=== PATIENT | female | born 1955 | race African-American/Black ===

== ENCOUNTER 2017-09-29 12:51 | Outpatient (CLI) | payer MEDICARE, OTHER ==
[~2017-09-29 12:51] MED LIST: FERUMOXYTOL (ESRD) 510 MG/NS 100 ML IV PRN
[2017-09-29 14:15] VITALS: BP 168/76
== END 2017-09-29 15:18 | disposition home or self-care (01) ==
LOC: II 12:51 → 5TH 13:02 → II 15:18
PROVIDERS: ATTEND Internal Medicine Nephrology
PROC: 3E033GC Introduction of Other Therapeutic Substance into Peripheral Vein, Percutaneous Approach (ICD-10-PCS; principal; 2017-09-29)
DX: D50.8 Other iron deficiency anemias (principal); N18.9 Chronic kidney disease, unspecified
CPT/HCPCS: 96365; Q0139

== ENCOUNTER 2017-10-09 10:31 | Emergency (ER) | payer MEDICARE, OTHER ==
--- NOTE | 2017-10-09 11:17 | ER Document Report ---
ED GI/ - General Chief Complaint: Diarrhea Stated Complaint: DIARRHEA Time Seen by Provider: 10/09/17 11:11 Mode of Arrival: Stretcher Information source: Relative, Legal Guardian Cannot obtain history due to: Other Notes: HPI-62 years old female with a history of CVA with right-sided weakness walks with a walker. Presents today with 2 day history of loose stool described as dark brown stool. Associated with abdominal cramps. No fever chills nausea vomiting or other constitutional symptoms. REVIEW OF SYSTEMS: CONSTITUTIONAL : Denies fever, chills, or sweats. Denies recent illness. EENT: Denies eye, ear, throat, or mouth pain or symptoms. Denies nasal or sinus congestion or discharge. Denies throat, tongue, or mouth swelling or difficulty swallowing. CARDIOVASCULAR: Denies chest pain. Denies palpitations or racing or irregular heart beat. Denies ankle edema. RESPIRATORY: Denies cough, cold, or chest congestion. Denies shortness of breath, difficulty breathing, or wheezing. GASTROINTESTINAL: Denies nausea, vomiting, Denies blood in vomitus, stools, or per rectum. Denies black, tarry stools. Denies constipation. GENITOURINARY: Denies difficulty urinating, painful urination, burning, frequency, blood in urine, or discharge. FEMALE GENITOURINARY: Denies vaginal bleeding, heavy or abnormal periods, irregular periods. Denies vaginal discharge or odor. MUSCULOSKELETAL: Denies back or neck pain or stiffness. Denies joint pain or swelling. SKIN: Denies rash, lesions or sores. HEMATOLOGIC : Denies easy bruising or bleeding. LYMPHATIC: Denies swollen, enlarged glands. NEUROLOGICAL: Denies confusion or altered mental status. Denies passing out or loss of consciousness. Denies dizziness or lightheadedness. Denies headache. Denies weakness or paralysis or loss of use of either side. Denies problems with gait or speech. Denies sensory loss, numbness, or tingling. Denies seizures. PSYCHIATRIC: Denies anxiety or stress. Denies depression, suicidal ideation, or homicidal ideation. ALL OTHER SYSTEMS REVIEWED AND NEGATIVE. PHYSICAL EXAMINATION: GENERAL: Well-appearing, well-nourished and in no acute distress. Not in any acute distress. HEAD: Atraumatic, normocephalic. EYES: Pupils equal round and reactive to light, extraocular movements intact, conjunctiva are normal. ENT: Nares patent, oropharynx clear without exudates. Moist mucous membranes. NECK: Normal range of motion, supple without lymphadenopathy LUNGS: Breath sounds clear to auscultation bilaterally and equal. No wheezes rales or rhonchi. HEART: Regular rate and rhythm without murmurs ABDOMEN: Soft, palpable fecal mass in the left lower quadrant. Mild tenderness. Abdomen. No guarding, no rebound. No masses appreciated. Female : deferred Musculoskeletal: Normal range of motion, no pitting or edema. No cyanosis. NEUROLOGICAL: Alert oriented 3, a phasic PSYCH: Normal mood, normal affect. SKIN: Warm, Dry, normal turgor, no rashes or lesions noted. Dictation was performed using [employer] voice recognition software TRAVEL OUTSIDE OF THE [place] IN LAST 30 DAYS: No - Related Data Allergies/Adverse Reactions: No Known Allergies Allergy (Verified 10/09/17 10:50) Past Medical History - Social History Smoking Status: Never Smoker Frequency of alcohol use: None Drug Abuse: None Family History: Reviewed & Not Pertinent Patient has suicidal ideation: No Patient has homicidal ideation: No - Past Medical History Cardiac Medical History: Reports: Hx Congestive Heart Failure, Hx Coronary Artery Disease, Hx Heart Attack - 2010, Hx Hypercholesterolemia, Hx Hypertension Denies: Hx DVT, Hx Pulmonary Embolism Pulmonary Medical History: Reports: Hx Pneumonia - Intubated last year Denies: Hx Asthma, Hx Bronchitis, Hx COPD, Hx Tuberculosis Neurological Medical History: Reports: Hx Cerebrovascular Accident - Feb 2013 left sided weakness. Denies: Hx Seizures Endocrine Medical History: Reports: Hx Diabetes Mellitus Type 1, Hx Diabetes Mellitus Type 2 - IDDM. Denies: Hx Hyperthyroidism, Hx Hypothyroidism Renal/ Medical History: Reports: Hx Renal Insufficiency. Denies: Hx Peritoneal Dialysis Malignancy Medical History: Reports: Hx Renal (Kidney) Cancer GI Medical History: Reports: Hx Gastroesophageal Reflux Disease. Denies: Hx Cirrhosis, Hx Hepatitis Musculoskeltal Medical History: Denies Hx Arthritis Skin Medical History: Denies Hx Eczema, Denies Hx Psoriasis Psychiatric Medical History: Reports: Hx Dementia - Vascular dementia, Hx Depression Infectious Medical History: Denies: Hx Hepatitis Past Surgical History: Reports: Hx Cardiac Catheterization, Hx Coronary Stent, Hx Kidney (Renal Surgery) - right nephrectomy, Hx Orthopedic Surgery - tila knee , Hx Tonsillectomy, Hx Tubal Ligation. Denies: Hx Hysterectomy, Hx Pacemaker - Immunizations Hx Diphtheria, Pertussis, Tetanus Vaccination: Yes Hx Pneumococcal Vaccination: 07/18/14 Physical Exam - Vital signs Vitals: Temp Pulse Resp BP Pulse Ox 97.6 F 67 16 141/76 H 98 10/09/17 10:37 10/09/17 10:37 10/09/17 10:37 10/09/17 10:37 10/09/17 10:37 Course - Re-evaluation Re-evalutation: 10/09/17 13:00 Stable and unremarkable - Vital Signs Vital signs: Temp Pulse Resp BP Pulse Ox 97.6 F 67 16 141/76 H 98 10/09/17 10:37 10/09/17 10:37 10/09/17 10:37 10/09/17 10:37 10/09/17 10:37 - Laboratory Result Diagrams: 10/09/17 10:55 10/09/17 10:55 Laboratory results interpreted by me: 10/09/17 10/09/17 10:55 10:55 RBC 3.49 L Hgb 9.3 L Hct 28.8 L MCH 26.7 L Monocytes % 13.3 H Chloride 115 H Carbon Dioxide 19 L BUN 65 H Creatinine 5.05 H Est GFR ( Amer) 10 L Est GFR (Non-Af Amer) 9 L Glucose 119 H Calcium 8.2 L Total Protein 5.5 L Albumin 2.6 L - Diagnostic Test Radiology reviewed: Reports reviewed Radiology results interpreted by me: 10/09/17 13:00 Showed large amount of fecal material otherwise no air-fluid levels or distention of the bowel loop noted Discharge - Discharge Clinical Impression: Constipation by delayed colonic transit, Acute worsening of stage 3 chronic kidney disease Abdominal pain Qualifiers: Abdominal location: generalized Qualified Code(s): R10.84 - Generalized abdominal pain Condition: Fair Disposition: HOME, SELF-CARE Instructions: Bulk Laxatives Prescriptions: Lactulose 20 gm PO BID #240 solution
[2017-10-09 11:25] LABS: ABSOLUTE EOSINOPHILS # (AUTO) 0.1 10^3/uL (0.0-0.6); ABSOLUTE LYMPHOCYTES (AUTO) 1.5 10^3/uL (0.5-4.7); ABSOLUTE MONOCYTES (AUTO) 0.7 10^3/uL (0.1-1.4); ABSOLUTE NEUT (AUTO) 2.6 10^3/uL (1.7-8.2); EOSINOPHILS % (AUTO) 1.7 % (0-6); HEMATOCRIT 28.8 % (36.0-47.0); HEMOGLOBIN 9.3 g/dL (12.0-15.5); LYMPHOCYTES % (AUTO) 31.2 % (13-45); MEAN CORPUSCULAR HEMOGLOBIN 26.7 pg (27.0-33.4); MEAN CORPUSCULAR HGB CONC 32.4 g/dL (32.0-36.0); MEAN CORPUSCULAR VOLUME 83 fl (80-97); MONOCYTES % (AUTO) 13.3 % (3-13); PLATELET COUNT 247 10^3/uL (150-450); RED BLOOD COUNT 3.49 10^6/uL (3.72-5.28); RED CELL DISTRIBUTION WIDTH 13.3 % (11.5-14.0); SEGMENTED NEUTROPHILS % (AUTO) 52.8 % (42-78); TOTAL CELLS COUNTED % (AUTO) 100 %; WHITE BLOOD COUNT 4.9 10^3/uL (4.0-10.5)
[2017-10-09 11:40] LABS: ALANINE AMINOTRANSFERASE 34 U/L (9-52); ALBUMIN 2.6 g/dL (3.5-5.0); ALKALINE PHOSPHATASE 63 U/L (38-126); ANION GAP 8 (5-19); ASPARTATE AMINO TRANSFERASE 27 U/L (14-36); BILIRUBIN,DIRECT 0.3 mg/dL (0.0-0.4); BILIRUBIN,TOTAL 0.3 mg/dL (0.2-1.3); BLOOD UREA NITROGEN 65 mg/dL (7-20); CALCIUM 8.2 mg/dL (8.4-10.2); CARBON DIOXIDE 19 mmol/L (22-30); CHLORIDE 115 mmol/L (98-107); GLUCOSE 119 mg/dL (75-110); LIPASE 157.7 U/L (23-300); POTASSIUM 4.4 mmol/L (3.6-5.0); SODIUM 142.1 mmol/L (137-145); TOTAL PROTEIN 5.5 g/dL (6.3-8.2)
--- NOTE | 2017-10-09 11:41 | RADIOLOGY REPORT (SQ) ---
EXAM DESCRIPTION: KUB/ABDOMEN (SINGLE VIEW) COMPLETED DATE/TIME: 10/09/2017 11:31 am REASON FOR STUDY: Abdominal pain COMPARISON: None. NUMBER OF VIEWS: One view. TECHNIQUE: Supine radiographic image of the abdomen acquired. LIMITATIONS: None. FINDINGS: BOWEL GAS PATTERN: Normal bowel gas pattern. No dilated loops. CALCIFICATIONS: No suspicious calcifications. SOFT TISSUES: No gross mass or suggestion of organomegaly. HARDWARE: Surgical clips. BONES: No acute fracture. No worrisome bone lesions. OTHER: No other significant finding. IMPRESSION: NO RADIOGRAPHIC EVIDENCE FOR ACUTE ABDOMINAL DISEASE. TECHNICAL DOCUMENTATION: JOB ID: [id number] [employer]- All Rights Reserved Reading location - IP/workstation name: [email or web address]
[2017-10-09 13:21] VITALS: BP 158/78
== END 2017-10-09 13:29 | disposition home or self-care (01) ==
LOC: ER 10:31
DX: K59.01 Slow transit constipation (principal); I12.9 Hypertensive chronic kidney disease with stage 1 through stage 4 chronic kidney disease, or unspecified chronic kidney disease; E11.22 Type 2 diabetes mellitus with diabetic chronic kidney disease; N18.3 Chronic kidney disease, stage 3 (moderate); Z90.5 Acquired absence of kidney; R10.84 Generalized abdominal pain; I25.10 Atherosclerotic heart disease of native coronary artery without angina pectoris; I25.2 Old myocardial infarction; Z95.5 Presence of coronary angioplasty implant and graft
CPT/HCPCS: 36415; 74018; 80048; 80076; 83690; 85025; 99284

== ENCOUNTER 2018-02-18 01:56 | Inpatient (IN) | payer MEDICARE, OTHER ==
[2018-02-18] MEDS ORDERED: FENTANYL CITRATE INJ/PF 100 MCG/2 ML AMPUL IV ONE (02:50)
--- NOTE | 2018-02-18 03:58 | RADIOLOGY REPORT (SQ) ---
EXAM DESCRIPTION: XR HIP 2 OR MORE VIEWS COMPLETED DATE/TME: 02/18/2018 02:49 CLINICAL HISTORY: 63 years, Female, trauma COMPARISON: None. NUMBER OF VIEWS: 2 LIMITATIONS: None. FINDINGS: Comminuted fracture of the right femoral neck with 1.7 cm lateral displacement and moderate medial angulation. Right lower abdominal surgical clips. Atherosclerosis. IMPRESSION: Fracture of the right femoral neck.
--- NOTE | 2018-02-18 04:02 | RADIOLOGY REPORT (SQ) ---
EXAM DESCRIPTION: CT HEAD WITHOUT IV CONTRAST COMPLETED DATE/TME: 02/18/2018 03:04 CLINICAL HISTORY: 63 years Female, trauma COMPARISON: None. TECHNIQUE: No contrast. Coronal and sagittal reformat. This exam was performed according to our departmental dose-optimization program, which includes automated exposure control, adjustment of the mA and/or kV according to patient size and/or use of iterative reconstruction technique. FINDINGS: No hemorrhage or infarct. No mass, mass effect, or midline shift. Atherosclerosis, moderate encephalomalacia of predominantly the left parietal, temporal, and occipital lobes with ex vacuo enlargement of the posterior left lateral ventricle, mild parenchymal volume loss, mild white matter microangiopathy, and no suspicious interval change compared with prior CT and MRI, July 03, 2016. Brain and extra-axial structures appear otherwise intact. IMPRESSION: No acute findings. Chronic left cerebral infarct.
--- NOTE | 2018-02-18 04:13 | RADIOLOGY REPORT (SQ) ---
EXAM DESCRIPTION: XR CHEST 1 VIEW COMPLETED DATE/TME: 02/18/2018 03:50 CLINICAL HISTORY: 63 years Female, preop COMPARISON: May 05, 2016. NUMBER OF VIEWS/TECHNIQUE: 1/AP FINDINGS: Low lung volume, prominent interstitium, normal cardiac silhouette, atherosclerosis, and intact bony thorax. IMPRESSION: No acute cardiopulmonary findings.
--- NOTE | 2018-02-18 04:13 | RADIOLOGY REPORT (SQ) ---
EXAM DESCRIPTION: XR KNEE 3 VIEWS COMPLETED DATE/TME: 02/18/2018 02:49 CLINICAL HISTORY: 63 years, Female, trauma COMPARISON: None. NUMBER OF VIEWS: 3 LIMITATIONS: None. FINDINGS: Moderate right patellofemoral osteoarthritis includes moderate osteophytes and small subchondral lucency due to degenerative cyst or erosion, small effusion, small anterior tibial tubercle enthesophyte. IMPRESSION: No acute findings.
--- NOTE | 2018-02-18 04:39 | ER Document Report ---
ED General - General Chief Complaint: Fall Injury Stated Complaint: RIGHT LEG PAIN Time Seen by Provider: 02/18/18 02:28 Notes: Patient is a 63-year-old female with complaint of right hip pain after fall. Patient's does have history of atrial fibrillation. She is on Eliquis because of this. She denies any chest pain or shortness of breath. She denies any headache or neck pain or back pain. She denies any pain in her upper extremities. No pain in her abdomen. The only pain she has is in her right hip and right thigh. She denies any weakness or numbness into her feet. Family is at bedside. This a patient is unsteady on her feet and supposed to use a walker but frequently at nighttime she will try to go to the bathroom as opposed to using the bedside commode. When she does that she typically will fall. Family feels that this is what happened tonight and the patient also agrees that this is why she fell. Patient has history of renal insufficiency is followed by Dr. Chaparro Bullard. TRAVEL OUTSIDE OF THE [place] IN LAST 30 DAYS: No - Related Data Allergies/Adverse Reactions: No Known Allergies Allergy (Verified 10/09/17 10:50) Past Medical History - Social History Smoking Status: Unknown if Ever Smoked Frequency of alcohol use: None Drug Abuse: None Family History: Reviewed & Not Pertinent Patient has suicidal ideation: No Patient has homicidal ideation: No - Past Medical History Cardiac Medical History: Reports: Hx Congestive Heart Failure, Hx Coronary Artery Disease, Hx Heart Attack - 2010, Hx Hypercholesterolemia, Hx Hypertension Denies: Hx DVT, Hx Pulmonary Embolism Pulmonary Medical History: Reports: Hx Pneumonia - Intubated last year Denies: Hx Asthma, Hx Bronchitis, Hx COPD, Hx Tuberculosis Neurological Medical History: Reports: Hx Cerebrovascular Accident - Feb 2013 left sided weakness. Denies: Hx Seizures Endocrine Medical History: Reports: Hx Diabetes Mellitus Type 1, Hx Diabetes Mellitus Type 2 - IDDM. Denies: Hx Hyperthyroidism, Hx Hypothyroidism Renal/ Medical History: Reports: Hx Renal Insufficiency. Denies: Hx Peritoneal Dialysis Malignancy Medical History: Reports: Hx Renal (Kidney) Cancer GI Medical History: Reports: Hx Gastroesophageal Reflux Disease. Denies: Hx Cirrhosis, Hx Hepatitis Musculoskeletal Medical History: Denies Hx Arthritis Skin Medical History: Denies Hx Eczema, Denies Hx Psoriasis Psychiatric Medical History: Reports: Hx Dementia - Vascular dementia, Hx Depression Infectious Medical History: Denies: Hx Hepatitis Past Surgical History: Reports: Hx Cardiac Catheterization, Hx Coronary Stent, Hx Kidney (Renal Surgery) - right nephrectomy, Hx Orthopedic Surgery - tila knee , Hx Tonsillectomy, Hx Tubal Ligation. Denies: Hx Hysterectomy, Hx Pacemaker - Immunizations Hx Diphtheria, Pertussis, Tetanus Vaccination: Yes Hx Pneumococcal Vaccination: 07/18/14 Review of Systems - Review of Systems Notes: My Normal Review Basic REVIEW OF SYSTEMS: CONSTITUTIONAL : Denies fever, chills, or sweats. Denies recent illness. EENT: Denies eye, ear, throat, or mouth pain or symptoms. Denies nasal or sinus congestion. CARDIOVASCULAR: Denies chest pain. RESPIRATORY: Denies cough, cold, or chest congestion. Denies shortness of breath, difficulty breathing, or wheezing. GASTROINTESTINAL: Denies abdominal pain. Denies nausea, vomiting, or diarrhea. Denies constipation. Last BM: MUSCULOSKELETAL: Right hip pain SKIN: Denies rash or skin lesions. HEMATOLOGIC : On Eliquis. NEUROLOGICAL: Denies altered mental status or loss of consciousness. Denies headache. Denies weakness or paralysis or loss of use of either side. Denies problems with gait or speech. Denies sensory or motor loss. ALL OTHER SYSTEMS REVIEWED AND NEGATIVE. Physical Exam - Notes Notes: General Appearance: Well nourished, alert, cooperative, no acute distress, mild obvious discomfort. Vitals: reviewed, See vital signs table. Head: no swelling or tenderness to the head Eyes: PERRL, EOMI, Conjuctiva clear Mouth: No decreasd moisture Throat: No tonsillar inflammation, No airway obstruction, Neck: Supple, no neck tenderness Lungs: No wheezing, No rales, No rhonci, No accessory muscle use, good air exchange bilaterally. Heart: Normal rate, Regular rythm, No murmur, no rub Abdomen: Normal BS, soft, No rigidity, No abdominal tenderness, No guarding, no rebound, no abdominal masses, no organomegaly Extremities: strength 5/5 in all extremities, good pulses in all extremities, with palpation of her right hip. Mild pain to palpation just above right knee. Remainder of right lower extremity is nontender. Other 3 extremities are nontender and have full range of motion without pain., no edema. Skin: warm, dry, appropriate color, no rash Neuro: speech clear, oriented x 3, normal affect, responds appropriately to questions. Cranial nerves II through XII are intact. Distal sensation intact. Course - Re-evaluation Re-evalutation: 02/18/18 05:54 Unfortunately patient does have a right hip fracture. CT scan of the head is negative. Laboratory evaluation shows her chronic renal sufficiency but is otherwise unremarkable. I spoke with the family informed him of the findings. They are understanding of this. I did speak with the hospitalist, Dr. Pederson, agrees to admit the patient. - Laboratory Result Diagrams: 02/18/18 04:56 02/18/18 04:56 Laboratory results interpreted by me: 02/18/18 02/18/18 02/18/18 04:56 04:56 04:56 RBC 3.52 L Hgb 8.8 L Hct 27.1 L MCV 77 L MCH 25.0 L RDW 15.9 H Seg Neutrophils % 87.5 H Lymphocytes % 7.6 L PT 16.1 H Carbon Dioxide 19 L BUN 83 H Creatinine 4.71 H Est GFR ( Amer) 11 L Est GFR (Non-Af Amer) 9 L Glucose 192 H Direct Bilirubin 0.5 H - EKG Interpretation by Me Additional EKG results interpreted by me: 02/18/18 04:37 EKG is reviewed and interpreted by me. EKG shows regular sinus rhythm with a rate of [address] segment elevation or depression. No ischemic T-wave inversions. [place] interval, QRS duration QTc intervals are within normal range. Discharge - Discharge Clinical Impression: Hip fracture Qualifiers: Encounter type: initial encounter Fracture type: closed Laterality: right Qualified Code(s): S72.001A - Fracture of unspecified part of neck of right femur, initial encounter for closed fracture Condition: Stable Disposition: ADMITTED INPATIENT Admitting Provider: Hospitalist Unit Admitted: Telemetry Referrals: RAQUEL MINOR MD [Primary Care Provider] - Follow up as needed
[2018-02-18 05:17] LABS: ABSOLUTE LYMPHOCYTES (AUTO) 0.6 10^3/uL (0.5-4.7); ABSOLUTE MONOCYTES (AUTO) 0.3 10^3/uL (0.1-1.4); ABSOLUTE NEUT (AUTO) 7.1 10^3/uL (1.7-8.2); BASOPHILS % (AUTO) 0.5 % (0-2); EOSINOPHILS % (AUTO) 0.2 % (0-6); HEMATOCRIT 27.1 % (36.0-47.0); HEMOGLOBIN 8.8 g/dL (12.0-15.5); LYMPHOCYTES % (AUTO) 7.6 % (13-45); MEAN CORPUSCULAR HGB CONC 32.5 g/dL (32.0-36.0); MEAN CORPUSCULAR VOLUME 77 fl (80-97); MONOCYTES % (AUTO) 4.2 % (3-13); PLATELET COUNT 274 10^3/uL (150-450); RED BLOOD COUNT 3.52 10^6/uL (3.72-5.28); RED CELL DISTRIBUTION WIDTH 15.9 % (11.5-14.0); SEGMENTED NEUTROPHILS % (AUTO) 87.5 % (42-78); TOTAL CELLS COUNTED % (AUTO) 100 %; WHITE BLOOD COUNT 8.1 10^3/uL (4.0-10.5)
[2018-02-18 05:23] LABS: INTERNATIONAL RATION (INR) 1.22; PROTHROMBIN TIME 16.1 SEC (11.4-15.4)
[2018-02-18 05:24] LABS: PARTIAL THROMBOPLASTIN TIME 26.5 SEC (23.5-35.8)
[2018-02-18 05:35] LABS: ALANINE AMINOTRANSFERASE 14 U/L (9-52); ALBUMIN 3.6 g/dL (3.5-5.0); ALKALINE PHOSPHATASE 60 U/L (38-126); ANION GAP 13 (5-19); ASPARTATE AMINO TRANSFERASE 26 U/L (14-36); BILIRUBIN,DIRECT 0.5 mg/dL (0.0-0.4); BILIRUBIN,TOTAL 0.5 mg/dL (0.2-1.3); BLOOD UREA NITROGEN 83 mg/dL (7-20); CALCIUM 8.7 mg/dL (8.4-10.2); CARBON DIOXIDE 19 mmol/L (22-30); CHLORIDE 107 mmol/L (98-107); GLUCOSE 192 mg/dL (75-110); POTASSIUM 4.8 mmol/L (3.6-5.0); SODIUM 138.7 mmol/L (137-145); TOTAL PROTEIN 7.7 g/dL (6.3-8.2)
[2018-02-18] MEDS ORDERED: ONDANSETRON HCL INJ/PF 4 MG/2 ML SDV IV PRN (06:50)
--- NOTE | 2018-02-18 07:03 | PDOC H&P ---
History of Present Illness Admission Date/PCP: 02/18/18 05:58 RAQUEL MINOR MD Patient complains of: Fall and right hip pain History of Present Illness: MICHAEL BONILLA is a 63 year old female with past medical history of atrial fibrillation on Eliquis, chronic kidney disease not currently on dialysis, hypertension, CHF, CAD, diabetes, CVA with residual baseline speech difficulty who is currently living with family presents to the emergency room after mechanical fall and complaining of right hip pain. Patient normally uses a walker at home; she was trying to get out of bed and she fell. She complains of right leg and hip pain. No history of head trauma or LOC. Patient denies chest pain or shortness of breath or nausea vomiting or abdominal pain or fever or chills. On arrival to emergency room patient was awake alert oriented. Her vitals were stable. Her laboratory workup shows hemoglobin of 8.8 which is around her baseline. Her creatinine was 4.7. CT head showed no acute process except left sided remote infarct. X-ray of her hip shows right femoral neck fracture. Chest x-ray was unremarkable. EKG shows sinus rhythm. Patient was referred to hospital service for admission. Past Medical History Cardiac Medical History: Reports: Congestive Heart Failure, Coronary Artery Disease, Myocardial Infarction - 2011, Hyperlipidema, Hypertension Denies: DVT, Pulmonary Embolism Pulmonary Medical History: Reports: Pneumonia - Intubated last year Denies: Asthma, Bronchitis, Chronic Obstructive Pulmonary Disease (COPD), Tuberculosis Neurological Medical History: Denies: Seizures Endocrine Medical History: Reports: Diabetes Mellitus Type 1, Diabetes Mellitus Type 2 - IDDM Denies: Hyperthyroidism, Hypothyroidism Malignancy Medical History: Reports: Renal (Kidney) Cancer GI Medical History: Reports: Gastroesophageal Reflux Disease Denies: Cirrhosis, Hepatitis Musculoskeltal Medical History: Denies: Arthritis Skin Medical History: Denies: Eczema, Psoriasis Psychiatric Medical History: Reports: Dementia - Vascular dementia, Depression Hematology: Reports: Anemia Past Surgical History Past Surgical History: Reports: Cardiac Catheterization, Coronary Stent, Orthopedic Surgery - tila knee, Tonsillectomy, Tubal Ligation Denies: Hysterectomy, Pacemaker Social History Information Source: Patient, Relative Smoking Status: Unknown if Ever Smoked Frequency of Alcohol Use: None Hx Recreational Drug Use: No Hx Prescription Drug Abuse: No Family History Family History: Reviewed & Not Pertinent Parental Family History Reviewed: No Children Family History Reviewed: No Sibling(s) Family History Reviewed.: No Medication/Allergy Home Medications: Amlodipine Besylate 10 mg PO DAILY 07/03/16 Apixaban [Eliquis] 2.5 mg PO BID 07/03/16 Atorvastatin Calcium 80 mg PO DAILY 07/03/16 Calcium Carbonate/Vitamin D3 [Calcium 500-Vit D3 400 Tablet] 1 each PO BID 07/03 Carvedilol [Coreg] 1 tab PO Q12 07/03/16 Docusate Sodium [Colace 100 mg Capsule] 100 mg PO BID 07/03/16 Duloxetine HCl 60 mg PO DAILY 07/03/16 Esomeprazole Magnesium [Nexium] 40 mg PO DAILY 07/03/16 Ferrous Sulfate [Iron] 325 mg PO DAILY 07/03/16 Furosemide [Lasix 40 mg Tablet] 40 mg PO BID 07/03/16 Hydralazine HCl 25 mg PO TID 07/03/16 Lisinopril 10 mg PO DAILY 07/03/16 Potassium Chloride [Klor-Con 10] 10 meq PO DAILY 07/03/16 Acetaminophen [Tylenol 325 mg Tablet] 650 mg PO Q4HP PRN tablet 07/04/16 Lactulose 20 gm PO BID #240 solution 10/09/17 Allergies/Adverse Reactions: No Known Allergies Allergy (Verified 10/09/17 10:50) Review of Systems All systems: reviewed and no additional remarkable complaints except as stated Physical Exam General appearance: PRESENT: no acute distress, well-developed, well-nourished Head exam: PRESENT: atraumatic, normocephalic Eye exam: PRESENT: conjunctiva pink, EOMI, PERRLA. ABSENT: scleral icterus Ear exam: PRESENT: normal external ear exam Mouth exam: PRESENT: moist, tongue midline Neck exam: ABSENT: carotid bruit, JVD, lymphadenopathy, thyromegaly Respiratory exam: PRESENT: clear to auscultation tila. ABSENT: rales, rhonchi, wheezes Cardiovascular exam: PRESENT: RRR. ABSENT: diastolic murmur, rubs, systolic murmur GI/Abdominal exam: PRESENT: normal bowel sounds, soft. ABSENT: distended, guarding, mass, organolmegaly, rebound, tenderness Rectal exam: PRESENT: deferred Gentrourinary exam: ABSENT: ecchymosis, erythema, lacerations, lesions, scrotal swelling, testicular tenderness, urethral discharge, indwelling catheter, other Extremities exam: PRESENT: full ROM - Except right hip. ABSENT: calf tenderness , clubbing, pedal edema Musculoskeletal exam: PRESENT: other - Patient with slightly decreased range of motion and tenderness on palpation Neurological exam: PRESENT: alert, awake, oriented to person, oriented to place , oriented to time, oriented to situation, CN II-XII grossly intact, aphasic. ABSENT: motor sensory deficit Psychiatric exam: PRESENT: appropriate affect, normal mood. ABSENT: homicidal ideation, suicidal ideation Skin exam: ABSENT: rash Results Laboratory Results: All labs reviewed EKG Comments: Sinus rhythm with nonspecific ST-T changes. Impressions: Hip/Pelvis X-Ray 02/18/18 02:49 IMPRESSION: Fracture of the right femoral neck. Knee X-Ray 02/18/18 02:49 IMPRESSION: No acute findings. Head CT 02/18/18 03:04 IMPRESSION: No acute findings. Chronic left cerebral infarct. Chest X-Ray 02/18/18 03:50 IMPRESSION: No acute cardiopulmonary findings. Status: Image reviewed by me Assessment & Plan - Diagnosis (1) Hip fracture Qualifiers: Encounter type: initial encounter Fracture type: closed Laterality: right Qualified Code(s): S72.001A - Fracture of unspecified part of neck of right femur, initial encounter for closed fracture Is this a current diagnosis for this admission?: Yes Plan: Patient with right-sided femoral neck fracture due to mechanical fall. Patient will be admitted to hospitalist service for inpatient. Will consult orthopedic surgery patient will need surgical intervention. Risk benefits of surgery explained to patient and family. Continue as needed narcotics for pain control. (2) Coronary artery disease Qualifiers: Coronary Disease-Associated Artery/Lesion type: [place] artery [place] vs. transplanted heart: [place] heart Associated angina: without angina Qualified Code(s): I25.10 - Atherosclerotic heart disease of [place] coronary artery without angina pectoris Is this a current diagnosis for this admission?: No Plan: No active chest pain or shortness of breath; however due to significant cardiac history and patient will need preop cardiac evaluation. (3) Anticoagulant long-term use Is this a current diagnosis for this admission?: No Plan: Patient is currently on Eliquis which will be held at least 48 hours prior to surgery. (4) Atrial fibrillation Qualifiers: Atrial fibrillation type: chronic Qualified Code(s): I48.2 - Chronic atrial fibrillation Is this a current diagnosis for this admission?: No Plan: Patient is currently in sinus rhythm. Will hold Eliquis. (5) Chronic kidney disease (CKD) Is this a current diagnosis for this admission?: No Plan: Patient has a fistula in preparation for dialysis however she is currently not on dialysis. Creatinine at baseline. - Time Time Spent: 50 to 70 Minutes - Inpatient Certification Medical Necessity: Need Close Monitoring Due to Risk of Patient Decompensation, Need for Surgery
[2018-02-18] MEDS ORDERED: MORPHINE SULFATE 10 MG/ML INJ IV ONE (07:46)
[2018-02-18] MEDS: OXYCODONE-ACETAMINOPHEN 5-325 MG TABLET PO PRN ×2 (07:59→13:43)
[2018-02-18] MEDS: IPRATROPIUM/ALBUTEROL 0.5-2.5 MG/3 ML AMPUL NEB PRN (08:00)
--- NOTE | 2018-02-18 10:16 | PDOC CONSULTATION ---
History of Present Illness Admission Date/PCP: 02/18/18 05:58 RAQUEL MINOR MD Patient complains of: Right hip pain History of Present Illness: MICHAEL BONILLA is a 63 year old female with past medical history of atrial fibrillation on Eliquis, chronic kidney disease not currently on dialysis, hypertension, CHF, CAD, diabetes, CVA with residual baseline speech difficulty who is currently living with family presents to the emergency room after mechanical fall and complaining of right hip pain. Given patient's history of a aphasia unable to obtain full HPI but according to emergency room notes patient typically uses a walker at home and fell trying to get out of bed onto her right hip. She was brought to the emergency room due to these issues. Patient currently states pain is controlled at rest. Denies any other complaints. Able to answer questions with nonverbal cues of yes and no. On arrival to emergency room patient was awake alert oriented. Her vitals were stable. Her laboratory workup shows hemoglobin of 8.8 which is around her baseline. Her creatinine was 4.7. CT head showed no acute process except left sided remote infarct. X-ray of her hip shows right femoral neck fracture. Chest x-ray was unremarkable. EKG shows sinus rhythm. Patient was referred to hospital service for admission. Past Medical History Cardiac Medical History: Reports: Congestive Heart Failure, Coronary Artery Disease, Myocardial Infarction - 2011, Hyperlipidema, Hypertension Denies: DVT, Pulmonary Embolism Pulmonary Medical History: Reports: Pneumonia - Intubated last year Denies: Asthma, Bronchitis, Chronic Obstructive Pulmonary Disease (COPD), Tuberculosis Neurological Medical History: Denies: Seizures Endocrine Medical History: Reports: Diabetes Mellitus Type 1, Diabetes Mellitus Type 2 - IDDM Denies: Hyperthyroidism, Hypothyroidism Malignancy Medical History: Reports: Renal (Kidney) Cancer GI Medical History: Reports: Gastroesophageal Reflux Disease Denies: Cirrhosis, Hepatitis Musculoskeltal Medical History: Denies: Arthritis Skin Medical History: Denies: Eczema, Psoriasis Psychiatric Medical History: Reports: Dementia - Vascular dementia, Depression Hematology: Reports: Anemia Past Surgical History Past Surgical History: Reports: Cardiac Catheterization, Coronary Stent, Orthopedic Surgery - tila knee, Tonsillectomy, Tubal Ligation Denies: Hysterectomy, Pacemaker Social History Smoking Status: Unknown if Ever Smoked Frequency of Alcohol Use: None Hx Recreational Drug Use: No Hx Prescription Drug Abuse: No Family History Family History: Reviewed & Not Pertinent Parental Family History Reviewed: No Children Family History Reviewed: No Sibling(s) Family History Reviewed.: No Medication/Allergy Home Medications: Apixaban [Eliquis] 2.5 mg PO Q12 02/18/18 Atorvastatin Calcium [Lipitor 80 mg Tablet] 80 mg PO QHS 02/18/18 Calcium Carb/Vitamin D3/Vit K1 [Calcium + D Soft Chewable Tab] 1 tab PO BID 11/02 Carvedilol [Coreg 25 mg Tablet] 25 mg PO Q12 02/18/18 Docusate Sodium [Colace 100 mg Capsule] 100 mg PO BID 02/18/18 Duloxetine HCl [Cymbalta] 60 mg PO DAILY 02/18/18 Ergocalciferol (Vitamin D2) [Drisdol 50,000 unit (1.25MG) Capsule] 50,000 unit PO MO@1000 02/18/18 Esomeprazole Magnesium [Nexium] 40 mg PO DAILY 02/18/18 Furosemide [Lasix 40 mg Tablet] 40 mg PO DAILY 02/18/18 Hydralazine HCl [Apresoline 50 mg Tablet] 50 mg PO Q8 02/18/18 Isosorbide Mononitrate [Isosorbide Mononitrate ER] 30 mg PO Q12 02/18/18 Potassium Chloride [Klor-Con M10] 10 meq PO DAILY 02/18/18 Allergies/Adverse Reactions: No Known Allergies Allergy (Verified 10/09/17 10:50) Review of Systems ROS unobtainable: Other - Limited review of systems given patient's aphasia but able to answer yes and no nonverbally Constitutional: ABSENT: chills, fever(s), headache(s), weight gain, weight loss Eyes: ABSENT: visual disturbances Ears: ABSENT: hearing changes Cardiovascular: ABSENT: chest pain, dyspnea on exertion, edema, orthropnea, palpitations Respiratory: ABSENT: cough, hemoptysis Gastrointestinal: ABSENT: abdominal pain, constipation, diarrhea, hematemesis, hematochezia, nausea, vomiting Genitourinary: ABSENT: dysuria, hematuria Integumentary: ABSENT: rash, wounds Neurological: ABSENT: abnormal gait, abnormal speech, confusion, dizziness, focal weakness, syncope Psychiatric: ABSENT: anxiety, depression, homidical ideation, suicidal ideation Endocrine: ABSENT: cold intolerance, heat intolerance, menstrual abnormalities, polydipsia, polyuria Hematologic/Lymphatic: ABSENT: easy bleeding, easy bruising, lymphadenopathy Physical Exam Vital Signs: Temp Pulse Resp BP Pulse Ox 140/70 H 93 02/18/18 08:33 02/18/18 08:33 General appearance: PRESENT: no acute distress, well-developed, well-nourished Head exam: PRESENT: atraumatic, normocephalic Eye exam: PRESENT: conjunctiva pink, EOMI, PERRLA. ABSENT: scleral icterus Ear exam: PRESENT: normal external ear exam Mouth exam: PRESENT: moist, tongue midline Neck exam: PRESENT: full ROM. ABSENT: carotid bruit, JVD, lymphadenopathy, thyromegaly Respiratory exam: PRESENT: unlabored Cardiovascular exam: ABSENT: diastolic murmur, rubs, systolic murmur Pulses: PRESENT: normal dorsalis pedis pul, +2 pedal pulses bilateral Vascular exam: PRESENT: normal capillary refill GI/Abdominal exam: PRESENT: normal bowel sounds, soft. ABSENT: distended, guarding, mass, organolmegaly, rebound, tenderness Rectal exam: PRESENT: deferred Musculoskeletal exam: PRESENT: other - Right lower extremity: Limb length inequality with short next rotated extremity. Positive logroll. Minimal swelling along the thigh. Compartments soft and compressible. Intact plantar flexion/dorsiflexion however limited secondary to pain. No sensory deficits. Neurological exam: PRESENT: alert, awake, oriented to person, oriented to place , oriented to time, oriented to situation, aphasic. ABSENT: motor sensory deficit Psychiatric exam: PRESENT: appropriate affect, normal mood. ABSENT: homicidal ideation, suicidal ideation Skin exam: PRESENT: dry, intact, warm. ABSENT: cyanosis, rash Results Impressions: Hip/Pelvis X-Ray 02/18/18 02:49 IMPRESSION: Fracture of the right femoral neck. Knee X-Ray 02/18/18 02:49 IMPRESSION: No acute findings. Head CT 02/18/18 03:04 IMPRESSION: No acute findings. Chronic left cerebral infarct. Chest X-Ray 02/18/18 03:50 IMPRESSION: No acute cardiopulmonary findings. Status: Image reviewed by me - I have reviewed patient's radiographs which demonstrate displaced right femoral neck fracture. Assessment & Plan - Diagnosis (1) Displaced fracture of right femoral neck Is this a current diagnosis for this admission?: Yes Plan: Given patient's previous ambulatory status I feel patient would benefit from operative intervention. But given her Eliquis would recommend delay of operative intervention for at least 48 hours to decrease risk of intraoperative bleeding given patient's multiple other medical comorbidities. At this point will plan on proceeding with definitive operative treatment on 02/20/2018 if medically optimized. Surgery would include right hip hemiarthroplasty.
--- NOTE | 2018-02-18 10:44 | EKG REPORT ---
SEVERITY:- ABNORMAL ECG - SINUS RHYTHM NONSPECIFIC T ABNORMALITIES, LATERAL LEADS : Confirmed by: Lalo Martines 18-Feb-2018 10:43:37
[2018-02-18] MEDS ORDERED: DEXTROSE 50%-WATER 25 GM/50 ML DISP.SYRIN IV PRN ×2 (13:22)
[2018-02-18] MEDS ORDERED: DEXTROSE 40% GEL 15 GM TUBE PO PRN ×2 (13:22)
[2018-02-18] MEDS ORDERED: GLUCAGON,HUMAN RECOMB 1 MG INJ IM PRN (13:22)
[2018-02-18] MEDS ORDERED: HEPARIN SOD (PORCINE) 1,000 UNIT/ML 10 ML VIAL IV ONE (14:00)
[2018-02-18] MEDS: HEPARIN SODIUM,PORCINE/D5W 25,000 UNIT/250 ML RTUINJ IV PRN (14:52)
[2018-02-18 15:01] LABS: ABSOLUTE BASOPHILS # (AUTO) 0.1 10^3/uL (0.0-0.2); ABSOLUTE LYMPHOCYTES (AUTO) 0.8 10^3/uL (0.5-4.7); ABSOLUTE MONOCYTES (AUTO) 0.4 10^3/uL (0.1-1.4); ABSOLUTE NEUT (AUTO) 3.4 10^3/uL (1.7-8.2); BASOPHILS % (AUTO) 1.1 % (0-2); EOSINOPHILS % (AUTO) 0.5 % (0-6); HEMATOCRIT 26.2 % (36.0-47.0); HEMOGLOBIN 8.5 g/dL (12.0-15.5); LYMPHOCYTES % (AUTO) 16.9 % (13-45); MEAN CORPUSCULAR HEMOGLOBIN 24.9 pg (27.0-33.4); MEAN CORPUSCULAR HGB CONC 32.4 g/dL (32.0-36.0); MEAN CORPUSCULAR VOLUME 77 fl (80-97); MONOCYTES % (AUTO) 8.3 % (3-13); PLATELET COUNT 212 10^3/uL (150-450); RED BLOOD COUNT 3.41 10^6/uL (3.72-5.28); RED CELL DISTRIBUTION WIDTH 16.3 % (11.5-14.0); SEGMENTED NEUTROPHILS % (AUTO) 73.2 % (42-78); TOTAL CELLS COUNTED % (AUTO) 100 %; WHITE BLOOD COUNT 4.7 10^3/uL (4.0-10.5)
[2018-02-18 15:24] LABS: INTERNATIONAL RATION (INR) 1.34; PROTHROMBIN TIME 17.2 SEC (11.4-15.4)
[2018-02-18] MEDS ORDERED: HEPARIN SOD (PORCINE) 1,000 UNIT/ML 10 ML VIAL IV PRN (16:09)
--- NOTE | 2018-02-18 16:12 | Progress Note ---
Provider Note Provider Note: Assume care. Patient was reassessed. Patient has high CHADVASC score. She will need to begin anticoagulation while awaiting for surgery. She will be started on heparin drip. Discussed with cardiology who agrees with plan. Updated Dr. Jolley who prefers to hold the heparin 10-12 hours prior to surgery. Son updated about plan on bedside.
[2018-02-18] MEDS: INSULIN REG, HUMAN 100 UNIT/ML 3 ML VIAL (PYX) SUBCUT PRN ×2 (19:03→22:48)
--- NOTE | 2018-02-18 19:41 | XCELERA REPORT ---
[address] [address] Transthoracic Echocardiogram Report Name: MICHAEL BONILLA Age: 63 yrs Gender: Female : 1955 Patient Status: Inpatient Patient Location: [address] [place] [address] Study Date: 02/18/2018 01:49 PM Height: 66 in Weight: 176 lb BSA: 1.9 m2 Procedure: A two-dimensional transthoracic echocardiogram with color flow Doppler was performed. Study Quality: Good. Reason For Study: PA FIB / MURMUR / PRE-OP History: PA FIB / MURMUR / PRE-OP. Ordering Physician: JANEY MCINTOSH Performed By: Jose De Jesus Christianson Interpretation Summary The left ventricle is normal in size. There is mild concentric left ventricular hypertrophy. LV EF is > than 60% Left ventricular systolic function is normal. Doppler measurements suggest impaired left ventricular relaxation, which is associated with grade I/IV or mild diastolic dysfunction The left ventricular wall motion is normal. There is no thrombus. There is no ventricular septal defect visualized. The right ventricle is normal in size and function. The right atrium is normal. The left atrial size is normal. There is no evidence of mitral valve prolapse. There is no vegetation seen on the mitral valve. There is no mitral valve stenosis. There is a moderate amount of mitral regurgitation There is moderate mitral annular calcification. There is no aortic valvular vegetation. There is Aortic Sclerosis without Aortic Stenosis No aortic regurgitation is present. There is no tricuspid stenosis. There is a trace amount of tricuspid regurgitation Unable to calculate RVSP due to insufficient TR jet. There is no pulmonic valvular stenosis. There is a trace amount of pulmonic regurgitation The aortic root is normal size. There is no pericardial effusion. MMode/2D Measurements & Calculations RVDd: 2.3 cm LVIDd: 4.3 cm FS: 31.3 % Ao root diam: 3.5 cm IVSd: 1.3 cm LVIDs: 2.9 cm EDV(Teich): 82.1 ml LVPWd: 1.2 cm ESV(Teich): 33.4 ml Ao root area: 9.5 cm2 EF(Teich): 59.4 % LA dimension: 3.0 cm LVOT diam: 2.1 cm LVOT area: 3.6 cm2 Doppler Measurements & Calculations MV E max dwain: MV P1/2t max dwain: Ao V2 max: LV V1 max P.2 cm/sec 66.4 cm/sec 139.8 cm/sec 2.8 mmHg MV A max dwain: MV P1/2t: 96.5 msec Ao max PG: LV V1 max: 112.5 cm/sec MVA(P1/2t): 2.3 cm2 7.8 mmHg 83.3 cm/sec MV E/A: 0.55 MV dec slope: RAFAEL(V,D): 2.1 cm2 LV dP/dt: 201.5 cm/sec2 757.0 mmHg/s MV dec time: 0.28 sec PA V2 max: PI end-d dwain: 61.7 cm/sec 143.6 cm/sec PA max P.5 mmHg Left Ventricle The left ventricle is normal in size. There is mild concentric left ventricular hypertrophy. LV EF is > than 60%. Left ventricular systolic function is normal. Doppler measurements suggest impaired left ventricular relaxation, which is associated with grade I/IV or mild diastolic dysfunction. The left ventricular wall motion is normal. There is no thrombus. There is no ventricular septal defect visualized. Right Ventricle The right ventricle is normal in size and function. Atria The right atrium is normal. The left atrial size is normal. Mitral Valve There is moderate mitral annular calcification. There is no evidence of mitral valve prolapse. There is no vegetation seen on the mitral valve. There is no mitral valve stenosis. There is a moderate amount of mitral regurgitation. Aortic Valve The aortic valve is trileaflet. The aortic valve opens well. There is no aortic valvular vegetation. There is Aortic Sclerosis without Aortic Stenosis. No aortic regurgitation is present. Tricuspid Valve There is no tricuspid stenosis. Unable to calculate RVSP due to insufficient TR jet. There is a trace amount of tricuspid regurgitation. Pulmonic Valve There is no pulmonic valvular stenosis. There is a trace amount of pulmonic regurgitation. Great Vessels The aortic root is normal size. Effusions There is no pericardial effusion. : JANEY MCINTOSH > Janey Mcintosh
[2018-02-18] MEDS: INSULIN GLARGINE,HUM.REC.ANLOG 300 UNIT/3 ML INSULN.PEN SUBCUT SCH (22:46)
[2018-02-19] MEDS: OXYCODONE-ACETAMINOPHEN 5-325 MG TABLET PO PRN ×3 (04:24→22:33)
[2018-02-19] MEDS: INSULIN REG, HUMAN 100 UNIT/ML 3 ML VIAL (PYX) SUBCUT PRN ×4 (10:12→22:31)
[2018-02-19] MEDS: ACETAMINOPHEN 325 MG TABLET PO PRN (12:01)
[2018-02-19 12:44] LABS: AMORPHOUS SEDIMENT,URINE TRACE /HPF; APPEARANCE,URINE CLEAR; BILIRUBIN,URINE NEGATIVE (NEGATIVE); COLOR,URINE YELLOW; GLUCOSE, URINE 50 mg/dL (NEGATIVE); KETONES,URINE NEGATIVE (NEGATIVE); LEUKOCYTE ESTERASE,URINE NEGATIVE (NEGATIVE); NITRITE,URINE NEGATIVE (NEGATIVE); PROTEIN,URINE >=500 mg/dL (NEGATIVE); URINE SPECIFIC GRAVITY 1.012; UROBILINOGEN,URINE NEGATIVE mg/dL (<2.0)
[2018-02-19] MEDS ORDERED: DEXTROSE 40% GEL 15 GM TUBE PO PRN ×2 (13:47)
[2018-02-19] MEDS ORDERED: DEXTROSE 50%-WATER 25 GM/50 ML DISP.SYRIN IV PRN ×2 (13:47)
[2018-02-19] MEDS ORDERED: GLUCAGON,HUMAN RECOMB 1 MG INJ SUBCUT PRN (13:47)
--- NOTE | 2018-02-19 13:47 | PDOC PROGRESS REPORT ---
Subjective Progress Note for:: 02/19/18 Subjective:: Patient lying in bed comfortably. Pain currently controlled. No issues overnight. Reason For Visit: HIP FX Physical Exam Vital Signs: Temp Pulse Resp BP Pulse Ox 101.9 F H 89 20 188/78 H 95 02/19/18 11:22 02/19/18 11:22 02/19/18 11:22 02/19/18 11:22 02/19/18 11:22 Intake & Output 02/18/18 02/19/18 02/20/18 06:59 06:59 06:59 Intake Total 719 Balance 719 Weight 85.6 kg General appearance: PRESENT: no acute distress, disheveled Musculoskeletal exam: PRESENT: other - Right hip: Short and externally rotated positive logroll. Intact plantar flexion/dorsiflexion. No calf tenderness. Results Laboratory Results: 02/18/18 14:34 02/18/18 02/18/18 02/19/18 14:34 20:35 12:22 WBC 4.7 RBC 3.41 L Hgb 8.5 L Hct 26.2 L MCV 77 L MCH 24.9 L MCHC 32.4 RDW 16.3 H Plt Count 212 Seg Neutrophils % 73.2 Lymphocytes % 16.9 Monocytes % 8.3 Eosinophils % 0.5 Basophils % 1.1 Absolute Neutrophils 3.4 Absolute Lymphocytes 0.8 Absolute Monocytes 0.4 Absolute Eosinophils 0.0 Absolute Basophils 0.1 Urine Color YELLOW Urine Appearance CLEAR Urine pH 5.0 Ur Specific [place] 1.012 Urine Protein >=500 H Urine Glucose (UA) 50 H Urine Ketones NEGATIVE Urine Blood NEGATIVE Urine Nitrite NEGATIVE Ur Leukocyte Esterase NEGATIVE Urine WBC (Auto) 1 Urine RBC (Auto) 1 Blood Type A POSITIVE Antibody Screen NEGATIVE Impressions: Hip/Pelvis X-Ray 02/18/18 02:49 IMPRESSION: Fracture of the right femoral neck. Knee X-Ray 02/18/18 02:49 IMPRESSION: No acute findings. Head CT 02/18/18 03:04 IMPRESSION: No acute findings. Chronic left cerebral infarct. Chest X-Ray 02/18/18 03:50 IMPRESSION: No acute cardiopulmonary findings. Assessment & Plan - Diagnosis (1) Displaced fracture of right femoral neck Is this a current diagnosis for this admission?: Yes Plan: Patient would benefit from operative intervention however but given her use of Eliquis would recommend delay of operative intervention for at least 48 hours to decrease risk of intraoperative bleeding given patient's multiple other medical comorbidities, patient currently on heparin drip which will discontinue approximately 12 hours before surgery or after midnight. Current plan is proceeding with definitive operative treatment on 02/20/2018 if medically optimized. Surgery would include right hip hemiarthroplasty.
[2018-02-19] MEDS: ISOSORBIDE MONONITRATE 30 MG TAB.ER.24H PO SCH (13:54)
[2018-02-19] MEDS: HYDRALAZINE HCL 50 MG TABLET PO SCH ×2 (13:54→22:31)
--- NOTE | 2018-02-19 15:20 | PDOC PROGRESS REPORT ---
Subjective Progress Note for:: 02/19/18 Subjective:: Ms. Byrd was admitted after a mechanical fall. She sustained a right hip fracture. No acute event overnight. Patient denies any complaint. Hip pain is well controlled. Denies any cough, shortness of breath, chills or urinary symptoms. However around noontime, patient developed fever of 101.3. She is tolerating diet well. Reason For Visit: HIP FX Physical Exam Vital Signs: Temp Pulse Resp BP Pulse Ox 101.9 F H 89 20 188/78 H 95 02/19/18 11:22 02/19/18 11:22 02/19/18 11:22 02/19/18 11:22 02/19/18 11:22 Intake & Output 02/18/18 02/19/18 02/20/18 06:59 06:59 06:59 Intake Total 719 Balance 719 Weight 188 lb 11.451 oz General appearance: PRESENT: no acute distress, well-developed, well-nourished Head exam: PRESENT: atraumatic, normocephalic Eye exam: PRESENT: conjunctiva pink, EOMI, PERRLA. ABSENT: scleral icterus Neck exam: ABSENT: carotid bruit, JVD, lymphadenopathy, thyromegaly Respiratory exam: PRESENT: clear to auscultation tila. ABSENT: rales, rhonchi, wheezes Cardiovascular exam: PRESENT: RRR. ABSENT: diastolic murmur, rubs, systolic murmur Pulses: PRESENT: normal dorsalis pedis pul Vascular exam: PRESENT: normal capillary refill GI/Abdominal exam: PRESENT: normal bowel sounds, soft. ABSENT: distended, guarding, mass, organolmegaly, rebound, tenderness Rectal exam: PRESENT: deferred Extremities exam: ABSENT: calf tenderness, clubbing, pedal edema Neurological exam: PRESENT: alert, oriented to person, oriented to place, oriented to time Psychiatric exam: PRESENT: appropriate affect, normal mood. ABSENT: homicidal ideation, suicidal ideation Skin exam: PRESENT: dry, intact, warm. ABSENT: cyanosis, rash Results Laboratory Results: 02/18/18 14:34 02/18/18 02/19/18 20:35 12:22 Urine Color YELLOW Urine Appearance CLEAR Urine pH 5.0 Ur Specific [place] 1.012 Urine Protein >=500 H Urine Glucose (UA) 50 H Urine Ketones NEGATIVE Urine Blood NEGATIVE Urine Nitrite NEGATIVE Ur Leukocyte Esterase NEGATIVE Urine WBC (Auto) 1 Urine RBC (Auto) 1 Blood Type A POSITIVE Antibody Screen NEGATIVE Impressions: Hip/Pelvis X-Ray 02/18/18 02:49 IMPRESSION: Fracture of the right femoral neck. Knee X-Ray 02/18/18 02:49 IMPRESSION: No acute findings. Head CT 02/18/18 03:04 IMPRESSION: No acute findings. Chronic left cerebral infarct. Chest X-Ray 02/18/18 03:50 IMPRESSION: No acute cardiopulmonary findings. Assessment & Plan - Diagnosis (1) Displaced fracture of right femoral neck Is this a current diagnosis for this admission?: Yes Plan: Patient is scheduled to undergo a right hip hemiarthroplasty on 02/20/18. She was on Eliquis for atrial fibrillation. Eliquis will be held at least 48 hours prior to contemplating surgery. Patient is currently on heparin drip. (2) Atrial fibrillation Qualifiers: Atrial fibrillation type: chronic Qualified Code(s): I48.2 - Chronic atrial fibrillation Is this a current diagnosis for this admission?: Yes Plan: Rate controlled. Patient is currently on sinus rhythm on classroom monitor. Eliquis was held before surgery. Continue heparin drip for now. Continue Coreg. (3) Hypertension Qualifiers: Hypertension type: essential hypertension Qualified Code(s): I10 - Essential (primary) hypertension Is this a current diagnosis for this admission?: Yes Plan: Resume home meds. On hydralazine. She is also on ISMN. (4) Chronic diastolic CHF (congestive heart failure) Is this a current diagnosis for this admission?: Yes Plan: Continue Lasix, Coreg, ISMN and hydralazine. Patient is not on lisinopril or JEEVAN inhibitor due to her ESRD. Recent EF is more than 60%. (5) Fever Is this a current diagnosis for this admission?: Yes Plan: Patient has new onset fever with unknown etiology at the moment. We will also check urinalysis and blood cultures. Chest x-ray yesterday was normal. - Time Time Spent with patient: 15-24 minutes
[2018-02-19] MEDS: DOCUSATE SODIUM 100 MG CAPSULE PO SCH (17:51)
[2018-02-19] MEDS: HEPARIN SODIUM,PORCINE/D5W 25,000 UNIT/250 ML RTUINJ IV PRN (20:10)
[2018-02-19] MEDS: CARVEDILOL 12.5 MG TABLET PO SCH (22:30)
[2018-02-19] MEDS: ATORVASTATIN CALCIUM 80 MG TABLET PO SCH (22:31)
[2018-02-19] MEDS: INSULIN GLARGINE,HUM.REC.ANLOG 300 UNIT/3 ML INSULN.PEN SUBCUT SCH (22:31)
[2018-02-20 05:21] LABS: MEAN CORPUSCULAR HEMOGLOBIN 25.5 pg (27.0-33.4); MEAN CORPUSCULAR HGB CONC 33.5 g/dL (32.0-36.0); MEAN CORPUSCULAR VOLUME 76 fl (80-97); PLATELET COUNT 174 10^3/uL (150-450); RED BLOOD COUNT 3.02 10^6/uL (3.72-5.28); RED CELL DISTRIBUTION WIDTH 16.3 % (11.5-14.0); WHITE BLOOD COUNT 7.6 10^3/uL (4.0-10.5)
[2018-02-20 05:29] LABS: HEMOGLOBIN 7.7 g/dL (12.0-15.5)
[2018-02-20] MEDS: OXYCODONE-ACETAMINOPHEN 5-325 MG TABLET PO PRN (05:44)
[2018-02-20] MEDS: HYDRALAZINE HCL 50 MG TABLET PO SCH ×3 (05:44→22:41)
[2018-02-20] MEDS: LANSOPRAZOLE 30 MG TAB.RAP.DR PO SCH (06:27)
[2018-02-20] MEDS ORDERED: RINGERS SOLUTION,LACTATED 1,000 ML IV PRN ×2 (07:18→16:24)
[2018-02-20] MEDS ORDERED: VANCOMYCIN HCL 1,000 MG in DEXTROSE 5%-WATER 250 ML IV PRN (07:19)
--- NOTE | 2018-02-20 09:30 | CONSULTATION REPORT E ---
Consultation Report NAME: MICHAEL BONILLA : 1955 AGE: 63Y DATE: 02/19/2018 ROOM: 409 A TO: RODNEY MCINTOSH M.D. FROM: ABDIFATAH TOUSSAINT Requesting Physician REASON FOR CONSULTATION: Preoperative cardiac assessment for patient having hip surgery with a history of coronary artery disease, chronic kidney disease stage 4, history of congestive heart failure and paroxysmal atrial fibrillation, and history of CVA. HISTORY OF PRESENT ILLNESS: The patient is a 63-year-old -Indian female with multiple medical problems, including coronary artery disease, history of IN, history of stent in unknown vessel, hypertension, history of diabetes mellitus, history of hypertension, history of paroxysmal atrial fibrillation, history of chronic kidney disease stage 4 who was able to walk with a walker after her CVA. Since the CVA the patient is dysphasic and can only say yes for everything, so history cannot be obtained from the patient. I did speak to the son yesterday and as per him the patient was walking with a walker and had an accidental fall. There was no syncope. The patient complained of right hip pain and was found to have a fracture of the right hip and is for surgical repair of the same. The surgery has been rescheduled later on since the patient is on Eliquis and Eliquis has been stopped. In view of the patient's prior CVA the patient is on a heparin bridge. As per the son there is no recent complaints of chest pain, no recent complaints of shortness of breath, no recent rapid heartbeat, no recurrence of TIA or CVA symptoms, and no leg edema. PAST MEDICAL HISTORY: Positive for history of coronary artery disease, history of IN with stent placement in unknown vessel. She also has a history of hypertension and diabetes mellitus. She has no thyroid disease. She has chronic kidney disease stage 4. She also has a history of paroxysmal atrial fibrillation and at present is in sinus rhythm and is on Eliquis. She has past history of a right nephrectomy for renal cell carcinoma with no recurrence and no metastases. She has had a history of stroke in 2012 and has mild right-sided weakness but is able to walk with a walker. She also is dysphasic. She has no history of sleep apnea. There is no history of asthma or COPD. There is no history of anxiety or depression. PAST SURGICAL HISTORY: Positive for right nephrectomy. She also had a cardiac catheterization and stent placement. She has had bilateral knee surgery. She has had total hysterectomy and tubal ligation. ALLERGIES: The patient has no known allergies. MEDICATIONS: 1. She is on heparin drip full dose as a bridge prior to her surgery. Patient is off Eliquis. 2. She is on Tylenol 650 mg p.o. every 4 hours p.r.n. 3. She is on Lipitor 80 mg p.o. at bedtime. 4. She is on Coreg 25 mg p.o. every 12 hours. 5. She is on hypoglycemic precautions with glucose 40% gel 15 grams and 30 grams p.o. respectively p.r.n. hypoglycemia. 6. She is on dextrose 50% 12.5 grams and 25 grams IV p.r.n. respectively hypoglycemia. 7. She is also on Colace 100 mg p.o. b.i.d. 8. She is on Fentanyl 30 mcg IV x1. 9. She is on Lasix 40 mg p.o. daily. 10. She is on Glucagon 1 mg IM p.r.n. 11. She is on hydralazine 50 mg p.o. every 8 hours. 12. She is on Lantus *------* units subcutaneously at bedtime. 13. She is on Accu-Cheks before meals t.i.d. and at bedtime with sliding scale regular insulin coverage. 14. She is on ipratropium and albuterol sulfate 3 mL via nebulizer treatment every 12 hours p.r.n. 15. She is on isosorbide mononitrate 15 mg p.o. daily. 16. She is on lansoprazole 30 mg p.o. every 6 a.m. 17. She is on morphine 5 mg IV push x1. 18. She is on Zofran 4 mg IV every 6 hours p.r.n. 19. She is on oxycodone/acetaminophen 1 tablet p.o. every 4 hours p.r.n. CODE STATUS: THE PATIENT IS A FULL CODE. Her son is her surrogate healthcare decision maker. REVIEW OF SYSTEMS: Limited since the patient cannot give an answer to all the questions in the review of systems, but as per the son there is no history of recent fever, chills, or rigors. There is no recent rapid heartbeat or chest pain. There is no recurrence of TIA or CVA symptoms. There are no symptoms of congestive heart failure. The son states that her blood sugar is well controlled and there is no hypoglycemic episodes. There is no seizures. There is no history of cough or sputum production or wheezing. PHYSICAL EXAMINATION: GENERAL: The patient appears to be mildly obese but appears to be chronically ill. She is well groomed at present, in no acute distress. VITAL SIGNS: She is afebrile with a temperature of 98.5 degrees Fahrenheit. Pulse is 80 beats per minute. Blood pressure is 177/77. Respirations are 20 per minute. O2 sats are 94% on room air. HEENT: Head - Atraumatic, normocephalic. Eyes - Pupils are equal, round, regular, reactive to light. Ears - Tympanic membranes are intact. External auditory canals are clear. Nose - There is no deviated nasal septum. There is no inflammation of the nasal mucous membranes. Mouth - Mucous membranes of the mouth are moist. Tongue is moist. There are no ulcers. There is no bleeding from the gums. Throat - There is no redness of the oropharynx. There are no exudates. SKIN: There are no skin rashes. There is no petechia or ecchymosis. NECK: Supple. There is no JVD. Carotids are equal. There is no bruit. There is no thyromegaly. Trachea is central. LUNGS: Clear to auscultation and percussion. There is no chest wall tenderness. There are no accessory muscles of respiration in use. On percussion there is no hyperresonance or dullness. On auscultation lungs are clear without any rhonchi, rales, or wheezing. HEART: S1, S2 is heard. There is no S3 gallop. There is no S4 gallop. S1 is normal intensity. There is a systolic murmur at the left sternal border and the apex without radiation. There is no rub. ABDOMEN: Soft, obese, nontender. There is no hepatosplenomegaly. Bowel sounds are well heard. EXTREMITIES: There is no pedal edema. Femorals are diminished. There are no femoral bruits. Leg pulses are diminished. There is no pedal edema. There is no DVT or cellulitis. There is no cyanosis or clubbing. There is no calf tenderness. CENTRAL NERVOUS SYSTEM: The patient is conscious. She is dysphasic with very minimal right-sided weakness. PSYCHIATRIC: She does not appear to be agitated. Psychiatric exam could not be conducted. DIAGNOSTICS: The patient's white count is 4700, hemoglobin is 8.5, hematocrit is 26.2, and platelet count is 412,000. The patient's PTT is 48.7 on IV heparin drip. The patient's sodium is 138.7, potassium 4.8, chloride 107, CO2 is 90. The patient's BUN is 83, creatinine is 4.71, GFR is 11, which is now stage 5. Her glucose is 192, her calcium is 8.7. Her liver function tests are normal except for a slightly elevated direct bilirubin of 0.5. Her total protein is 7.7 and albumin is 3.6. IMPRESSION: 1. Accidental fall and fracture of right hip, for surgical repair. Surgery has been postponed since the patient was on Eliquis, which has been stopped. 2. Coronary artery disease with history of IN and history of stent. No anginal symptoms. 3. History of congestive heart failure. 4. Hypertension. 5. History of chronic kidney disease stage 5, which makes this acute on chronic kidney disease. Usually the patient is chronic kidney disease stage 3 to 4. 6. Diabetes mellitus. 7. Hypertension. Blood pressure is not well controlled. We will recommend increasing the patient's blood pressure medications. 8. Hyperlipidemia. 9. Paroxysmal atrial fibrillation, at present in sinus rhythm. Continue metoprolol. 10. Preoperative cardiac risk assessment. Note, patient had an echocardiogram on the 4th which showed the left ventricle is normal in size, there is mild concentric left ventricular hypertrophy. The ejection fraction is greater than 60%. Left ventricular systolic function is normal. Left ventricular wall motion is normal. There is grade 1/4 mild diastolic dysfunction. There is no evidence of mitral valve prolapse. There is no mitral valve stenosis. There is a moderate amount of mitral regurgitation. There is moderate mitral annular calcification. There is aortic sclerosis without stenosis. There is no aortic regurgitation. There is a trace amount of tricuspid regurgitation. Unable to calculate right ventricular systolic pressure due to insufficiency of jet. There is no pericardial effusion. RECOMMENDATIONS: We will continue the patient's heparin and stop it on the night before surgery and restart the patient on anticoagulation orally as soon as possible post surgery. The patient has multiple comorbidities and with the patient's age and patient appears older than her stated age and chronically ill; hence, the patient will be moderate cardiac risk for this procedure, although acceptable cardiac risk. Postoperatively we will get serial EKGs and monitor the patient to make sure the patient does not go back into atrial fibrillation. We will get serial cardiac enzymes to make sure the patient has no perioperative IN and also watch for congestive heart failure and recurrence of atrial fibrillation or development of ventricular arrhythmias. Note, her medications have been reviewed and discussed with the hospitalist taking care of the patient and discussed with the patient's son. Medical decision making is of high complexity. The patient was seen at 8 a.m. this morning. A total of 1 hour was spent on the patient, more than 50% of the time spent on direct patient care. Her medications have been reviewed and also her old chart has been reviewed. Dr. Martines is following the patient from tomorrow. Medical decision making is of high complexity. DICTATING PHYSICIAN: RODNEY MCINTOSH M.D. [id number] PHY#: [id number] ID: [id number] JOB#: [id number] ACCT: [id number] cc:RODNEY MCINTOSH M.D. >
[2018-02-20] MEDS ORDERED: FUROSEMIDE 40 MG TABLET PO SCH (10:00)
[2018-02-20 10:30] LABS: ANION GAP 12 (5-19); BLOOD UREA NITROGEN 81 mg/dL (7-20); CALCIUM 8.3 mg/dL (8.4-10.2); CARBON DIOXIDE 19 mmol/L (22-30); CHLORIDE 104 mmol/L (98-107); GLUCOSE 98 mg/dL (75-110); SODIUM 134.5 mmol/L (137-145)
[2018-02-20 10:38] LABS: PARTIAL THROMBOPLASTIN TIME > 235.0 SEC (23.5-35.8)
[2018-02-20] MEDS: DOCUSATE SODIUM 100 MG CAPSULE PO SCH ×2 (12:19→18:50)
[2018-02-20] MEDS: CARVEDILOL 12.5 MG TABLET PO SCH ×2 (12:19→22:40)
--- NOTE | 2018-02-20 13:51 | PDOC PROGRESS REPORT ---
Subjective Progress Note for:: 02/20/18 Subjective:: Ms. Byrd was admitted after a mechanical fall. She sustained a right hip fracture. No acute event overnight. Patient denies any complaint. Hip pain is well controlled. Denies any cough, shortness of breath, chills or urinary symptoms. No recurrence of fever. She is going for surgery later this afternoon. Reason For Visit: HIP FX Physical Exam Vital Signs: Temp Pulse Resp BP Pulse Ox 99.2 F 71 18 136/61 H 97 02/20/18 11:12 02/20/18 11:12 02/20/18 11:12 02/20/18 11:12 02/20/18 11:12 Intake & Output 02/19/18 02/20/18 02/21/18 06:59 06:59 06:59 Intake Total 719 834 0 Balance 719 834 0 Weight 188 lb 11.451 oz 186 lb 11.704 oz General appearance: PRESENT: no acute distress, well-developed, well-nourished Eye exam: PRESENT: conjunctiva pink, EOMI, PERRLA. ABSENT: scleral icterus Ear exam: PRESENT: normal external ear exam Neck exam: ABSENT: carotid bruit, JVD, lymphadenopathy, thyromegaly Respiratory exam: PRESENT: clear to auscultation tila. ABSENT: rales, rhonchi, wheezes Cardiovascular exam: PRESENT: RRR. ABSENT: diastolic murmur, rubs, systolic murmur Pulses: PRESENT: normal dorsalis pedis pul GI/Abdominal exam: PRESENT: normal bowel sounds, soft. ABSENT: distended, guarding, mass, organolmegaly, rebound, tenderness Rectal exam: PRESENT: deferred Musculoskeletal exam: PRESENT: other - no tenderness Neurological exam: PRESENT: alert, oriented to person, oriented to place, oriented to time Results Laboratory Results: 02/20/18 04:19 02/20/18 06:43 02/20/18 02/20/18 04:19 06:43 WBC 7.6 RBC 3.02 L Hgb 7.7 L Hct 23.0 L MCV 76 L MCH 25.5 L MCHC 33.5 RDW 16.3 H Plt Count 174 Sodium 134.5 L Potassium 5.0 Chloride 104 Carbon Dioxide 19 L Anion Gap 12 BUN 81 H Creatinine 4.96 H Est GFR ( Amer) 11 L Est GFR (Non-Af Amer) 9 L Glucose 98 Calcium 8.3 L Impressions: Hip/Pelvis X-Ray 02/18/18 02:49 IMPRESSION: Fracture of the right femoral neck. Knee X-Ray 02/18/18 02:49 IMPRESSION: No acute findings. Head CT 02/18/18 03:04 IMPRESSION: No acute findings. Chronic left cerebral infarct. Chest X-Ray 02/18/18 03:50 IMPRESSION: No acute cardiopulmonary findings. Assessment & Plan - Diagnosis (1) Displaced fracture of right femoral neck Is this a current diagnosis for this admission?: Yes Plan: Patient is scheduled to undergo a right hip hemiarthroplasty later today. She was on Eliquis for atrial fibrillation. Eliquis has been held for at least 48 hours prior to surgery. Heparin drip held prior to surgery this afternoon. (2) Atrial fibrillation Qualifiers: Atrial fibrillation type: chronic Qualified Code(s): I48.2 - Chronic atrial fibrillation Is this a current diagnosis for this admission?: Yes Plan: Rate controlled. Patient is currently on sinus rhythm on environmental monitoring specialist. Eliquis was held for at least 48 hrs. Heparin drip just held this morning prior to surgery. Continue Coreg. (3) Hypertension Qualifiers: Hypertension type: essential hypertension Qualified Code(s): I10 - Essential (primary) hypertension Is this a current diagnosis for this admission?: Yes Plan: Resume home meds. On hydralazine. She is also on ISMN. (4) Chronic diastolic CHF (congestive heart failure) Is this a current diagnosis for this admission?: Yes Plan: Continue Lasix, Coreg, ISMN and hydralazine. Patient is not on lisinopril or JEEVAN inhibitor due to her ESRD. Recent EF is more than 60%. (5) Fever Is this a current diagnosis for this admission?: Yes Plan: No recurrence after one episode of fever. Chest x-ray was normal. UA was negative for UTI. Blood cultures pending. (6) ESRD (end stage renal disease) Is this a current diagnosis for this admission?: Yes Plan: Patient has CKD 5 but is not getting dialysis yet. She just has a fistula in lieu of anticipated renal replacement therapy. She also has prior nephrectomy for a questionable ?renal cell CA. (7) Insulin dependent diabetes mellitus Is this a current diagnosis for this admission?: Yes Plan: Continue Lantus and sliding scale. Keep Lantus at 7 u HS for now due to NPO status. - Time Time Spent with patient: 25-34 minutes
[2018-02-20] MEDS ORDERED: THROMBIN (BOVINE) TOPICAL 20000 UNIT VIAL ONE (14:46)
[2018-02-20] MEDS ORDERED: THROMBIN (BOVINE) 5000 UNIT EPITAXIS KIT ONE (14:46)
[2018-02-20] MEDS ORDERED: BUPIVACAINE INJ/PF LIPOSOME/PF 266 MG/20 ML SDV ONE (14:47)
[2018-02-20] MEDS ORDERED: LIDOCAINE 2% INJ-PF (20 MG/ML) 10 ML AMPUL ONE (15:00)
[2018-02-20] MEDS ORDERED: PROPOFOL INJ 200 MG/20 ML VIAL IV ONE (15:01)
[2018-02-20] MEDS ORDERED: HYDROMORPHONE HCL INJ/PF 2 MG/ML AMPULE ONE (15:01)
[2018-02-20] MEDS ORDERED: MIDAZOLAM 2 MG/2 ML INJ ONE (15:01)
--- NOTE | 2018-02-20 15:24 | PDOC CONSULTATION ---
Consultation Consult Date: 02/20/18 Consult reason:: CKD 5/family request History of Present Illness Admission Date/PCP: 02/18/18 05:58 RAQUEL MINOR MD History of Present Illness: MICHAEL BONILLA is a 63 year old female with past medical history of atrial fibrillation on Eliquis, chronic kidney disease not currently on dialysis, hypertension, CHF, CAD, diabetes, CVA with residual baseline speech difficulty who is currently living with family. She came to the ER complaining of right hip pain after falling at home. According to the son she did not use her walker to go to the bathroom. This has been an ongoing issue with her but she has never had a fall before. presents to the emergency room after mechanical fall and complaining of right hip pain. Patient normally uses a walker at home; she was trying to get out of bed and she fell. She did not hit her head or lose consciousness. Since being in the hospital she has had a CT of her head with no evidence of acute events, x-ray of her hip that showed right femoral neck fracture. Chest x- ray and ekg were normal. Labs showed a creatinine of 4.7, bun of 83 and a hemoglobin of 8.8. According to the son, she is not complaining of chest pain, SOB, nausea, vomiting, fevers or chills. Her appetite has also been normal. She has had no change in her mental status. Most of the history was retrieved from the sun due to her current/chronic mental state. Past Medical History Cardiac Medical History: Reports: Coronary Artery Disease, Hyperlipidemia, Myocardial Infarction - 2010 Denies: DVT, Pulmonary Embolism Pulmonary Medical History: Reports: Pneumonia - Intubated last year Denies: Asthma, Bronchitis, Chronic Obstructive Pulmonary Disease (COPD), Tuberculosis Neurological Medical History: Denies: Seizures Endocrine Medical History: Reports: Diabetes Mellitus Type 1, Diabetes Mellitus Type 2 - IDDM Denies: Hyperthyroidism, Hypothyroidism Malignancy Medical History: Reports: Renal (Kidney) Cancer GI Medical History: Reports: Gastroesophageal Reflux Disease Denies: Cirrhosis, Hepatitis Musculoskeltal Medical History: Denies: Arthritis Skin Medical History: Denies: Eczema, Psoriasis Psychiatric Medical History: Reports: Dementia - Vascular dementia, Depression Past Surgical History Past Surgical History: Reports: Cardiac Catheterization, Coronary Stent, Orthopedic Surgery - tila knee, Tonsillectomy, Tubal Ligation Denies: Hysterectomy, Pacemaker Social History Smoking Status: Former Smoker Cigarettes Packs Per Day: 0.5 Cigars Per Day: 0 Pipes Per Day: 0 Number of Years Smokin Last Time Smoked: 07/18/1997 Frequency of Alcohol Use: None Hx Recreational Drug Use: No Hx Prescription Drug Abuse: No - Advance Directive Resuscitation Status: Full Code Family History Parental Family History Reviewed: No Children Family History Reviewed: NA Sibling(s) Family History Reviewed.: NA Medication/Allergy Home Medications: Apixaban [Eliquis] 2.5 mg PO Q12 02/18/18 Atorvastatin Calcium [Lipitor 80 mg Tablet] 80 mg PO QHS 02/18/18 Calcium Carb/Vitamin D3/Vit K1 [Calcium + D Soft Chewable Tab] 1 tab PO BID 11/02 Carvedilol [Coreg 25 mg Tablet] 25 mg PO Q12 02/18/18 Docusate Sodium [Colace 100 mg Capsule] 100 mg PO BID 02/18/18 Duloxetine HCl [Cymbalta] 60 mg PO DAILY 02/18/18 Ergocalciferol (Vitamin D2) [Drisdol 50,000 unit (1.25MG) Capsule] 50,000 unit PO MO@1000 02/18/18 Esomeprazole Magnesium [Nexium] 40 mg PO DAILY 02/18/18 Furosemide [Lasix 40 mg Tablet] 40 mg PO DAILY 02/18/18 Hydralazine HCl [Apresoline 50 mg Tablet] 50 mg PO Q8 02/18/18 Isosorbide Mononitrate [Isosorbide Mononitrate ER] 15 mg PO DAILY 02/18/18 Potassium Chloride [Klor-Con M10] 10 meq PO DAILY 02/18/18 Allergies/Adverse Reactions: No Known Allergies Allergy (Verified 02/18/18 15:07) Review of Systems Constitutional: ABSENT: anorexia, chills, fever(s), weight loss Nose, Mouth, and Throat: ABSENT: headache(s) Cardiovascular: ABSENT: chest pain, dyspnea on exertion, edema, orthropnea Gastrointestinal: ABSENT: abdominal pain, constipation, diarrhea, nausea, vomiting Genitourinary: ABSENT: difficulty urinating Musculoskeletal: PRESENT: other - -pain in her right hip and leg Neurological: PRESENT: weakness. ABSENT: dizziness, numbness Physical Exam Vital Signs: Temp Pulse Resp BP Pulse Ox 99.2 F 71 18 136/61 H 97 02/20/18 11:12 02/20/18 11:12 02/20/18 11:12 02/20/18 11:12 02/20/18 11:12 Intake & Output 02/19/18 02/20/18 02/21/18 06:59 06:59 06:59 Intake Total 719 834 0 Balance 719 834 0 Weight 85.6 kg 84.7 kg General appearance: PRESENT: no acute distress, well-developed, well-nourished Neck exam: PRESENT: full ROM. ABSENT: JVD, tracheal deviation Respiratory exam: PRESENT: clear to auscultation tila. ABSENT: accessory muscle use, crackles, rales, rhonchi, wheezes Cardiovascular exam: PRESENT: RRR, +S1, +S2 Extremities exam: PRESENT: tenderness. ABSENT: pedal edema, +1 edema, +2 edema Musculoskeletal exam: PRESENT: tenderness. ABSENT: normal inspection Neurological exam: PRESENT: alert, oriented to place, oriented to time, oriented to situation, motor sensory deficit, aphasic. ABSENT: oriented to person Psychiatric exam: PRESENT: flat affect, unusual affect Skin exam: PRESENT: dry, intact, warm. ABSENT: cyanosis Results Laboratory Results: 02/20/18 04:19 02/20/18 06:43 02/20/18 02/20/18 04:19 06:43 WBC 7.6 RBC 3.02 L Hgb 7.7 L Hct 23.0 L MCV 76 L MCH 25.5 L MCHC 33.5 RDW 16.3 H Plt Count 174 Sodium 134.5 L Potassium 5.0 Chloride 104 Carbon Dioxide 19 L Anion Gap 12 BUN 81 H Creatinine 4.96 H Est GFR ( Amer) 11 L Est GFR (Non-Af Amer) 9 L Glucose 98 Calcium 8.3 L Impressions: Hip/Pelvis X-Ray 02/18/18 02:49 IMPRESSION: Fracture of the right femoral neck. Knee X-Ray 02/18/18 02:49 IMPRESSION: No acute findings. Head CT 02/18/18 03:04 IMPRESSION: No acute findings. Chronic left cerebral infarct. Chest X-Ray 02/18/18 03:50 IMPRESSION: No acute cardiopulmonary findings. Assessment & Plan - Diagnosis (1) Chronic kidney disease (CKD) Qualifiers: Chronic kidney disease stage: stage 5, not on chronic dialysis Qualified Code(s): N18.5 - Chronic kidney disease, stage 5 Is this a current diagnosis for this admission?: No Plan: Currently slightly elevated from baseline, baseline creatinine is 4.0 with a bun in the 60s. She looked to be dehydrated, which is leading to the elevated BUN and creatinine. She will be receiving some fluids during her surgery on her hip today. Will look re-evaluate tomorrow to see if her bun and creatinine are improved. Furosemide will need to be held if she still has no signs of fluid overload. 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 I discussed with the son about not missing appointments due to the severity of her kidney disease. (2) Anemia Qualifiers: Anemia type: unspecified type Qualified Code(s): D64.9 - Anemia, unspecified Plan: will look to get iron studies and restart procrit today. Has not had a procrit shot since end december due to noncompliance (3) Displaced fracture of right femoral neck Is this a current diagnosis for this admission?: Yes Plan: going to have surgery on it today (4) HTN (hypertension) Qualifiers: Hypertension type: essential hypertension Qualified Code(s): I10 - Essential (primary) hypertension Plan: better controlled now (6) Insulin dependent diabetes mellitus Is this a current diagnosis for this admission?: Yes
[2018-02-20] MEDS ORDERED: TRANEXAMIC ACID INJ/PF 1,000 MG/10 ML SDV IV ONE ×2 (15:50→18:30)
[2018-02-20] MEDS ORDERED: FENTANYL CITRATE INJ/PF 100 MCG/2 ML AMPUL IV PRN ×3 (15:53)
[2018-02-20] MEDS ORDERED: DIPHENHYDRAMINE HCL 50 MG/ML VIAL IV PRN (15:53)
[2018-02-20] MEDS ORDERED: MEPERIDINE HCL/PF INJ 25 MG/1 ML DISP.SYRIN IV PRN (15:53)
[2018-02-20] MEDS ORDERED: ONDANSETRON HCL INJ/PF 4 MG/2 ML SDV IV PRN (15:53)
[2018-02-20] MEDS ORDERED: PROMETHAZINE HCL INJ 25 MG/1 ML VIAL IV PRN (15:53)
--- NOTE | 2018-02-20 17:46 | RADIOLOGY REPORT (SQ) ---
EXAM DESCRIPTION: PELVIS AP COMPLETED DATE/TIME: 02/20/2018 5:29 pm REASON FOR STUDY: rt. hip hemiarthroplasty COMPARISON: None. NUMBER OF VIEWS: One view TECHNIQUE: AP Pelvis LIMITATIONS: None. FINDINGS: MINERALIZATION: Normal. HIPS: Status post right hip hemiarthroplasty. PELVIS AND SACRUM: No acute fracture or dislocation. No worrisome bone lesions. PUBIS AND ISCHIUM: No acute fracture. LOWER LUMBAR SPINE: No significant findings as visualized. SOFT TISSUES: No findings. OTHER: No other significant finding. IMPRESSION: Right hip hemiarthroplasty in good position. TECHNICAL DOCUMENTATION: JOB ID: [id number] [employer] [facility] [employer]- All Rights Reserved Reading location - IP/workstation name: [email or web address]
[2018-02-20] MEDS: ISOSORBIDE MONONITRATE 30 MG TAB.ER.24H PO SCH (18:50)
[2018-02-20] MEDS ORDERED: SUCCINYLCHOLINE CHLORIDE INJ 200 MG/10 ML VIAL ONE (20:07)
[2018-02-20] MEDS ORDERED: METOCLOPRAMIDE HCL INJ/PF 10 MG/2 ML SDV ONE (20:07)
[2018-02-20] MEDS ORDERED: DEXAMETHASONE SOD PHOSPHATE INJ 4 MG/1 ML VIAL ONE (20:07)
[2018-02-20] MEDS ORDERED: ONDANSETRON HCL INJ/PF 4 MG/2 ML SDV ONE (20:07)
[2018-02-20] MEDS: ATORVASTATIN CALCIUM 80 MG TABLET PO SCH (22:41)
[2018-02-20] MEDS: INSULIN GLARGINE,HUM.REC.ANLOG 300 UNIT/3 ML INSULN.PEN SUBCUT SCH (22:41)
[2018-02-20] MEDS: APIXABAN 2.5 MG TABLET PO SCH (22:41)
[2018-02-21] MEDS ORDERED: VANCOMYCIN HCL 1,000 MG in DEXTROSE 5%-WATER 250 ML IV ONE (04:00)
[2018-02-21] MEDS ORDERED: MORPHINE SULFATE 10 MG/ML INJ IV PRN (04:22)
--- NOTE | 2018-02-21 05:16 | Operative Report ---
Operative Report DATE OF SURGERY: 02/20/18 PREOPERATIVE DIAGNOSIS: Right femoral neck fracture OPERATION: Right proximal femoral hemiarthroplasty SURGEON: ALEKSANDAR PATTERSON ANESTHESIA: Spinal TISSUE REMOVED OR ALTERED: Femoral head to pathology ESTIMATED BLOOD LOSS: 100 PROCEDURE: With the patient in the left lateral decubitus position on the operative table the right lower extremity hindquarter prepped and draped in sterile fashion. A curved incision made over the greater trochanter posterior approach the hip was taken. The femoral femur was retracted anteriorly underlying femoral head removed with a corkscrew. Femoral head measured 47 mm. Subsequently [place] again femoral canal using a box osteotome through the piriformis fossa. The femur is then prepared using a series of broaches until a #4 Accolade 2 [place] broach is seated. A trial reduction performed with standard neck and a 47 mm unipolar head. This re-creates preoperative leg length and provides excellent anterior posterior stability. The hip is dislocated. The trial removed. The final Nick Accolade stem is impacted into the femoral canal. The 47 mm unipolar head is impacted onto the trunnion. The hip is reduced. His gail care with pulse lavage. It subsequently was in layers interrupted Vicryl followed by kenan. Sterile compressive dressings applied and patient's return to PACU in satisfactory condition.
[2018-02-21] MEDS: OXYCODONE-ACETAMINOPHEN 5-325 MG TABLET PO PRN (06:10)
[2018-02-21] MEDS: HYDRALAZINE HCL 50 MG TABLET PO SCH (06:11)
[2018-02-21] MEDS: LANSOPRAZOLE 30 MG TAB.RAP.DR PO SCH (06:11)
[2018-02-21 06:42] LABS: ANION GAP 12 (5-19); BLOOD UREA NITROGEN 84 mg/dL (7-20); CARBON DIOXIDE 18 mmol/L (22-30); CHLORIDE 104 mmol/L (98-107); GLUCOSE 219 mg/dL (75-110); POTASSIUM 5.5 mmol/L (3.6-5.0); SODIUM 133.5 mmol/L (137-145)
[2018-02-21 06:59] LABS: HEMATOCRIT 18.9 % (36.0-47.0); MEAN CORPUSCULAR HGB CONC 32.8 g/dL (32.0-36.0); MEAN CORPUSCULAR VOLUME 76 fl (80-97); PLATELET COUNT 169 10^3/uL (150-450); RED BLOOD COUNT 2.47 10^6/uL (3.72-5.28); RED CELL DISTRIBUTION WIDTH 15.9 % (11.5-14.0); WHITE BLOOD COUNT 8.8 10^3/uL (4.0-10.5)
[2018-02-21 07:01] LABS: HEMOGLOBIN 6.2 g/dL (12.0-15.5)
[2018-02-21 07:05] LABS: ABSOLUTE LYMPHOCYTES# (MANUAL) 0.7 10^3/uL (0.5-4.7); ABSOLUTE NEUTROPHILS# (MANUAL) 8.1 10^3/uL (1.7-8.2); ANISOCYTOSIS 1+; BASOPHILS % (MANUAL) 0 % (0-2); BURR CELLS 1+; EOSINOPHILS % (MANUAL) 0 % (0-6); LYMPHOCYTES % (MANUAL) 8 % (13-45); MONOCYTES % (MANUAL) 0 % (3-13); OVALOCYTES 1+; POIKILOCYTOSIS 2+; POLYCHROMASIA 1+; SEGMENTED NEUTROPHILS % (MAN) 92 % (42-78); TOTAL CELLS COUNTED 100; TOXIC GRANULATION 1+
[2018-02-21 07:06] LABS: PLATELET COMMENT ADEQUATE
[2018-02-21] MEDS: DOCUSATE SODIUM 100 MG CAPSULE PO SCH ×2 (10:44→19:52)
[2018-02-21] MEDS: ISOSORBIDE MONONITRATE 30 MG TAB.ER.24H PO SCH (10:45)
[2018-02-21] MEDS: INSULIN REG, HUMAN 100 UNIT/ML 3 ML VIAL (PYX) SUBCUT PRN ×3 (10:48→23:28)
[2018-02-21 11:21] LABS: ALANINE AMINOTRANSFERASE 17 U/L (9-52); ALBUMIN 2.7 g/dL (3.5-5.0); ALKALINE PHOSPHATASE 40 U/L (38-126); ASPARTATE AMINO TRANSFERASE 22 U/L (14-36); BILIRUBIN,DIRECT 0.3 mg/dL (0.0-0.4); BILIRUBIN,TOTAL 0.3 mg/dL (0.2-1.3); TOTAL PROTEIN 6.1 g/dL (6.3-8.2)
[2018-02-21 11:24] LABS: PHOSPHORUS 7.7 mg/dL (2.5-4.5)
--- NOTE | 2018-02-21 13:39 | EKG REPORT ---
SEVERITY:- OTHERWISE NORMAL ECG - SINUS RHYTHM BORDERLINE RIGHT AXIS DEVIATION : Confirmed by: Janey Saxena MD 21-Feb-2018 13:38:42
[2018-02-21] MEDS ORDERED: HYDRALAZINE HCL 50 MG TABLET PO SCH (14:00)
[2018-02-21] MEDS ORDERED: SODIUM POLYSTYRENE SULFONATE 15 GM/60 ML PO ONE (14:30)
[2018-02-21] MEDS: CARVEDILOL 12.5 MG TABLET PO SCH (15:28)
[2018-02-21] MEDS: APIXABAN 2.5 MG TABLET PO SCH (15:28)
[2018-02-21] MEDS: EPOETIN ALFA INJ 20000 UNIT/1 ML VIAL (RENAL) SUBCUT SCH (15:30)
[2018-02-21] MEDS ORDERED: NORMAL SALINE 1000 ML 1,000 ML IV PRN (15:36)
[2018-02-21 16:04] LABS: HEMATOCRIT 20.5 % (36.0-47.0); MEAN CORPUSCULAR HEMOGLOBIN 25.9 pg (27.0-33.4); MEAN CORPUSCULAR HGB CONC 33.4 g/dL (32.0-36.0); MEAN CORPUSCULAR VOLUME 78 fl (80-97); PLATELET COUNT 176 10^3/uL (150-450); RED BLOOD COUNT 2.64 10^6/uL (3.72-5.28); RED CELL DISTRIBUTION WIDTH 15.7 % (11.5-14.0); WHITE BLOOD COUNT 9.5 10^3/uL (4.0-10.5)
--- NOTE | 2018-02-21 16:07 | PDOC PROGRESS REPORT ---
Subjective Progress Note for:: 02/21/18 Reason For Visit: Patient was seen today. She underwent a right ORIF yesterday which was uneventful. She has had a drop in hemoglobin and is being transfused currently. Patient was seen at the bedside and her son was with her. He is concerned that his mother is not responding to oral commands as well as she was at home. He also notes that his mother is been not moving or lifting the right upper arm. She keeps it contracted.She obviously had a unwitnessed fall and he was not sure that she has traumatized right upper body as well besides her right hip. No apparent history of any seizures. Patient has been having poor intake since admission. Presently patient is poorly responsive to oral commands but she is pleasant and at times is able to respond to questions by yes or no. Labs and medications were reviewed with the patient's son. Physical Exam Vital Signs: Temp Pulse Resp BP Pulse Ox 98.4 F 72 16 126/65 H 100 02/21/18 13:53 02/21/18 13:53 02/21/18 13:53 02/21/18 13:53 02/21/18 13:53 Intake & Output 02/20/18 02/21/18 02/22/18 06:59 06:59 06:59 Intake Total 834 4677 300 Output Total 1150 Balance 834 3527 300 Weight 84.7 kg 86.5 kg General appearance: PRESENT: no acute distress Mouth exam: PRESENT: neck supple. ABSENT: moist Neck exam: ABSENT: lymphadenopathy, meningismus, tenderness, thyromegaly, tracheal deviation Respiratory exam: PRESENT: clear to auscultation tila, crackles - Few scattered. , symmetrical. ABSENT: rhonchi Cardiovascular exam: PRESENT: RRR, +S1, +S2 GI/Abdominal exam: PRESENT: normal bowel sounds, soft. ABSENT: organomegaly, tenderness Extremities exam: ABSENT: pedal edema Neurological exam: PRESENT: altered Skin exam: PRESENT: dry. ABSENT: cyanosis, mottled, rash Results Laboratory Results: 02/21/18 06:15 02/21/18 06:15 02/18/18 02/21/18 02/21/18 20:35 06:15 06:15 WBC 8.8 RBC 2.47 L Hgb 6.2 L Hct 18.9 L MCV 76 L MCH 25.0 L MCHC 32.8 RDW 15.9 H Plt Count 169 Seg Neutrophils % Not Reportable Lymphocytes % Not Reportable Monocytes % Not Reportable Eosinophils % Not Reportable Basophils % Not Reportable Absolute Neutrophils Not Reportable Absolute Lymphocytes Not Reportable Absolute Monocytes Not Reportable Absolute Eosinophils Not Reportable Absolute Basophils Not Reportable Sodium 133.5 L Potassium 5.5 H Chloride 104 Carbon Dioxide 18 L Anion Gap 12 BUN 84 H Creatinine 5.17 H Est GFR ( Amer) 10 L Est GFR (Non-Af Amer) 8 L Glucose 219 H Calcium 8.0 L Phosphorus Magnesium Total Bilirubin AST ALT Alkaline Phosphatase Total Protein Albumin Blood Type A POSITIVE Antibody Screen NEGATIVE 02/21/18 02/21/18 06:15 06:15 WBC RBC Hgb Hct MCV MCH MCHC RDW Plt Count Seg Neutrophils % Lymphocytes % Monocytes % Eosinophils % Basophils % Absolute Neutrophils Absolute Lymphocytes Absolute Monocytes Absolute Eosinophils Absolute Basophils Sodium Cancelled Potassium Cancelled Chloride Cancelled Carbon Dioxide Cancelled Anion Gap Cancelled BUN Cancelled Creatinine Cancelled Est GFR ( Amer) Cancelled Est GFR (Non-Af Amer) Cancelled Glucose Cancelled Calcium Cancelled Phosphorus 7.7 H Magnesium 2.2 Total Bilirubin Cancelled 0.3 AST Cancelled 22 ALT Cancelled 17 Alkaline Phosphatase Cancelled 40 Total Protein Cancelled 6.1 L Albumin Cancelled 2.7 L Blood Type Antibody Screen 02/21/18 06:15 Creatine Kinase 338 H Impressions: Hip/Pelvis X-Ray 02/18/18 02:49 IMPRESSION: Fracture of the right femoral neck. Knee X-Ray 02/18/18 02:49 IMPRESSION: No acute findings. Head CT 02/18/18 03:04 IMPRESSION: No acute findings. Chronic left cerebral infarct. Chest X-Ray 02/18/18 03:50 IMPRESSION: No acute cardiopulmonary findings. Pelvis X-Ray 02/20/18 00:00 IMPRESSION: Right hip hemiarthroplasty in good position. Assessment & Plan - Diagnosis (1) Displaced fracture of right femoral neck Is this a current diagnosis for this admission?: Yes Plan: Underwent an uneventful right hemiarthroplasty yesterday. Being managed by orthopedics. (2) LOGAN (acute kidney injury) Plan: Patient has got underlying CKD stage V with a base creatinine of around 4.She has had a recent left upper arm AV fistula placed in anticipation of initiation of hemodialysis in the near future and it is obviously immature to be used. She is currently got LOGAN in the setting of right hip fracture. Multifactorial causes including dehydration and rhabdomyolysis and possible perioperative hemodynamic insults. Currently her potassium is high and needs to change IV fluids to normal saline for obvious reasons. Currently I do not see any acute indication for initiation of hemodialysis. Her altered mental status is probably from other reasons other than uremia. We will continue to monitor and watch her closely. Discussed at length with the son was at the bedside. (3) CKD (chronic kidney disease), stage V Plan: Patient is got underlying CKD stage V from her diabetic and hypertensive nephropathy. Base creatinine is 4. AV fistula was placed recently in anticipation of initiation of hemodialysis in the near future. (4) Altered mental status Qualifiers: Altered mental status type: unspecified Qualified Code(s): R41.82 - Altered mental status, unspecified Plan: Multifactorial including drugs especially narcotics, new environment, pain, Hypoxia. Very unlikely contribution from worsening CKD stage V. Other remote possibilities includes possible TIA/CVA. Especially given her inability to lift her right upper arm one needs to exclude a vascular insult given the fact she is a vasculopath.Recommend very judicious usage of narcotics in the present extremis of CKD stage V. (5) Insulin dependent diabetes mellitus Is this a current diagnosis for this admission?: Yes (6) Anemia Qualifiers: Anemia type: unspecified type Qualified Code(s): D64.9 - Anemia, unspecified Plan: Currently she is being transfused. She has been begun on erythropoietin by my colleague yesterday. We will get iron studies and see if she needs IV iron infusions in the meanwhile. (7) Coronary artery disease Qualifiers: Coronary Disease-Associated Artery/Lesion type: [place] artery [place] vs. transplanted heart: [place] heart Associated angina: without angina Qualified Code(s): I25.10 - Atherosclerotic heart disease of [place] coronary artery without angina pectoris Is this a current diagnosis for this admission?: No Plan: Presently stable. (8) HTN (hypertension) Qualifiers: Hypertension type: essential hypertension Qualified Code(s): I10 - Essential (primary) hypertension Is this a current diagnosis for this admission?: Yes Plan: Controlled. Monitor. (9) History of CVA in adulthood Plan: Might need to reevaluate her for any more acute insult. Obviously TIA/lacunar infarcts and recent strokes might not be picked up on the initial CT scan especially if noncontrasted. (10) Solitary kidney, acquired Plan: Status quo (11) Hyperkalemia Plan: Change fluids and monitor her labs in the morning. Advised low potassium diet. But patient not eating much so that might not be of concern. Please be aware of nutritional supplements that are high in potassium especially diabetic supplements like Glucerna.
[2018-02-21 16:42] LABS: ABSOLUTE MONOCYTES # (MANUAL) 1.4 10^3/uL (0.1-1.4); ABSOLUTE NEUTROPHILS# (MANUAL) 7.1 10^3/uL (1.7-8.2); BASOPHILS % (MANUAL) 0 % (0-2); EOSINOPHILS % (MANUAL) 0 % (0-6); LYMPHOCYTES % (MANUAL) 10 % (13-45); MONOCYTES % (MANUAL) 15 % (3-13); SEGMENTED NEUTROPHILS % (MAN) 75 % (42-78); TOTAL CELLS COUNTED 100
[2018-02-21 16:43] LABS: ANISOCYTOSIS SLIGHT; HYPOCHROMASIA SLIGHT; PLATELET COMMENT ADEQUATE; SCHISTOCYTES SLIGHT; TOXIC GRANULATION SLIGHT
[2018-02-21 16:49] LABS: HEMOGLOBIN 6.9 g/dL (12.0-15.5)
--- NOTE | 2018-02-21 17:49 | RADIOLOGY REPORT (SQ) ---
EXAM DESCRIPTION: CT HEAD WITHOUT COMPLETED DATE/TIME: 02/21/2018 5:35 pm REASON FOR STUDY: ams h/o stroke COMPARISON: 02/18/2018 TECHNIQUE: Axial images acquired through the brain without intravenous contrast. Images reviewed wi th bone, brain and subdural windows. Additional sagittal and coronal reconstructions were generated. Images stored on PACS. All CT scanners at this facility use dose modulation, iterative reconstruction, and/or weight based d osing when appropriate to reduce radiation dose to as low as reasonably achievable (ALARA). [facility]: Dose Right [facility]: CareDose [facility]: Dose Right [facility]: Teradose 4D [facility]: [employer] RADIATION DOSE: CT Rad equipment meets quality standard of care and radiation dose reduction techniq ues were employed. CTDIvol: 55.2 mGy. DLP: 1112 mGy-cm. mGy. LIMITATIONS: None. FINDINGS: VENTRICLES: Prominent. CEREBRUM: There is an old left posterior parietal/ occipital infarct. At this time, however, there i s loss of abdi white differentiation in the left occipital cortex inferiorly that was previously unin volved. There is no midline shift or mass effect. There is no hemorrhage. Areas of low density in t he white matter most likely chronic small vessel ischemic changes. CEREBELLUM: No masses. No hemorrhage. No alteration of density. No evidence for acute infarction. EXTRAAXIAL SPACES: No fluid collections. No masses. ORBITS AND GLOBE: No intra- or extraconal masses. Normal contour of globe without masses. CALVARIUM: No fracture. PARANASAL SINUSES: No fluid or mucosal thickening. SOFT TISSUES: No mass or hematoma. OTHER: No other significant finding. IMPRESSION: Old left-sided infarction with new involvement of the inferior in medial left occipital lobe. EVIDENCE OF ACUTE STROKE: NO. COMMENT: Unsuccessfully attempted to communicate the above information by telephone to the ordering physician. Quality ID # [id number]: Final reports with documentation of one or more dose reduction techniques (e.g., Au tomated exposure control, adjustment of the mA and/or kV according to patient size, use of iterative reconstruction technique) TECHNICAL DOCUMENTATION: JOB ID: [id number] [employer]- All Rights Reserved Reading location - IP/workstation name: [email or web address]
--- NOTE | 2018-02-21 18:49 | PDOC PROGRESS REPORT ---
Subjective Progress Note for:: 02/21/18 Reason For Visit: HIP FX Physical Exam Vital Signs: Temp Pulse Resp BP Pulse Ox 97.9 F 74 15 125/63 100 02/21/18 15:27 02/21/18 15:27 02/21/18 15:27 02/21/18 15:27 02/21/18 15:27 Intake & Output 02/20/18 02/21/18 02/22/18 06:59 06:59 06:59 Intake Total 834 5115 300 Output Total 1150 Balance 834 3965 300 Weight 186 lb 11.704 oz 190 lb 11.198 oz General appearance: PRESENT: cooperative Eye exam: PRESENT: EOMI Ear exam: PRESENT: normal external ear exam Respiratory exam: PRESENT: clear to auscultation tila. ABSENT: accessory muscle use, chest wall tenderness Cardiovascular exam: PRESENT: RRR. ABSENT: bradycardia Pulses: PRESENT: normal radial pulses GI/Abdominal exam: ABSENT: distended, tenderness Neurological exam: PRESENT: alert, awake, CN II-XII grossly intact Results Laboratory Results: 02/21/18 15:22 02/21/18 06:15 02/18/18 02/21/18 02/21/18 20:35 06:15 06:15 WBC 8.8 RBC 2.47 L Hgb 6.2 L Hct 18.9 L MCV 76 L MCH 25.0 L MCHC 32.8 RDW 15.9 H Plt Count 169 Seg Neutrophils % Not Reportable Lymphocytes % Not Reportable Monocytes % Not Reportable Eosinophils % Not Reportable Basophils % Not Reportable Absolute Neutrophils Not Reportable Absolute Lymphocytes Not Reportable Absolute Monocytes Not Reportable Absolute Eosinophils Not Reportable Absolute Basophils Not Reportable Sodium 133.5 L Potassium 5.5 H Chloride 104 Carbon Dioxide 18 L Anion Gap 12 BUN 84 H Creatinine 5.17 H Est GFR ( Amer) 10 L Est GFR (Non-Af Amer) 8 L Glucose 219 H Calcium 8.0 L Phosphorus Magnesium Total Bilirubin AST ALT Alkaline Phosphatase Total Protein Albumin Blood Type A POSITIVE Antibody Screen NEGATIVE 02/21/18 02/21/18 02/21/18 06:15 06:15 15:22 WBC 9.5 RBC 2.64 L Hgb 6.9 L Hct 20.5 L MCV 78 L MCH 25.9 L MCHC 33.4 RDW 15.7 H Plt Count 176 Seg Neutrophils % Not Reportable Lymphocytes % Not Reportable Monocytes % Not Reportable Eosinophils % Not Reportable Basophils % Not Reportable Absolute Neutrophils Not Reportable Absolute Lymphocytes Not Reportable Absolute Monocytes Not Reportable Absolute Eosinophils Not Reportable Absolute Basophils Not Reportable Sodium Cancelled Potassium Cancelled Chloride Cancelled Carbon Dioxide Cancelled Anion Gap Cancelled BUN Cancelled Creatinine Cancelled Est GFR ( Amer) Cancelled Est GFR (Non-Af Amer) Cancelled Glucose Cancelled Calcium Cancelled Phosphorus 7.7 H Magnesium 2.2 Total Bilirubin Cancelled 0.3 AST Cancelled 22 ALT Cancelled 17 Alkaline Phosphatase Cancelled 40 Total Protein Cancelled 6.1 L Albumin Cancelled 2.7 L Blood Type Antibody Screen 02/21/18 06:15 Creatine Kinase 338 H Impressions: Hip/Pelvis X-Ray 02/18/18 02:49 IMPRESSION: Fracture of the right femoral neck. Knee X-Ray 02/18/18 02:49 IMPRESSION: No acute findings. Chest X-Ray 02/18/18 03:50 IMPRESSION: No acute cardiopulmonary findings. Pelvis X-Ray 02/20/18 00:00 IMPRESSION: Right hip hemiarthroplasty in good position. Head CT 02/21/18 00:00 IMPRESSION: Old left-sided infarction with new involvement of the inferior in medial left occipital lobe. EVIDENCE OF ACUTE STROKE: NO. Assessment & Plan - Diagnosis (1) Altered mental status Qualifiers: Altered mental status type: unspecified Qualified Code(s): R41.82 - Altered mental status, unspecified Is this a current diagnosis for this admission?: No Plan: according to daughter today pt is better than yesterday. d/w her that this is the first time i am seeing her mom and to identify if this is a change or worsening from baseline. daughter states that mom answers question and talks and was ambulatory with rollator , although she has weakness after her stroke and was off balance and thinks this is what led to her fall. states that brother is power of deputy county attorney. Informed her about her blood count being low AND transfusion of 2 UNITS OF PRBC TODAY. iron studies pending. nephrology following pt for esrd. pt is sitting upright in bed and is feeding herself with her left hand. (2) Chronic diastolic CHF (congestive heart failure) Is this a current diagnosis for this admission?: No Plan: meds held due to low blood pressure. will resume as appropriate and necessary. (3) Displaced fracture of right femoral neck Is this a current diagnosis for this admission?: Yes Plan: pt is s/p hemiarthroplasty. (4) ESRD (end stage renal disease) Is this a current diagnosis for this admission?: Yes Plan: per nephrology (5) Insulin dependent diabetes mellitus Is this a current diagnosis for this admission?: Yes Plan: we will hold long acting meds and only provide sliding scale coverage as needed. (6) Atrial fibrillation Qualifiers: Atrial fibrillation type: chronic Qualified Code(s): I48.2 - Chronic atrial fibrillation Is this a current diagnosis for this admission?: Yes Plan: pt in sinus rhythm on exam. pt has been anemic with negative guaiac. pt has been resumed on eliquis. pradaxa is contraindicated as cl is less than 10. conversion to warfarin is also risky as it may precipitate thrombosis , and bridge therapy with lovenox. (7) HTN (hypertension) Qualifiers: Hypertension type: essential hypertension Qualified Code(s): I10 - Essential (primary) hypertension Is this a current diagnosis for this admission?: Yes
--- NOTE | 2018-02-21 22:58 | PDOC PROGRESS REPORT ---
Subjective Progress Note for:: 02/21/18 Subjective:: Patient seen on a.m. rounds. This was around 9 AM. Post op day 1 She had no specific complaints. Awaiting surgery. 2D echo results reviewed. Shows normal LVEF. Patient without any chest pain or any significant shortness of breath. Laying comfortably in bed. Postop twelve-lead EKG shows no significant ST-T changes. Labs showed some drop in hemoglobin. Reason For Visit: HIP FX Physical Exam Vital Signs: Temp Pulse Resp BP Pulse Ox 98.3 F 77 16 126/59 H 100 02/21/18 21:49 02/21/18 21:49 02/21/18 21:49 02/21/18 21:49 02/21/18 21:49 Intake & Output 02/20/18 02/21/18 02/22/18 06:59 06:59 06:59 Intake Total 834 5115 873 Output Total 1150 Balance 834 3965 873 Weight 84.7 kg 86.5 kg Exam: GENERAL: well-nourished and in no acute distress. However she is noted to be somewhat lethargic, could be related to pain medications. HEAD: Atraumatic, normocephalic. EYES: Pupils equal round and reactive to light, extraocular movements intact, sclera anicteric, conjunctiva are normal. ENT: TMs normal, nares patent, oropharynx clear without exudates. Moist mucous membranes. No oral ulcerations or bleeding gums noted NECK: supple without lymphadenopathy. Trachea is central. No cervical or axillary lymphadenopathy noted. Carotids are 2+, JVD WNL LUNGS: Respiration seems nonlabored, no significant accessory muscle action noted. Breath sounds clear to auscultation bilaterally and equal noted. No wheezes rales or rhonchi noted. No significant dullness noted on percussion. CHEST: Palpation of the chest wall shows no significant chest wall tenderness. HEART: [place] [employer] COLD ROLLING, No PSH, 1/6 CASIM[place]O aortic area, 1/6 morfin systolic murmur mitral area, no rubs, no gallops. ABDOMEN: Soft, no significant tenderness appreciated, normoactive bowel sounds. No guarding, no rebound. No rigidity noted . No masses appreciated. EXTREMITIES: Pedal pulses are 1-2+, no calf tenderness noted. No clubbing or cyanosis. negative pedal edema noted NEUROLOGICAL: Patient could not participate in it. PSYCH: This exam was not performed. SKIN: skin is noted to be warm. MUSCULOSKELETAL EXAM: No significant acute joint swelling noted. Status post right hip surgery noted. Results Laboratory Results: 02/21/18 15:22 02/21/18 06:15 02/18/18 02/21/18 02/21/18 20:35 06:15 06:15 WBC 8.8 RBC 2.47 L Hgb 6.2 L Hct 18.9 L MCV 76 L MCH 25.0 L MCHC 32.8 RDW 15.9 H Plt Count 169 Seg Neutrophils % Not Reportable Lymphocytes % Not Reportable Monocytes % Not Reportable Eosinophils % Not Reportable Basophils % Not Reportable Absolute Neutrophils Not Reportable Absolute Lymphocytes Not Reportable Absolute Monocytes Not Reportable Absolute Eosinophils Not Reportable Absolute Basophils Not Reportable Sodium 133.5 L Potassium 5.5 H Chloride 104 Carbon Dioxide 18 L Anion Gap 12 BUN 84 H Creatinine 5.17 H Est GFR ( Amer) 10 L Est GFR (Non-Af Amer) 8 L Glucose 219 H Calcium 8.0 L Phosphorus Magnesium Total Bilirubin AST ALT Alkaline Phosphatase Total Protein Albumin Blood Type A POSITIVE Antibody Screen NEGATIVE 02/21/18 02/21/18 02/21/18 06:15 06:15 15:22 WBC 9.5 RBC 2.64 L Hgb 6.9 L Hct 20.5 L MCV 78 L MCH 25.9 L MCHC 33.4 RDW 15.7 H Plt Count 176 Seg Neutrophils % Not Reportable Lymphocytes % Not Reportable Monocytes % Not Reportable Eosinophils % Not Reportable Basophils % Not Reportable Absolute Neutrophils Not Reportable Absolute Lymphocytes Not Reportable Absolute Monocytes Not Reportable Absolute Eosinophils Not Reportable Absolute Basophils Not Reportable Sodium Cancelled Potassium Cancelled Chloride Cancelled Carbon Dioxide Cancelled Anion Gap Cancelled BUN Cancelled Creatinine Cancelled Est GFR ( Amer) Cancelled Est GFR (Non-Af Amer) Cancelled Glucose Cancelled Calcium Cancelled Phosphorus 7.7 H Magnesium 2.2 Total Bilirubin Cancelled 0.3 AST Cancelled 22 ALT Cancelled 17 Alkaline Phosphatase Cancelled 40 Total Protein Cancelled 6.1 L Albumin Cancelled 2.7 L Blood Type Antibody Screen 02/21/18 20:11 WBC RBC Hgb Hct MCV MCH MCHC RDW Plt Count Seg Neutrophils % Lymphocytes % Monocytes % Eosinophils % Basophils % Absolute Neutrophils Absolute Lymphocytes Absolute Monocytes Absolute Eosinophils Absolute Basophils Sodium Potassium Chloride Carbon Dioxide Anion Gap BUN Creatinine Est GFR ( Amer) Est GFR (Non-Af Amer) Glucose Calcium Phosphorus Magnesium Total Bilirubin AST ALT Alkaline Phosphatase Total Protein Albumin Blood Type A POSITIVE Antibody Screen NEGATIVE 02/21/18 06:15 Creatine Kinase 338 H EKG Comments: Postop EKG shows sinus rhythm no acute ST-T wave changes Impressions: Hip/Pelvis X-Ray 02/18/18 02:49 IMPRESSION: Fracture of the right femoral neck. Knee X-Ray 02/18/18 02:49 IMPRESSION: No acute findings. Chest X-Ray 02/18/18 03:50 IMPRESSION: No acute cardiopulmonary findings. Pelvis X-Ray 02/20/18 00:00 IMPRESSION: Right hip hemiarthroplasty in good position. Head CT 02/21/18 00:00 IMPRESSION: Old left-sided infarction with new involvement of the inferior in medial left occipital lobe. EVIDENCE OF ACUTE STROKE: NO. Assessment & Plan - Diagnosis (1) Chronic kidney disease (CKD) Qualifiers: Chronic kidney disease stage: stage 5, not on chronic dialysis Qualified Code(s): N18.5 - Chronic kidney disease, stage 5 Is this a current diagnosis for this admission?: No (2) Hip fracture Qualifiers: Encounter type: initial encounter Fracture type: closed Laterality: right Qualified Code(s): S72.001A - Fracture of unspecified part of neck of right femur, initial encounter for closed fracture Is this a current diagnosis for this admission?: Yes (3) HTN (hypertension) Qualifiers: Hypertension type: essential hypertension Qualified Code(s): I10 - Essential (primary) hypertension Is this a current diagnosis for this admission?: Yes - Notes Notes: Post op day 1. CVS kiser stable. Agree with blood transfusion. CKD: Stable. Hypertension: Blood pressure has been noted to be stable. Coronary artery disease: Clinically stable. No angina noted no angina equivalent symptoms noted. However patient is lethargic. EKG nonacute. Paroxysmal atrial fibrillation: Patient is maintaining sinus rhythm. Anticoagulation on hold. Hyperlipidemia: Continue hypotensive statin therapy. - Time Time with patient: 15-25 minutes Medications reviewed and adjusted accordingly: Yes
[2018-02-22] MEDS: CARVEDILOL 12.5 MG TABLET PO SCH ×2 (05:16→13:24)
[2018-02-22] MEDS: APIXABAN 2.5 MG TABLET PO SCH ×2 (05:17→13:24)
[2018-02-22 05:46] LABS: ABSOLUTE RETICS # 0.041 10^6/uL (0.028-0.122); HEMATOCRIT 22.9 % (36.0-47.0); MEAN CORPUSCULAR HEMOGLOBIN 25.8 pg (27.0-33.4); MEAN CORPUSCULAR HGB CONC 33.7 g/dL (32.0-36.0); MEAN CORPUSCULAR VOLUME 77 fl (80-97); PLATELET COUNT 187 10^3/uL (150-450); RED BLOOD COUNT 2.99 10^6/uL (3.72-5.28); RED CELL DISTRIBUTION WIDTH 15.3 % (11.5-14.0); RETICULOCYTE COUNT (AUTO) 1.38 % (0.66-2.85); WHITE BLOOD COUNT 8.8 10^3/uL (4.0-10.5)
[2018-02-22 05:49] LABS: HEMOGLOBIN 7.7 g/dL (12.0-15.5)
[2018-02-22 06:02] LABS: ALANINE AMINOTRANSFERASE 23 U/L (9-52); ALBUMIN 2.5 g/dL (3.5-5.0); ALKALINE PHOSPHATASE 42 U/L (38-126); ANION GAP 12 (5-19); ASPARTATE AMINO TRANSFERASE 22 U/L (14-36); BILIRUBIN,DIRECT 0.5 mg/dL (0.0-0.4); BILIRUBIN,TOTAL 1.2 mg/dL (0.2-1.3); BLOOD UREA NITROGEN 95 mg/dL (7-20); CALCIUM 7.9 mg/dL (8.4-10.2); CARBON DIOXIDE 17 mmol/L (22-30); CHLORIDE 104 mmol/L (98-107); GLUCOSE 162 mg/dL (75-110); IRON(TIBC) 192.2 ug/dL (37-170); SODIUM 133.1 mmol/L (137-145); TOTAL PROTEIN 5.6 g/dL (6.3-8.2)
[2018-02-22 07:08] LABS: FOLATE 7.65 ng/mL (>2.76)
[2018-02-22] MEDS: ATORVASTATIN CALCIUM 80 MG TABLET PO SCH (08:27)
[2018-02-22] MEDS: MORPHINE SULFATE 10 MG/ML INJ IV PRN ×6 (09:28→23:31)
[2018-02-22] MEDS ORDERED: METOPROLOL TARTRATE PF/INJ 5 MG/5 ML SDV IV SCH (10:00)
[2018-02-22] MEDS ORDERED: SODIUM BICARBONATE 650 MG TABLET PO SCH (12:00)
[2018-02-22] MEDS: ISOSORBIDE MONONITRATE 30 MG TAB.ER.24H PO SCH (13:24)
[2018-02-22] MEDS: PANTOPRAZOLE SODIUM 40 MG VIAL IV SCH (13:27)
[2018-02-22] MEDS: DOCUSATE SODIUM 100 MG CAPSULE PO SCH ×2 (13:30→18:06)
--- NOTE | 2018-02-22 14:37 | RADIOLOGY REPORT (SQ) ---
EXAM DESCRIPTION: CHEST SINGLE VIEW COMPLETED DATE/TIME: 02/22/2018 2:18 pm REASON FOR STUDY: crackles in the bases of lungs COMPARISON: 02/18/2018. EXAM PARAMETERS: NUMBER OF VIEWS: One view. TECHNIQUE: Single frontal radiographic view of the chest acquired. RADIATION DOSE: NA LIMITATIONS: None. FINDINGS: LUNGS AND PLEURA: Linear densities in the left lung base. Right lung clear. No large ple ural effusion. No pneumothorax. MEDIASTINUM AND HILAR STRUCTURES: No masses. Contour normal. HEART AND VASCULAR STRUCTURES: Heart upper limits of normal in size. Normal vasculature. BONES: No acute findings. HARDWARE: None in the chest. OTHER: No other significant finding. IMPRESSION: BORDERLINE CARDIOMEGALY. LINEAR DENSITIES IN THE LEFT LUNG BASE, ATELECTASIS VERSUS EAR LY INFILTRATE. TECHNICAL DOCUMENTATION: JOB ID: [id number] [employer]- All Rights Reserved Reading location - IP/workstation name: [email or web address]
--- NOTE | 2018-02-22 14:57 | PDOC PROGRESS REPORT ---
Subjective Progress Note for:: 02/22/18 Reason For Visit: She was seen today.She is some more awake and still poorly responsive to oral commands.She still is unable to recall recognize her own daughter. She has been n.p.o. early on because of a drop in hemoglobin. Apparently Hemoccult was negative.She does not look to be in any distress. She does not seem to be having severe headaches. No apparent obvious GI bleeds. Her Eliquis is on hold. Labs and medications were reviewed.Hemoglobin dropped to 6+ and had to be transfused.She is urinary incontinent.I did have a discussion with the hospitalist Dr. Catherine. Following that we had a long family care conference with her son and daughter.We discussed recent developments including the fact that she has had a new posterior cerebral infarct. We also did discuss the risk of anticoagulation given a fresh stroke as well as drop in hemoglobin. An MRI scan without has been ordered. Physical Exam Vital Signs: Temp Pulse Resp BP Pulse Ox 98.5 F 75 12 158/64 H 100 02/22/18 11:58 02/22/18 11:58 02/22/18 11:58 02/22/18 11:58 02/22/18 11:58 Intake & Output 02/21/18 02/22/18 02/23/18 06:59 06:59 06:59 Intake Total 5115 1173 Output Total 1150 Balance 3965 1173 Weight 86.5 kg 81.3 kg General appearance: PRESENT: no acute distress Respiratory exam: PRESENT: clear to auscultation tila. ABSENT: crackles, rhonchi Cardiovascular exam: PRESENT: RRR, +S1, +S2 GI/Abdominal exam: PRESENT: normal bowel sounds, soft. ABSENT: organomegaly, tenderness Extremities exam: ABSENT: pedal edema Neurological exam: PRESENT: altered Skin exam: ABSENT: cyanosis, erythema, mottled, rash Results Laboratory Results: 02/22/18 05:09 02/22/18 05:09 02/21/18 02/21/18 02/22/18 15:22 20:11 05:09 WBC 9.5 8.8 RBC 2.64 L 2.99 L Hgb 6.9 L 7.7 L Hct 20.5 L 22.9 L MCV 78 L 77 L MCH 25.9 L 25.8 L MCHC 33.4 33.7 RDW 15.7 H 15.3 H Plt Count 176 187 Seg Neutrophils % Not Reportable Lymphocytes % Not Reportable Monocytes % Not Reportable Eosinophils % Not Reportable Basophils % Not Reportable Absolute Neutrophils Not Reportable Absolute Lymphocytes Not Reportable Absolute Monocytes Not Reportable Absolute Eosinophils Not Reportable Absolute Basophils Not Reportable Retic Count (auto) 1.38 Absolute Retic 0.041 Sodium Potassium Chloride Carbon Dioxide Anion Gap BUN Creatinine Est GFR ( Amer) Est GFR (Non-Af Amer) Glucose Calcium Iron TIBC % Saturation Ferritin Total Bilirubin AST ALT Alkaline Phosphatase Total Protein Albumin Vitamin B12 Folate PTH Intact Blood Type A POSITIVE Antibody Screen NEGATIVE 02/22/18 02/22/18 05:09 05:09 WBC RBC Hgb Hct MCV MCH MCHC RDW Plt Count Seg Neutrophils % Lymphocytes % Monocytes % Eosinophils % Basophils % Absolute Neutrophils Absolute Lymphocytes Absolute Monocytes Absolute Eosinophils Absolute Basophils Retic Count (auto) Absolute Retic Sodium 133.1 L Potassium 5.0 Chloride 104 Carbon Dioxide 17 L Anion Gap 12 BUN 95 H Creatinine 5.54 H Est GFR ( Amer) 9 L Est GFR (Non-Af Amer) 8 L Glucose 162 H Calcium 7.9 L Iron 192.2 H TIBC 240 L % Saturation 80 Ferritin 68.40 Total Bilirubin 1.2 AST 22 ALT 23 Alkaline Phosphatase 42 Total Protein 5.6 L Albumin 2.5 L Vitamin B12 352.0 Folate 7.65 PTH Intact 242.9 H Blood Type Antibody Screen 02/21/18 06:15 Creatine Kinase 338 H Impressions: Hip/Pelvis X-Ray 02/18/18 02:49 IMPRESSION: Fracture of the right femoral neck. Knee X-Ray 02/18/18 02:49 IMPRESSION: No acute findings. Pelvis X-Ray 02/20/18 00:00 IMPRESSION: Right hip hemiarthroplasty in good position. Head CT 02/21/18 00:00 IMPRESSION: Old left-sided infarction with new involvement of the inferior in medial left occipital lobe. EVIDENCE OF ACUTE STROKE: NO. Chest X-Ray 02/22/18 12:52 IMPRESSION: BORDERLINE CARDIOMEGALY. LINEAR DENSITIES IN THE LEFT LUNG BASE, ATELECTASIS VERSUS EARLY INFILTRATE. Assessment & Plan - Diagnosis (1) Displaced fracture of right femoral neck Is this a current diagnosis for this admission?: Yes Plan: Underwent an uneventful right hemiarthroplasty. Being managed by orthopedics. (2) LOGAN (acute kidney injury) Plan: Still unstable. Currently nonoliguric. Unable to quantify urine because of her incontinence. Will get a García catheter in.Suggest continuing gentle hydration. We will continue to monitor and watch her closely. No acute indication currently for initiation of hemodialysis which would be a problem in the long run given recent developments including new strokes.Discussed at length with the son and daughter in a family care conference. (3) CKD (chronic kidney disease), stage V Plan: Patient is got underlying CKD stage V from her diabetic and hypertensive nephropathy. Base creatinine is 4. AV fistula was placed recently in anticipation of initiation of hemodialysis in the near future. AV fistula was placed when her physical and cognitive functions were much better. (4) Altered mental status Qualifiers: Altered mental status type: unspecified Qualified Code(s): R41.82 - Altered mental status, unspecified Is this a current diagnosis for this admission?: No Plan: This could be explained in light of the new stroke on recent CT scan. Await MRI scans. Other factors also contributing. She looks like she might be improving slowly but surely.. (5) Insulin dependent diabetes mellitus Is this a current diagnosis for this admission?: Yes Plan: Discuss with family about tight control. (6) Anemia Qualifiers: Anemia type: unspecified type Qualified Code(s): D64.9 - Anemia, unspecified Plan: Acute. No obvious evidences of any acute GI bleed. Currently she has been transfused. She has been begun on erythropoietin . On produce left my notes from the office unfortunately the patient's family has not been bringing her for regular Procrit shots which also led to her anemia of chronic kidney disease. Iron infusions were given earlier and shows that is adequate. Will have to discuss compliance with erythropoietin with the family on a regular basis. (7) Coronary artery disease Qualifiers: Coronary Disease-Associated Artery/Lesion type: [place] artery [place] vs. transplanted heart: [place] heart Associated angina: without angina Qualified Code(s): I25.10 - Atherosclerotic heart disease of [place] coronary artery without angina pectoris Is this a current diagnosis for this admission?: No Plan: Presently stable. (8) HTN (hypertension) Qualifiers: Hypertension type: essential hypertension Qualified Code(s): I10 - Essential (primary) hypertension Is this a current diagnosis for this admission?: Yes Plan: Controlled. Monitor. (9) History of CVA in adulthood Plan: Might need to reevaluate her for any more acute insult. Obviously TIA/lacunar infarcts and recent strokes might not be picked up on the initial CT scan especially if noncontrasted.MRI scan has been ordered today. (11) Hyperkalemia Plan: Stable currently.
--- NOTE | 2018-02-22 16:05 | RADIOLOGY REPORT (SQ) ---
EXAM DESCRIPTION: MRI HEAD WITHOUT COMPLETED DATE/TIME: 02/22/2018 3:27 pm REASON FOR STUDY: acute stroke COMPARISON: CT brain 02/21/2018 MRI brain 07/03/2016, 08/17/2010 TECHNIQUE: Axial diffusion, T1, and T2 weighted images were obtained. Protocol was shortened, luiza clay has had a recent hip replacement LIMITATIONS: None. FINDINGS: Diffusion-weighted images are positive for a large infarct in the left posterior cerebral artery distribution. This involves the inferior left temporal lobe, posterior left temporal lobe, oc cipital lobe, and posterior left thalamus. This report was called to Dr. Lillian Voss, 1530 hours 2017. Remainder of the study demonstrates an old left posterior cerebral artery distribution cortical and s ubcortical white matter infarct, stable compared to 07/03/2016. There is moderate pontine white maryam er small vessel ischemic change, and moderate bifrontal and biparietal hemispheric small vessel ische negin change, stable. No midline shift. No significant mass effect. No acute intracranial hemorrhage. Post cataract surgery. Paranasal sinuses mastoid air cells clear. IMPRESSION: Acute nonhemorrhagic left posterior cerebral artery distribution infarct Stable chronic small vessel ischemic change in the martín and cerebral hemispheres EVIDENCE OF ACUTE STROKE: YES. COMMENT: Pertinent findings on the imaging study reported as a CRITICAL RESULT to LILLIAN VOSS MD at1 5:30 on 02/22/2018. Category of Critical Result: Acute nonhemorrhagic infarct left posterior cerebral artery distribution TECHNICAL DOCUMENTATION: JOB ID: [id number] [employer]- All Rights Reserved Reading location - IP/workstation name: [email or web address]
[2018-02-22] MEDS: NORMAL SALINE 1000 ML 1,000 ML IV PRN (16:40)
--- NOTE | 2018-02-22 17:24 | PDOC PROGRESS REPORT ---
Subjective Progress Note for:: 02/22/18 Subjective:: Patient seen for follow-up today for her multiple medical conditions. Patient is a 63-year-old -[place] female brought to the hospital after a fall she sustained. Patient was ambulating prior to this using a Rollator walker. Patient was verbal and semi-mobile daughter did report a little balance issue however was mostly able to do all her ADLs and communicate. Patient was found to have anemia after her right hip hemiarthroplasty. Anemia initially was before on postoperative etiology and blood loss. Patient was immediately transfused 2 units PRBC. Patient was evaluated yesterday as concerned for baseline mental status was there. CT of the brain done yesterday was positive for an infarct in the medial occipitoparietal area. MRI was done today which showed a 7 cm infarct in the same area. We had a discussion with the family members about her hospital stay in her current condition and her decline. And her guarded prognosis. Dr. Bullard the protective signal installer helper and myself were in the conscious emergency room with the Daughter and the brother and were joined by the nurse Ms. Dowling. Patient's frail status was discussed with family members CODE STATUS was discussed with family members. Informed patients family about the risk of anticoagulation and hemorrhagic conversion in a stroke but at the same time the limitations of That if we do not use that medication then having another stroke. Anticoagulation also put the patient does risk for additional bleeding possibly as patient is currently anemic and have we have no etiology or the source of the bleed. His Eliquis was discontinued. We will continue patient on aspirin 81 , with Statin therapy. Initial guaiac was negative, will repeat a stool guaiac and proceed with antiplatelet therapy with full dose aspirin. Reason For Visit: HIP FX Physical Exam Vital Signs: Temp Pulse Resp BP Pulse Ox 98.3 F 78 16 151/69 H 100 02/22/18 16:20 02/22/18 16:20 02/22/18 16:20 02/22/18 16:20 02/22/18 16:20 Intake & Output 02/21/18 02/22/18 02/23/18 06:59 06:59 06:59 Intake Total 5115 1173 Output Total 1150 Balance 3965 1173 Weight 190 lb 11.198 oz 179 lb 3.773 oz General appearance: PRESENT: no acute distress, cooperative, hard of hearing Eye exam: PRESENT: conjunctiva pale Ear exam: PRESENT: normal external ear exam, TM's normal bilaterally Mouth exam: PRESENT: dry mucosa, laceration Throat exam: PRESENT: post pharyngeal erythema Results Laboratory Results: 02/22/18 05:09 02/22/18 05:09 02/21/18 02/22/18 02/22/18 20:11 05:09 05:09 WBC 8.8 RBC 2.99 L Hgb 7.7 L Hct 22.9 L MCV 77 L MCH 25.8 L MCHC 33.7 RDW 15.3 H Plt Count 187 Retic Count (auto) 1.38 Absolute Retic 0.041 Sodium 133.1 L Potassium 5.0 Chloride 104 Carbon Dioxide 17 L Anion Gap 12 BUN 95 H Creatinine 5.54 H Est GFR ( Amer) 9 L Est GFR (Non-Af Amer) 8 L Glucose 162 H Calcium 7.9 L Iron 192.2 H TIBC 240 L % Saturation 80 Ferritin 68.40 Total Bilirubin 1.2 AST 22 ALT 23 Alkaline Phosphatase 42 Total Protein 5.6 L Albumin 2.5 L Vitamin B12 352.0 Folate 7.65 PTH Intact Blood Type A POSITIVE Antibody Screen NEGATIVE 02/22/18 05:09 WBC RBC Hgb Hct MCV MCH MCHC RDW Plt Count Retic Count (auto) Absolute Retic Sodium Potassium Chloride Carbon Dioxide Anion Gap BUN Creatinine Est GFR ( Amer) Est GFR (Non-Af Amer) Glucose Calcium Iron TIBC % Saturation Ferritin Total Bilirubin AST ALT Alkaline Phosphatase Total Protein Albumin Vitamin B12 Folate PTH Intact 242.9 H Blood Type Antibody Screen 02/21/18 06:15 Creatine Kinase 338 H Impressions: Hip/Pelvis X-Ray 02/18/18 02:49 IMPRESSION: Fracture of the right femoral neck. Knee X-Ray 02/18/18 02:49 IMPRESSION: No acute findings. Pelvis X-Ray 02/20/18 00:00 IMPRESSION: Right hip hemiarthroplasty in good position. Head CT 02/21/18 00:00 IMPRESSION: Old left-sided infarction with new involvement of the inferior in medial left occipital lobe. EVIDENCE OF ACUTE STROKE: NO. Head MRI 02/22/18 00:00 IMPRESSION: Acute nonhemorrhagic left posterior cerebral artery distribution infarct Stable chronic small vessel ischemic change in the martín and cerebral hemispheres EVIDENCE OF ACUTE STROKE: YES. Chest X-Ray 02/22/18 12:52 IMPRESSION: BORDERLINE CARDIOMEGALY. LINEAR DENSITIES IN THE LEFT LUNG BASE, ATELECTASIS VERSUS EARLY INFILTRATE. Assessment & Plan - Diagnosis (1) Altered mental status Qualifiers: Altered mental status type: unspecified Qualified Code(s): R41.82 - Altered mental status, unspecified Is this a current diagnosis for this admission?: No Plan: AMS is improved. Attributed to acute stroke. (2) Chronic diastolic CHF (congestive heart failure) Is this a current diagnosis for this admission?: No Plan: Stable. (3) Displaced fracture of right femoral neck Is this a current diagnosis for this admission?: Yes Plan: Status post right butch-arthroplasty. Pain medicine changed to IV patient is n.p.o. (4) ESRD (end stage renal disease) Is this a current diagnosis for this admission?: Yes Plan: By nephrology of Dr. Bullard. Patient started on p.o. bicarb for her acidosis. (5) Insulin dependent diabetes mellitus Is this a current diagnosis for this admission?: Yes Plan: Sliding scale coverage as needed. (6) Atrial fibrillation Qualifiers: Atrial fibrillation type: chronic Qualified Code(s): I48.2 - Chronic atrial fibrillation Is this a current diagnosis for this admission?: No Plan: Currently patient is in sinus rhythm. (7) HTN (hypertension) Qualifiers: Hypertension type: essential hypertension Qualified Code(s): I10 - Essential (primary) hypertension Is this a current diagnosis for this admission?: Yes Plan: Goal blood pressure for this patient systolics of 150s. All antihypertensive medications to be held if systolic is 140 or below or if patient heart rate is 80 or below. - Time Time Spent with patient: 35 or more minutes Medications reviewed and adjusted accordingly: Yes Anticipated discharge: Acute Rehab - Inpatient Certification Based on my medical assessment, after consideration of the patient's comorbidities, presenting symptoms, or acuity I expect that the services needed warrant INPATIENT care.: Yes I certify that my determination is in accordance with my understanding of Medicare's requirements for reasonable and necessary INPATIENT services [42 CFR 412.3e].: Yes Medical Necessity: Significant Comorbidiites Make Outpatient Treatment Too Risky , Need Close Monitoring Due to Risk of Patient Decompensation, Need for Neurological Checks, Need for Pain Control
[2018-02-22] MEDS: INSULIN REG, HUMAN 100 UNIT/ML 3 ML VIAL (PYX) SUBCUT PRN (23:01)
[2018-02-23] MEDS: CARVEDILOL 12.5 MG TABLET PO SCH ×4 (00:35→22:41)
[2018-02-23] MEDS: ATORVASTATIN CALCIUM 80 MG TABLET PO SCH ×2 (00:35→22:42)
[2018-02-23] MEDS: MORPHINE SULFATE 10 MG/ML INJ IV PRN (05:37)
[2018-02-23] MEDS: NORMAL SALINE 1000 ML 1,000 ML IV PRN (05:59)
--- NOTE | 2018-02-23 06:20 | PDOC PROGRESS REPORT ---
Subjective Progress Note for:: 02/23/18 Reason For Visit: HIP FX 63-year-old black female postop day 2 from right proximal femoral hemiarthroplasty Physical Exam Vital Signs: Temp Pulse Resp BP Pulse Ox 37.3 C 86 19 135/70 H 100 02/23/18 03:19 02/23/18 03:19 02/23/18 00:00 02/23/18 03:19 02/23/18 03:19 Intake & Output 02/21/18 02/22/18 02/23/18 06:59 06:59 06:59 Intake Total 5115 1173 1132 Output Total 1150 400 Balance 3965 1173 732 Weight 86.5 kg 81.3 kg 83.8 kg General appearance: PRESENT: no acute distress Respiratory exam: PRESENT: unlabored Cardiovascular exam: PRESENT: RRR Vascular exam: PRESENT: normal capillary refill Extremities exam: PRESENT: other - Right hip dressing changed. Wound is well approximated kenan. No evident drainage. Leg lengths are equal. There is brisk capillary refill. Skin exam: PRESENT: dry, intact, warm. ABSENT: cyanosis, rash Results Laboratory Results: 02/22/18 05:09 02/22/18 05:09 02/22/18 02/22/18 02/22/18 05:09 05:09 16:40 Sodium 133.1 L Potassium 5.0 Chloride 104 Carbon Dioxide 17 L Anion Gap 12 BUN 95 H Creatinine 5.54 H Est GFR ( Amer) 9 L Est GFR (Non-Af Amer) 8 L Glucose 162 H Calcium 7.9 L Iron 192.2 H TIBC 240 L % Saturation 80 Ferritin 68.40 Total Bilirubin 1.2 AST 22 ALT 23 Alkaline Phosphatase 42 Total Protein 5.6 L Albumin 2.5 L Vitamin B12 352.0 Folate 7.65 PTH Intact 242.9 H Stool Occult Blood NEGATIVE 02/21/18 06:15 Creatine Kinase 338 H Impressions: Hip/Pelvis X-Ray 02/18/18 02:49 IMPRESSION: Fracture of the right femoral neck. Knee X-Ray 02/18/18 02:49 IMPRESSION: No acute findings. Pelvis X-Ray 02/20/18 00:00 IMPRESSION: Right hip hemiarthroplasty in good position. Head CT 02/21/18 00:00 IMPRESSION: Old left-sided infarction with new involvement of the inferior in medial left occipital lobe. EVIDENCE OF ACUTE STROKE: NO. Head MRI 02/22/18 00:00 IMPRESSION: Acute nonhemorrhagic left posterior cerebral artery distribution infarct Stable chronic small vessel ischemic change in the martín and cerebral hemispheres EVIDENCE OF ACUTE STROKE: YES. Chest X-Ray 02/22/18 12:52 IMPRESSION: BORDERLINE CARDIOMEGALY. LINEAR DENSITIES IN THE LEFT LUNG BASE, ATELECTASIS VERSUS EARLY INFILTRATE. Status: Imported from PACS Assessment & Plan - Diagnosis (1) Femoral neck fracture Qualifiers: Encounter type: subsequent encounter Fracture type: closed Laterality: right Fracture healing: with routine healing Qualified Code(s): S72.001D - Fracture of unspecified part of neck of right femur, subsequent encounter for closed fracture with routine healing Is this a current diagnosis for this admission?: Yes Plan: Patient with limited progress with physical therapy. Plan for long term facility placement. - Time Time Spent with patient: 15-24 minutes Anticipated discharge: SNF Within: when bed available
[2018-02-23] MEDS: PANTOPRAZOLE SODIUM 40 MG VIAL IV SCH (09:55)
[2018-02-23] MEDS: DOCUSATE SODIUM 100 MG CAPSULE PO SCH ×3 (09:55→17:29)
[2018-02-23] MEDS: ISOSORBIDE MONONITRATE 30 MG TAB.ER.24H PO SCH ×2 (09:55→12:06)
[2018-02-23] MEDS ORDERED: NALOXONE HCL INJ/PF 0.4 MG/1 ML SDV ONE (10:25)
[2018-02-23 11:33] LABS: ALANINE AMINOTRANSFERASE 24 U/L (9-52); ALBUMIN 2.2 g/dL (3.5-5.0); ALKALINE PHOSPHATASE 32 U/L (38-126); ANION GAP 10 (5-19); ASPARTATE AMINO TRANSFERASE 20 U/L (14-36); BILIRUBIN,DIRECT 0.5 mg/dL (0.0-0.4); BILIRUBIN,TOTAL 0.6 mg/dL (0.2-1.3); BLOOD UREA NITROGEN 98 mg/dL (7-20); CALCIUM 7.4 mg/dL (8.4-10.2); CARBON DIOXIDE 17 mmol/L (22-30); CHLORIDE 108 mmol/L (98-107); GLUCOSE 102 mg/dL (75-110); PHOSPHORUS 6.2 mg/dL (2.5-4.5); POTASSIUM 5.1 mmol/L (3.6-5.0); SODIUM 135.4 mmol/L (137-145); TOTAL PROTEIN 5.1 g/dL (6.3-8.2)
[2018-02-23] MEDS ORDERED: NORMAL SALINE 250 ML IV PRN (11:51)
[2018-02-23 12:34] LABS: HEMATOCRIT 16.9 % (36.0-47.0); HEMOGLOBIN 5.7 g/dL (12.0-15.5); MEAN CORPUSCULAR HEMOGLOBIN 26.3 pg (27.0-33.4); MEAN CORPUSCULAR HGB CONC 33.9 g/dL (32.0-36.0); MEAN CORPUSCULAR VOLUME 78 fl (80-97); PLATELET COUNT 171 10^3/uL (150-450); RED BLOOD COUNT 2.18 10^6/uL (3.72-5.28); RED CELL DISTRIBUTION WIDTH 15.2 % (11.5-14.0); WHITE BLOOD COUNT 9.5 10^3/uL (4.0-10.5)
[2018-02-23 13:00] LABS: ABSOLUTE LYMPHOCYTES# (MANUAL) 1.9 10^3/uL (0.5-4.7); ABSOLUTE MONOCYTES # (MANUAL) 1.1 10^3/uL (0.1-1.4); ABSOLUTE NEUTROPHILS# (MANUAL) 6.2 10^3/uL (1.7-8.2); BASOPHILS % (MANUAL) 2 % (0-2); EOSINOPHILS % (MANUAL) 1 % (0-6); LYMPHOCYTES % (MANUAL) 20 % (13-45); MONOCYTES % (MANUAL) 12 % (3-13); SEGMENTED NEUTROPHILS % (MAN) 65 % (42-78); TOTAL CELLS COUNTED 100
[2018-02-23 13:01] LABS: ANISOCYTOSIS SLIGHT; HYPOCHROMASIA SLIGHT; OVALOCYTES 1+; PLATELET COMMENT ADEQUATE; POIKILOCYTOSIS 1+; ROULEAUX 1+
--- NOTE | 2018-02-23 13:45 | RADIOLOGY REPORT (SQ) ---
EXAM DESCRIPTION: CT HEAD WITHOUT COMPLETED DATE/TIME: 02/23/2018 1:28 pm REASON FOR STUDY: ? hemorrhagic conversion COMPARISON: MRI brain 02/22/2018 CT brain 02/21/2018 TECHNIQUE: Axial images acquired through the brain without intravenous contrast. Images reviewed wi th bone, brain and subdural windows. Additional sagittal and coronal reconstructions were generated. Images stored on PACS. All CT scanners at this facility use dose modulation, iterative reconstruction, and/or weight based d osing when appropriate to reduce radiation dose to as low as reasonably achievable (ALARA). [facility]: Dose Right [facility]: CareDose [facility]: Dose Right [facility]: Teradose 4D [facility]: Jigsaw RADIATION DOSE: CT Rad equipment meets quality standard of care and radiation dose reduction techniq ues were employed. CTDIvol: 53.2 mGy. DLP: 1124 mGy-cm. mGy. LIMITATIONS: None. FINDINGS: VENTRICLES: Normal size and contour. CEREBRUM: No acute intracranial hemorrhage, no midline shift. A large left DATA TECHNICAL LEAD distribution early subacute infarct is present with sulcal effacement over the left posterior temporal and occipital regions. Small lacunar infarcts in the left posterior thalamus. Th massimo are stable compared to CT brain 02/21/2018 and MRI brain 02/22/2018 CEREBELLUM: No masses. No hemorrhage. No alteration of density. No evidence for acute infarction. EXTRAAXIAL SPACES: No fluid collections. No masses. ORBITS AND GLOBE: No intra- or extraconal masses. Normal contour of globe without masses. CALVARIUM: No fracture. PARANASAL SINUSES: No fluid or mucosal thickening. SOFT TISSUES: No mass or hematoma. OTHER: No other significant finding. IMPRESSION: Left posterior cerebral artery distribution infarct. No hemorrhagic conversion. EVIDENCE OF ACUTE STROKE: Stable appearance of left early subacute DATA TECHNICAL LEAD distribution infarct compared to previous studies. COMMENT: Quality ID # [id number]: Final reports with documentation of one or more dose reduction techniques (e.g., Automated exposure control, adjustment of the mA and/or kV according to patient size, use of iterative reconstruction technique) TECHNICAL DOCUMENTATION: JOB ID: [id number] [employer]- All Rights Reserved Reading location - IP/workstation name: [facility]
--- NOTE | 2018-02-23 13:55 | RADIOLOGY REPORT (SQ) ---
EXAM DESCRIPTION: U/S EXTREMITY NONVASCULAR LTD COMPLETED DATE/TIME: 02/23/2018 1:44 pm REASON FOR STUDY: US right hip "possible bleed" COMPARISON: None. TECHNIQUE: Static and real time abdi scale ultrasound Doppler spectral analysis, and color Doppler a cquired along the right buttock and hip soft tissues LIMITATIONS: Right side postoperative surgical bandages were not removed. FINDINGS: Recent right subcapital hip fracture with non cemented hip replacement. Along the right l ateral hip and gluteal soft tissues, a 14 x 7 x 7 cm hypoechoic complex fluid collection is present d eep to the subcutaneous fat, likely a hematoma. IMPRESSION: 14 x 7 x 7 cm hypoechoic complex fluid collection deep to the surgical bandage over the right hip replacement. This likely represents a hematoma. TECHNICAL DOCUMENTATION: JOB ID: [id number] [employer]- All Rights Reserved Reading location - IP/workstation name: [email or web address]
--- NOTE | 2018-02-23 14:53 | PDOC PROGRESS REPORT ---
Subjective Progress Note for:: 02/23/18 Subjective:: Patient was seen this morning laying in her bed. She was hard to wake and she was not answering any questions. According to Aurora, the nurse in charge of her care, she gave her narcan and she became more responsive. Labs came back showing a hemoglobin that dropped from 7.7 to 5.7 in a 24 hour period. Reason For Visit: HIP FX Physical Exam Vital Signs: Temp Pulse Resp BP Pulse Ox 98.4 F 80 13 143/57 H 100 02/23/18 11:12 02/23/18 12:00 02/23/18 12:00 02/23/18 12:00 02/23/18 12:00 Intake & Output 02/22/18 02/23/18 02/24/18 06:59 06:59 06:59 Intake Total 1173 1132 0 Output Total 400 50 Balance 1173 732 -50 Weight 81.3 kg 83.8 kg General appearance: PRESENT: no acute distress, well-developed, well-nourished. ABSENT: cooperative Eye exam: PRESENT: PERRLA Neck exam: ABSENT: JVD Respiratory exam: PRESENT: clear to auscultation tila. ABSENT: accessory muscle use, crackles, rales, rhonchi, wheezes Cardiovascular exam: PRESENT: RRR, +S1, +S2 GI/Abdominal exam: PRESENT: normal bowel sounds, soft. ABSENT: organomegaly, tenderness Extremities exam: ABSENT: pedal edema, tenderness, +1 edema, +2 edema Musculoskeletal exam: PRESENT: normal inspection. ABSENT: tenderness Neurological exam: PRESENT: altered, motor sensory deficit, aphasic. ABSENT: alert, awake, oriented to person, oriented to place, oriented to time, oriented to situation, normal gait Psychiatric exam: PRESENT: appropriate affect, normal mood Skin exam: PRESENT: dry, intact, warm Results Laboratory Results: 02/23/18 12:10 02/23/18 10:40 02/21/18 02/22/18 02/23/18 20:11 16:40 10:40 WBC Cancelled RBC Cancelled Hgb Cancelled Hct Cancelled MCV Cancelled MCH Cancelled MCHC Cancelled RDW Cancelled Plt Count Cancelled Seg Neutrophils % Lymphocytes % Monocytes % Eosinophils % Basophils % Absolute Neutrophils Absolute Lymphocytes Absolute Monocytes Absolute Eosinophils Absolute Basophils Sodium Potassium Chloride Carbon Dioxide Anion Gap BUN Creatinine Est GFR ( Amer) Est GFR (Non-Af Amer) Glucose Calcium Phosphorus Magnesium Total Bilirubin AST ALT Alkaline Phosphatase Total Protein Albumin Stool Occult Blood NEGATIVE Blood Type A POSITIVE Antibody Screen NEGATIVE 02/23/18 02/23/18 02/23/18 10:40 10:40 10:40 WBC Cancelled RBC Cancelled Hgb Cancelled Hct Cancelled MCV Cancelled MCH Cancelled MCHC Cancelled RDW Cancelled Plt Count Cancelled Seg Neutrophils % Cancelled Lymphocytes % Cancelled Monocytes % Cancelled Eosinophils % Cancelled Basophils % Cancelled Absolute Neutrophils Cancelled Absolute Lymphocytes Cancelled Absolute Monocytes Cancelled Absolute Eosinophils Cancelled Absolute Basophils Cancelled Sodium Cancelled 135.4 L Potassium Cancelled 5.1 H Chloride Cancelled 108 H Carbon Dioxide Cancelled 17 L Anion Gap Cancelled 10 BUN Cancelled 98 H Creatinine Cancelled 5.25 H Est GFR ( Amer) Cancelled 10 L Est GFR (Non-Af Amer) Cancelled 8 L Glucose Cancelled 102 Calcium Cancelled 7.4 L Phosphorus 6.2 H Magnesium 2.2 Total Bilirubin 0.6 AST 20 ALT 24 Alkaline Phosphatase 32 L Total Protein 5.1 L Albumin 2.2 L Stool Occult Blood Blood Type Antibody Screen 02/23/18 12:10 WBC 9.5 RBC 2.18 L Hgb 5.7 L Hct 16.9 L MCV 78 L MCH 26.3 L MCHC 33.9 RDW 15.2 H Plt Count 171 Seg Neutrophils % Not Reportable Lymphocytes % Not Reportable Monocytes % Not Reportable Eosinophils % Not Reportable Basophils % Not Reportable Absolute Neutrophils Not Reportable Absolute Lymphocytes Not Reportable Absolute Monocytes Not Reportable Absolute Eosinophils Not Reportable Absolute Basophils Not Reportable Sodium Potassium Chloride Carbon Dioxide Anion Gap BUN Creatinine Est GFR ( Amer) Est GFR (Non-Af Amer) Glucose Calcium Phosphorus Magnesium Total Bilirubin AST ALT Alkaline Phosphatase Total Protein Albumin Stool Occult Blood Blood Type Antibody Screen 02/21/18 06:15 Creatine Kinase 338 H Impressions: Hip/Pelvis X-Ray 02/18/18 02:49 IMPRESSION: Fracture of the right femoral neck. Knee X-Ray 02/18/18 02:49 IMPRESSION: No acute findings. Pelvis X-Ray 02/20/18 00:00 IMPRESSION: Right hip hemiarthroplasty in good position. Head MRI 02/22/18 00:00 IMPRESSION: Acute nonhemorrhagic left posterior cerebral artery distribution infarct Stable chronic small vessel ischemic change in the martín and cerebral hemispheres EVIDENCE OF ACUTE STROKE: YES. Chest X-Ray 02/22/18 12:52 IMPRESSION: BORDERLINE CARDIOMEGALY. LINEAR DENSITIES IN THE LEFT LUNG BASE, ATELECTASIS VERSUS EARLY INFILTRATE. Extremity Ultrasound 02/23/18 00:00 IMPRESSION: 14 x 7 x 7 cm hypoechoic complex fluid collection deep to the surgical bandage over the right hip replacement. This likely represents a hematoma. Head CT 02/23/18 00:00 IMPRESSION: Left posterior cerebral artery distribution infarct. No hemorrhagic conversion. EVIDENCE OF ACUTE STROKE: Stable appearance of left early subacute PRODUCT OWNER distribution infarct compared to previous studies. Assessment & Plan - Diagnosis (1) LOGAN (acute kidney injury) Plan: needs to have fluids continued. Consideration for dialysis [facility] (2) Chronic kidney disease (CKD) Qualifiers: Chronic kidney disease stage: stage 5, not on chronic dialysis Qualified Code(s): N18.5 - Chronic kidney disease, stage 5 Is this a current diagnosis for this admission?: No Plan: creatinine is stable, at this point and time she transferring to [facility]. Fluids are needed to be continued due to dehydration. According to the son, they still do want her to do dialysis if it comes down to it. (3) Anemia Qualifiers: Anemia type: unspecified type Qualified Code(s): D64.9 - Anemia, unspecified Plan: on procrit, looks to have an internal bleed. She scheduled to have two units of blood transfused and then transferred to [facility] for further evaluation. (4) Altered mental status Qualifiers: Altered mental status type: unspecified Qualified Code(s): R41.82 - Altered mental status, unspecified Is this a current diagnosis for this admission?: No Plan: improved with being given narcan (5) Displaced fracture of right femoral neck Is this a current diagnosis for this admission?: Yes Plan: recent surgery on it. (6) HTN (hypertension) Qualifiers: Hypertension type: essential hypertension Qualified Code(s): I10 - Essential (primary) hypertension Is this a current diagnosis for this admission?: Yes Plan: varying (8) Insulin dependent diabetes mellitus Is this a current diagnosis for this admission?: Yes
[2018-02-23 17:24] LABS: INTERNATIONAL RATION (INR) 1.13; PROTHROMBIN TIME 15.1 SEC (11.4-15.4)
[2018-02-23 17:25] LABS: PARTIAL THROMBOPLASTIN TIME 39.1 SEC (23.5-35.8)
--- NOTE | 2018-02-23 19:32 | PDOC CONSULTATION ---
Consultation Consult Date: 02/23/18 Attending physician:: LILLIAN VOSS Consult reason:: Asked by Dr. Voss to see patient with bleeding post surgery and hematoma, anemia, concern of coagulopathy History of Present Illness Admission Date/PCP: 02/18/18 05:58 RAQUEL MINOR MD Patient complains of: bleeding, coagulopathy History of Present Illness: MICHAEL BONILLA is a 63 year old female with multiple medical problems, here with hip fracture status post hip replacement, recently has had an acute drop in hemoglobin. Initially felt to be secondary to bleeding secondary to surgery, but ultrasound was done which indicated postoperative hematoma. Hemoglobin had fallen to the 5 range was given 2 units of packed red blood cells, with only improvement to the 6-7 range and given 2 more units of packed red blood cells. Of note, PTT was elevated over the last few days, but when the hemoglobin dropped yesterday the Eliquis was stopped. PTT repeated is down to 38 today. Unfortunately, yesterday she was also noted to have an acute stroke. She also has known chronic kidney disease. She has known chronic anemia with hemoglobin usually in the 9-10 range. Past Medical History Cardiac Medical History: Reports: Congestive Heart Failure, Coronary Artery Disease, Myocardial Infarction - 2011, Hyperlipidema, Hypertension Denies: DVT, Pulmonary Embolism Pulmonary Medical History: Reports: Pneumonia - Intubated last year Denies: Asthma, Bronchitis, Chronic Obstructive Pulmonary Disease (COPD), Tuberculosis Neurological Medical History: Denies: Seizures Endocrine Medical History: Reports: Diabetes Mellitus Type 1, Diabetes Mellitus Type 2 - IDDM Denies: Hyperthyroidism, Hypothyroidism Malignancy Medical History: Reports: Renal (Kidney) Cancer GI Medical History: Reports: Gastroesophageal Reflux Disease Denies: Cirrhosis, Hepatitis Musculoskeltal Medical History: Denies: Arthritis Skin Medical History: Denies: Eczema, Psoriasis Psychiatric Medical History: Reports: Dementia - Vascular dementia, Depression Hematology: Reports: Anemia Past Surgical History Past Surgical History: Reports: Cardiac Catheterization, Coronary Stent, Orthopedic Surgery - tila knee, Tonsillectomy, Tubal Ligation Denies: Hysterectomy, Pacemaker Social History Information Source: Relative, [facility] Records Smoking Status: Former Smoker Cigarettes Packs Per Day: 0.5 Cigars Per Day: 0 Pipes Per Day: 0 Number of Years Smokin Last Time Smoked: 07/18/1997 Frequency of Alcohol Use: None Hx Recreational Drug Use: No Hx Prescription Drug Abuse: No - Advance Directive Resuscitation Status: Full Code Family History Family History: Reviewed & Not Pertinent Parental Family History Reviewed: Yes Children Family History Reviewed: Yes Sibling(s) Family History Reviewed.: Yes Medication/Allergy Home Medications: Apixaban [Eliquis] 2.5 mg PO Q12 02/18/18 Atorvastatin Calcium [Lipitor 80 mg Tablet] 80 mg PO QHS 02/18/18 Calcium Carb/Vitamin D3/Vit K1 [Calcium + D Soft Chewable Tab] 1 tab PO BID 11/02 Carvedilol [Coreg 25 mg Tablet] 25 mg PO Q12 02/18/18 Docusate Sodium [Colace 100 mg Capsule] 100 mg PO BID 02/18/18 Duloxetine HCl [Cymbalta] 60 mg PO DAILY 02/18/18 Ergocalciferol (Vitamin D2) [Drisdol 50,000 unit (1.25MG) Capsule] 50,000 unit PO MO@1000 02/18/18 Esomeprazole Magnesium [Nexium] 40 mg PO DAILY 02/18/18 Furosemide [Lasix 40 mg Tablet] 40 mg PO DAILY 02/18/18 Hydralazine HCl [Apresoline 50 mg Tablet] 50 mg PO Q8 02/18/18 Isosorbide Mononitrate [Isosorbide Mononitrate ER] 15 mg PO DAILY 02/18/18 Potassium Chloride [Klor-Con M10] 10 meq PO DAILY 02/18/18 Allergies/Adverse Reactions: No Known Allergies Allergy (Verified 02/18/18 15:07) Review of Systems ROS unobtainable: Due to mental status Physical Exam Vital Signs: Temp Pulse Resp BP Pulse Ox 98.1 F 70 14 138/57 H 100 02/23/18 18:54 02/23/18 18:54 02/23/18 18:54 02/23/18 18:54 02/23/18 18:54 Intake & Output 02/22/18 02/23/18 02/24/18 06:59 06:59 06:59 Intake Total 1173 1132 350 Output Total 400 500 Balance 1173 732 -150 Weight 81.3 kg 83.8 kg General appearance: PRESENT: no acute distress, well-developed, well-nourished Head exam: PRESENT: atraumatic, normocephalic Eye exam: PRESENT: conjunctiva pink, EOMI, PERRLA. ABSENT: scleral icterus Ear exam: PRESENT: normal external ear exam Mouth exam: PRESENT: moist, tongue midline Neck exam: ABSENT: carotid bruit, JVD, lymphadenopathy, thyromegaly Respiratory exam: PRESENT: clear to auscultation tila. ABSENT: rales, rhonchi, wheezes Cardiovascular exam: PRESENT: RRR. ABSENT: diastolic murmur, rubs, systolic murmur Pulses: PRESENT: normal dorsalis pedis pul Vascular exam: PRESENT: normal capillary refill GI/Abdominal exam: PRESENT: normal bowel sounds, soft. ABSENT: distended, guarding, mass, organolmegaly, rebound, tenderness Rectal exam: PRESENT: deferred Extremities exam: PRESENT: full ROM. ABSENT: calf tenderness, clubbing, pedal edema Neurological exam: PRESENT: alert, awake, oriented to person, oriented to place , oriented to time, oriented to situation, CN II-XII grossly intact. ABSENT: motor sensory deficit Psychiatric exam: PRESENT: appropriate affect, normal mood. ABSENT: homicidal ideation, suicidal ideation Skin exam: PRESENT: dry, intact, warm. ABSENT: cyanosis, rash Results Laboratory Results: 02/23/18 12:10 02/23/18 10:40 02/21/18 02/23/18 02/23/18 20:11 10:40 10:40 WBC Cancelled RBC Cancelled Hgb Cancelled Hct Cancelled MCV Cancelled MCH Cancelled MCHC Cancelled RDW Cancelled Plt Count Cancelled Seg Neutrophils % Lymphocytes % Monocytes % Eosinophils % Basophils % Absolute Neutrophils Absolute Lymphocytes Absolute Monocytes Absolute Eosinophils Absolute Basophils Sodium Cancelled Potassium Cancelled Chloride Cancelled Carbon Dioxide Cancelled Anion Gap Cancelled BUN Cancelled Creatinine Cancelled Est GFR ( Amer) Cancelled Est GFR (Non-Af Amer) Cancelled Glucose Cancelled Calcium Cancelled Phosphorus Magnesium Total Bilirubin AST ALT Alkaline Phosphatase Total Protein Albumin Blood Type A POSITIVE Antibody Screen NEGATIVE 02/23/18 02/23/18 02/23/18 10:40 10:40 12:10 WBC Cancelled 9.5 RBC Cancelled 2.18 L Hgb Cancelled 5.7 L Hct Cancelled 16.9 L MCV Cancelled 78 L MCH Cancelled 26.3 L MCHC Cancelled 33.9 RDW Cancelled 15.2 H Plt Count Cancelled 171 Seg Neutrophils % Cancelled Not Reportable Lymphocytes % Cancelled Not Reportable Monocytes % Cancelled Not Reportable Eosinophils % Cancelled Not Reportable Basophils % Cancelled Not Reportable Absolute Neutrophils Cancelled Not Reportable Absolute Lymphocytes Cancelled Not Reportable Absolute Monocytes Cancelled Not Reportable Absolute Eosinophils Cancelled Not Reportable Absolute Basophils Cancelled Not Reportable Sodium 135.4 L Potassium 5.1 H Chloride 108 H Carbon Dioxide 17 L Anion Gap 10 BUN 98 H Creatinine 5.25 H Est GFR ( Amer) 10 L Est GFR (Non-Af Amer) 8 L Glucose 102 Calcium 7.4 L Phosphorus 6.2 H Magnesium 2.2 Total Bilirubin 0.6 AST 20 ALT 24 Alkaline Phosphatase 32 L Total Protein 5.1 L Albumin 2.2 L Blood Type Antibody Screen 02/21/18 06:15 Creatine Kinase 338 H Impressions: Hip/Pelvis X-Ray 02/18/18 02:49 IMPRESSION: Fracture of the right femoral neck. Knee X-Ray 02/18/18 02:49 IMPRESSION: No acute findings. Pelvis X-Ray 02/20/18 00:00 IMPRESSION: Right hip hemiarthroplasty in good position. Head MRI 02/22/18 00:00 IMPRESSION: Acute nonhemorrhagic left posterior cerebral artery distribution infarct Stable chronic small vessel ischemic change in the martín and cerebral hemispheres EVIDENCE OF ACUTE STROKE: YES. Chest X-Ray 02/22/18 12:52 IMPRESSION: BORDERLINE CARDIOMEGALY. LINEAR DENSITIES IN THE LEFT LUNG BASE, ATELECTASIS VERSUS EARLY INFILTRATE. Extremity Ultrasound 02/23/18 00:00 IMPRESSION: 14 x 7 x 7 cm hypoechoic complex fluid collection deep to the surgical bandage over the right hip replacement. This likely represents a hematoma. Head CT 02/23/18 00:00 IMPRESSION: Left posterior cerebral artery distribution infarct. No hemorrhagic conversion. EVIDENCE OF ACUTE STROKE: Stable appearance of left early subacute CARDIOLOGY SPECIALIST distribution infarct compared to previous studies. Assessment & Plan - Diagnosis (1) Anemia Qualifiers: Anemia type: iron deficiency Iron deficiency anemia type: chronic blood loss Qualified Code(s): D50.0 - Iron deficiency anemia secondary to blood loss (chronic) Is this a current diagnosis for this admission?: Yes Plan: Anemia secondary to blood loss, as well as secondary to chronic kidney disease, she had a low ferritin upon admission. Agree with transfusion, one consideration also could be IV iron. (2) Coagulation defect, unspecified Is this a current diagnosis for this admission?: Yes Plan: Her PTT elevation is probably secondary to multitude of issues, partly secondary to Eliquis, partly secondary to low albumin, Eliquis generally has a half-life of 5-9 hours so within about 48 hours we should have all the drug out of the system. At that point we should not see further changes and coagulation studies and we should have stabilization of them. I believe bleeding will be improved and we should have stabilization of hemoglobin by then. - Time Time Spent: Greater than 70 Minutes - Inpatient Certification Based on my medical assessment, after consideration of the patient's comorbidities, presenting symptoms, or acuity I expect that the services needed warrant INPATIENT care.: Yes I certify that my determination is in accordance with my understanding of Medicare's requirements for reasonable and necessary INPATIENT services [42 CFR 412.3e].: Yes Medical Necessity: Risk of Complication if Not Cared For in Hospital
--- NOTE | 2018-02-23 22:20 | PDOC PROGRESS REPORT ---
Subjective Progress Note for:: 02/23/18 Subjective:: Patient seen for follow-up today for her multiple medical conditions. Patient is a 63-year-old -[place] female brought to the hospital after a fall she sustained. Patient was ambulating prior to this using a Rollator walker. Patient was verbal and semi-mobile daughter did report a little balance issue however was mostly able to do all her ADLs and communicate. Patient was found to have anemia after her right hip hemiarthroplasty. Anemia initially was before on postoperative etiology and blood loss. Patient was immediately transfused 2 units PRBC. Patient was evaluated yesterday as concerned for baseline mental status was there. CT of the brain done yesterday was positive for an infarct in the medial occipitoparietal area. MRI was done today which showed a 7 cm infarct in the same area. We had a discussion with the family members about her hospital stay in her current condition and her decline. And her guarded prognosis. Dr. Bullard the equipment records supervisor and myself were in the conscious emergency room with the Daughter and the brother and were joined by the nurse Ms. Dowling. Patient's frail status was discussed with family members CODE STATUS was discussed with family members. Informed patients family about the risk of anticoagulation and hemorrhagic conversion in a stroke but at the same time the limitations of That if we do not use that medication then having another stroke. Anticoagulation also put the patient does risk for additional bleeding possibly as patient is currently anemic and have we have no etiology or the source of the bleed. His Eliquis was discontinued. We will continue patient on aspirin 81 , with Statin therapy. Initial guaiac was negative, will repeat a stool guaiac and proceed with antiplatelet therapy with full dose aspirin. 02/23/18 pt seen today for f/u of her large ischemia posterior circulation stroke/ anemia / a.fib . received report from nurse that pt has been more difficult to arouse than before. Per pharmacy patient had received morphine 1 mg about 6 times throughout the night By night nurse as patient had complained of pain in her right hip. This morning patient is somnolent arousable minimally open her eyes but does not follow commands. Stat CT of the head was obtained to reassess any hemorrhagic conversion of her acute ischemic CVA on 02/21/2018, and also an ultrasound of the right hip to document any hematoma. CT report was negative for any hemorrhagic conversion or changes, ultrasound positive for hematoma. The report from nurse that repeat CBC had showed hemoglobin level that was critical of 5.7. Reached out to son Mr. Camacho via telephone to discuss declining clinical status and possible need for transfer if felt necessary for specialty services, son informed about mental status change, and also about the drop in the hemoglobin and the need for transfusion. Per son who is decision-maker in the family patient is full code and to do what is necessary and needed In the circumstance and otherwise. If we need to transfer his mom he has agreed to transfer. Reached out to orthopedics Dr. Gauthier about positive ultrasound for hematoma and right hip, per orthopedics Elevated PTT is the reason the patient has a hematoma and that once corrected the hematoma will resorb. Hematology station [facility] contacted for consult for plan of elevated PTT repeat pending and per Dr. Velásquez we will reassess once repeat studies are resulted. We will consider FFP if PTT is still elevated. Dr. Velásquez has agreed to consult on the patient. Reason For Visit: HIP FX Physical Exam Vital Signs: Temp Pulse Resp BP Pulse Ox 99.6 F 81 12 139/61 H 100 02/23/18 07:23 02/23/18 08:00 02/23/18 08:00 02/23/18 08:00 02/23/18 08:00 Intake & Output 02/22/18 02/23/18 02/24/18 06:59 06:59 06:59 Intake Total 1173 1132 Output Total 400 Balance 1173 732 Weight 179 lb 3.773 oz 184 lb 11.958 oz General appearance: PRESENT: no acute distress, other Exam: pt is somnolent. minimally arousable to sternal rub. opens eye when touched. Head exam: PRESENT: atraumatic, normocephalic Eye exam: PRESENT: conjunctiva pink, EOMI, PERRLA Ear exam: PRESENT: normal external ear exam Respiratory exam: PRESENT: clear to auscultation tila Cardiovascular exam: PRESENT: RRR Pulses: PRESENT: +1 pedal pulses bilateral GI/Abdominal exam: PRESENT: normal bowel sounds, soft. ABSENT: distended, guarding, tenderness Rectal exam: ABSENT: heme (-) stool Extremities exam: PRESENT: other - Mild swelling noted on right hip suspect dependent edema however will proceed with ultrasound Neurological exam: PRESENT: altered, CN II-XII grossly intact. ABSENT: alert, awake, reflexes normal, normal gait, aphasic Psychiatric exam: PRESENT: flat affect Additional comments: neurologically pt has mild rt sided droop and is difficult to do complete neuro as pt is somnolent. reflex 3+ ue and hyporeflexia in both lower limb. same as yesterday. Results Laboratory Results: 02/22/18 05:09 02/22/18 05:09 02/22/18 16:40 Stool Occult Blood NEGATIVE 02/21/18 06:15 Creatine Kinase 338 H Impressions: Hip/Pelvis X-Ray 02/18/18 02:49 IMPRESSION: Fracture of the right femoral neck. Knee X-Ray 02/18/18 02:49 IMPRESSION: No acute findings. Pelvis X-Ray 02/20/18 00:00 IMPRESSION: Right hip hemiarthroplasty in good position. Head CT 02/21/18 00:00 IMPRESSION: Old left-sided infarction with new involvement of the inferior in medial left occipital lobe. EVIDENCE OF ACUTE STROKE: NO. Head MRI 02/22/18 00:00 IMPRESSION: Acute nonhemorrhagic left posterior cerebral artery distribution infarct Stable chronic small vessel ischemic change in the martín and cerebral hemispheres EVIDENCE OF ACUTE STROKE: YES. Chest X-Ray 02/22/18 12:52 IMPRESSION: BORDERLINE CARDIOMEGALY. LINEAR DENSITIES IN THE LEFT LUNG BASE, ATELECTASIS VERSUS EARLY INFILTRATE. Assessment & Plan - Diagnosis (1) Altered mental status Qualifiers: Altered mental status type: unspecified Qualified Code(s): R41.82 - Altered mental status, unspecified Is this a current diagnosis for this admission?: Yes Plan: Attribute to morphine given to the patient overnight. Patient was given Narcan 0.4 mg subcu which did result in transient improvement with the patient opening her eyes. Repeat stat CT was negative for any changes. We will monitor patient and evaluate in the next 24 hours. (2) Displaced fracture of right femoral neck Is this a current diagnosis for this admission?: Yes Plan: Status post right butch-arthroplasty. Pain medicine changed to IV patient is n.p.o. (3) ESRD (end stage renal disease) Is this a current diagnosis for this admission?: Yes Plan: By nephrology of Dr. Bullard. Patient started on p.o. bicarb for her acidosis. (4) Insulin dependent diabetes mellitus Is this a current diagnosis for this admission?: Yes Plan: Sliding scale coverage as needed. (5) Atrial fibrillation Qualifiers: Atrial fibrillation type: chronic Qualified Code(s): I48.2 - Chronic atrial fibrillation Is this a current diagnosis for this admission?: Yes Plan: Currently patient is in sinus rhythm. (6) HTN (hypertension) Qualifiers: Hypertension type: essential hypertension Qualified Code(s): I10 - Essential (primary) hypertension Is this a current diagnosis for this admission?: Yes Plan: Goal blood pressure for this patient systolics of 150s. All antihypertensive medications to be held if systolic is 140 or below or if patient heart rate is 80 or below. (7) Chronic diastolic CHF (congestive heart failure) Is this a current diagnosis for this admission?: Yes Plan: Stable.
--- NOTE | 2018-02-23 22:51 | PDOC PROGRESS REPORT ---
Subjective Progress Note for:: 02/22/18 Subjective:: Patient seen on a.m. rounds. Patient noted to be more lethargic. There is some concern about acute stroke overnight or late in the afternoon. Patient been evaluated by nephrology, hospitalist. Cardiac kiser, do not see any acute decompensation. Patient remains still anemic Reason For Visit: HIP FX Physical Exam Vital Signs: Temp Pulse Resp BP Pulse Ox 98.3 F 79 16 149/58 H 100 02/22/18 19:25 02/22/18 19:25 02/22/18 19:25 02/22/18 19:25 02/22/18 19:25 Intake & Output 02/21/18 02/22/18 02/23/18 06:59 06:59 06:59 Intake Total 5115 1173 200 Output Total 1150 200 Balance 3965 1173 0 Weight 86.5 kg 81.3 kg Exam: GENERAL: Patient noted to be very lethargic, intermittently it has been difficult to arouse her. Patient's son at bedside. HEAD: Atraumatic, normocephalic. EYES: Pupils equal round and reactive to light, extraocular movements intact, sclera anicteric, conjunctiva are normal. ENT: TMs normal, nares patent, oropharynx clear without exudates. Moist mucous membranes. No oral ulcerations or bleeding gums noted NECK: supple without lymphadenopathy. Trachea is central. No cervical or axillary lymphadenopathy noted. Carotids are 2+, JVD WNL LUNGS: Respiration seems nonlabored, no significant accessory muscle action noted. Few bibasilar crackles are noted. No wheezes rales or rhonchi noted. No significant dullness noted on percussion. CHEST: Palpation of the chest wall shows no significant chest wall tenderness. HEART: [place] [employer], No PSH, 1/6 CASIMIRO aortic area, 1/6 morfin systolic murmur mitral area, no rubs, no gallops. ABDOMEN: Soft, no significant tenderness appreciated, normoactive bowel sounds. No guarding, no rebound. No rigidity noted . No masses appreciated. EXTREMITIES: Pedal pulses are 1-2+, no calf tenderness noted. No clubbing or cyanosis. negative pedal edema noted NEUROLOGICAL: Patient could not participate in it. PSYCH: This exam was not performed. SKIN: skin is noted to be warm. MUSCULOSKELETAL EXAM: No significant acute joint swelling noted. Status post right hip surgery noted. Results Laboratory Results: 02/22/18 05:09 02/22/18 05:09 02/21/18 02/22/18 02/22/18 20:11 05:09 05:09 WBC 8.8 RBC 2.99 L Hgb 7.7 L Hct 22.9 L MCV 77 L MCH 25.8 L MCHC 33.7 RDW 15.3 H Plt Count 187 Retic Count (auto) 1.38 Absolute Retic 0.041 Sodium 133.1 L Potassium 5.0 Chloride 104 Carbon Dioxide 17 L Anion Gap 12 BUN 95 H Creatinine 5.54 H Est GFR ( Amer) 9 L Est GFR (Non-Af Amer) 8 L Glucose 162 H Calcium 7.9 L Iron 192.2 H TIBC 240 L % Saturation 80 Ferritin 68.40 Total Bilirubin 1.2 AST 22 ALT 23 Alkaline Phosphatase 42 Total Protein 5.6 L Albumin 2.5 L Vitamin B12 352.0 Folate 7.65 PTH Intact Stool Occult Blood Blood Type A POSITIVE Antibody Screen NEGATIVE 02/22/18 02/22/18 05:09 16:40 WBC RBC Hgb Hct MCV MCH MCHC RDW Plt Count Retic Count (auto) Absolute Retic Sodium Potassium Chloride Carbon Dioxide Anion Gap BUN Creatinine Est GFR ( Amer) Est GFR (Non-Af Amer) Glucose Calcium Iron TIBC % Saturation Ferritin Total Bilirubin AST ALT Alkaline Phosphatase Total Protein Albumin Vitamin B12 Folate PTH Intact 242.9 H Stool Occult Blood NEGATIVE Blood Type Antibody Screen 02/21/18 06:15 Creatine Kinase 338 H EKG Comments: Telemetry showing sinus rhythm. Impressions: Hip/Pelvis X-Ray 02/18/18 02:49 IMPRESSION: Fracture of the right femoral neck. Knee X-Ray 02/18/18 02:49 IMPRESSION: No acute findings. Pelvis X-Ray 02/20/18 00:00 IMPRESSION: Right hip hemiarthroplasty in good position. Head CT 02/21/18 00:00 IMPRESSION: Old left-sided infarction with new involvement of the inferior in medial left occipital lobe. EVIDENCE OF ACUTE STROKE: NO. Head MRI 02/22/18 00:00 IMPRESSION: Acute nonhemorrhagic left posterior cerebral artery distribution infarct Stable chronic small vessel ischemic change in the martín and cerebral hemispheres EVIDENCE OF ACUTE STROKE: YES. Chest X-Ray 08/08/18 12:52 IMPRESSION: BORDERLINE CARDIOMEGALY. LINEAR DENSITIES IN THE LEFT LUNG BASE, ATELECTASIS VERSUS EARLY INFILTRATE. Assessment & Plan - Diagnosis (1) Chronic kidney disease (CKD) Qualifiers: Chronic kidney disease stage: stage 5, not on chronic dialysis Qualified Code(s): N18.5 - Chronic kidney disease, stage 5 Is this a current diagnosis for this admission?: No (2) Hip fracture Qualifiers: Encounter type: initial encounter Fracture type: closed Laterality: right Qualified Code(s): S72.001A - Fracture of unspecified part of neck of right femur, initial encounter for closed fracture Is this a current diagnosis for this admission?: Yes (3) HTN (hypertension) Qualifiers: Hypertension type: essential hypertension Qualified Code(s): I10 - Essential (primary) hypertension Is this a current diagnosis for this admission?: Yes (4) Cerebrovascular accident Qualifiers: CVA mechanism: unspecified Qualified Code(s): I63.9 - Cerebral infarction, unspecified Is this a current diagnosis for this admission?: Yes (5) Altered mental status Qualifiers: Altered mental status type: somnolence Qualified Code(s): R40.0 - Somnolence Is this a current diagnosis for this admission?: Yes (6) Coronary artery disease Qualifiers: Coronary Disease-Associated Artery/Lesion type: [place] artery [place] vs. transplanted heart: [place] heart Associated angina: without angina Qualified Code(s): I25.10 - Atherosclerotic heart disease of [place] coronary artery without angina pectoris Is this a current diagnosis for this admission?: No - Notes Notes: Stable from cardiac standpoint. Patient remains anemic and has some kind of coagulopathy possibly postsurgical blood loss. In addition patient has sustained a stroke. Patient has been seen by multiple specialists. Cardiac kiser, patient rhythm been stable, no clinical CHF noted. Patient condition has worsened overall but seems to be stabilizing today. Shared decision about chronic anticoagulation is being made in conjunction with family members and other attendings. - Time Time with patient: 15-25 minutes Medications reviewed and adjusted accordingly: Yes
[2018-02-24 00:50] LABS: ABSOLUTE BASOPHILS # (AUTO) 0.1 10^3/uL (0.0-0.2); ABSOLUTE EOSINOPHILS # (AUTO) 0.1 10^3/uL (0.0-0.6); ABSOLUTE LYMPHOCYTES (AUTO) 1.8 10^3/uL (0.5-4.7); ABSOLUTE MONOCYTES (AUTO) 1.9 10^3/uL (0.1-1.4); ABSOLUTE NEUT (AUTO) 5.9 10^3/uL (1.7-8.2); BASOPHILS % (AUTO) 0.5 % (0-2); HEMATOCRIT 22.8 % (36.0-47.0); LYMPHOCYTES % (AUTO) 18.6 % (13-45); MEAN CORPUSCULAR HEMOGLOBIN 27.9 pg (27.0-33.4); MEAN CORPUSCULAR HGB CONC 34.5 g/dL (32.0-36.0); MEAN CORPUSCULAR VOLUME 81 fl (80-97); MONOCYTES % (AUTO) 19.6 % (3-13); PLATELET COUNT 163 10^3/uL (150-450); RED BLOOD COUNT 2.82 10^6/uL (3.72-5.28); RED CELL DISTRIBUTION WIDTH 15.8 % (11.5-14.0); SEGMENTED NEUTROPHILS % (AUTO) 60.3 % (42-78); TOTAL CELLS COUNTED % (AUTO) 100 %; WHITE BLOOD COUNT 9.7 10^3/uL (4.0-10.5)
[2018-02-24 01:01] LABS: HEMOGLOBIN 7.9 g/dL (12.0-15.5)
[2018-02-24 01:06] LABS: ANION GAP 11 (5-19); BLOOD UREA NITROGEN 97 mg/dL (7-20); CALCIUM 7.5 mg/dL (8.4-10.2); CARBON DIOXIDE 17 mmol/L (22-30); CHLORIDE 110 mmol/L (98-107); GLUCOSE 110 mg/dL (75-110); POTASSIUM 4.9 mmol/L (3.6-5.0); SODIUM 137.9 mmol/L (137-145)
[2018-02-24 06:12] LABS: MEAN CORPUSCULAR HEMOGLOBIN 28.2 pg (27.0-33.4); MEAN CORPUSCULAR HGB CONC 34.7 g/dL (32.0-36.0); MEAN CORPUSCULAR VOLUME 81 fl (80-97); PLATELET COUNT 160 10^3/uL (150-450); RED BLOOD COUNT 2.58 10^6/uL (3.72-5.28); RED CELL DISTRIBUTION WIDTH 15.9 % (11.5-14.0); WHITE BLOOD COUNT 8.9 10^3/uL (4.0-10.5)
[2018-02-24 06:15] LABS: HEMOGLOBIN 7.3 g/dL (12.0-15.5)
--- NOTE | 2018-02-24 06:30 | PDOC PROGRESS REPORT ---
Subjective Progress Note for:: 02/24/18 Reason For Visit: HIP FX 63-year-old white female postop day 3 from a left hip conversion arthroplasty. Patient much more alert, interactive, and appropriate this morning. She states she is in much less pain. She continues to be confused. Physical Exam Vital Signs: Temp Pulse Resp BP Pulse Ox 37.1 C 75 16 121/81 100 02/24/18 04:05 02/24/18 04:05 02/24/18 04:05 02/24/18 04:05 02/24/18 04:05 Intake & Output 02/22/18 02/23/18 02/24/18 06:59 06:59 06:59 Intake Total 1173 1132 700 Output Total 400 1200 Balance 1173 732 -500 Weight 81.3 kg 83.8 kg 83.7 kg General appearance: PRESENT: no acute distress Head exam: PRESENT: normocephalic Respiratory exam: PRESENT: unlabored Cardiovascular exam: PRESENT: RRR Pulses: PRESENT: +1 pedal pulses bilateral Vascular exam: PRESENT: normal capillary refill GI/Abdominal exam: PRESENT: soft Rectal exam: PRESENT: deferred Extremities exam: PRESENT: other - Left lower extremity with a small amount of serous drainage. The dressing is changed. The wound is well approximated with kenan. There is no erythema. There is mild induration. No ecchymosis. Leg lengths are equal. Distal neurovascular examination is intact. Neurological exam: PRESENT: alert, awake, oriented to person, oriented to place , oriented to time, oriented to situation. ABSENT: motor sensory deficit Psychiatric exam: PRESENT: appropriate affect, normal mood. ABSENT: homicidal ideation, suicidal ideation Skin exam: PRESENT: dry, intact, warm. ABSENT: cyanosis, rash Results Laboratory Results: 02/24/18 05:34 02/21/18 02/23/18 02/23/18 20:11 10:40 10:40 WBC Cancelled RBC Cancelled Hgb Cancelled Hct Cancelled MCV Cancelled MCH Cancelled MCHC Cancelled RDW Cancelled Plt Count Cancelled Seg Neutrophils % Lymphocytes % Monocytes % Eosinophils % Basophils % Absolute Neutrophils Absolute Lymphocytes Absolute Monocytes Absolute Eosinophils Absolute Basophils Sodium Cancelled Potassium Cancelled Chloride Cancelled Carbon Dioxide Cancelled Anion Gap Cancelled BUN Cancelled Creatinine Cancelled Est GFR ( Amer) Cancelled Est GFR (Non-Af Amer) Cancelled Glucose Cancelled Calcium Cancelled Phosphorus Magnesium Total Bilirubin AST ALT Alkaline Phosphatase Total Protein Albumin Blood Type A POSITIVE Antibody Screen NEGATIVE 02/23/18 02/23/18 02/23/18 10:40 10:40 12:10 WBC Cancelled 9.5 RBC Cancelled 2.18 L Hgb Cancelled 5.7 L Hct Cancelled 16.9 L MCV Cancelled 78 L MCH Cancelled 26.3 L MCHC Cancelled 33.9 RDW Cancelled 15.2 H Plt Count Cancelled 171 Seg Neutrophils % Cancelled Not Reportable Lymphocytes % Cancelled Not Reportable Monocytes % Cancelled Not Reportable Eosinophils % Cancelled Not Reportable Basophils % Cancelled Not Reportable Absolute Neutrophils Cancelled Not Reportable Absolute Lymphocytes Cancelled Not Reportable Absolute Monocytes Cancelled Not Reportable Absolute Eosinophils Cancelled Not Reportable Absolute Basophils Cancelled Not Reportable Sodium 135.4 L Potassium 5.1 H Chloride 108 H Carbon Dioxide 17 L Anion Gap 10 BUN 98 H Creatinine 5.25 H Est GFR ( Amer) 10 L Est GFR (Non-Af Amer) 8 L Glucose 102 Calcium 7.4 L Phosphorus 6.2 H Magnesium 2.2 Total Bilirubin 0.6 AST 20 ALT 24 Alkaline Phosphatase 32 L Total Protein 5.1 L Albumin 2.2 L Blood Type Antibody Screen 02/24/18 02/24/18 02/24/18 00:35 00:35 05:34 WBC 9.7 8.9 RBC 2.82 L 2.58 L Hgb 7.9 L D 7.3 L Hct 22.8 L 21.0 L MCV 81 81 MCH 27.9 28.2 MCHC 34.5 34.7 RDW 15.8 H 15.9 H Plt Count 163 160 Seg Neutrophils % 60.3 Lymphocytes % 18.6 Monocytes % 19.6 H Eosinophils % 1.0 Basophils % 0.5 Absolute Neutrophils 5.9 Absolute Lymphocytes 1.8 Absolute Monocytes 1.9 H Absolute Eosinophils 0.1 Absolute Basophils 0.1 Sodium 137.9 Potassium 4.9 Chloride 110 H Carbon Dioxide 17 L Anion Gap 11 BUN 97 H Creatinine 4.87 H Est GFR ( Amer) 11 L Est GFR (Non-Af Amer) 9 L Glucose 110 Calcium 7.5 L Phosphorus Magnesium Total Bilirubin AST ALT Alkaline Phosphatase Total Protein Albumin Blood Type Antibody Screen 02/21/18 06:15 Creatine Kinase 338 H Impressions: Hip/Pelvis X-Ray 02/18/18 02:49 IMPRESSION: Fracture of the right femoral neck. Knee X-Ray 02/18/18 02:49 IMPRESSION: No acute findings. Pelvis X-Ray 02/20/18 00:00 IMPRESSION: Right hip hemiarthroplasty in good position. Head MRI 02/22/18 00:00 IMPRESSION: Acute nonhemorrhagic left posterior cerebral artery distribution infarct Stable chronic small vessel ischemic change in the martín and cerebral hemispheres EVIDENCE OF ACUTE STROKE: YES. Chest X-Ray 02/22/18 12:52 IMPRESSION: BORDERLINE CARDIOMEGALY. LINEAR DENSITIES IN THE LEFT LUNG BASE, ATELECTASIS VERSUS EARLY INFILTRATE. Extremity Ultrasound 02/23/18 00:00 IMPRESSION: 14 x 7 x 7 cm hypoechoic complex fluid collection deep to the surgical bandage over the right hip replacement. This likely represents a hematoma. Head CT 02/23/18 00:00 IMPRESSION: Left posterior cerebral artery distribution infarct. No hemorrhagic conversion. EVIDENCE OF ACUTE STROKE: Stable appearance of left early subacute LIMOUSINE AND HEARSE UPHOLSTERER distribution infarct compared to previous studies. Status: Imported from PACS Assessment & Plan - Diagnosis (1) Femoral neck fracture Qualifiers: Encounter type: subsequent encounter Fracture type: closed Laterality: right Fracture healing: with routine healing Qualified Code(s): S72.001D - Fracture of unspecified part of neck of right femur, subsequent encounter for closed fracture with routine healing Is this a current diagnosis for this admission?: Yes Plan: 63-year-old white female status post conversion arthroplasty with an uneventful postoperative course. She will continue on with physical therapy on a weightbearing as tolerated ambulatory program. Dressing changes as needed. The real issue with this patient is discharge planning. The family is interested in trying to avoid senior care facility placement but yet her functional status is going to make discharge home with home health services difficult. Potential with small amount of ongoing hospitalization dysfunctional this status can be improved in a home health discharge could be reasonably accomplished. - Time Time Spent with patient: 15-24 minutes Anticipated discharge: Other Within: Other
--- NOTE | 2018-02-24 06:37 | PDOC PROGRESS REPORT ---
Subjective Progress Note for:: 02/24/18 Reason For Visit: HIP FX 63-year-old black female postop day 3 from a right proximal femoral hemiarthroplasty for femoral neck fracture. Postoperative course has been notable for acute onset anemia, and new cerebrovascular event, and elevated coagulation parameters. Physical Exam Vital Signs: Temp Pulse Resp BP Pulse Ox 37.1 C 75 16 121/81 100 02/24/18 04:05 02/24/18 04:05 02/24/18 04:05 02/24/18 04:05 02/24/18 04:05 Intake & Output 02/22/18 02/23/18 02/24/18 06:59 06:59 06:59 Intake Total 1173 1132 700 Output Total 400 1200 Balance 1173 732 -500 Weight 81.3 kg 83.8 kg 83.7 kg General appearance: PRESENT: no acute distress Head exam: PRESENT: normocephalic Respiratory exam: PRESENT: unlabored Cardiovascular exam: PRESENT: RRR Pulses: PRESENT: +1 pedal pulses bilateral Vascular exam: PRESENT: normal capillary refill GI/Abdominal exam: PRESENT: soft Rectal exam: PRESENT: deferred Extremities exam: PRESENT: other - The right hip dressing has some serosanguineous drainage. This is changed. Wound is well approximated with kenan. There is no erythema. There is no clear active drainage now. Leg lengths are equal. Results Laboratory Results: 02/24/18 05:34 02/21/18 02/23/18 02/23/18 20:11 10:40 10:40 WBC Cancelled RBC Cancelled Hgb Cancelled Hct Cancelled MCV Cancelled MCH Cancelled MCHC Cancelled RDW Cancelled Plt Count Cancelled Seg Neutrophils % Lymphocytes % Monocytes % Eosinophils % Basophils % Absolute Neutrophils Absolute Lymphocytes Absolute Monocytes Absolute Eosinophils Absolute Basophils Sodium Cancelled Potassium Cancelled Chloride Cancelled Carbon Dioxide Cancelled Anion Gap Cancelled BUN Cancelled Creatinine Cancelled Est GFR ( Amer) Cancelled Est GFR (Non-Af Amer) Cancelled Glucose Cancelled Calcium Cancelled Phosphorus Magnesium Total Bilirubin AST ALT Alkaline Phosphatase Total Protein Albumin Blood Type A POSITIVE Antibody Screen NEGATIVE 02/23/18 02/23/18 02/23/18 10:40 10:40 12:10 WBC Cancelled 9.5 RBC Cancelled 2.18 L Hgb Cancelled 5.7 L Hct Cancelled 16.9 L MCV Cancelled 78 L MCH Cancelled 26.3 L MCHC Cancelled 33.9 RDW Cancelled 15.2 H Plt Count Cancelled 171 Seg Neutrophils % Cancelled Not Reportable Lymphocytes % Cancelled Not Reportable Monocytes % Cancelled Not Reportable Eosinophils % Cancelled Not Reportable Basophils % Cancelled Not Reportable Absolute Neutrophils Cancelled Not Reportable Absolute Lymphocytes Cancelled Not Reportable Absolute Monocytes Cancelled Not Reportable Absolute Eosinophils Cancelled Not Reportable Absolute Basophils Cancelled Not Reportable Sodium 135.4 L Potassium 5.1 H Chloride 108 H Carbon Dioxide 17 L Anion Gap 10 BUN 98 H Creatinine 5.25 H Est GFR ( Amer) 10 L Est GFR (Non-Af Amer) 8 L Glucose 102 Calcium 7.4 L Phosphorus 6.2 H Magnesium 2.2 Total Bilirubin 0.6 AST 20 ALT 24 Alkaline Phosphatase 32 L Total Protein 5.1 L Albumin 2.2 L Blood Type Antibody Screen 02/24/18 02/24/18 02/24/18 00:35 00:35 05:34 WBC 9.7 8.9 RBC 2.82 L 2.58 L Hgb 7.9 L D 7.3 L Hct 22.8 L 21.0 L MCV 81 81 MCH 27.9 28.2 MCHC 34.5 34.7 RDW 15.8 H 15.9 H Plt Count 163 160 Seg Neutrophils % 60.3 Lymphocytes % 18.6 Monocytes % 19.6 H Eosinophils % 1.0 Basophils % 0.5 Absolute Neutrophils 5.9 Absolute Lymphocytes 1.8 Absolute Monocytes 1.9 H Absolute Eosinophils 0.1 Absolute Basophils 0.1 Sodium 137.9 Potassium 4.9 Chloride 110 H Carbon Dioxide 17 L Anion Gap 11 BUN 97 H Creatinine 4.87 H Est GFR ( Amer) 11 L Est GFR (Non-Af Amer) 9 L Glucose 110 Calcium 7.5 L Phosphorus Magnesium Total Bilirubin AST ALT Alkaline Phosphatase Total Protein Albumin Blood Type Antibody Screen 02/21/18 06:15 Creatine Kinase 338 H Impressions: Hip/Pelvis X-Ray 02/18/18 02:49 IMPRESSION: Fracture of the right femoral neck. Knee X-Ray 02/18/18 02:49 IMPRESSION: No acute findings. Pelvis X-Ray 02/20/18 00:00 IMPRESSION: Right hip hemiarthroplasty in good position. Head MRI 02/22/18 00:00 IMPRESSION: Acute nonhemorrhagic left posterior cerebral artery distribution infarct Stable chronic small vessel ischemic change in the martín and cerebral hemispheres EVIDENCE OF ACUTE STROKE: YES. Chest X-Ray 02/22/18 12:52 IMPRESSION: BORDERLINE CARDIOMEGALY. LINEAR DENSITIES IN THE LEFT LUNG BASE, ATELECTASIS VERSUS EARLY INFILTRATE. Extremity Ultrasound 02/23/18 00:00 IMPRESSION: 14 x 7 x 7 cm hypoechoic complex fluid collection deep to the surgical bandage over the right hip replacement. This likely represents a hematoma. Head CT 02/23/18 00:00 IMPRESSION: Left posterior cerebral artery distribution infarct. No hemorrhagic conversion. EVIDENCE OF ACUTE STROKE: Stable appearance of left early subacute CHEF & OWNER distribution infarct compared to previous studies. Status: Imported from PACS Assessment & Plan - Diagnosis (1) Femoral neck fracture Qualifiers: Encounter type: subsequent encounter Fracture type: closed Laterality: right Fracture healing: with routine healing Qualified Code(s): S72.001D - Fracture of unspecified part of neck of right femur, subsequent encounter for closed fracture with routine healing Is this a current diagnosis for this admission?: Yes Plan: 63-year-old black female with multiple ongoing medical issues including a new cerebrovascular event. The patient has developed postoperative anemia from bleeding into the wound bed at least in part related to anticoagulation and elevated PTT. I think we can just change the dressing on a as needed basis. It is likely this hematoma will liquefy and resolve spontaneously. I think if it is important for the patient to be on anticoagulation for her cerebrovascular status that is probably more important than worrying about the hip wound at this point. It seems that the ongoing blood loss is probably abated and the hematocrit remains stable. - Time Time Spent with patient: 15-24 minutes Anticipated discharge: Other Within: Other
[2018-02-24 06:41] LABS: ANION GAP 10 (5-19); BLOOD UREA NITROGEN 92 mg/dL (7-20); CALCIUM 7.3 mg/dL (8.4-10.2); CARBON DIOXIDE 17 mmol/L (22-30); CHLORIDE 111 mmol/L (98-107); GLUCOSE 95 mg/dL (75-110); POTASSIUM 4.6 mmol/L (3.6-5.0); SODIUM 137.8 mmol/L (137-145)
--- NOTE | 2018-02-24 08:34 | PDOC PROGRESS REPORT ---
Subjective Progress Note for:: 02/24/18 Subjective:: No acute events overnight Reason For Visit: HIP FX Physical Exam Vital Signs: Temp Pulse Resp BP Pulse Ox 98.8 F 75 16 121/81 100 02/24/18 04:05 02/24/18 04:05 02/24/18 04:05 02/24/18 04:05 02/24/18 04:05 Intake & Output 02/23/18 02/24/18 02/25/18 06:59 06:59 06:59 Intake Total 1132 700 Output Total 400 1200 Balance 732 -500 Weight 83.8 kg 83.7 kg General appearance: PRESENT: no acute distress, well-developed, well-nourished Head exam: PRESENT: atraumatic, normocephalic Eye exam: PRESENT: conjunctiva pink, EOMI, PERRLA. ABSENT: scleral icterus Ear exam: PRESENT: normal external ear exam Mouth exam: PRESENT: moist, tongue midline Neck exam: ABSENT: carotid bruit, JVD, lymphadenopathy, thyromegaly Respiratory exam: PRESENT: clear to auscultation tila. ABSENT: rales, rhonchi, wheezes Cardiovascular exam: PRESENT: RRR. ABSENT: diastolic murmur, rubs, systolic murmur Pulses: PRESENT: normal dorsalis pedis pul Vascular exam: PRESENT: normal capillary refill GI/Abdominal exam: PRESENT: normal bowel sounds, soft. ABSENT: distended, guarding, mass, organolmegaly, rebound, tenderness Rectal exam: PRESENT: deferred Extremities exam: PRESENT: full ROM. ABSENT: calf tenderness, clubbing, pedal edema Neurological exam: PRESENT: alert, awake, oriented to person, oriented to place , oriented to time, oriented to situation, CN II-XII grossly intact. ABSENT: motor sensory deficit Psychiatric exam: PRESENT: appropriate affect, normal mood. ABSENT: homicidal ideation, suicidal ideation Skin exam: PRESENT: dry, intact, warm. ABSENT: cyanosis, rash Results Laboratory Results: 02/24/18 05:34 02/24/18 05:34 02/21/18 02/23/18 02/23/18 20:11 10:40 10:40 WBC Cancelled RBC Cancelled Hgb Cancelled Hct Cancelled MCV Cancelled MCH Cancelled MCHC Cancelled RDW Cancelled Plt Count Cancelled Seg Neutrophils % Lymphocytes % Monocytes % Eosinophils % Basophils % Absolute Neutrophils Absolute Lymphocytes Absolute Monocytes Absolute Eosinophils Absolute Basophils Sodium Cancelled Potassium Cancelled Chloride Cancelled Carbon Dioxide Cancelled Anion Gap Cancelled BUN Cancelled Creatinine Cancelled Est GFR ( Amer) Cancelled Est GFR (Non-Af Amer) Cancelled Glucose Cancelled Calcium Cancelled Phosphorus Magnesium Total Bilirubin AST ALT Alkaline Phosphatase Total Protein Albumin Blood Type A POSITIVE Antibody Screen NEGATIVE 02/23/18 02/23/18 02/23/18 10:40 10:40 12:10 WBC Cancelled 9.5 RBC Cancelled 2.18 L Hgb Cancelled 5.7 L Hct Cancelled 16.9 L MCV Cancelled 78 L MCH Cancelled 26.3 L MCHC Cancelled 33.9 RDW Cancelled 15.2 H Plt Count Cancelled 171 Seg Neutrophils % Cancelled Not Reportable Lymphocytes % Cancelled Not Reportable Monocytes % Cancelled Not Reportable Eosinophils % Cancelled Not Reportable Basophils % Cancelled Not Reportable Absolute Neutrophils Cancelled Not Reportable Absolute Lymphocytes Cancelled Not Reportable Absolute Monocytes Cancelled Not Reportable Absolute Eosinophils Cancelled Not Reportable Absolute Basophils Cancelled Not Reportable Sodium 135.4 L Potassium 5.1 H Chloride 108 H Carbon Dioxide 17 L Anion Gap 10 BUN 98 H Creatinine 5.25 H Est GFR ( Amer) 10 L Est GFR (Non-Af Amer) 8 L Glucose 102 Calcium 7.4 L Phosphorus 6.2 H Magnesium 2.2 Total Bilirubin 0.6 AST 20 ALT 24 Alkaline Phosphatase 32 L Total Protein 5.1 L Albumin 2.2 L Blood Type Antibody Screen 02/24/18 02/24/18 02/24/18 00:35 00:35 05:34 WBC 9.7 8.9 RBC 2.82 L 2.58 L Hgb 7.9 L D 7.3 L Hct 22.8 L 21.0 L MCV 81 81 MCH 27.9 28.2 MCHC 34.5 34.7 RDW 15.8 H 15.9 H Plt Count 163 160 Seg Neutrophils % 60.3 Lymphocytes % 18.6 Monocytes % 19.6 H Eosinophils % 1.0 Basophils % 0.5 Absolute Neutrophils 5.9 Absolute Lymphocytes 1.8 Absolute Monocytes 1.9 H Absolute Eosinophils 0.1 Absolute Basophils 0.1 Sodium 137.9 Potassium 4.9 Chloride 110 H Carbon Dioxide 17 L Anion Gap 11 BUN 97 H Creatinine 4.87 H Est GFR ( Amer) 11 L Est GFR (Non-Af Amer) 9 L Glucose 110 Calcium 7.5 L Phosphorus Magnesium Total Bilirubin AST ALT Alkaline Phosphatase Total Protein Albumin Blood Type Antibody Screen 02/24/18 05:34 WBC RBC Hgb Hct MCV MCH MCHC RDW Plt Count Seg Neutrophils % Lymphocytes % Monocytes % Eosinophils % Basophils % Absolute Neutrophils Absolute Lymphocytes Absolute Monocytes Absolute Eosinophils Absolute Basophils Sodium 137.8 Potassium 4.6 Chloride 111 H Carbon Dioxide 17 L Anion Gap 10 BUN 92 H Creatinine 4.85 H Est GFR ( Amer) 11 L Est GFR (Non-Af Amer) 9 L Glucose 95 Calcium 7.3 L Phosphorus Magnesium Total Bilirubin AST ALT Alkaline Phosphatase Total Protein Albumin Blood Type Antibody Screen 02/21/18 06:15 Creatine Kinase 338 H Impressions: Hip/Pelvis X-Ray 02/18/18 02:49 IMPRESSION: Fracture of the right femoral neck. Knee X-Ray 02/18/18 02:49 IMPRESSION: No acute findings. Pelvis X-Ray 02/20/18 00:00 IMPRESSION: Right hip hemiarthroplasty in good position. Head MRI 02/22/18 00:00 IMPRESSION: Acute nonhemorrhagic left posterior cerebral artery distribution infarct Stable chronic small vessel ischemic change in the martín and cerebral hemispheres EVIDENCE OF ACUTE STROKE: YES. Chest X-Ray 02/22/18 12:52 IMPRESSION: BORDERLINE CARDIOMEGALY. LINEAR DENSITIES IN THE LEFT LUNG BASE, ATELECTASIS VERSUS EARLY INFILTRATE. Extremity Ultrasound 02/23/18 00:00 IMPRESSION: 14 x 7 x 7 cm hypoechoic complex fluid collection deep to the surgical bandage over the right hip replacement. This likely represents a hematoma. Head CT 02/23/18 00:00 IMPRESSION: Left posterior cerebral artery distribution infarct. No hemorrhagic conversion. EVIDENCE OF ACUTE STROKE: Stable appearance of left early subacute AMMONIUM NITRATE CRYSTALLIZER distribution infarct compared to previous studies. Assessment & Plan - Diagnosis (1) Anemia Qualifiers: Anemia type: iron deficiency Iron deficiency anemia type: chronic blood loss Qualified Code(s): D50.0 - Iron deficiency anemia secondary to blood loss (chronic) Is this a current diagnosis for this admission?: Yes Plan: Hb slight drop, will need to continue to monitor (2) Coagulation defect, unspecified Is this a current diagnosis for this admission?: Yes Plan: Improved - Time Time Spent with patient: 15-24 minutes - Inpatient Certification Based on my medical assessment, after consideration of the patient's comorbidities, presenting symptoms, or acuity I expect that the services needed warrant INPATIENT care.: Yes I certify that my determination is in accordance with my understanding of Medicare's requirements for reasonable and necessary INPATIENT services [42 CFR 412.3e].: Yes Medical Necessity: Need for Neurological Checks, Risk of Complication if Not Cared For in Hospital
[2018-02-24] MEDS: PANTOPRAZOLE SODIUM 40 MG VIAL IV SCH (11:00)
--- NOTE | 2018-02-24 13:44 | RADIOLOGY REPORT (SQ) ---
EXAM DESCRIPTION: CAROTID DOPPLER COMPLETED DATE/TIME: 02/24/2018 1:26 pm REASON FOR STUDY: STROKE/ AFIB COMPARISON: 05/06/2016. TECHNIQUE: Grayscale ultrasound, Doppler velocity and spectra, and color Doppler images acquired of the extra-cranial carotid and vertebral arteries. Images stored on PACS. LIMITATIONS: None. FINDINGS: RIGHT CAROTID CCA Velocities: Within normal limits. ICA Velocities The internal carotid artery is not visualized. Flow is present in the external carotid artery. LEFT CAROTID CCA Velocities: Within normal limits. ICA Velocities Peak systolic 0.64 m/s. End diastolic 0.29 m/s. Proximal ICA/CCA peak systolic ratio 0.89. Plaque in the carotid bulb. VERTEBRAL ARTERIES: Antegrade flow. Normal waveforms. SUBCLAVIAN ARTERIES: No finding. OTHER: No other significant finding. IMPRESSION: CHRONIC OCCLUSION OF THE RIGHT INTERNAL CAROTID ARTERY. NO HEMODYNAMICALLY SIGNIFICANT STENOSIS OF THE LEFT INTERNAL CAROTID ARTERY. COMMENT: Quality ID #[id number]: Velocity criteria are extrapolated from the diameter data as defined by t he Society of Radiologists in Ultrasound Consensus Conference. Radiology 2003: 229; 340-346. TECHNICAL DOCUMENTATION: JOB ID: [id number] [employer]- All Rights Reserved Reading location - IP/workstation name: [email or web address]
[2018-02-24] MEDS: CARVEDILOL 12.5 MG TABLET PO SCH (14:09)
--- NOTE | 2018-02-24 16:39 | PDOC PROGRESS REPORT ---
Subjective Progress Note for:: 02/24/18 Reason For Visit: Patient seen today. She seems more awake but was not responding to my oral commands. However on discussions with the nurse Josey she is being more responsive to her family. No apparent history of any shortness of breath. Labs and medications were reviewed. She still continuing to drop some of her hemoglobin. Hemodynamically stable at the present. Reviewed extremity ultrasound from yesterday which shows a 147 cm hematoma in the operative area.Renal numbers are stable. Physical Exam Vital Signs: Temp Pulse Resp BP Pulse Ox 98.2 F 68 14 148/58 H 100 02/24/18 11:12 02/24/18 12:00 02/24/18 12:00 02/24/18 12:00 02/24/18 12:00 Intake & Output 02/23/18 02/24/18 02/25/18 06:59 06:59 06:59 Intake Total 1132 700 0 Output Total 400 1200 550 Balance 732 -500 -550 Weight 83.8 kg 83.7 kg General appearance: PRESENT: no acute distress Respiratory exam: PRESENT: clear to auscultation tila. ABSENT: crackles, rhonchi Cardiovascular exam: PRESENT: RRR, +S1, +S2 GI/Abdominal exam: PRESENT: normal bowel sounds, soft. ABSENT: organomegaly, tenderness Extremities exam: PRESENT: pedal edema - Trace plus Neurological exam: PRESENT: altered, awake Skin exam: ABSENT: erythema, rash Results Laboratory Results: 02/24/18 05:34 02/24/18 05:34 02/21/18 02/24/18 02/24/18 20:11 00:35 00:35 WBC 9.7 RBC 2.82 L Hgb 7.9 L D Hct 22.8 L MCV 81 MCH 27.9 MCHC 34.5 RDW 15.8 H Plt Count 163 Seg Neutrophils % 60.3 Lymphocytes % 18.6 Monocytes % 19.6 H Eosinophils % 1.0 Basophils % 0.5 Absolute Neutrophils 5.9 Absolute Lymphocytes 1.8 Absolute Monocytes 1.9 H Absolute Eosinophils 0.1 Absolute Basophils 0.1 Sodium 137.9 Potassium 4.9 Chloride 110 H Carbon Dioxide 17 L Anion Gap 11 BUN 97 H Creatinine 4.87 H Est GFR ( Amer) 11 L Est GFR (Non-Af Amer) 9 L Glucose 110 Calcium 7.5 L Blood Type A POSITIVE Antibody Screen NEGATIVE 02/24/18 02/24/18 05:34 05:34 WBC 8.9 RBC 2.58 L Hgb 7.3 L Hct 21.0 L MCV 81 MCH 28.2 MCHC 34.7 RDW 15.9 H Plt Count 160 Seg Neutrophils % Lymphocytes % Monocytes % Eosinophils % Basophils % Absolute Neutrophils Absolute Lymphocytes Absolute Monocytes Absolute Eosinophils Absolute Basophils Sodium 137.8 Potassium 4.6 Chloride 111 H Carbon Dioxide 17 L Anion Gap 10 BUN 92 H Creatinine 4.85 H Est GFR ( Amer) 11 L Est GFR (Non-Af Amer) 9 L Glucose 95 Calcium 7.3 L Blood Type Antibody Screen 02/19/18 13:12 Blood Blood Culture - Final NO GROWTH IN 5 DAYS 02/19/18 12:23 Blood Blood Culture - Final NO GROWTH IN 5 DAYS 02/21/18 06:15 Creatine Kinase 338 H Impressions: Hip/Pelvis X-Ray 02/18/18 02:49 IMPRESSION: Fracture of the right femoral neck. Knee X-Ray 02/18/18 02:49 IMPRESSION: No acute findings. Pelvis X-Ray 02/20/18 00:00 IMPRESSION: Right hip hemiarthroplasty in good position. Head MRI 02/22/18 00:00 IMPRESSION: Acute nonhemorrhagic left posterior cerebral artery distribution infarct Stable chronic small vessel ischemic change in the martín and cerebral hemispheres EVIDENCE OF ACUTE STROKE: YES. Chest X-Ray 02/22/18 12:52 IMPRESSION: BORDERLINE CARDIOMEGALY. LINEAR DENSITIES IN THE LEFT LUNG BASE, ATELECTASIS VERSUS EARLY INFILTRATE. Extremity Ultrasound 02/23/18 00:00 IMPRESSION: 14 x 7 x 7 cm hypoechoic complex fluid collection deep to the surgical bandage over the right hip replacement. This likely represents a hematoma. Head CT 02/23/18 00:00 IMPRESSION: Left posterior cerebral artery distribution infarct. No hemorrhagic conversion. EVIDENCE OF ACUTE STROKE: Stable appearance of left early subacute KICK PLATE INSTALLER distribution infarct compared to previous studies. Carotid Doppler Study 02/24/18 00:00 IMPRESSION: CHRONIC OCCLUSION OF THE RIGHT INTERNAL CAROTID ARTERY. NO HEMODYNAMICALLY SIGNIFICANT STENOSIS OF THE LEFT INTERNAL CAROTID ARTERY. Assessment & Plan - Diagnosis (1) Displaced fracture of right femoral neck Is this a current diagnosis for this admission?: Yes Plan: Underwent an uneventful right hemiarthroplasty. Being managed by orthopedics.Now diagnosed with a 147 cm hematoma in the operative site. Obviously she had an abnormal coagulation profile being on Eliquis which has been discontinued. Her APTT looks near normal. Concerned about this large hematoma which can get infected unless may be intervened in the setting of immobile diabetic CKD stage IV patient.Surgeries preemptive IV antibiotics. Discussed with hospitalist Dr. Catherine. (2) LOGAN (acute kidney injury) Plan: Still unstable. Currently nonoliguric. Good urine output as shown after introduction of García catheter. No acute indication currently for initiation of hemodialysis .Will cut back fluid rate to 50 cc/h. (3) CKD (chronic kidney disease), stage V Plan: Patient is got underlying CKD stage V from her diabetic and hypertensive nephropathy. Base creatinine is 4. AV fistula was placed recently in anticipation of initiation of hemodialysis in the near future. AV fistula was placed when her physical and cognitive functions were much better. (4) Altered mental status Qualifiers: Altered mental status type: unspecified Qualified Code(s): R41.82 - Altered mental status, unspecified Is this a current diagnosis for this admission?: Yes Plan: This could be explained in light of the new stroke on recent CT scan. Other contributing factors as mentioned in my earlier notes. (5) Insulin dependent diabetes mellitus Is this a current diagnosis for this admission?: Yes Plan: Needs tight control. (6) Anemia Qualifiers: Anemia type: iron deficiency Iron deficiency anemia type: chronic blood loss Qualified Code(s): D50.0 - Iron deficiency anemia secondary to blood loss (chronic) Is this a current diagnosis for this admission?: Yes Plan: Acute. Her hemoglobin peaked at 7.9 posttransfusion earlier this morning.However 4 hours later dropped to 7.3. Suggest hemoglobin check every 4- 6 hours to keep an eye if it is dropping any further. It might mean she might need more active intervention. (7) Coronary artery disease Qualifiers: Coronary Disease-Associated Artery/Lesion type: [place] artery [place] vs. transplanted heart: [place] heart Associated angina: without angina Qualified Code(s): I25.10 - Atherosclerotic heart disease of [place] coronary artery without angina pectoris Is this a current diagnosis for this admission?: No Plan: Presently stable. (8) HTN (hypertension) Qualifiers: Hypertension type: essential hypertension Qualified Code(s): I10 - Essential (primary) hypertension Is this a current diagnosis for this admission?: Yes Plan: Controlled. Monitor. (9) History of CVA in adulthood Plan: She is got an acute stroke on top of a previous old remote infarct in the posterior circulation.MRI also shows subtle vascular compromise in the anterior cerebral territory as well. (10) Solitary kidney, acquired Plan: Status quo (11) Hyperkalemia Plan: Stable currently.
[2018-02-24] MEDS: DOCUSATE SODIUM 100 MG CAPSULE PO SCH ×2 (17:37→18:39)
[2018-02-24] MEDS: INSULIN REG, HUMAN 100 UNIT/ML 3 ML VIAL (PYX) SUBCUT PRN ×2 (18:35→22:33)
--- NOTE | 2018-02-24 19:54 | RADIOLOGY REPORT (SQ) ---
EXAM DESCRIPTION: CT ABD/PELVIS NO ORAL OR IV COMPLETED DATE/TIME: 02/24/2018 7:27 pm REASON FOR STUDY: looking for a source of bleeding COMPARISON: 01/21/2014 TECHNIQUE: CT scan of the abdomen and pelvis performed without intravenous or oral contrast. Images reviewed with lung, soft tissue, and bone windows. Reconstructed coronal and sagittal MPR images revi ewed. All images stored on PACS. All CT scanners at this facility use dose modulation, iterative reconstruction, and/or weight based d osing when appropriate to reduce radiation dose to as low as reasonably achievable (ALARA). [facility]: Dose Right [facility]: CareDose [facility]: Dose Right [facility]: Teradose 4D [facility]: [employer] RADIATION DOSE: CT Rad equipment meets quality standard of care and radiation dose reduction techniq ues were employed. CTDIvol: 16.8 mGy. DLP: 903 mGy-cm.mGy. LIMITATIONS: None. FINDINGS: LOWER CHEST: Small bilateral pleural effusions. Bilateral lower lobe subsegmental atelect asis -airspace disease, left greater than right. NON-CONTRASTED LIVER, SPLEEN, ADRENALS: Evaluation limited by lack of IV contrast. Similar left adre nal nodularity. PANCREAS: No masses. No peripancreatic inflammatory changes. GALLBLADDER: No identified stones by CT criteria. No inflammatory changes to suggest cholecystitis. RIGHT KIDNEY AND URETER: Prior right nephrectomy. LEFT KIDNEY AND URETER: No suspicious masses. Assessment limited by lack of IV contrast. No signifi cant calcifications. No hydronephrosis or hydroureter. AORTA AND RETROPERITONEUM: No aneurysm. No retroperitoneal masses or adenopathy. BOWEL AND PERITONEAL CAVITY: No obstruction. APPENDIX: Not visualized. PELVIS, BLADDER, AND ABDOMINAL WALL:Small amount of free fluid. Bladder decompressed by García cathete r. BONES: New Right total hip arthroplasty. OTHER: 17 cm craniocaudad by a 12 cm transverse by 7 cm thickness hematoma in the right subcutaneous soft tissues in the right gluteal region deep and superior to the lateral incision site from right to cruz hip arthroplasty. IMPRESSION: 17 cm craniocaudad by a 12 cm transverse by 7 cm thickness hematoma in the right subcuta neous soft tissues in the right gluteal region deep and superior to the lateral incision site from ri ght total hip arthroplasty. Small bilateral pleural effusions. Bilateral lower lobe subsegmental atelectasis -airspace disease, left greater than right. COMMENT: Quality ID # [id number]: Final reports with documentation of one or more dose reduction techniques (e.g., Automated exposure control, adjustment of the mA and/or kV according to patient size, use of iterative reconstruction technique) TECHNICAL DOCUMENTATION: JOB ID: [id number] [place]-[id number] 2010 [employer]- All Rights Reserved Reading location - IP/workstation name: [email or web address]
[2018-02-24 20:10] LABS: HEMATOCRIT 25.9 % (36.0-47.0); HEMOGLOBIN 8.7 g/dL (12.0-15.5); MEAN CORPUSCULAR HEMOGLOBIN 27.5 pg (27.0-33.4); MEAN CORPUSCULAR HGB CONC 33.4 g/dL (32.0-36.0); MEAN CORPUSCULAR VOLUME 83 fl (80-97); PLATELET COUNT 160 10^3/uL (150-450); RED BLOOD COUNT 3.15 10^6/uL (3.72-5.28); RED CELL DISTRIBUTION WIDTH 16.2 % (11.5-14.0)
[2018-02-24 20:22] LABS: ABSOLUTE LYMPHOCYTES# (MANUAL) 1.4 10^3/uL (0.5-4.7); ABSOLUTE MONOCYTES # (MANUAL) 1.9 10^3/uL (0.1-1.4); ABSOLUTE NEUTROPHILS# (MANUAL) 8.4 10^3/uL (1.7-8.2); BASOPHILS % (MANUAL) 1 % (0-2); EOSINOPHILS % (MANUAL) 1 % (0-6); LYMPHOCYTES % (MANUAL) 12 % (13-45); MONOCYTES % (MANUAL) 16 % (3-13); SEGMENTED NEUTROPHILS % (MAN) 70 % (42-78); TOTAL CELLS COUNTED 100
[2018-02-24 20:23] LABS: ANISOCYTOSIS 1+; PLATELET COMMENT ADEQUATE; POIKILOCYTOSIS SLIGHT; TOXIC GRANULATION SLIGHT
--- NOTE | 2018-02-24 21:15 | PDOC PROGRESS REPORT ---
Subjective Progress Note for:: 02/24/18 Subjective:: Patient seen for follow-up today for her multiple medical conditions. Patient is a 63-year-old -[place] female brought to the hospital after a fall she sustained. Patient was ambulating prior to this using a Rollator walker. Patient was verbal and semi-mobile daughter did report a little balance issue however was mostly able to do all her ADLs and communicate. Patient was found to have anemia after her right hip hemiarthroplasty. Anemia initially was before on postoperative etiology and blood loss. Patient was immediately transfused 2 units PRBC. Patient was evaluated yesterday as concerned for baseline mental status was there. CT of the brain done yesterday was positive for an infarct in the medial occipitoparietal area. MRI was done today which showed a 7 cm infarct in the same area. We had a discussion with the family members about her hospital stay in her current condition and her decline. And her guarded prognosis. Dr. Bullard the miner and myself were in the conscious emergency room with the Daughter and the brother and were joined by the nurse Ms. Dowling. Patient's frail status was discussed with family members CODE STATUS was discussed with family members. Informed patients family about the risk of anticoagulation and hemorrhagic conversion in a stroke but at the same time the limitations of That if we do not use that medication then having another stroke. Anticoagulation also put the patient does risk for additional bleeding possibly as patient is currently anemic and have we have no etiology or the source of the bleed. His Eliquis was discontinued. We will continue patient on aspirin 81 , with Statin therapy. Initial guaiac was negative, will repeat a stool guaiac and proceed with antiplatelet therapy with full dose aspirin. 02/23/18 pt seen today for f/u of her large ischemia posterior circulation stroke/ anemia / a.fib . received report from nurse that pt has been more difficult to arouse than before. Per pharmacy patient had received morphine 1 mg about 6 times throughout the night By night nurse as patient had complained of pain in her right hip. This morning patient is somnolent arousable minimally open her eyes but does not follow commands. Stat CT of the head was obtained to reassess any hemorrhagic conversion of her acute ischemic CVA on 02/21/2018, and also an ultrasound of the right hip to document any hematoma. CT report was negative for any hemorrhagic conversion or changes, ultrasound positive for hematoma. The report from nurse that repeat CBC had showed hemoglobin level that was critical of 5.7. Reached out to son Mr. Camacho via telephone to discuss declining clinical status and possible need for transfer if felt necessary for specialty services, son informed about mental status change, and also about the drop in the hemoglobin and the need for transfusion. Per son who is decision-maker in the family patient is full code and to do what is necessary and needed In the circumstance and otherwise. If we need to transfer his mom he has agreed to transfer. Reached out to orthopedics Dr. Gauthier about positive ultrasound for hematoma and right hip, per orthopedics Elevated PTT is the reason the patient has a hematoma and that once corrected the hematoma will resorb. Hematology flatwork ironer contacted for consult for plan of elevated PTT repeat pending and per Dr. Velásquez we will reassess once repeat studies are resulted. We will consider FFP if PTT is still elevated. Dr. Velásquez has agreed to consult on the patient. 02/24/18 Patient seen today for follow-up of her anemia, hematoma, stroke. This morning patient is arousable opens her eyes turns her head When called. Patient is more cooperative with answering questions when family is present. During the day patient is mostly sleeping, but arousable. Today discussed with son about patient's condition and mild to moderate improvement in mental status. Discussed with Dr. Bullard who also agrees that patient should be transferred To a tertiary care facility. Patient is anemic we have found hematoma in her right hip. The risk of infection of hematoma is high. Due to multiple comorbidities in this patient the risk of deterioration Is high. She did receive 2 units of PRBC today, her hemoglobin has come up to 8.7. So far patient has received total of 4 units in the past 48 hours of PRBC. Reached out dividing facility and discussed case with the hospitalist , Who suggested that an abdominal bleed may be consideration and we Do CT scan of the abdomen and pelvis. Discussed with Dr. Mcneill that Imaging studies unfortunately in this patient is limited due to her end-stage renal disease. Patient is also unable to drink p.o. contrast and would require NG placement. Also my suspicion for any retroperitoneal or intra-abdominal hemorrhage is low. However we will proceed with imaging of the abdomen. CT of the abdomen and pelvis was negative except for down to free fluid in the abdomen. Report did identify a large hematoma in the right hip dimensions specified a 17 cm, Which is increased from the previous ultrasound. Orthopedic surgeon Dr. toney contacted immediately for plan hematoma evaluation management and possible surgical intervention. Dr. toney advises that patient received 2 units of blood tonight and to raise Hemoglobin between 9 and 11. And if patient drops we plan for surgery. Reason For Visit: HIP FX Physical Exam Vital Signs: Temp Pulse Resp BP Pulse Ox 98.5 F 74 16 140/57 H 99 02/24/18 19:59 02/24/18 19:59 02/24/18 19:59 02/24/18 19:59 02/24/18 19:59 Intake & Output 02/23/18 02/24/18 02/25/18 06:59 06:59 06:59 Intake Total 1132 700 0 Output Total 400 1200 1000 Balance 732 -500 -1000 Weight 184 lb 11.958 oz 184 lb 8.43 oz General appearance: PRESENT: no acute distress, cooperative Head exam: PRESENT: atraumatic, normocephalic Eye exam: PRESENT: EOMI Ear exam: PRESENT: normal external ear exam Respiratory exam: PRESENT: clear to auscultation tila Cardiovascular exam: PRESENT: RRR GI/Abdominal exam: PRESENT: normal bowel sounds, soft. ABSENT: distended Musculoskeletal exam: PRESENT: other - Right hip moderate edema. Neurological exam: PRESENT: oriented to person. ABSENT: alert Results Laboratory Results: 02/24/18 18:47 02/24/18 05:34 02/24/18 02/24/18 02/24/18 00:35 00:35 05:34 WBC 9.7 8.9 RBC 2.82 L 2.58 L Hgb 7.9 L D 7.3 L Hct 22.8 L 21.0 L MCV 81 81 MCH 27.9 28.2 MCHC 34.5 34.7 RDW 15.8 H 15.9 H Plt Count 163 160 Seg Neutrophils % 60.3 Lymphocytes % 18.6 Monocytes % 19.6 H Eosinophils % 1.0 Basophils % 0.5 Absolute Neutrophils 5.9 Absolute Lymphocytes 1.8 Absolute Monocytes 1.9 H Absolute Eosinophils 0.1 Absolute Basophils 0.1 Sodium 137.9 Potassium 4.9 Chloride 110 H Carbon Dioxide 17 L Anion Gap 11 BUN 97 H Creatinine 4.87 H Est GFR ( Amer) 11 L Est GFR (Non-Af Amer) 9 L Glucose 110 Calcium 7.5 L 02/24/18 02/24/18 05:34 18:47 WBC 12.0 H RBC 3.15 L Hgb 8.7 L Hct 25.9 L MCV 83 MCH 27.5 MCHC 33.4 RDW 16.2 H Plt Count 160 Seg Neutrophils % Not Reportable Lymphocytes % Not Reportable Monocytes % Not Reportable Eosinophils % Not Reportable Basophils % Not Reportable Absolute Neutrophils Not Reportable Absolute Lymphocytes Not Reportable Absolute Monocytes Not Reportable Absolute Eosinophils Not Reportable Absolute Basophils Not Reportable Sodium 137.8 Potassium 4.6 Chloride 111 H Carbon Dioxide 17 L Anion Gap 10 BUN 92 H Creatinine 4.85 H Est GFR ( Amer) 11 L Est GFR (Non-Af Amer) 9 L Glucose 95 Calcium 7.3 L 02/19/18 13:12 Blood Blood Culture - Final NO GROWTH IN 5 DAYS 02/19/18 12:23 Blood Blood Culture - Final NO GROWTH IN 5 DAYS 02/21/18 06:15 Creatine Kinase 338 H Impressions: Hip/Pelvis X-Ray 02/18/18 02:49 IMPRESSION: Fracture of the right femoral neck. Knee X-Ray 02/18/18 02:49 IMPRESSION: No acute findings. Pelvis X-Ray 02/20/18 00:00 IMPRESSION: Right hip hemiarthroplasty in good position. Head MRI 02/22/18 00:00 IMPRESSION: Acute nonhemorrhagic left posterior cerebral artery distribution infarct Stable chronic small vessel ischemic change in the martín and cerebral hemispheres EVIDENCE OF ACUTE STROKE: YES. Chest X-Ray 02/22/18 12:52 IMPRESSION: BORDERLINE CARDIOMEGALY. LINEAR DENSITIES IN THE LEFT LUNG BASE, ATELECTASIS VERSUS EARLY INFILTRATE. Extremity Ultrasound 02/23/18 00:00 IMPRESSION: 14 x 7 x 7 cm hypoechoic complex fluid collection deep to the surgical bandage over the right hip replacement. This likely represents a hematoma. Head CT 02/23/18 00:00 IMPRESSION: Left posterior cerebral artery distribution infarct. No hemorrhagic conversion. EVIDENCE OF ACUTE STROKE: Stable appearance of left early subacute S[employer] SPECIALIST distribution infarct compared to previous studies. Carotid Doppler Study 02/24/18 00:00 IMPRESSION: CHRONIC OCCLUSION OF THE RIGHT INTERNAL CAROTID ARTERY. NO HEMODYNAMICALLY SIGNIFICANT STENOSIS OF THE LEFT INTERNAL CAROTID ARTERY. Abdomen/Pelvis CT 02/24/18 18:56 IMPRESSION: 17 cm craniocaudad by a 12 cm transverse by 7 cm thickness hematoma in the right subcutaneous soft tissues in the right gluteal region deep and superior to the lateral incision site from right total hip arthroplasty. Small bilateral pleural effusions. Bilateral lower lobe subsegmental atelectasis -airspace disease, left greater than right. Assessment & Plan - Diagnosis (1) Hematoma of right hip Is this a current diagnosis for this admission?: Yes Plan: Increasing in size right hip hematoma based on CT scan. Patient scheduled for possible surgical intervention tomorrow morning. Plan is to transfuse patient overnight. (2) Altered mental status Qualifiers: Altered mental status type: somnolence Qualified Code(s): R40.0 - Somnolence Is this a current diagnosis for this admission?: Yes Plan: Attribute to morphine given to the patient overnight. Patient was given Narcan 0.4 mg subcu which did result in transient improvement with the patient opening her eyes. Repeat stat CT was negative for any changes. We will monitor patient and evaluate in the next 24 hours. (3) Displaced fracture of right femoral neck Is this a current diagnosis for this admission?: Yes Plan: Status post right butch-arthroplasty. The medication is discontinued as patient is found to be extremely somnolent after receiving morphine. (4) ESRD (end stage renal disease) Is this a current diagnosis for this admission?: Yes Plan: By nephrology of Dr. Bullard. Patient started on p.o. bicarb for her acidosis. (5) Insulin dependent diabetes mellitus Is this a current diagnosis for this admission?: Yes Plan: Sliding scale coverage as needed. (6) HTN (hypertension) Qualifiers: Hypertension type: essential hypertension Qualified Code(s): I10 - Essential (primary) hypertension Is this a current diagnosis for this admission?: Yes Plan: Goal blood pressure for this patient systolics of 150s. All antihypertensive medications to be held if systolic is 140 or below or if patient heart rate is 80 or below. (7) Chronic diastolic CHF (congestive heart failure) Is this a current diagnosis for this admission?: Yes Plan: Stable. We will monitor her strict I's and O's this patient is receiving multiple blood transfusion. - Time Time Spent with patient: 25-34 minutes Medications reviewed and adjusted accordingly: Yes - Inpatient Certification Based on my medical assessment, after consideration of the patient's comorbidities, presenting symptoms, or acuity I expect that the services needed warrant INPATIENT care.: Yes I certify that my determination is in accordance with my understanding of Medicare's requirements for reasonable and necessary INPATIENT services [42 CFR 412.3e].: Yes Medical Necessity: Need Close Monitoring Due to Risk of Patient Decompensation, Need For IV Fluids, Need For Continuous Telemetry Monitoring, Need for Neurological Checks
--- NOTE | 2018-02-24 21:43 | PDOC PROGRESS REPORT ---
Subjective Subjective:: Patient lying in bed comfortably. Patient has had a postoperative stroke and thus has done minimal with physical therapy given weakness. According to nursing staff has remained stable throughout the day. Current pain control. Denies chest pain or shortness of breath. The patient poor historian. Reason For Visit: HIP FX Physical Exam Vital Signs: Temp Pulse Resp BP Pulse Ox 98.5 F 74 16 140/57 H 99 02/24/18 19:59 02/24/18 19:59 02/24/18 19:59 02/24/18 19:59 02/24/18 19:59 Intake & Output 02/23/18 02/24/18 02/25/18 06:59 06:59 06:59 Intake Total 1132 700 0 Output Total 400 1200 1000 Balance 732 -500 -1000 Weight 83.8 kg 83.7 kg Musculoskeletal exam: PRESENT: other - Right lower extremity: Dressing demonstrate serosanguineous drainage no active bleeding. Mild ecchymosis along the lateral aspect of the hip moderate thigh swelling compartments soft and compressible no sign of compartment syndrome. No erythema. Patient lacks plantar flexion/dorsiflexion of the right foot and has limited motion of the right upper extremity. Dorsalis pedis pulse 2+. Results Laboratory Results: 02/24/18 18:47 02/24/18 05:34 02/24/18 02/24/18 02/24/18 00:35 00:35 05:34 WBC 9.7 8.9 RBC 2.82 L 2.58 L Hgb 7.9 L D 7.3 L Hct 22.8 L 21.0 L MCV 81 81 MCH 27.9 28.2 MCHC 34.5 34.7 RDW 15.8 H 15.9 H Plt Count 163 160 Seg Neutrophils % 60.3 Lymphocytes % 18.6 Monocytes % 19.6 H Eosinophils % 1.0 Basophils % 0.5 Absolute Neutrophils 5.9 Absolute Lymphocytes 1.8 Absolute Monocytes 1.9 H Absolute Eosinophils 0.1 Absolute Basophils 0.1 Sodium 137.9 Potassium 4.9 Chloride 110 H Carbon Dioxide 17 L Anion Gap 11 BUN 97 H Creatinine 4.87 H Est GFR ( Amer) 11 L Est GFR (Non-Af Amer) 9 L Glucose 110 Calcium 7.5 L 02/24/18 02/24/18 05:34 18:47 WBC 12.0 H RBC 3.15 L Hgb 8.7 L Hct 25.9 L MCV 83 MCH 27.5 MCHC 33.4 RDW 16.2 H Plt Count 160 Seg Neutrophils % Not Reportable Lymphocytes % Not Reportable Monocytes % Not Reportable Eosinophils % Not Reportable Basophils % Not Reportable Absolute Neutrophils Not Reportable Absolute Lymphocytes Not Reportable Absolute Monocytes Not Reportable Absolute Eosinophils Not Reportable Absolute Basophils Not Reportable Sodium 137.8 Potassium 4.6 Chloride 111 H Carbon Dioxide 17 L Anion Gap 10 BUN 92 H Creatinine 4.85 H Est GFR ( Amer) 11 L Est GFR (Non-Af Amer) 9 L Glucose 95 Calcium 7.3 L 02/19/18 13:12 Blood Blood Culture - Final NO GROWTH IN 5 DAYS 02/19/18 12:23 Blood Blood Culture - Final NO GROWTH IN 5 DAYS 02/21/18 06:15 Creatine Kinase 338 H Impressions: Hip/Pelvis X-Ray 02/18/18 02:49 IMPRESSION: Fracture of the right femoral neck. Knee X-Ray 02/18/18 02:49 IMPRESSION: No acute findings. Pelvis X-Ray 02/20/18 00:00 IMPRESSION: Right hip hemiarthroplasty in good position. Head MRI 02/22/18 00:00 IMPRESSION: Acute nonhemorrhagic left posterior cerebral artery distribution infarct Stable chronic small vessel ischemic change in the martín and cerebral hemispheres EVIDENCE OF ACUTE STROKE: YES. Chest X-Ray 02/22/18 12:52 IMPRESSION: BORDERLINE CARDIOMEGALY. LINEAR DENSITIES IN THE LEFT LUNG BASE, ATELECTASIS VERSUS EARLY INFILTRATE. Extremity Ultrasound 02/23/18 00:00 IMPRESSION: 14 x 7 x 7 cm hypoechoic complex fluid collection deep to the surgical bandage over the right hip replacement. This likely represents a hematoma. Head CT 02/23/18 00:00 IMPRESSION: Left posterior cerebral artery distribution infarct. No hemorrhagic conversion. EVIDENCE OF ACUTE STROKE: Stable appearance of left early subacute ELEMENTARY SUBSTITUTE TEACHER distribution infarct compared to previous studies. Carotid Doppler Study 02/24/18 00:00 IMPRESSION: CHRONIC OCCLUSION OF THE RIGHT INTERNAL CAROTID ARTERY. NO HEMODYNAMICALLY SIGNIFICANT STENOSIS OF THE LEFT INTERNAL CAROTID ARTERY. Abdomen/Pelvis CT 02/24/18 18:56 IMPRESSION: 17 cm craniocaudad by a 12 cm transverse by 7 cm thickness hematoma in the right subcutaneous soft tissues in the right gluteal region deep and superior to the lateral incision site from right total hip arthroplasty. Small bilateral pleural effusions. Bilateral lower lobe subsegmental atelectasis -airspace disease, left greater than right. Assessment & Plan - Diagnosis (1) Displaced fracture of right femoral neck Is this a current diagnosis for this admission?: Yes Plan: I have discussed the case with Dr. Catherine due to concerns of patient's changes in hemoglobin and hematocrit. I have reviewed patient's records patient admission hematocrit was 27.1 postsurgically did decreased 18.9 after receiving 2 units packed red blood cells increased to 22.9 and then acutely decreased to 16.9 once again. Patient received an additional 2 units of packed red blood cells increasing her hematocrit to 22.8 and then additional 2 units increased her hematocrit 25.9. Throughout the past 24 hours patient has maintained her vital signs with mean arterial pressure around 80 and heart rate of 60 thus I feel her vital signs are maintaining appropriate levels the concern is patient' s hematoma of the right hip I have reviewed patient's ultrasound and CT scan between the ultrasound and CT there is questionable increase in size of the hematoma but given the variance between the 2 radiographic studies I do not feel direct correlation is essentially accurate. At this point given the patient's multiple medical issues including most recent stroke, chronic kidney disease and chronic anemia recurrent hematocrit 25.9 is in her normal range. At this point she will receive an additional 2 units packed red blood cells if hematocrit maintains its current level would recommend against operative intervention which ultimately could cause worsening of patient's blood loss combined with the patient's multiple comorbidities could result in worsening of her current condition but we will watch her hematocrit closely understanding that she is also receiving IV fluids which may may also be contributing secondary to dilution. We will continue to monitor her clinically.
[2018-02-24] MEDS: ATORVASTATIN CALCIUM 80 MG TABLET PO SCH (23:43)
[2018-02-24] MEDS: CEFTRIAXONE 2 GM/D5W RTU 2 GM/50 ML RTUPB IV SCH (23:46)
[2018-02-25] MEDS: CARVEDILOL 12.5 MG TABLET PO SCH ×3 (01:45→21:46)
[2018-02-25 07:51] LABS: ABSOLUTE BASOPHILS # (AUTO) 0.1 10^3/uL (0.0-0.2); ABSOLUTE EOSINOPHILS # (AUTO) 0.2 10^3/uL (0.0-0.6); ABSOLUTE LYMPHOCYTES (AUTO) 1.2 10^3/uL (0.5-4.7); ABSOLUTE MONOCYTES (AUTO) 1.8 10^3/uL (0.1-1.4); ABSOLUTE NEUT (AUTO) 6.5 10^3/uL (1.7-8.2); BASOPHILS % (AUTO) 0.6 % (0-2); EOSINOPHILS % (AUTO) 1.9 % (0-6); HEMATOCRIT 28.1 % (36.0-47.0); HEMOGLOBIN 9.9 g/dL (12.0-15.5); LYMPHOCYTES % (AUTO) 11.9 % (13-45); MEAN CORPUSCULAR HEMOGLOBIN 28.9 pg (27.0-33.4); MEAN CORPUSCULAR HGB CONC 35.2 g/dL (32.0-36.0); MEAN CORPUSCULAR VOLUME 82 fl (80-97); MONOCYTES % (AUTO) 18.2 % (3-13); PLATELET COUNT 199 10^3/uL (150-450); RED BLOOD COUNT 3.43 10^6/uL (3.72-5.28); RED CELL DISTRIBUTION WIDTH 15.1 % (11.5-14.0); SEGMENTED NEUTROPHILS % (AUTO) 67.4 % (42-78); TOTAL CELLS COUNTED % (AUTO) 100 %; WHITE BLOOD COUNT 9.7 10^3/uL (4.0-10.5)
[2018-02-25] MEDS: NORMAL SALINE 1000 ML 1,000 ML IV PRN ×2 (08:03→23:21)
[2018-02-25 08:28] LABS: ALANINE AMINOTRANSFERASE 31 U/L (9-52); ALBUMIN 2.2 g/dL (3.5-5.0); ALKALINE PHOSPHATASE 40 U/L (38-126); ANION GAP 11 (5-19); ASPARTATE AMINO TRANSFERASE 27 U/L (14-36); BILIRUBIN,DIRECT 0.7 mg/dL (0.0-0.4); BILIRUBIN,TOTAL 1.7 mg/dL (0.2-1.3); BLOOD UREA NITROGEN 86 mg/dL (7-20); CALCIUM 7.6 mg/dL (8.4-10.2); CARBON DIOXIDE 16 mmol/L (22-30); CHLORIDE 112 mmol/L (98-107); GLUCOSE 113 mg/dL (75-110); PHOSPHORUS 5.5 mg/dL (2.5-4.5); POTASSIUM 4.8 mmol/L (3.6-5.0); SODIUM 139.1 mmol/L (137-145)
[2018-02-25] MEDS: DOCUSATE SODIUM 100 MG CAPSULE PO SCH ×2 (10:08→17:37)
--- NOTE | 2018-02-25 10:50 | PDOC PROGRESS REPORT ---
Subjective Subjective:: Patient lying in bed comfortably. According to nursing staff no issues overnight. Denies chest pain or shortness of breath. Reason For Visit: HIP FX Physical Exam Vital Signs: Temp Pulse Resp BP Pulse Ox 98.4 F 66 18 149/59 H 100 02/25/18 07:17 02/25/18 08:00 02/25/18 08:00 02/25/18 08:00 02/25/18 08:00 Intake & Output 02/24/18 02/25/18 02/26/18 06:59 06:59 06:59 Intake Total 1700 972 Output Total 1200 1575 Balance 500 -603 Weight 83.7 kg 84.6 kg Musculoskeletal exam: PRESENT: other - Right lower extremity: Serosanguineous drainage along the dressing site. Moderate thigh swelling compared to nonoperative left hip. Dorsalis pedis pulse 2+. Patient lacks plantar flexion/ dorsiflexion with decreased sensation on the dorsum of the foot. Compartments soft and compressible no sign of compartment syndrome. Results Laboratory Results: 02/25/18 06:50 02/25/18 06:50 02/21/18 02/24/18 02/24/18 20:11 18:47 22:07 WBC 12.0 H RBC 3.15 L Hgb 8.7 L Hct 25.9 L MCV 83 MCH 27.5 MCHC 33.4 RDW 16.2 H Plt Count 160 Seg Neutrophils % Not Reportable Lymphocytes % Not Reportable Monocytes % Not Reportable Eosinophils % Not Reportable Basophils % Not Reportable Absolute Neutrophils Not Reportable Absolute Lymphocytes Not Reportable Absolute Monocytes Not Reportable Absolute Eosinophils Not Reportable Absolute Basophils Not Reportable Sodium Potassium Chloride Carbon Dioxide Anion Gap BUN Creatinine Est GFR ( Amer) Est GFR (Non-Af Amer) Glucose Calcium Phosphorus Magnesium Total Bilirubin AST ALT Alkaline Phosphatase Total Protein Albumin Blood Type A POSITIVE A POSITIVE Antibody Screen NEGATIVE NEGATIVE 02/25/18 02/25/18 06:50 06:50 WBC 9.7 RBC 3.43 L Hgb 9.9 L Hct 28.1 L MCV 82 MCH 28.9 MCHC 35.2 RDW 15.1 H Plt Count 199 Seg Neutrophils % 67.4 Lymphocytes % 11.9 L Monocytes % 18.2 H Eosinophils % 1.9 Basophils % 0.6 Absolute Neutrophils 6.5 Absolute Lymphocytes 1.2 Absolute Monocytes 1.8 H Absolute Eosinophils 0.2 Absolute Basophils 0.1 Sodium 139.1 Potassium 4.8 Chloride 112 H Carbon Dioxide 16 L Anion Gap 11 BUN 86 H Creatinine 4.45 H Est GFR ( Amer) 12 L Est GFR (Non-Af Amer) 10 L Glucose 113 H Calcium 7.6 L Phosphorus 5.5 H Magnesium 2.2 Total Bilirubin 1.7 H AST 27 ALT 31 Alkaline Phosphatase 40 Total Protein 5.0 L Albumin 2.2 L Blood Type Antibody Screen 02/19/18 13:12 Blood Blood Culture - Final NO GROWTH IN 5 DAYS 02/19/18 12:23 Blood Blood Culture - Final NO GROWTH IN 5 DAYS 02/21/18 06:15 Creatine Kinase 338 H Impressions: Hip/Pelvis X-Ray 02/18/18 02:49 IMPRESSION: Fracture of the right femoral neck. Knee X-Ray 02/18/18 02:49 IMPRESSION: No acute findings. Pelvis X-Ray 02/20/18 00:00 IMPRESSION: Right hip hemiarthroplasty in good position. Head MRI 02/22/18 00:00 IMPRESSION: Acute nonhemorrhagic left posterior cerebral artery distribution infarct Stable chronic small vessel ischemic change in the martín and cerebral hemispheres EVIDENCE OF ACUTE STROKE: YES. Chest X-Ray 02/22/18 12:52 IMPRESSION: BORDERLINE CARDIOMEGALY. LINEAR DENSITIES IN THE LEFT LUNG BASE, ATELECTASIS VERSUS EARLY INFILTRATE. Extremity Ultrasound 02/23/18 00:00 IMPRESSION: 14 x 7 x 7 cm hypoechoic complex fluid collection deep to the surgical bandage over the right hip replacement. This likely represents a hematoma. Head CT 02/23/18 00:00 IMPRESSION: Left posterior cerebral artery distribution infarct. No hemorrhagic conversion. EVIDENCE OF ACUTE STROKE: Stable appearance of left early subacute [employer] distribution infarct compared to previous studies. Carotid Doppler Study 02/24/18 00:00 IMPRESSION: CHRONIC OCCLUSION OF THE RIGHT INTERNAL CAROTID ARTERY. NO HEMODYNAMICALLY SIGNIFICANT STENOSIS OF THE LEFT INTERNAL CAROTID ARTERY. Abdomen/Pelvis CT 02/24/18 18:56 IMPRESSION: 17 cm craniocaudad by a 12 cm transverse by 7 cm thickness hematoma in the right subcutaneous soft tissues in the right gluteal region deep and superior to the lateral incision site from right total hip arthroplasty. Small bilateral pleural effusions. Bilateral lower lobe subsegmental atelectasis -airspace disease, left greater than right. Assessment & Plan - Diagnosis (1) Displaced fracture of right femoral neck Is this a current diagnosis for this admission?: Yes Plan: I have discussed the case with Dr. Catherine due to concerns of patient's changes in hemoglobin and hematocrit. Patient's H&H has adequately increased after an additional 2 units of packed red blood cells. Current H&H 9.9/28.1. She remains normotensive without evidence of tachycardia thus I do not feel operative intervention for evacuation of her hematoma is indicated. Given patient's multiple comorbidities including recent stroke I feel she would be at high risk for anesthesia and given the fact there is no definitive benefit of evacuation of patient's hematoma. I also feel given her increased comorbidities that repeat operative intervention would be at high risk for actual increased bleeding and thus acute anemia. We will continue to monitor patient's vital signs and H&H.
--- NOTE | 2018-02-25 11:05 | PDOC PROGRESS REPORT ---
Subjective Progress Note for:: 02/25/18 Subjective:: Patient seems more communicative today, more alert and oriented to some extent. Yesterday patient received 2 more units of packed red blood cells. Reason For Visit: HIP FX Physical Exam Vital Signs: Temp Pulse Resp BP Pulse Ox 98.4 F 66 18 149/59 H 100 02/25/18 07:17 02/25/18 08:00 02/25/18 08:00 02/25/18 08:00 02/25/18 08:00 Intake & Output 02/24/18 02/25/18 02/26/18 06:59 06:59 06:59 Intake Total 1700 972 Output Total 1200 1575 Balance 500 -603 Weight 83.7 kg 84.6 kg General appearance: PRESENT: no acute distress, well-developed, well-nourished Head exam: PRESENT: atraumatic, normocephalic Eye exam: PRESENT: conjunctiva pink, EOMI, PERRLA. ABSENT: scleral icterus Ear exam: PRESENT: normal external ear exam Mouth exam: PRESENT: moist, tongue midline Neck exam: ABSENT: carotid bruit, JVD, lymphadenopathy, thyromegaly Respiratory exam: PRESENT: clear to auscultation tila. ABSENT: rales, rhonchi, wheezes Cardiovascular exam: PRESENT: RRR. ABSENT: diastolic murmur, rubs, systolic murmur Pulses: PRESENT: normal dorsalis pedis pul Vascular exam: PRESENT: normal capillary refill GI/Abdominal exam: PRESENT: normal bowel sounds, soft. ABSENT: distended, guarding, mass, organolmegaly, rebound, tenderness Rectal exam: PRESENT: deferred Extremities exam: PRESENT: full ROM. ABSENT: calf tenderness, clubbing, pedal edema Neurological exam: PRESENT: alert, awake, oriented to person, oriented to place , oriented to time, oriented to situation, CN II-XII grossly intact. ABSENT: motor sensory deficit Psychiatric exam: PRESENT: appropriate affect, normal mood. ABSENT: homicidal ideation, suicidal ideation Skin exam: PRESENT: dry, intact, warm. ABSENT: cyanosis, rash Results Laboratory Results: 02/25/18 06:50 02/25/18 06:50 02/21/18 02/24/18 02/24/18 20:11 18:47 22:07 WBC 12.0 H RBC 3.15 L Hgb 8.7 L Hct 25.9 L MCV 83 MCH 27.5 MCHC 33.4 RDW 16.2 H Plt Count 160 Seg Neutrophils % Not Reportable Lymphocytes % Not Reportable Monocytes % Not Reportable Eosinophils % Not Reportable Basophils % Not Reportable Absolute Neutrophils Not Reportable Absolute Lymphocytes Not Reportable Absolute Monocytes Not Reportable Absolute Eosinophils Not Reportable Absolute Basophils Not Reportable Sodium Potassium Chloride Carbon Dioxide Anion Gap BUN Creatinine Est GFR ( Amer) Est GFR (Non-Af Amer) Glucose Calcium Phosphorus Magnesium Total Bilirubin AST ALT Alkaline Phosphatase Total Protein Albumin Blood Type A POSITIVE A POSITIVE Antibody Screen NEGATIVE NEGATIVE 02/25/18 02/25/18 06:50 06:50 WBC 9.7 RBC 3.43 L Hgb 9.9 L Hct 28.1 L MCV 82 MCH 28.9 MCHC 35.2 RDW 15.1 H Plt Count 199 Seg Neutrophils % 67.4 Lymphocytes % 11.9 L Monocytes % 18.2 H Eosinophils % 1.9 Basophils % 0.6 Absolute Neutrophils 6.5 Absolute Lymphocytes 1.2 Absolute Monocytes 1.8 H Absolute Eosinophils 0.2 Absolute Basophils 0.1 Sodium 139.1 Potassium 4.8 Chloride 112 H Carbon Dioxide 16 L Anion Gap 11 BUN 86 H Creatinine 4.45 H Est GFR ( Amer) 12 L Est GFR (Non-Af Amer) 10 L Glucose 113 H Calcium 7.6 L Phosphorus 5.5 H Magnesium 2.2 Total Bilirubin 1.7 H AST 27 ALT 31 Alkaline Phosphatase 40 Total Protein 5.0 L Albumin 2.2 L Blood Type Antibody Screen 02/19/18 13:12 Blood Blood Culture - Final NO GROWTH IN 5 DAYS 02/19/18 12:23 Blood Blood Culture - Final NO GROWTH IN 5 DAYS 02/21/18 06:15 Creatine Kinase 338 H Impressions: Hip/Pelvis X-Ray 02/18/18 02:49 IMPRESSION: Fracture of the right femoral neck. Knee X-Ray 02/18/18 02:49 IMPRESSION: No acute findings. Pelvis X-Ray 02/20/18 00:00 IMPRESSION: Right hip hemiarthroplasty in good position. Head MRI 02/22/18 00:00 IMPRESSION: Acute nonhemorrhagic left posterior cerebral artery distribution infarct Stable chronic small vessel ischemic change in the martín and cerebral hemispheres EVIDENCE OF ACUTE STROKE: YES. Chest X-Ray 02/22/18 12:52 IMPRESSION: BORDERLINE CARDIOMEGALY. LINEAR DENSITIES IN THE LEFT LUNG BASE, ATELECTASIS VERSUS EARLY INFILTRATE. Extremity Ultrasound 02/23/18 00:00 IMPRESSION: 14 x 7 x 7 cm hypoechoic complex fluid collection deep to the surgical bandage over the right hip replacement. This likely represents a hematoma. Head CT 02/23/18 00:00 IMPRESSION: Left posterior cerebral artery distribution infarct. No hemorrhagic conversion. 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 Carotid Doppler Study 02/24/18 00:00 IMPRESSION: CHRONIC OCCLUSION OF THE RIGHT INTERNAL CAROTID ARTERY. NO HEMODYNAMICALLY SIGNIFICANT STENOSIS OF THE LEFT INTERNAL CAROTID ARTERY. Abdomen/Pelvis CT 02/24/18 18:56 IMPRESSION: 17 cm craniocaudad by a 12 cm transverse by 7 cm thickness hematoma in the right subcutaneous soft tissues in the right gluteal region deep and superior to the lateral incision site from right total hip arthroplasty. Small bilateral pleural effusions. Bilateral lower lobe subsegmental atelectasis -airspace disease, left greater than right. Assessment & Plan - Diagnosis (1) Anemia Qualifiers: Anemia type: iron deficiency Iron deficiency anemia type: chronic blood loss Qualified Code(s): D50.0 - Iron deficiency anemia secondary to blood loss (chronic) Is this a current diagnosis for this admission?: Yes Plan: Still most likely blood loss anemia, orthopedic will evaluate patient to see what needs to be done with the postoperative hematoma. Continue with monitoring , blood as needed. (2) Coagulation defect, unspecified Is this a current diagnosis for this admission?: Yes Plan: Should be fully resolved now, mostly related to the anticoagulation that was on board before. - Time Time Spent with patient: 35 or more minutes Disposition: Today had long conversation with son who is at bedside, spent greater than 35 minutes in discussion and coordination of care - Inpatient Certification Based on my medical assessment, after consideration of the patient's comorbidities, presenting symptoms, or acuity I expect that the services needed warrant INPATIENT care.: Yes I certify that my determination is in accordance with my understanding of Medicare's requirements for reasonable and necessary INPATIENT services [42 CFR 412.3e].: Yes Medical Necessity: Need for Surgery, Risk of Complication if Not Cared For in Hospital
[2018-02-25] MEDS: INSULIN REG, HUMAN 100 UNIT/ML 3 ML VIAL (PYX) SUBCUT PRN (11:54)
--- NOTE | 2018-02-25 15:59 | PDOC PROGRESS REPORT ---
Subjective Progress Note for:: 02/20/18 Subjective:: Patient seen on a.m. rounds. She had no specific complaints. Awaiting surgery. 2D echo results reviewed. Shows normal LVEF. Patient without any chest pain or any significant shortness of breath. Laying comfortably in bed. Will follow after surgery. Reason For Visit: HIP FX Physical Exam Vital Signs: Temp Pulse Resp BP Pulse Ox 99.0 F 82 14 125/61 93 02/20/18 17:33 02/20/18 17:33 02/20/18 17:33 02/20/18 17:33 02/20/18 17:33 Intake & Output 02/19/18 02/20/18 02/21/18 06:59 06:59 06:59 Intake Total 078 783 2269 Output Total 1150 Balance 115 783 2871 Weight 85.6 kg 84.7 kg Exam: General appearance: PRESENT: no acute distress, well-developed, well-nourished Eye exam: PRESENT: conjunctiva pink, EOMI, PERRLA. ABSENT: scleral icterus Ear exam: PRESENT: normal external ear exam Neck exam: ABSENT: carotid bruit, JVD, lymphadenopathy, thyromegaly Respiratory exam: PRESENT: clear to auscultation tila. ABSENT: rales, rhonchi, wheezes Cardiovascular exam: PRESENT: RRR. ABSENT: diastolic murmur, rubs, systolic murmur Pulses: PRESENT: normal dorsalis pedis pul GI/Abdominal exam: PRESENT: normal bowel sounds, soft. ABSENT: distended, guarding, mass, organolmegaly, rebound, tenderness Rectal exam: PRESENT: deferred Musculoskeletal exam: PRESENT: Noted to have findings consistent with right hip fracture. Neurological exam: PRESENT: alert, oriented to person, oriented to place, oriented to time Results Laboratory Results: 02/20/18 04:19 02/20/18 06:43 02/20/18 02/20/18 04:19 06:43 WBC 7.6 RBC 3.02 L Hgb 7.7 L Hct 23.0 L MCV 76 L MCH 25.5 L MCHC 33.5 RDW 16.3 H Plt Count 174 Sodium 134.5 L Potassium 5.0 Chloride 104 Carbon Dioxide 19 L Anion Gap 12 BUN 81 H Creatinine 4.96 H Est GFR ( Amer) 11 L Est GFR (Non-Af Amer) 9 L Glucose 98 Calcium 8.3 L EKG Comments: Telemetry shows sinus rhythm without any sustained tachycardia or bradycardia Impressions: Hip/Pelvis X-Ray 02/18/18 02:49 IMPRESSION: Fracture of the right femoral neck. Knee X-Ray 02/18/18 02:49 IMPRESSION: No acute findings. Head CT 02/18/18 03:04 IMPRESSION: No acute findings. Chronic left cerebral infarct. Chest X-Ray 02/18/18 03:50 IMPRESSION: No acute cardiopulmonary findings. Pelvis X-Ray 02/20/18 00:00 IMPRESSION: Right hip hemiarthroplasty in good position. Assessment & Plan - Diagnosis (1) Chronic kidney disease (CKD) Qualifiers: Chronic kidney disease stage: stage 5, not on chronic dialysis Qualified Code(s): N18.5 - Chronic kidney disease, stage 5 Is this a current diagnosis for this admission?: No (2) Hip fracture Qualifiers: Encounter type: initial encounter Fracture type: closed Laterality: right Qualified Code(s): S72.001A - Fracture of unspecified part of neck of right femur, initial encounter for closed fracture Is this a current diagnosis for this admission?: Yes (3) HTN (hypertension) Qualifiers: Hypertension type: essential hypertension Qualified Code(s): I10 - Essential (primary) hypertension Is this a current diagnosis for this admission?: Yes (4) Coronary artery disease Qualifiers: Coronary Disease-Associated Artery/Lesion type: [place] artery [place] vs. transplanted heart: [place] heart Associated angina: without angina Qualified Code(s): I25.10 - Atherosclerotic heart disease of [place] coronary artery without angina pectoris Is this a current diagnosis for this admission?: No (5) Atrial fibrillation Qualifiers: Atrial fibrillation type: paroxysmal Qualified Code(s): I48.0 - Paroxysmal atrial fibrillation Is this a current diagnosis for this admission?: Yes (6) Hyperlipidemia Qualifiers: Hyperlipidemia type: unspecified Qualified Code(s): E78.5 - Hyperlipidemia , unspecified Is this a current diagnosis for this admission?: Yes - Notes Notes: Preop cardiac evaluation: Patient seen on a.m. rounds. She had no specific complaints. Awaiting surgery. 2D echo results reviewed. Shows normal LVEF. Patient without any chest pain or any significant shortness of breath. Laying comfortably in bed. Will follow after surgery. CKD: Stable. Hypertension: Blood pressure has been noted to be stable. Coronary artery disease: Clinically stable. No angina noted no angina equivalent symptoms noted. Paroxysmal atrial fibrillation: Patient is maintaining sinus rhythm. Anticoagulation on hold. Hyperlipidemia: Continue hypotensive statin therapy. - Time Time with patient: 15-25 minutes Medications reviewed and adjusted accordingly: Yes
--- NOTE | 2018-02-25 16:21 | PDOC PROGRESS REPORT ---
Subjective Progress Note for:: 02/23/18 Subjective:: Patient seen on a.m. rounds. Noted to be very lethargic and somnolent. It seems patient did improve after Narcan. 2D echo results reviewed. Shows normal LVEF. Patient either not table are not willing to participate in a conversation Reason For Visit: HIP FX Physical Exam Vital Signs: Temp Pulse Resp BP Pulse Ox 98.5 F 72 20 113/96 H 100 02/23/18 20:47 02/23/18 20:47 02/23/18 20:47 02/23/18 20:47 02/23/18 20:00 Intake & Output 02/22/18 02/23/18 02/24/18 06:59 06:59 06:59 Intake Total 1173 1132 700 Output Total 400 500 Balance 1173 732 200 Weight 81.3 kg 83.8 kg Exam: GENERAL: well-nourished and in no acute distress. Patient very lethargic and somnolent. Orientation could not be checked. HEAD: Atraumatic, normocephalic. EYES: Pupils equal round and reactive to light, extraocular movements intact, sclera anicteric, conjunctiva are normal. ENT: TMs normal, nares patent, oropharynx clear without exudates. Moist mucous membranes. No oral ulcerations or bleeding gums noted NECK: supple without lymphadenopathy. Trachea is central. No cervical or axillary lymphadenopathy noted. Carotids are 2+, JVD WNL LUNGS: Respiration seems nonlabored, no significant accessory muscle action noted. Few bilateral basal crackles are noted. No wheezes rales or rhonchi noted. No significant dullness noted on percussion. CHEST: Palpation of the chest wall shows no significant chest wall tenderness. 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 ABDOMEN: Soft, no significant tenderness appreciated, normoactive bowel sounds. No guarding, no rebound. No rigidity noted . No masses appreciated. EXTREMITIES: Pedal pulses are 1-2+, no calf tenderness noted. No clubbing or cyanosis. negative pedal edema noted NEUROLOGICAL: Patient cannot participate in neuro exam.. PSYCH: Patient cannot participate in psych exam. SKIN: No significant ecchymosis, skin is noted to be warm. MUSCULOSKELETAL EXAM: No significant acute joint swelling noted. Status post right hip surgery with some hematoma being noted. Results Laboratory Results: 02/23/18 12:10 02/23/18 10:40 02/21/18 02/23/18 02/23/18 20:11 10:40 10:40 WBC Cancelled RBC Cancelled Hgb Cancelled Hct Cancelled MCV Cancelled MCH Cancelled MCHC Cancelled RDW Cancelled Plt Count Cancelled Seg Neutrophils % Lymphocytes % Monocytes % Eosinophils % Basophils % Absolute Neutrophils Absolute Lymphocytes Absolute Monocytes Absolute Eosinophils Absolute Basophils Sodium Cancelled Potassium Cancelled Chloride Cancelled Carbon Dioxide Cancelled Anion Gap Cancelled BUN Cancelled Creatinine Cancelled Est GFR ( Amer) Cancelled Est GFR (Non-Af Amer) Cancelled Glucose Cancelled Calcium Cancelled Phosphorus Magnesium Total Bilirubin AST ALT Alkaline Phosphatase Total Protein Albumin Blood Type A POSITIVE Antibody Screen NEGATIVE 02/23/18 02/23/18 02/23/18 10:40 10:40 12:10 WBC Cancelled 9.5 RBC Cancelled 2.18 L Hgb Cancelled 5.7 L Hct Cancelled 16.9 L MCV Cancelled 78 L MCH Cancelled 26.3 L MCHC Cancelled 33.9 RDW Cancelled 15.2 H Plt Count Cancelled 171 Seg Neutrophils % Cancelled Not Reportable Lymphocytes % Cancelled Not Reportable Monocytes % Cancelled Not Reportable Eosinophils % Cancelled Not Reportable Basophils % Cancelled Not Reportable Absolute Neutrophils Cancelled Not Reportable Absolute Lymphocytes Cancelled Not Reportable Absolute Monocytes Cancelled Not Reportable Absolute Eosinophils Cancelled Not Reportable Absolute Basophils Cancelled Not Reportable Sodium 135.4 L Potassium 5.1 H Chloride 108 H Carbon Dioxide 17 L Anion Gap 10 BUN 98 H Creatinine 5.25 H Est GFR ( Amer) 10 L Est GFR (Non-Af Amer) 8 L Glucose 102 Calcium 7.4 L Phosphorus 6.2 H Magnesium 2.2 Total Bilirubin 0.6 AST 20 ALT 24 Alkaline Phosphatase 32 L Total Protein 5.1 L Albumin 2.2 L Blood Type Antibody Screen 02/21/18 06:15 Creatine Kinase 338 H Impressions: Hip/Pelvis X-Ray 02/18/18 02:49 IMPRESSION: Fracture of the right femoral neck. Knee X-Ray 02/18/18 02:49 IMPRESSION: No acute findings. Pelvis X-Ray 02/20/18 00:00 IMPRESSION: Right hip hemiarthroplasty in good position. Head MRI 02/22/18 00:00 IMPRESSION: Acute nonhemorrhagic left posterior cerebral artery distribution infarct Stable chronic small vessel ischemic change in the martín and cerebral hemispheres EVIDENCE OF ACUTE STROKE: YES. Chest X-Ray 02/22/18 12:52 IMPRESSION: BORDERLINE CARDIOMEGALY. LINEAR DENSITIES IN THE LEFT LUNG BASE, ATELECTASIS VERSUS EARLY INFILTRATE. Extremity Ultrasound 02/23/18 00:00 IMPRESSION: 14 x 7 x 7 cm hypoechoic complex fluid collection deep to the surgical bandage over the right hip replacement. This likely represents a hematoma. Head CT 02/23/18 00:00 IMPRESSION: Left posterior cerebral artery distribution infarct. No hemorrhagic conversion. 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 Assessment & Plan - Diagnosis (1) Chronic kidney disease (CKD) Qualifiers: Chronic kidney disease stage: stage 5, not on chronic dialysis Qualified Code(s): N18.5 - Chronic kidney disease, stage 5 Is this a current diagnosis for this admission?: No (2) Hip fracture Qualifiers: Encounter type: initial encounter Fracture type: closed Laterality: right Qualified Code(s): S72.001A - Fracture of unspecified part of neck of right femur, initial encounter for closed fracture Is this a current diagnosis for this admission?: Yes (3) HTN (hypertension) Qualifiers: Hypertension type: essential hypertension Qualified Code(s): I10 - Essential (primary) hypertension Is this a current diagnosis for this admission?: Yes (4) Cerebrovascular accident Qualifiers: CVA mechanism: unspecified Qualified Code(s): I63.9 - Cerebral infarction, unspecified Is this a current diagnosis for this admission?: Yes (5) Coagulation defect, unspecified Is this a current diagnosis for this admission?: Yes (6) Coronary artery disease Qualifiers: Coronary Disease-Associated Artery/Lesion type: [place] artery [place] vs. transplanted heart: [place] heart Associated angina: without angina Qualified Code(s): I25.10 - Atherosclerotic heart disease of [place] coronary artery without angina pectoris Is this a current diagnosis for this admission?: No - Notes Notes: Patient seems definitely sustained a cerebrovascular accident. Patient also having coagulopathy and this is being corrected. Patient had also given multiple transfusion over the last few days. Cardiac kiser she has been stable. She is being followed by multiple other specialist. At this point will sign off. Please reconsult if needed. Agree with resuming Eliquis when any bleeding has stopped. - Time Time with patient: 15-25 minutes Medications reviewed and adjusted accordingly: Yes
[2018-02-25] MEDS ORDERED: GLUCAGON,HUMAN RECOMB 1 MG INJ IM PRN (17:37)
[2018-02-25] MEDS ORDERED: DEXTROSE 50%-WATER 25 GM/50 ML DISP.SYRIN IV PRN ×2 (17:37)
[2018-02-25] MEDS ORDERED: DEXTROSE 40% GEL 15 GM TUBE PO PRN ×2 (17:37)
--- NOTE | 2018-02-25 17:41 | PDOC PROGRESS REPORT ---
Subjective Progress Note for:: 02/25/18 Subjective:: Patient seen for follow-up today for her multiple medical conditions. Patient is a 63-year-old -[place] female brought to the hospital after a fall she sustained. Patient was ambulating prior to this using a Rollator walker. Patient was verbal and semi-mobile daughter did report a little balance issue however was mostly able to do all her ADLs and communicate. Patient was found to have anemia after her right hip hemiarthroplasty. Anemia initially was before on postoperative etiology and blood loss. Patient was immediately transfused 2 units PRBC. Patient was evaluated yesterday as concerned for baseline mental status was there. CT of the brain done yesterday was positive for an infarct in the medial occipitoparietal area. MRI was done today which showed a 7 cm infarct in the same area. We had a discussion with the family members about her hospital stay in her current condition and her decline. And her guarded prognosis. Dr. Bullard the requisition approver and myself were in the conscious emergency room with the Daughter and the brother and were joined by the nurse Ms. Dowling. Patient's frail status was discussed with family members CODE STATUS was discussed with family members. Informed patients family about the risk of anticoagulation and hemorrhagic conversion in a stroke but at the same time the limitations of That if we do not use that medication then having another stroke. Anticoagulation also put the patient does risk for additional bleeding possibly as patient is currently anemic and have we have no etiology or the source of the bleed. His Eliquis was discontinued. We will continue patient on aspirin 81 , with Statin therapy. Initial guaiac was negative, will repeat a stool guaiac and proceed with antiplatelet therapy with full dose aspirin. 02/23/18 pt seen today for f/u of her large ischemia posterior circulation stroke/ anemia / a.fib . received report from nurse that pt has been more difficult to arouse than before. Per pharmacy patient had received morphine 1 mg about 6 times throughout the night By night nurse as patient had complained of pain in her right hip. This morning patient is somnolent arousable minimally open her eyes but does not follow commands. Stat CT of the head was obtained to reassess any hemorrhagic conversion of her acute ischemic CVA on 02/21/2018, and also an ultrasound of the right hip to document any hematoma. CT report was negative for any hemorrhagic conversion or changes, ultrasound positive for hematoma. The report from nurse that repeat CBC had showed hemoglobin level that was critical of 5.7. Reached out to son Mr. Camacho via telephone to discuss declining clinical status and possible need for transfer if felt necessary for specialty services, son informed about mental status change, and also about the drop in the hemoglobin and the need for transfusion. Per son who is decision-maker in the family patient is full code and to do what is necessary and needed In the circumstance and otherwise. If we need to transfer his mom he has agreed to transfer. Reached out to orthopedics Dr. Gauthier about positive ultrasound for hematoma and right hip, per orthopedics Elevated PTT is the reason the patient has a hematoma and that once corrected the hematoma will resorb. Hematology talent development consultant contacted for consult for plan of elevated PTT repeat pending and per Dr. Velásquez we will reassess once repeat studies are resulted. We will consider FFP if PTT is still elevated. Dr. Velásquez has agreed to consult on the patient. 02/24/18 Patient seen today for follow-up of her anemia, hematoma, stroke. This morning patient is arousable opens her eyes turns her head When called. Patient is more cooperative with answering questions when family is present. During the day patient is mostly sleeping, but arousable. Today discussed with son about patient's condition and mild to moderate improvement in mental status. Discussed with Dr. Bullard who also agrees that patient should be transferred To a tertiary care facility. Patient is anemic we have found hematoma in her right hip. The risk of infection of hematoma is high. Due to multiple comorbidities in this patient the risk of deterioration Is high. She did receive 2 units of PRBC today, her hemoglobin has come up to 8.7. So far patient has received total of 4 units in the past 48 hours of PRBC. Reached out dividing facility and discussed case with the hospitalist , Who suggested that an abdominal bleed may be consideration and we Do CT scan of the abdomen and pelvis. Discussed with Dr. Mcneill that Imaging studies unfortunately in this patient is limited due to her end-stage renal disease. Patient is also unable to drink p.o. contrast and would require NG placement. Also my suspicion for any retroperitoneal or intra-abdominal hemorrhage is low. However we will proceed with imaging of the abdomen. CT of the abdomen and pelvis was negative except for down to free fluid in the abdomen. Report did identify a large hematoma in the right hip dimensions specified a 17 cm, Which is increased from the previous ultrasound. Orthopedic surgeon Dr. toney contacted immediately for plan hematoma evaluation management and possible surgical intervention. Dr. toney advises that patient received 2 units of blood tonight and to raise Hemoglobin between 9 and 11. And if patient drops we plan for surgery. 02/25/18 Patient seen today for follow-up. Discussed with orthopedic and he recommended that we should monitor the patient as the hemoglobin is stable. Informed son about this plan and he is in agreement with the plan. She received 4 units of PRBC yesterday. Is alert and oriented and doing better. Since vital signs are stable. Patient is tolerating diet and is able to swallow. Once the hemoglobin stabilizes we will repeat imaging if needed to document resolution of hematoma. Reason For Visit: HIP FX Physical Exam Vital Signs: Temp Pulse Resp BP Pulse Ox 98.7 F 65 18 165/64 H 100 02/25/18 15:52 02/25/18 16:00 02/25/18 16:00 02/25/18 16:00 02/25/18 16:00 Intake & Output 02/24/18 02/25/18 02/26/18 06:59 06:59 06:59 Intake Total 1700 972 50 Output Total 1200 1575 300 Balance 500 -603 -250 Weight 184 lb 8.43 oz 186 lb 8.177 oz General appearance: PRESENT: no acute distress, cooperative Head exam: PRESENT: atraumatic, normocephalic Eye exam: PRESENT: EOMI Ear exam: PRESENT: normal external ear exam Respiratory exam: PRESENT: clear to auscultation tila. ABSENT: rhonchi, wheezes Cardiovascular exam: PRESENT: RRR GI/Abdominal exam: PRESENT: normal bowel sounds, soft. ABSENT: distended, tenderness Neurological exam: PRESENT: alert, awake, oriented to person Results Laboratory Results: 02/25/18 06:50 02/25/18 06:50 02/21/18 02/24/18 02/24/18 20:11 18:47 22:07 WBC 12.0 H RBC 3.15 L Hgb 8.7 L Hct 25.9 L MCV 83 MCH 27.5 MCHC 33.4 RDW 16.2 H Plt Count 160 Seg Neutrophils % Not Reportable Lymphocytes % Not Reportable Monocytes % Not Reportable Eosinophils % Not Reportable Basophils % Not Reportable Absolute Neutrophils Not Reportable Absolute Lymphocytes Not Reportable Absolute Monocytes Not Reportable Absolute Eosinophils Not Reportable Absolute Basophils Not Reportable Sodium Potassium Chloride Carbon Dioxide Anion Gap BUN Creatinine Est GFR ( Amer) Est GFR (Non-Af Amer) Glucose Calcium Phosphorus Magnesium Total Bilirubin AST ALT Alkaline Phosphatase Total Protein Albumin Blood Type A POSITIVE A POSITIVE Antibody Screen NEGATIVE NEGATIVE 02/25/18 02/25/18 06:50 06:50 WBC 9.7 RBC 3.43 L Hgb 9.9 L Hct 28.1 L MCV 82 MCH 28.9 MCHC 35.2 RDW 15.1 H Plt Count 199 Seg Neutrophils % 67.4 Lymphocytes % 11.9 L Monocytes % 18.2 H Eosinophils % 1.9 Basophils % 0.6 Absolute Neutrophils 6.5 Absolute Lymphocytes 1.2 Absolute Monocytes 1.8 H Absolute Eosinophils 0.2 Absolute Basophils 0.1 Sodium 139.1 Potassium 4.8 Chloride 112 H Carbon Dioxide 16 L Anion Gap 11 BUN 86 H Creatinine 4.45 H Est GFR ( Amer) 12 L Est GFR (Non-Af Amer) 10 L Glucose 113 H Calcium 7.6 L Phosphorus 5.5 H Magnesium 2.2 Total Bilirubin 1.7 H AST 27 ALT 31 Alkaline Phosphatase 40 Total Protein 5.0 L Albumin 2.2 L Blood Type Antibody Screen 02/19/18 13:12 Blood Blood Culture - Final NO GROWTH IN 5 DAYS 02/21/18 06:15 Creatine Kinase 338 H Impressions: Hip/Pelvis X-Ray 02/18/18 02:49 IMPRESSION: Fracture of the right femoral neck. Knee X-Ray 02/18/18 02:49 IMPRESSION: No acute findings. Pelvis X-Ray 02/20/18 00:00 IMPRESSION: Right hip hemiarthroplasty in good position. Head MRI 02/22/18 00:00 IMPRESSION: Acute nonhemorrhagic left posterior cerebral artery distribution infarct Stable chronic small vessel ischemic change in the martín and cerebral hemispheres EVIDENCE OF ACUTE STROKE: YES. Chest X-Ray 02/22/18 12:52 IMPRESSION: BORDERLINE CARDIOMEGALY. LINEAR DENSITIES IN THE LEFT LUNG BASE, ATELECTASIS VERSUS EARLY INFILTRATE. Extremity Ultrasound 02/23/18 00:00 IMPRESSION: 14 x 7 x 7 cm hypoechoic complex fluid collection deep to the surgical bandage over the right hip replacement. This likely represents a hematoma. Head CT 02/23/18 00:00 IMPRESSION: Left posterior cerebral artery distribution infarct. No hemorrhagic conversion. EVIDENCE OF ACUTE STROKE: Stable appearance of left early subacute FINISH MIXER distribution infarct compared to previous studies. Carotid Doppler Study 02/24/18 00:00 IMPRESSION: CHRONIC OCCLUSION OF THE RIGHT INTERNAL CAROTID ARTERY. NO HEMODYNAMICALLY SIGNIFICANT STENOSIS OF THE LEFT INTERNAL CAROTID ARTERY. Abdomen/Pelvis CT 02/24/18 18:56 IMPRESSION: 17 cm craniocaudad by a 12 cm transverse by 7 cm thickness hematoma in the right subcutaneous soft tissues in the right gluteal region deep and superior to the lateral incision site from right total hip arthroplasty. Small bilateral pleural effusions. Bilateral lower lobe subsegmental atelectasis -airspace disease, left greater than right. Assessment & Plan - Diagnosis (1) Hematoma of right hip Is this a current diagnosis for this admission?: Yes Plan: I patient transfused 4 units of PRBC. Per orthopedic we will monitor patient For drop in the hemoglobin/hematocrit. The risk of hematoma evacuation Has a high risk of increased bleed, Per orthopedic Dr. toney. (2) Altered mental status Qualifiers: Altered mental status type: somnolence Qualified Code(s): R40.0 - Somnolence Is this a current diagnosis for this admission?: Yes Plan: Attribute to morphine given to the patient overnight. Patient was given Narcan 0.4 mg sub which did result in transient improvement with the patient opening her eyes. Repeat stat CT was negative for any changes. We will monitor patient and evaluate in the next 24 hours. (3) Insulin dependent diabetes mellitus Is this a current diagnosis for this admission?: Yes Plan: Sliding scale coverage as needed. (4) HTN (hypertension) Qualifiers: Hypertension type: essential hypertension Qualified Code(s): I10 - Essential (primary) hypertension Is this a current diagnosis for this admission?: Yes (5) Displaced fracture of right femoral neck Is this a current diagnosis for this admission?: Yes Plan: Status post right butch-arthroplasty. The medication is discontinued as patient is found to be extremely somnolent after receiving morphine. (6) ESRD (end stage renal disease) Is this a current diagnosis for this admission?: Yes Plan: By nephrology of Dr. Bullard. Patient started on p.o. bicarb for her acidosis. - Time Time Spent with patient: Less than 15 minutes - Inpatient Certification Based on my medical assessment, after consideration of the patient's comorbidities, presenting symptoms, or acuity I expect that the services needed warrant INPATIENT care.: Yes I certify that my determination is in accordance with my understanding of Medicare's requirements for reasonable and necessary INPATIENT services [42 CFR 412.3e].: Yes Medical Necessity: Need Close Monitoring Due to Risk of Patient Decompensation, Need for Neurological Checks
[2018-02-25] MEDS: INSULIN LISPRO 100 UNIT/ML 3 ML VIAL SUBCUT PRN ×2 (18:36→21:47)
[2018-02-25] MEDS: CEFTRIAXONE 2 GM/D5W RTU 2 GM/50 ML RTUPB IV SCH (21:46)
[2018-02-25] MEDS: ATORVASTATIN CALCIUM 80 MG TABLET PO SCH (21:46)
[2018-02-26] MEDS: ACETAMINOPHEN 325 MG TABLET PO PRN ×2 (03:07→16:49)
[2018-02-26] MEDS: CARVEDILOL 12.5 MG TABLET PO SCH ×2 (09:32→22:38)
[2018-02-26] MEDS: DOCUSATE SODIUM 100 MG CAPSULE PO SCH ×2 (09:32→17:03)
--- NOTE | 2018-02-26 10:40 | PDOC PROGRESS REPORT ---
Subjective Progress Note for:: 02/26/18 Subjective:: No acute events noted, hemoglobin pending from this morning, reviewed surgical notes, no plans for intervention now. Reason For Visit: HIP FX Physical Exam Vital Signs: Temp Pulse Resp BP Pulse Ox 97.8 F 62 18 159/57 H 100 02/26/18 07:30 02/26/18 08:00 02/26/18 08:00 02/26/18 08:00 02/26/18 08:00 Intake & Output 02/25/18 02/26/18 02/27/18 06:59 06:59 06:59 Intake Total 972 1929 Output Total 1575 1300 Balance -603 629 Weight 84.6 kg 86.6 kg General appearance: PRESENT: no acute distress, well-developed, well-nourished Head exam: PRESENT: atraumatic, normocephalic Eye exam: PRESENT: conjunctiva pink, EOMI, PERRLA. ABSENT: scleral icterus Ear exam: PRESENT: normal external ear exam Mouth exam: PRESENT: moist, tongue midline Neck exam: ABSENT: carotid bruit, JVD, lymphadenopathy, thyromegaly Respiratory exam: PRESENT: clear to auscultation tila. ABSENT: rales, rhonchi, wheezes Cardiovascular exam: PRESENT: RRR. ABSENT: diastolic murmur, rubs, systolic murmur Pulses: PRESENT: normal dorsalis pedis pul Vascular exam: PRESENT: normal capillary refill GI/Abdominal exam: PRESENT: normal bowel sounds, soft. ABSENT: distended, guarding, mass, organolmegaly, rebound, tenderness Rectal exam: PRESENT: deferred Extremities exam: PRESENT: full ROM. ABSENT: calf tenderness, clubbing, pedal edema Neurological exam: PRESENT: alert, awake, oriented to person, oriented to place , oriented to time, oriented to situation, CN II-XII grossly intact. ABSENT: motor sensory deficit Psychiatric exam: PRESENT: appropriate affect, normal mood. ABSENT: homicidal ideation, suicidal ideation Skin exam: PRESENT: dry, intact, warm. ABSENT: cyanosis, rash Results Laboratory Results: 02/25/18 06:50 02/25/18 06:50 02/24/18 22:07 Blood Type A POSITIVE Antibody Screen NEGATIVE 02/21/18 06:15 Creatine Kinase 338 H Impressions: Hip/Pelvis X-Ray 02/18/18 02:49 IMPRESSION: Fracture of the right femoral neck. Knee X-Ray 02/18/18 02:49 IMPRESSION: No acute findings. Pelvis X-Ray 02/20/18 00:00 IMPRESSION: Right hip hemiarthroplasty in good position. Head MRI 02/22/18 00:00 IMPRESSION: Acute nonhemorrhagic left posterior cerebral artery distribution infarct Stable chronic small vessel ischemic change in the martín and cerebral hemispheres EVIDENCE OF ACUTE STROKE: YES. Chest X-Ray 02/22/18 12:52 IMPRESSION: BORDERLINE CARDIOMEGALY. LINEAR DENSITIES IN THE LEFT LUNG BASE, ATELECTASIS VERSUS EARLY INFILTRATE. Extremity Ultrasound 02/23/18 00:00 IMPRESSION: 14 x 7 x 7 cm hypoechoic complex fluid collection deep to the surgical bandage over the right hip replacement. This likely represents a hematoma. Head CT 02/23/18 00:00 IMPRESSION: Left posterior cerebral artery distribution infarct. No hemorrhagic conversion. EVIDENCE OF ACUTE STROKE: Stable appearance of left early subacute CAR REFINISHER distribution infarct compared to previous studies. Carotid Doppler Study 02/24/18 00:00 IMPRESSION: CHRONIC OCCLUSION OF THE RIGHT INTERNAL CAROTID ARTERY. NO HEMODYNAMICALLY SIGNIFICANT STENOSIS OF THE LEFT INTERNAL CAROTID ARTERY. Abdomen/Pelvis CT 02/24/18 18:56 IMPRESSION: 17 cm craniocaudad by a 12 cm transverse by 7 cm thickness hematoma in the right subcutaneous soft tissues in the right gluteal region deep and superior to the lateral incision site from right total hip arthroplasty. Small bilateral pleural effusions. Bilateral lower lobe subsegmental atelectasis -airspace disease, left greater than right. Assessment & Plan - Diagnosis (1) Anemia Qualifiers: Anemia type: iron deficiency Iron deficiency anemia type: chronic blood loss Qualified Code(s): D50.0 - Iron deficiency anemia secondary to blood loss (chronic) Is this a current diagnosis for this admission?: Yes Plan: Awaiting hemoglobin, hopefully will be stable over next 24-48 hours (2) Coagulation defect, unspecified Is this a current diagnosis for this admission?: Yes Plan: Seems to be resolving, multifactorial. Hold on anticoagulation. - Time Time Spent with patient: 35 or more minutes - Inpatient Certification Based on my medical assessment, after consideration of the patient's comorbidities, presenting symptoms, or acuity I expect that the services needed warrant INPATIENT care.: Yes I certify that my determination is in accordance with my understanding of Medicare's requirements for reasonable and necessary INPATIENT services [42 CFR 412.3e].: Yes Medical Necessity: Need for Neurological Checks, Need for Surgery, Risk of Complication if Not Cared For in Hospital
--- NOTE | 2018-02-26 11:40 | PDOC PROGRESS REPORT ---
Subjective Progress Note for:: 02/26/18 Subjective:: Patient lying in bed comfortably. According to nursing staff no issues overnight. Denies chest pain or shortness of breath. Reason For Visit: HIP FX Physical Exam Vital Signs: Temp Pulse Resp BP Pulse Ox 97.8 F 62 18 159/57 H 100 02/26/18 07:30 02/26/18 08:00 02/26/18 08:00 02/26/18 08:00 02/26/18 08:00 Intake & Output 02/25/18 02/26/18 02/27/18 06:59 06:59 06:59 Intake Total 972 1929 Output Total 1575 1300 Balance -603 629 Weight 84.6 kg 86.6 kg Musculoskeletal exam: PRESENT: other - Right hip: Serosanguineous drainage along the incision site. Moderate thigh swelling compartments soft and compressible no sign of compartment syndrome. Patient lacks plantar flexion/ dorsiflexion of the right foot with contracture concomitant right upper extremity weakness Results Laboratory Results: 02/25/18 06:50 02/25/18 06:50 02/24/18 22:07 Blood Type A POSITIVE Antibody Screen NEGATIVE 02/21/18 06:15 Creatine Kinase 338 H Impressions: Hip/Pelvis X-Ray 02/18/18 02:49 IMPRESSION: Fracture of the right femoral neck. Knee X-Ray 02/18/18 02:49 IMPRESSION: No acute findings. Pelvis X-Ray 02/20/18 00:00 IMPRESSION: Right hip hemiarthroplasty in good position. Head MRI 02/22/18 00:00 IMPRESSION: Acute nonhemorrhagic left posterior cerebral artery distribution infarct Stable chronic small vessel ischemic change in the martín and cerebral hemispheres EVIDENCE OF ACUTE STROKE: YES. Chest X-Ray 02/22/18 12:52 IMPRESSION: BORDERLINE CARDIOMEGALY. LINEAR DENSITIES IN THE LEFT LUNG BASE, ATELECTASIS VERSUS EARLY INFILTRATE. Extremity Ultrasound 02/23/18 00:00 IMPRESSION: 14 x 7 x 7 cm hypoechoic complex fluid collection deep to the surgical bandage over the right hip replacement. This likely represents a hematoma. Head CT 02/23/18 00:00 IMPRESSION: Left posterior cerebral artery distribution infarct. No hemorrhagic conversion. EVIDENCE OF ACUTE STROKE: Stable appearance of left early subacute CLINICAL PROJECT MANAGER distribution infarct compared to previous studies. Carotid Doppler Study 02/24/18 00:00 IMPRESSION: CHRONIC OCCLUSION OF THE RIGHT INTERNAL CAROTID ARTERY. NO HEMODYNAMICALLY SIGNIFICANT STENOSIS OF THE LEFT INTERNAL CAROTID ARTERY. Abdomen/Pelvis CT 02/24/18 18:56 IMPRESSION: 17 cm craniocaudad by a 12 cm transverse by 7 cm thickness hematoma in the right subcutaneous soft tissues in the right gluteal region deep and superior to the lateral incision site from right total hip arthroplasty. Small bilateral pleural effusions. Bilateral lower lobe subsegmental atelectasis -airspace disease, left greater than right. Assessment & Plan - Diagnosis (1) Displaced fracture of right femoral neck Is this a current diagnosis for this admission?: Yes Plan: Patient remains normotensive without evidence of tachycardia thus I do not feel operative intervention for evacuation of her hematoma is indicated. Given patient's multiple comorbidities including recent stroke I feel she would be at high risk for anesthesia, increased risk of bleeding and given the fact there is no definitive benefit of evacuation of patient's hematoma at this time would recommend against operative treatment. We will continue to monitor patient clinically. H&H currently pending. No plan for operative treatment at this time. Have discussed the case with patient's son whoagrees with current plan all questions answered
[2018-02-26 12:26] LABS: ABSOLUTE BASOPHILS # (AUTO) 0.1 10^3/uL (0.0-0.2); ABSOLUTE EOSINOPHILS # (AUTO) 0.2 10^3/uL (0.0-0.6); ABSOLUTE LYMPHOCYTES (AUTO) 0.9 10^3/uL (0.5-4.7); ABSOLUTE NEUT (AUTO) 7.7 10^3/uL (1.7-8.2); BASOPHILS % (AUTO) 0.7 % (0-2); EOSINOPHILS % (AUTO) 1.8 % (0-6); HEMATOCRIT 30.9 % (36.0-47.0); HEMOGLOBIN 10.3 g/dL (12.0-15.5); LYMPHOCYTES % (AUTO) 8.6 % (13-45); MEAN CORPUSCULAR HEMOGLOBIN 27.6 pg (27.0-33.4); MEAN CORPUSCULAR HGB CONC 33.4 g/dL (32.0-36.0); MEAN CORPUSCULAR VOLUME 83 fl (80-97); MONOCYTES % (AUTO) 18.2 % (3-13); PLATELET COUNT 249 10^3/uL (150-450); RED BLOOD COUNT 3.73 10^6/uL (3.72-5.28); RED CELL DISTRIBUTION WIDTH 15.9 % (11.5-14.0); SEGMENTED NEUTROPHILS % (AUTO) 70.7 % (42-78); TOTAL CELLS COUNTED % (AUTO) 100 %; WHITE BLOOD COUNT 10.9 10^3/uL (4.0-10.5)
[2018-02-26] MEDS: NORMAL SALINE 1000 ML 1,000 ML IV PRN (13:20)
[2018-02-26] MEDS: INSULIN LISPRO 100 UNIT/ML 3 ML VIAL SUBCUT PRN ×2 (18:46→22:39)
[2018-02-26 19:01] LABS: ABSOLUTE BASOPHILS # (AUTO) 0.1 10^3/uL (0.0-0.2); ABSOLUTE EOSINOPHILS # (AUTO) 0.1 10^3/uL (0.0-0.6); ABSOLUTE LYMPHOCYTES (AUTO) 0.7 10^3/uL (0.5-4.7); ABSOLUTE MONOCYTES (AUTO) 1.4 10^3/uL (0.1-1.4); ABSOLUTE NEUT (AUTO) 7.8 10^3/uL (1.7-8.2); BASOPHILS % (AUTO) 0.8 % (0-2); EOSINOPHILS % (AUTO) 1.3 % (0-6); HEMATOCRIT 30.8 % (36.0-47.0); HEMOGLOBIN 10.3 g/dL (12.0-15.5); LYMPHOCYTES % (AUTO) 7.3 % (13-45); MEAN CORPUSCULAR HEMOGLOBIN 27.6 pg (27.0-33.4); MEAN CORPUSCULAR HGB CONC 33.3 g/dL (32.0-36.0); MEAN CORPUSCULAR VOLUME 83 fl (80-97); RED BLOOD COUNT 3.72 10^6/uL (3.72-5.28); RED CELL DISTRIBUTION WIDTH 15.8 % (11.5-14.0); SEGMENTED NEUTROPHILS % (AUTO) 76.6 % (42-78); TOTAL CELLS COUNTED % (AUTO) 100 %; WHITE BLOOD COUNT 10.2 10^3/uL (4.0-10.5)
[2018-02-26 19:15] LABS: APPEARANCE,URINE CLOUDY; BILIRUBIN,URINE NEGATIVE (NEGATIVE); COLOR,URINE YELLOW; GLUCOSE, URINE 150 mg/dL (NEGATIVE); KETONES,URINE NEGATIVE (NEGATIVE); LEUKOCYTE ESTERASE,URINE LARGE (NEGATIVE); NITRITE,URINE NEGATIVE (NEGATIVE); PROTEIN,URINE >=500 mg/dL (NEGATIVE); URINE SPECIFIC GRAVITY 1.013; UROBILINOGEN,URINE NEGATIVE mg/dL (<2.0)
[2018-02-26 19:21] LABS: PLATELET COUNT 247 10^3/uL (150-450)
[2018-02-26 19:22] LABS: ALANINE AMINOTRANSFERASE 20 U/L (9-52); ALBUMIN 2.1 g/dL (3.5-5.0); ALKALINE PHOSPHATASE 52 U/L (38-126); ANION GAP 11 (5-19); ASPARTATE AMINO TRANSFERASE 25 U/L (14-36); BILIRUBIN,DIRECT 0.4 mg/dL (0.0-0.4); BILIRUBIN,TOTAL 0.5 mg/dL (0.2-1.3); BLOOD UREA NITROGEN 75 mg/dL (7-20); CALCIUM 7.8 mg/dL (8.4-10.2); CARBON DIOXIDE 15 mmol/L (22-30); CHLORIDE 113 mmol/L (98-107); GLUCOSE 200 mg/dL (75-110); PHOSPHORUS 4.9 mg/dL (2.5-4.5); POTASSIUM 4.9 mmol/L (3.6-5.0); SODIUM 138.5 mmol/L (137-145); TOTAL PROTEIN 5.3 g/dL (6.3-8.2)
--- NOTE | 2018-02-26 21:58 | PDOC PROGRESS REPORT ---
Subjective Progress Note for:: 02/26/18 Subjective:: Patient seen for follow-up today for her multiple medical conditions. Patient is a 63-year-old -[place] female brought to the hospital after a fall she sustained. Patient was ambulating prior to this using a Rollator walker. Patient was verbal and semi-mobile daughter did report a little balance issue however was mostly able to do all her ADLs and communicate. Patient was found to have anemia after her right hip hemiarthroplasty. Anemia initially was before on postoperative etiology and blood loss. Patient was immediately transfused 2 units PRBC. Patient was evaluated yesterday as concerned for baseline mental status was there. CT of the brain done yesterday was positive for an infarct in the medial occipitoparietal area. MRI was done today which showed a 7 cm infarct in the same area. We had a discussion with the family members about her hospital stay in her current condition and her decline. And her guarded prognosis. Dr. Bullard the regulatory assistant and myself were in the conscious emergency room with the Daughter and the brother and were joined by the nurse Ms. Dowling. Patient's frail status was discussed with family members CODE STATUS was discussed with family members. Informed patients family about the risk of anticoagulation and hemorrhagic conversion in a stroke but at the same time the limitations of That if we do not use that medication then having another stroke. Anticoagulation also put the patient does risk for additional bleeding possibly as patient is currently anemic and have we have no etiology or the source of the bleed. His Eliquis was discontinued. We will continue patient on aspirin 81 , with Statin therapy. Initial guaiac was negative, will repeat a stool guaiac and proceed with antiplatelet therapy with full dose aspirin. 02/23/18 pt seen today for f/u of her large ischemia posterior circulation stroke/ anemia / a.fib . received report from nurse that pt has been more difficult to arouse than before. Per pharmacy patient had received morphine 1 mg about 6 times throughout the night By night nurse as patient had complained of pain in her right hip. This morning patient is somnolent arousable minimally open her eyes but does not follow commands. Stat CT of the head was obtained to reassess any hemorrhagic conversion of her acute ischemic CVA on 02/21/2018, and also an ultrasound of the right hip to document any hematoma. CT report was negative for any hemorrhagic conversion or changes, ultrasound positive for hematoma. The report from nurse that repeat CBC had showed hemoglobin level that was critical of 5.7. Reached out to son Mr. Camacho via telephone to discuss declining clinical status and possible need for transfer if felt necessary for specialty services, son informed about mental status change, and also about the drop in the hemoglobin and the need for transfusion. Per son who is decision-maker in the family patient is full code and to do what is necessary and needed In the circumstance and otherwise. If we need to transfer his mom he has agreed to transfer. Reached out to orthopedics Dr. Gauthier about positive ultrasound for hematoma and right hip, per orthopedics Elevated PTT is the reason the patient has a hematoma and that once corrected the hematoma will resorb. Hematology [employer] consultant contacted for consult for plan of elevated PTT repeat pending and per Dr. Velásquez we will reassess once repeat studies are resulted. We will consider FFP if PTT is still elevated. Dr. Velásquez has agreed to consult on the patient. 02/24/18 Patient seen today for follow-up of her anemia, hematoma, stroke. This morning patient is arousable opens her eyes turns her head When called. Patient is more cooperative with answering questions when family is present. During the day patient is mostly sleeping, but arousable. Today discussed with son about patient's condition and mild to moderate improvement in mental status. Discussed with Dr. Bullard who also agrees that patient should be transferred To a tertiary care facility. Patient is anemic we have found hematoma in her right hip. The risk of infection of hematoma is high. Due to multiple comorbidities in this patient the risk of deterioration Is high. She did receive 2 units of PRBC today, her hemoglobin has come up to 8.7. So far patient has received total of 4 units in the past 48 hours of PRBC. Reached out dividing facility and discussed case with the hospitalist , Who suggested that an abdominal bleed may be consideration and we Do CT scan of the abdomen and pelvis. Discussed with Dr. Mcneill that Imaging studies unfortunately in this patient is limited due to her end-stage renal disease. Patient is also unable to drink p.o. contrast and would require NG placement. Also my suspicion for any retroperitoneal or intra-abdominal hemorrhage is low. However we will proceed with imaging of the abdomen. CT of the abdomen and pelvis was negative except for down to free fluid in the abdomen. Report did identify a large hematoma in the right hip dimensions specified a 17 cm, Which is increased from the previous ultrasound. Orthopedic surgeon Dr. toney contacted immediately for plan hematoma evaluation management and possible surgical intervention. Dr. toney advises that patient received 2 units of blood tonight and to raise Hemoglobin between 9 and 11. And if patient drops we plan for surgery. 02/25/18 Patient seen today for follow-up. Discussed with orthopedic and he recommended that we should monitor the patient as the hemoglobin is stable. Informed son about this plan and he is in agreement with the plan. She received 4 units of PRBC yesterday. Is alert and oriented and doing better. Since vital signs are stable. Patient is tolerating diet and is able to swallow. Once the hemoglobin stabilizes we will repeat imaging if needed to document resolution of hematoma. 02/26/18 Patient seen today for follow-up she is alert and awake aphasic and smiles. Opens eyes and responds and follows commands. Vital signs are stable blood pressure has come up hemoglobin is stable at 10.3 transfusion. Her orthopedic surgical intervention is risky due to patient's multiple comorbidities. Reason For Visit: HIP FX Physical Exam Vital Signs: Temp Pulse Resp BP Pulse Ox 97.3 F 71 16 168/69 H 100 02/26/18 19:33 02/26/18 19:33 02/26/18 19:33 02/26/18 19:33 02/26/18 19:33 Intake & Output 02/25/18 02/26/18 02/27/18 06:59 06:59 06:59 Intake Total 972 1929 1416 Output Total 1575 1300 800 Balance -603 629 616 Weight 186 lb 8.177 oz 190 lb 14.725 oz General appearance: PRESENT: no acute distress, cooperative Head exam: PRESENT: atraumatic, normocephalic Eye exam: PRESENT: EOMI Respiratory exam: PRESENT: clear to auscultation tila Cardiovascular exam: PRESENT: RRR GI/Abdominal exam: PRESENT: normal bowel sounds, soft, tenderness Neurological exam: PRESENT: alert, awake, oriented to person, oriented to place , oriented to time, CN II-XII grossly intact Results Laboratory Results: 02/26/18 18:24 02/26/18 18:24 02/26/18 02/26/18 02/26/18 11:20 18:24 18:24 WBC 10.9 H 10.2 RBC 3.73 3.72 Hgb 10.3 L 10.3 L Hct 30.9 L 30.8 L MCV 83 83 MCH 27.6 27.6 MCHC 33.4 33.3 RDW 15.9 H 15.8 H Plt Count 249 247 Seg Neutrophils % 70.7 76.6 Lymphocytes % 8.6 L 7.3 L Monocytes % 18.2 H 14.0 H Eosinophils % 1.8 1.3 Basophils % 0.7 0.8 Absolute Neutrophils 7.7 7.8 Absolute Lymphocytes 0.9 0.7 Absolute Monocytes 2.0 H 1.4 Absolute Eosinophils 0.2 0.1 Absolute Basophils 0.1 0.1 Sodium 138.5 Potassium 4.9 Chloride 113 H Carbon Dioxide 15 L Anion Gap 11 BUN 75 H Creatinine 3.98 H Est GFR ( Amer) 14 L Est GFR (Non-Af Amer) 11 L Glucose 200 H Calcium 7.8 L Phosphorus 4.9 H Magnesium 2.0 Total Bilirubin 0.5 AST 25 ALT 20 Alkaline Phosphatase 52 Total Protein 5.3 L Albumin 2.1 L Urine Color Urine Appearance Urine pH Ur Specific [place] Urine Protein Urine Glucose (UA) Urine Ketones Urine Blood Urine Nitrite Ur Leukocyte Esterase Urine WBC (Auto) Urine RBC (Auto) 02/26/18 18:25 WBC RBC Hgb Hct MCV MCH MCHC RDW Plt Count Seg Neutrophils % Lymphocytes % Monocytes % Eosinophils % Basophils % Absolute Neutrophils Absolute Lymphocytes Absolute Monocytes Absolute Eosinophils Absolute Basophils Sodium Potassium Chloride Carbon Dioxide Anion Gap BUN Creatinine Est GFR ( Amer) Est GFR (Non-Af Amer) Glucose Calcium Phosphorus Magnesium Total Bilirubin AST ALT Alkaline Phosphatase Total Protein Albumin Urine Color YELLOW Urine Appearance CLOUDY Urine pH 5.0 Ur Specific [place] 1.013 Urine Protein >=500 H Urine Glucose (UA) 150 H Urine Ketones NEGATIVE Urine Blood SMALL H Urine Nitrite NEGATIVE Ur Leukocyte Esterase LARGE H Urine WBC (Auto) >182 Urine RBC (Auto) 12 02/21/18 06:15 Creatine Kinase 338 H Impressions: Hip/Pelvis X-Ray 02/18/18 02:49 IMPRESSION: Fracture of the right femoral neck. Knee X-Ray 02/18/18 02:49 IMPRESSION: No acute findings. Pelvis X-Ray 02/20/18 00:00 IMPRESSION: Right hip hemiarthroplasty in good position. Head MRI 02/22/18 00:00 IMPRESSION: Acute nonhemorrhagic left posterior cerebral artery distribution infarct Stable chronic small vessel ischemic change in the martín and cerebral hemispheres EVIDENCE OF ACUTE STROKE: YES. Chest X-Ray 02/22/18 12:52 IMPRESSION: BORDERLINE CARDIOMEGALY. LINEAR DENSITIES IN THE LEFT LUNG BASE, ATELECTASIS VERSUS EARLY INFILTRATE. Extremity Ultrasound 02/23/18 00:00 IMPRESSION: 14 x 7 x 7 cm hypoechoic complex fluid collection deep to the surgical bandage over the right hip replacement. This likely represents a hematoma. Head CT 02/23/18 00:00 IMPRESSION: Left posterior cerebral artery distribution infarct. No hemorrhagic conversion. EVIDENCE OF ACUTE STROKE: Stable appearance of left early subacute MARKING ROOM SUPERVISOR distribution infarct compared to previous studies. Carotid Doppler Study 02/24/18 00:00 IMPRESSION: CHRONIC OCCLUSION OF THE RIGHT INTERNAL CAROTID ARTERY. NO HEMODYNAMICALLY SIGNIFICANT STENOSIS OF THE LEFT INTERNAL CAROTID ARTERY. Abdomen/Pelvis CT 02/24/18 18:56 IMPRESSION: 17 cm craniocaudad by a 12 cm transverse by 7 cm thickness hematoma in the right subcutaneous soft tissues in the right gluteal region deep and superior to the lateral incision site from right total hip arthroplasty. Small bilateral pleural effusions. Bilateral lower lobe subsegmental atelectasis -airspace disease, left greater than right. Assessment & Plan - Diagnosis (1) Acute blood loss anemia Is this a current diagnosis for this admission?: Yes Plan: Anemia attributed to hematoma formation and hip wound. Orthopedic evacuation is risky. Patient is stable after transfusion. We will follow with CBCs every 8. (2) Hematoma of right hip Is this a current diagnosis for this admission?: Yes Plan: I patient transfused 4 units of PRBC. Per orthopedic we will monitor patient For drop in the hemoglobin/hematocrit. The risk of hematoma evacuation Has a high risk of increased bleed, Per orthopedic Dr. toney. (3) Altered mental status Qualifiers: Altered mental status type: somnolence Qualified Code(s): R40.0 - Somnolence Is this a current diagnosis for this admission?: Yes Plan: Mental status has improved. (4) Insulin dependent diabetes mellitus Is this a current diagnosis for this admission?: Yes Plan: Sliding scale coverage as needed. (5) HTN (hypertension) Qualifiers: Hypertension type: essential hypertension Qualified Code(s): I10 - Essential (primary) hypertension Is this a current diagnosis for this admission?: Yes (6) Displaced fracture of right femoral neck Is this a current diagnosis for this admission?: Yes (7) ESRD (end stage renal disease) Is this a current diagnosis for this admission?: Yes
[2018-02-26] MEDS: ATORVASTATIN CALCIUM 80 MG TABLET PO SCH (22:38)
[2018-02-26] MEDS: CEFTRIAXONE 2 GM/D5W RTU 2 GM/50 ML RTUPB IV SCH (22:38)
[2018-02-27] MEDS: ACETAMINOPHEN 325 MG TABLET PO PRN ×2 (05:03→18:18)
[2018-02-27] MEDS: NORMAL SALINE 1000 ML 1,000 ML IV PRN ×2 (05:04→17:58)
[2018-02-27 06:10] LABS: HEMATOCRIT 29.8 % (36.0-47.0); HEMOGLOBIN 9.8 g/dL (12.0-15.5); MEAN CORPUSCULAR HEMOGLOBIN 27.4 pg (27.0-33.4); MEAN CORPUSCULAR VOLUME 83 fl (80-97); PLATELET COUNT 281 10^3/uL (150-450); RED BLOOD COUNT 3.59 10^6/uL (3.72-5.28); RED CELL DISTRIBUTION WIDTH 16.1 % (11.5-14.0); WHITE BLOOD COUNT 12.4 10^3/uL (4.0-10.5)
--- NOTE | 2018-02-27 07:52 | PDOC PROGRESS REPORT ---
Subjective Subjective:: Patient lying in bed comfortably. According to nursing staff no issues overnight, they do feel she has noticed somewhat more pain on the right side and feeling. Denies chest pain or shortness of breath. Reason For Visit: HIP FX Physical Exam Vital Signs: Temp Pulse Resp BP Pulse Ox 100.0 F 85 17 166/77 H 100 02/27/18 03:16 02/27/18 04:00 02/27/18 04:00 02/27/18 04:00 02/27/18 04:00 Intake & Output 02/26/18 02/27/18 02/28/18 06:59 06:59 06:59 Intake Total 1929 2616 Output Total 1300 1425 Balance 629 1191 Weight 86.6 kg 85.4 kg Musculoskeletal exam: PRESENT: other - Right hip: Serosanguineous drainage on the proximal aspect of 1. Ecchymosis on the incision site. Moderate thigh swelling no change compared to previous examination. Compartments soft and compressible no sign of compartment syndrome. Patient lacks plantar flexion/ dorsiflexion. Lacks sensation distally. Dorsalis pedis pulse 2+. Results Laboratory Results: 02/27/18 05:50 02/26/18 18:24 02/26/18 02/26/18 02/26/18 11:20 18:24 18:24 WBC 10.9 H 10.2 RBC 3.73 3.72 Hgb 10.3 L 10.3 L Hct 30.9 L 30.8 L MCV 83 83 MCH 27.6 27.6 MCHC 33.4 33.3 RDW 15.9 H 15.8 H Plt Count 249 247 Seg Neutrophils % 70.7 76.6 Lymphocytes % 8.6 L 7.3 L Monocytes % 18.2 H 14.0 H Eosinophils % 1.8 1.3 Basophils % 0.7 0.8 Absolute Neutrophils 7.7 7.8 Absolute Lymphocytes 0.9 0.7 Absolute Monocytes 2.0 H 1.4 Absolute Eosinophils 0.2 0.1 Absolute Basophils 0.1 0.1 Sodium 138.5 Potassium 4.9 Chloride 113 H Carbon Dioxide 15 L Anion Gap 11 BUN 75 H Creatinine 3.98 H Est GFR ( Amer) 14 L Est GFR (Non-Af Amer) 11 L Glucose 200 H Calcium 7.8 L Phosphorus 4.9 H Magnesium 2.0 Total Bilirubin 0.5 AST 25 ALT 20 Alkaline Phosphatase 52 Total Protein 5.3 L Albumin 2.1 L Urine Color Urine Appearance Urine pH Ur Specific [place] Urine Protein Urine Glucose (UA) Urine Ketones Urine Blood Urine Nitrite Ur Leukocyte Esterase Urine WBC (Auto) Urine RBC (Auto) 02/26/18 02/27/18 18:25 05:50 WBC 12.4 H RBC 3.59 L Hgb 9.8 L Hct 29.8 L MCV 83 MCH 27.4 MCHC 33.0 RDW 16.1 H Plt Count 281 Seg Neutrophils % Lymphocytes % Monocytes % Eosinophils % Basophils % Absolute Neutrophils Absolute Lymphocytes Absolute Monocytes Absolute Eosinophils Absolute Basophils Sodium Potassium Chloride Carbon Dioxide Anion Gap BUN Creatinine Est GFR ( Amer) Est GFR (Non-Af Amer) Glucose Calcium Phosphorus Magnesium Total Bilirubin AST ALT Alkaline Phosphatase Total Protein Albumin Urine Color YELLOW Urine Appearance CLOUDY Urine pH 5.0 Ur Specific [place] 1.013 Urine Protein >=500 H Urine Glucose (UA) 150 H Urine Ketones NEGATIVE Urine Blood SMALL H Urine Nitrite NEGATIVE Ur Leukocyte Esterase LARGE H Urine WBC (Auto) >182 Urine RBC (Auto) 12 02/21/18 06:15 Creatine Kinase 338 H Impressions: Hip/Pelvis X-Ray 02/18/18 02:49 IMPRESSION: Fracture of the right femoral neck. Knee X-Ray 02/18/18 02:49 IMPRESSION: No acute findings. Pelvis X-Ray 02/20/18 00:00 IMPRESSION: Right hip hemiarthroplasty in good position. Head MRI 02/22/18 00:00 IMPRESSION: Acute nonhemorrhagic left posterior cerebral artery distribution infarct Stable chronic small vessel ischemic change in the martín and cerebral hemispheres EVIDENCE OF ACUTE STROKE: YES. Chest X-Ray 02/22/18 12:52 IMPRESSION: BORDERLINE CARDIOMEGALY. LINEAR DENSITIES IN THE LEFT LUNG BASE, ATELECTASIS VERSUS EARLY INFILTRATE. Extremity Ultrasound 02/23/18 00:00 IMPRESSION: 14 x 7 x 7 cm hypoechoic complex fluid collection deep to the surgical bandage over the right hip replacement. This likely represents a hematoma. Head CT 02/23/18 00:00 IMPRESSION: Left posterior cerebral artery distribution infarct. No hemorrhagic conversion. EVIDENCE OF ACUTE STROKE: Stable appearance of left early subacute BRUSH OPERATOR distribution infarct compared to previous studies. Carotid Doppler Study 02/24/18 00:00 IMPRESSION: CHRONIC OCCLUSION OF THE RIGHT INTERNAL CAROTID ARTERY. NO HEMODYNAMICALLY SIGNIFICANT STENOSIS OF THE LEFT INTERNAL CAROTID ARTERY. Abdomen/Pelvis CT 02/24/18 18:56 IMPRESSION: 17 cm craniocaudad by a 12 cm transverse by 7 cm thickness hematoma in the right subcutaneous soft tissues in the right gluteal region deep and superior to the lateral incision site from right total hip arthroplasty. Small bilateral pleural effusions. Bilateral lower lobe subsegmental atelectasis -airspace disease, left greater than right. Assessment & Plan - Diagnosis (1) Displaced fracture of right femoral neck Is this a current diagnosis for this admission?: Yes Plan: Patient is showing notable improvement in terms of her hemodynamics and her hemoglobin/hematocrit which is now stabilized at 9.8/29.8. Patient may begin physical therapy when safe to mobilize as per hospitalist recommendation. We will continue to monitor.
--- NOTE | 2018-02-27 09:08 | PDOC PROGRESS REPORT ---
Subjective Progress Note for:: 02/27/18 Subjective:: No acute events, there is seems to be a little bit of a hemoglobin drop Reason For Visit: HIP FX Physical Exam Vital Signs: Temp Pulse Resp BP Pulse Ox 98.6 F 85 15 180/66 H 100 02/27/18 07:26 02/27/18 07:26 02/27/18 07:26 02/27/18 07:26 02/27/18 07:26 Intake & Output 02/26/18 02/27/18 02/28/18 06:59 06:59 06:59 Intake Total 1929 2616 Output Total 1300 1425 Balance 629 1191 Weight 86.6 kg 85.4 kg Results Laboratory Results: 02/27/18 05:50 02/26/18 18:24 02/26/18 02/26/18 02/26/18 11:20 18:24 18:24 WBC 10.9 H 10.2 RBC 3.73 3.72 Hgb 10.3 L 10.3 L Hct 30.9 L 30.8 L MCV 83 83 MCH 27.6 27.6 MCHC 33.4 33.3 RDW 15.9 H 15.8 H Plt Count 249 247 Seg Neutrophils % 70.7 76.6 Lymphocytes % 8.6 L 7.3 L Monocytes % 18.2 H 14.0 H Eosinophils % 1.8 1.3 Basophils % 0.7 0.8 Absolute Neutrophils 7.7 7.8 Absolute Lymphocytes 0.9 0.7 Absolute Monocytes 2.0 H 1.4 Absolute Eosinophils 0.2 0.1 Absolute Basophils 0.1 0.1 Sodium 138.5 Potassium 4.9 Chloride 113 H Carbon Dioxide 15 L Anion Gap 11 BUN 75 H Creatinine 3.98 H Est GFR ( Amer) 14 L Est GFR (Non-Af Amer) 11 L Glucose 200 H Calcium 7.8 L Phosphorus 4.9 H Magnesium 2.0 Total Bilirubin 0.5 AST 25 ALT 20 Alkaline Phosphatase 52 Total Protein 5.3 L Albumin 2.1 L Urine Color Urine Appearance Urine pH Ur Specific [place] Urine Protein Urine Glucose (UA) Urine Ketones Urine Blood Urine Nitrite Ur Leukocyte Esterase Urine WBC (Auto) Urine RBC (Auto) 02/26/18 02/27/18 18:25 05:50 WBC 12.4 H RBC 3.59 L Hgb 9.8 L Hct 29.8 L MCV 83 MCH 27.4 MCHC 33.0 RDW 16.1 H Plt Count 281 Seg Neutrophils % Lymphocytes % Monocytes % Eosinophils % Basophils % Absolute Neutrophils Absolute Lymphocytes Absolute Monocytes Absolute Eosinophils Absolute Basophils Sodium Potassium Chloride Carbon Dioxide Anion Gap BUN Creatinine Est GFR ( Amer) Est GFR (Non-Af Amer) Glucose Calcium Phosphorus Magnesium Total Bilirubin AST ALT Alkaline Phosphatase Total Protein Albumin Urine Color YELLOW Urine Appearance CLOUDY Urine pH 5.0 Ur Specific [place] 1.013 Urine Protein >=500 H Urine Glucose (UA) 150 H Urine Ketones NEGATIVE Urine Blood SMALL H Urine Nitrite NEGATIVE Ur Leukocyte Esterase LARGE H Urine WBC (Auto) >182 Urine RBC (Auto) 12 02/21/18 06:15 Creatine Kinase 338 H Impressions: Hip/Pelvis X-Ray 02/18/18 02:49 IMPRESSION: Fracture of the right femoral neck. Knee X-Ray 02/18/18 02:49 IMPRESSION: No acute findings. Pelvis X-Ray 02/20/18 00:00 IMPRESSION: Right hip hemiarthroplasty in good position. Head MRI 02/22/18 00:00 IMPRESSION: Acute nonhemorrhagic left posterior cerebral artery distribution infarct Stable chronic small vessel ischemic change in the martín and cerebral hemispheres EVIDENCE OF ACUTE STROKE: YES. Chest X-Ray 02/22/18 12:52 IMPRESSION: BORDERLINE CARDIOMEGALY. LINEAR DENSITIES IN THE LEFT LUNG BASE, ATELECTASIS VERSUS EARLY INFILTRATE. Extremity Ultrasound 02/23/18 00:00 IMPRESSION: 14 x 7 x 7 cm hypoechoic complex fluid collection deep to the surgical bandage over the right hip replacement. This likely represents a hematoma. Head CT 02/23/18 00:00 IMPRESSION: Left posterior cerebral artery distribution infarct. No hemorrhagic conversion. 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 Carotid Doppler Study 02/24/18 00:00 IMPRESSION: CHRONIC OCCLUSION OF THE RIGHT INTERNAL CAROTID ARTERY. NO HEMODYNAMICALLY SIGNIFICANT STENOSIS OF THE LEFT INTERNAL CAROTID ARTERY. Abdomen/Pelvis CT 02/24/18 18:56 IMPRESSION: 17 cm craniocaudad by a 12 cm transverse by 7 cm thickness hematoma in the right subcutaneous soft tissues in the right gluteal region deep and superior to the lateral incision site from right total hip arthroplasty. Small bilateral pleural effusions. Bilateral lower lobe subsegmental atelectasis -airspace disease, left greater than right. Assessment & Plan - Diagnosis (1) Anemia Qualifiers: Anemia type: iron deficiency Iron deficiency anemia type: chronic blood loss Qualified Code(s): D50.0 - Iron deficiency anemia secondary to blood loss (chronic) Is this a current diagnosis for this admission?: Yes Plan: Blood loss related previously but also anemia of chronic disease. Continue with monitoring. (2) Coagulation defect, unspecified Is this a current diagnosis for this admission?: Yes Plan: Continue off anticoagulation as of now
[2018-02-27] MEDS: CARVEDILOL 12.5 MG TABLET PO SCH ×2 (09:31→22:17)
[2018-02-27] MEDS: DOCUSATE SODIUM 100 MG CAPSULE PO SCH ×2 (09:31→17:53)
--- NOTE | 2018-02-27 10:17 | PDOC PROGRESS REPORT ---
Subjective Progress Note for:: 02/27/18 Reason For Visit: Patient seen today. She is more awake and alert and beginning to be more responsive. However she looks like she has expressive aphasia. Speech therapy was at her bedside and helping to eat. Patient unable to respond to questions appropriately. Labs and medications were reviewed.Events over the weekend were reviewed. Physical Exam Vital Signs: Temp Pulse Resp BP Pulse Ox 98.6 F 85 15 180/66 H 100 02/27/18 07:26 02/27/18 07:26 02/27/18 07:26 02/27/18 07:26 02/27/18 07:26 Intake & Output 02/26/18 02/27/18 02/28/18 06:59 06:59 06:59 Intake Total 1929 2616 Output Total 1300 1425 Balance 629 1191 Weight 86.6 kg 85.4 kg General appearance: PRESENT: no acute distress Respiratory exam: PRESENT: clear to auscultation tila. ABSENT: crackles Cardiovascular exam: PRESENT: RRR, +S1, +S2 GI/Abdominal exam: PRESENT: normal bowel sounds, soft. ABSENT: organomegaly, tenderness Extremities exam: ABSENT: pedal edema Neurological exam: PRESENT: alert, awake, aphasic Skin exam: ABSENT: cyanosis, erythema, mottled Results Laboratory Results: 02/27/18 05:50 02/26/18 18:24 02/26/18 02/26/18 02/26/18 11:20 18:24 18:24 WBC 10.9 H 10.2 RBC 3.73 3.72 Hgb 10.3 L 10.3 L Hct 30.9 L 30.8 L MCV 83 83 MCH 27.6 27.6 MCHC 33.4 33.3 RDW 15.9 H 15.8 H Plt Count 249 247 Seg Neutrophils % 70.7 76.6 Lymphocytes % 8.6 L 7.3 L Monocytes % 18.2 H 14.0 H Eosinophils % 1.8 1.3 Basophils % 0.7 0.8 Absolute Neutrophils 7.7 7.8 Absolute Lymphocytes 0.9 0.7 Absolute Monocytes 2.0 H 1.4 Absolute Eosinophils 0.2 0.1 Absolute Basophils 0.1 0.1 Sodium 138.5 Potassium 4.9 Chloride 113 H Carbon Dioxide 15 L Anion Gap 11 BUN 75 H Creatinine 3.98 H Est GFR ( Amer) 14 L Est GFR (Non-Af Amer) 11 L Glucose 200 H Calcium 7.8 L Phosphorus 4.9 H Magnesium 2.0 Total Bilirubin 0.5 AST 25 ALT 20 Alkaline Phosphatase 52 Total Protein 5.3 L Albumin 2.1 L Urine Color Urine Appearance Urine pH Ur Specific [place] Urine Protein Urine Glucose (UA) Urine Ketones Urine Blood Urine Nitrite Ur Leukocyte Esterase Urine WBC (Auto) Urine RBC (Auto) 02/26/18 02/27/18 18:25 05:50 WBC 12.4 H RBC 3.59 L Hgb 9.8 L Hct 29.8 L MCV 83 MCH 27.4 MCHC 33.0 RDW 16.1 H Plt Count 281 Seg Neutrophils % Lymphocytes % Monocytes % Eosinophils % Basophils % Absolute Neutrophils Absolute Lymphocytes Absolute Monocytes Absolute Eosinophils Absolute Basophils Sodium Potassium Chloride Carbon Dioxide Anion Gap BUN Creatinine Est GFR ( Amer) Est GFR (Non-Af Amer) Glucose Calcium Phosphorus Magnesium Total Bilirubin AST ALT Alkaline Phosphatase Total Protein Albumin Urine Color YELLOW Urine Appearance CLOUDY Urine pH 5.0 Ur Specific [place] 1.013 Urine Protein >=500 H Urine Glucose (UA) 150 H Urine Ketones NEGATIVE Urine Blood SMALL H Urine Nitrite NEGATIVE Ur Leukocyte Esterase LARGE H Urine WBC (Auto) >182 Urine RBC (Auto) 12 02/21/18 06:15 Creatine Kinase 338 H Impressions: Hip/Pelvis X-Ray 02/18/18 02:49 IMPRESSION: Fracture of the right femoral neck. Knee X-Ray 02/18/18 02:49 IMPRESSION: No acute findings. Pelvis X-Ray 02/20/18 00:00 IMPRESSION: Right hip hemiarthroplasty in good position. Head MRI 02/22/18 00:00 IMPRESSION: Acute nonhemorrhagic left posterior cerebral artery distribution infarct Stable chronic small vessel ischemic change in the martín and cerebral hemispheres EVIDENCE OF ACUTE STROKE: YES. Chest X-Ray 02/22/18 12:52 IMPRESSION: BORDERLINE CARDIOMEGALY. LINEAR DENSITIES IN THE LEFT LUNG BASE, ATELECTASIS VERSUS EARLY INFILTRATE. Extremity Ultrasound 02/23/18 00:00 IMPRESSION: 14 x 7 x 7 cm hypoechoic complex fluid collection deep to the surgical bandage over the right hip replacement. This likely represents a hematoma. Head CT 02/23/18 00:00 IMPRESSION: Left posterior cerebral artery distribution infarct. No hemorrhagic conversion. EVIDENCE OF ACUTE STROKE: Stable appearance of left early subacute COMMERCIAL CREDIT REVIEWER distribution infarct compared to previous studies. Carotid Doppler Study 02/24/18 00:00 IMPRESSION: CHRONIC OCCLUSION OF THE RIGHT INTERNAL CAROTID ARTERY. NO HEMODYNAMICALLY SIGNIFICANT STENOSIS OF THE LEFT INTERNAL CAROTID ARTERY. Abdomen/Pelvis CT 02/24/18 18:56 IMPRESSION: 17 cm craniocaudad by a 12 cm transverse by 7 cm thickness hematoma in the right subcutaneous soft tissues in the right gluteal region deep and superior to the lateral incision site from right total hip arthroplasty. Small bilateral pleural effusions. Bilateral lower lobe subsegmental atelectasis -airspace disease, left greater than right. Assessment & Plan - Diagnosis (1) Displaced fracture of right femoral neck Is this a current diagnosis for this admission?: Yes Plan: Underwent an uneventful right hemiarthroplasty. Being managed by orthopedics.Now diagnosed with a 147 cm hematoma in the operative site. Being managed considered conservatively but with improvement. (2) LOGAN (acute kidney injury) Plan: Currently stable with improving renal numbers. Nonoliguric. Continue present lines of management. No indications for renal replacements.. (3) CKD (chronic kidney disease), stage V Plan: Patient has got underlying CKD stage V from her diabetic and hypertensive nephropathy. Base creatinine is 4. AV fistula was placed recently in anticipation of initiation of hemodialysis in the near future. AV fistula was placed when her physical and cognitive functions were much better. (4) Altered mental status Qualifiers: Altered mental status type: somnolence Qualified Code(s): R40.0 - Somnolence Is this a current diagnosis for this admission?: Yes Plan: Improving as patient is more awake and alert. However she looks like she has expressive aphasia. (5) Insulin dependent diabetes mellitus Is this a current diagnosis for this admission?: Yes Plan: Needs tight control. (6) Anemia Qualifiers: Anemia type: iron deficiency Iron deficiency anemia type: chronic blood loss Qualified Code(s): D50.0 - Iron deficiency anemia secondary to blood loss (chronic) Is this a current diagnosis for this admission?: Yes Plan: Acute. Hemoglobin seems to be more stable since vigorous transfusion over the weekend. (7) Coronary artery disease Qualifiers: Coronary Disease-Associated Artery/Lesion type: [place] artery [place] vs. transplanted heart: [place] heart Associated angina: without angina Qualified Code(s): I25.10 - Atherosclerotic heart disease of [place] coronary artery without angina pectoris Is this a current diagnosis for this admission?: No Plan: Presently stable. (8) HTN (hypertension) Qualifiers: Hypertension type: essential hypertension Qualified Code(s): I10 - Essential (primary) hypertension Is this a current diagnosis for this admission?: Yes Plan: Uncontrolled. Could be partly because patient has difficulty to swallow her tablets. Suggests crushing the tablets in applesauce and see if she would take that. Needs to be monitored more vigorously. Monitor. (9) History of CVA in adulthood Plan: She is got an acute stroke on top of a previous old remote infarct in the posterior circulation.MRI also shows subtle vascular compromise in the anterior cerebral territory as well. (10) Solitary kidney, acquired Plan: Prior right nephrectomy.Status quo (11) Hyperkalemia Plan: Stable currently.
[2018-02-27] MEDS: INSULIN LISPRO 100 UNIT/ML 3 ML VIAL SUBCUT PRN ×3 (13:27→22:24)
[2018-02-27] MEDS: ATORVASTATIN CALCIUM 80 MG TABLET PO SCH (22:17)
[2018-02-27] MEDS: CEFTRIAXONE SODIUM 2,000 MG in NORMAL SALINE 100 ML IV SCH (22:17)
--- NOTE | 2018-02-27 23:50 | PDOC PROGRESS REPORT ---
Subjective Progress Note for:: 02/27/18 Subjective:: Patient seen for follow-up today for her multiple medical conditions. Patient is a 63-year-old -[place] female brought to the hospital after a fall she sustained. Patient was ambulating prior to this using a Rollator walker. Patient was verbal and semi-mobile daughter did report a little balance issue however was mostly able to do all her ADLs and communicate. Patient was found to have anemia after her right hip hemiarthroplasty. Anemia initially was before on postoperative etiology and blood loss. Patient was immediately transfused 2 units PRBC. Patient was evaluated yesterday as concerned for baseline mental status was there. CT of the brain done yesterday was positive for an infarct in the medial occipitoparietal area. MRI was done today which showed a 7 cm infarct in the same area. We had a discussion with the family members about her hospital stay in her current condition and her decline. And her guarded prognosis. Dr. Bullard the mercury cracking tester and myself were in the conscious emergency room with the Daughter and the brother and were joined by the nurse Ms. Dowling. Patient's frail status was discussed with family members CODE STATUS was discussed with family members. Informed patients family about the risk of anticoagulation and hemorrhagic conversion in a stroke but at the same time the limitations of That if we do not use that medication then having another stroke. Anticoagulation also put the patient does risk for additional bleeding possibly as patient is currently anemic and have we have no etiology or the source of the bleed. His Eliquis was discontinued. We will continue patient on aspirin 81 , with Statin therapy. Initial guaiac was negative, will repeat a stool guaiac and proceed with antiplatelet therapy with full dose aspirin. 02/23/18 pt seen today for f/u of her large ischemia posterior circulation stroke/ anemia / a.fib . received report from nurse that pt has been more difficult to arouse than before. Per pharmacy patient had received morphine 1 mg about 6 times throughout the night By night nurse as patient had complained of pain in her right hip. This morning patient is somnolent arousable minimally open her eyes but does not follow commands. Stat CT of the head was obtained to reassess any hemorrhagic conversion of her acute ischemic CVA on 02/21/2018, and also an ultrasound of the right hip to document any hematoma. CT report was negative for any hemorrhagic conversion or changes, ultrasound positive for hematoma. The report from nurse that repeat CBC had showed hemoglobin level that was critical of 5.7. Reached out to son Mr. Camacho via telephone to discuss declining clinical status and possible need for transfer if felt necessary for specialty services, son informed about mental status change, and also about the drop in the hemoglobin and the need for transfusion. Per son who is decision-maker in the family patient is full code and to do what is necessary and needed In the circumstance and otherwise. If we need to transfer his mom he has agreed to transfer. Reached out to orthopedics Dr. Gauthier about positive ultrasound for hematoma and right hip, per orthopedics Elevated PTT is the reason the patient has a hematoma and that once corrected the hematoma will resorb. Hematology research home economist contacted for consult for plan of elevated PTT repeat pending and per Dr. Velásquez we will reassess once repeat studies are resulted. We will consider FFP if PTT is still elevated. Dr. Velásquez has agreed to consult on the patient. 02/24/18 Patient seen today for follow-up of her anemia, hematoma, stroke. This morning patient is arousable opens her eyes turns her head When called. Patient is more cooperative with answering questions when family is present. During the day patient is mostly sleeping, but arousable. Today discussed with son about patient's condition and mild to moderate improvement in mental status. Discussed with Dr. Bullard who also agrees that patient should be transferred To a tertiary care facility. Patient is anemic we have found hematoma in her right hip. The risk of infection of hematoma is high. Due to multiple comorbidities in this patient the risk of deterioration Is high. She did receive 2 units of PRBC today, her hemoglobin has come up to 8.7. So far patient has received total of 4 units in the past 48 hours of PRBC. Reached out dividing facility and discussed case with the hospitalist , Who suggested that an abdominal bleed may be consideration and we Do CT scan of the abdomen and pelvis. Discussed with Dr. Mcneill that Imaging studies unfortunately in this patient is limited due to her end-stage renal disease. Patient is also unable to drink p.o. contrast and would require NG placement. Also my suspicion for any retroperitoneal or intra-abdominal hemorrhage is low. However we will proceed with imaging of the abdomen. CT of the abdomen and pelvis was negative except for down to free fluid in the abdomen. Report did identify a large hematoma in the right hip dimensions specified a 17 cm, Which is increased from the previous ultrasound. Orthopedic surgeon Dr. toney contacted immediately for plan hematoma evaluation management and possible surgical intervention. Dr. toney advises that patient received 2 units of blood tonight and to raise Hemoglobin between 9 and 11. And if patient drops we plan for surgery. 02/25/18 Patient seen today for follow-up. Discussed with orthopedic and he recommended that we should monitor the patient as the hemoglobin is stable. Informed son about this plan and he is in agreement with the plan. She received 4 units of PRBC yesterday. Is alert and oriented and doing better. Since vital signs are stable. Patient is tolerating diet and is able to swallow. Once the hemoglobin stabilizes we will repeat imaging if needed to document resolution of hematoma. 02/26/18 Patient seen today for follow-up she is alert and awake aphasic and smiles. Opens eyes and responds and follows commands. Vital signs are stable blood pressure has come up hemoglobin is stable at 10.3 transfusion. Her orthopedic surgical intervention is risky due to patient's multiple comorbidities. 02/27/2018 Patient seen today for follow-up. Vitals have been stable. No tachycardia or hypotension. Hemoglobin has been stable. Orthopedic following patient nephrology following patient currently patient is medically stable and hematoma is being managed conservatively. Reason For Visit: HIP FX Physical Exam Vital Signs: Temp Pulse Resp BP Pulse Ox 98.7 F 71 20 164/69 H 100 02/27/18 23:12 02/27/18 23:12 02/27/18 23:12 02/27/18 23:12 02/27/18 23:12 Intake & Output 02/26/18 02/27/18 02/28/18 06:59 06:59 06:59 Intake Total 1929 2616 1476 Output Total 1300 1425 1125 Balance 629 1191 351 Weight 190 lb 14.725 oz 188 lb 4.396 oz General appearance: PRESENT: no acute distress, cooperative. ABSENT: obese Head exam: PRESENT: atraumatic, normocephalic Eye exam: PRESENT: EOMI Ear exam: PRESENT: normal external ear exam Respiratory exam: PRESENT: clear to auscultation tila Cardiovascular exam: PRESENT: RRR GI/Abdominal exam: PRESENT: normal bowel sounds, soft. ABSENT: tenderness Neurological exam: PRESENT: alert, awake, CN II-XII grossly intact, aphasic Results Laboratory Results: 02/27/18 05:50 02/26/18 18:24 02/27/18 05:50 WBC 12.4 H RBC 3.59 L Hgb 9.8 L Hct 29.8 L MCV 83 MCH 27.4 MCHC 33.0 RDW 16.1 H Plt Count 281 02/21/18 06:15 Creatine Kinase 338 H Impressions: Hip/Pelvis X-Ray 02/18/18 02:49 IMPRESSION: Fracture of the right femoral neck. Knee X-Ray 02/18/18 02:49 IMPRESSION: No acute findings. Pelvis X-Ray 02/20/18 00:00 IMPRESSION: Right hip hemiarthroplasty in good position. Head MRI 02/22/18 00:00 IMPRESSION: Acute nonhemorrhagic left posterior cerebral artery distribution infarct Stable chronic small vessel ischemic change in the martín and cerebral hemispheres EVIDENCE OF ACUTE STROKE: YES. Chest X-Ray 02/22/18 12:52 IMPRESSION: BORDERLINE CARDIOMEGALY. LINEAR DENSITIES IN THE LEFT LUNG BASE, ATELECTASIS VERSUS EARLY INFILTRATE. Extremity Ultrasound 02/23/18 00:00 IMPRESSION: 14 x 7 x 7 cm hypoechoic complex fluid collection deep to the surgical bandage over the right hip replacement. This likely represents a hematoma. Head CT 02/23/18 00:00 IMPRESSION: Left posterior cerebral artery distribution infarct. No hemorrhagic conversion. EVIDENCE OF ACUTE STROKE: Stable appearance of left early subacute DIDACTIC PROGRAM IN DIETETICS DIRECTOR distribution infarct compared to previous studies. Carotid Doppler Study 02/24/18 00:00 IMPRESSION: CHRONIC OCCLUSION OF THE RIGHT INTERNAL CAROTID ARTERY. NO HEMODYNAMICALLY SIGNIFICANT STENOSIS OF THE LEFT INTERNAL CAROTID ARTERY. Abdomen/Pelvis CT 02/24/18 18:56 IMPRESSION: 17 cm craniocaudad by a 12 cm transverse by 7 cm thickness hematoma in the right subcutaneous soft tissues in the right gluteal region deep and superior to the lateral incision site from right total hip arthroplasty. Small bilateral pleural effusions. Bilateral lower lobe subsegmental atelectasis -airspace disease, left greater than right. Assessment & Plan - Diagnosis (1) Acute blood loss anemia Is this a current diagnosis for this admission?: Yes Plan: Anemia attributed to hematoma formation and hip wound. Orthopedic evacuation is risky. Patient is stable after transfusion. (2) Hematoma of right hip Is this a current diagnosis for this admission?: Yes Plan: I patient transfused 4 units of PRBC. Per orthopedic we will monitor patient For drop in the hemoglobin/hematocrit. The risk of hematoma evacuation Has a high risk of increased bleed, Per orthopedic Dr. toney. (3) Altered mental status Qualifiers: Altered mental status type: somnolence Qualified Code(s): R40.0 - Somnolence Is this a current diagnosis for this admission?: Yes Plan: Mental status has improved. (4) Insulin dependent diabetes mellitus Is this a current diagnosis for this admission?: Yes Plan: Sliding scale coverage as needed. (5) HTN (hypertension) Qualifiers: Hypertension type: essential hypertension Qualified Code(s): I10 - Essential (primary) hypertension Is this a current diagnosis for this admission?: Yes Plan: Goal blood pressure for this patient systolics of 150s. All antihypertensive medications to be held if systolic is 140 or below or if patient heart rate is 80 or below. (6) Displaced fracture of right femoral neck Is this a current diagnosis for this admission?: Yes Plan: Status post right butch-arthroplasty. (7) ESRD (end stage renal disease) Is this a current diagnosis for this admission?: Yes Plan: By nephrology of Dr. Bullard. Patient started on p.o. bicarb for her acidosis.
[2018-02-28 06:32] LABS: HEMATOCRIT 26.8 % (36.0-47.0); HEMOGLOBIN 9.1 g/dL (12.0-15.5); MEAN CORPUSCULAR HEMOGLOBIN 28.3 pg (27.0-33.4); MEAN CORPUSCULAR VOLUME 83 fl (80-97); PLATELET COUNT 270 10^3/uL (150-450); RED BLOOD COUNT 3.22 10^6/uL (3.72-5.28); RED CELL DISTRIBUTION WIDTH 16.3 % (11.5-14.0); WHITE BLOOD COUNT 12.8 10^3/uL (4.0-10.5)
[2018-02-28 06:48] LABS: ALANINE AMINOTRANSFERASE 24 U/L (9-52); ALBUMIN 1.9 g/dL (3.5-5.0); ALKALINE PHOSPHATASE 47 U/L (38-126); ANION GAP 10 (5-19); ASPARTATE AMINO TRANSFERASE 19 U/L (14-36); BILIRUBIN,DIRECT 0.4 mg/dL (0.0-0.4); BILIRUBIN,TOTAL 0.4 mg/dL (0.2-1.3); BLOOD UREA NITROGEN 63 mg/dL (7-20); CALCIUM 7.7 mg/dL (8.4-10.2); CARBON DIOXIDE 15 mmol/L (22-30); CHLORIDE 118 mmol/L (98-107); GLUCOSE 85 mg/dL (75-110); PHOSPHORUS 4.3 mg/dL (2.5-4.5); POTASSIUM 4.2 mmol/L (3.6-5.0); SODIUM 142.8 mmol/L (137-145); TOTAL PROTEIN 4.9 g/dL (6.3-8.2)
[2018-02-28] MEDS ORDERED: CEFTRIAXONE 1 GM/D5W RTU 50 ML IV SCH (10:00)
[2018-02-28] MEDS: DOCUSATE SODIUM 100 MG CAPSULE PO SCH ×2 (10:38→17:49)
[2018-02-28] MEDS: CARVEDILOL 12.5 MG TABLET PO SCH ×2 (10:38→22:02)
[2018-02-28] MEDS: CEFTRIAXONE SODIUM 1,000 MG in NORMAL SALINE 50 ML IV SCH (10:40)
[2018-02-28] MEDS: EPOETIN ALFA INJ 20000 UNIT/1 ML VIAL (RENAL) SUBCUT SCH (12:24)
--- NOTE | 2018-02-28 12:32 | PDOC PROGRESS REPORT ---
Subjective Subjective:: Patient lying in bed comfortably. No complaints today. Reason For Visit: HIP FX Physical Exam Vital Signs: Temp Pulse Resp BP Pulse Ox 98.4 F 74 16 141/58 H 100 02/28/18 12:07 02/28/18 12:07 02/28/18 12:07 02/28/18 12:07 02/28/18 12:07 Intake & Output 02/27/18 02/28/18 03/01/18 06:59 06:59 06:59 Intake Total 2616 1476 50 Output Total 1425 1425 Balance 1191 51 50 Weight 85.4 kg 90.8 kg Musculoskeletal exam: PRESENT: other - Right hip: Dressing serosanguineous drainage. No increased change compared to previous examination. Moderate thigh swelling no change. Dorsalis pedis pulse 2+. Patient has notable weakness with plantar flexion dorsiflexion secondary to recent stroke Results Laboratory Results: 02/28/18 05:46 02/28/18 05:46 02/28/18 02/28/18 05:46 05:46 WBC 12.8 H RBC 3.22 L Hgb 9.1 L Hct 26.8 L MCV 83 MCH 28.3 MCHC 34.0 RDW 16.3 H Plt Count 270 Sodium 142.8 Potassium 4.2 Chloride 118 H Carbon Dioxide 15 L Anion Gap 10 BUN 63 H Creatinine 3.86 H Est GFR ( Amer) 14 L Est GFR (Non-Af Amer) 12 L Glucose 85 Calcium 7.7 L Phosphorus 4.3 Magnesium 1.9 Total Bilirubin 0.4 AST 19 ALT 24 Alkaline Phosphatase 47 Total Protein 4.9 L Albumin 1.9 L 02/26/18 18:25 García Catheter Urine Culture - Final Klebsiella Pneumoniae 02/21/18 06:15 Creatine Kinase 338 H Impressions: Hip/Pelvis X-Ray 02/18/18 02:49 IMPRESSION: Fracture of the right femoral neck. Knee X-Ray 02/18/18 02:49 IMPRESSION: No acute findings. Pelvis X-Ray 02/20/18 00:00 IMPRESSION: Right hip hemiarthroplasty in good position. Head MRI 02/22/18 00:00 IMPRESSION: Acute nonhemorrhagic left posterior cerebral artery distribution infarct Stable chronic small vessel ischemic change in the martín and cerebral hemispheres EVIDENCE OF ACUTE STROKE: YES. Chest X-Ray 08/08/18 12:52 IMPRESSION: BORDERLINE CARDIOMEGALY. LINEAR DENSITIES IN THE LEFT LUNG BASE, ATELECTASIS VERSUS EARLY INFILTRATE. Extremity Ultrasound 02/23/18 00:00 IMPRESSION: 14 x 7 x 7 cm hypoechoic complex fluid collection deep to the surgical bandage over the right hip replacement. This likely represents a hematoma. Head CT 02/23/18 00:00 IMPRESSION: Left posterior cerebral artery distribution infarct. No hemorrhagic conversion. EVIDENCE OF ACUTE STROKE: Stable appearance of left early subacute LEAD SOFTWARE QA ENGINEER distribution infarct compared to previous studies. Carotid Doppler Study 02/24/18 00:00 IMPRESSION: CHRONIC OCCLUSION OF THE RIGHT INTERNAL CAROTID ARTERY. NO HEMODYNAMICALLY SIGNIFICANT STENOSIS OF THE LEFT INTERNAL CAROTID ARTERY. Abdomen/Pelvis CT 02/24/18 18:56 IMPRESSION: 17 cm craniocaudad by a 12 cm transverse by 7 cm thickness hematoma in the right subcutaneous soft tissues in the right gluteal region deep and superior to the lateral incision site from right total hip arthroplasty. Small bilateral pleural effusions. Bilateral lower lobe subsegmental atelectasis -airspace disease, left greater than right. Assessment & Plan - Diagnosis (1) Displaced fracture of right femoral neck Is this a current diagnosis for this admission?: Yes Plan: Patient's hemoglobin and vital signs have remained stable. Patient will continue physical therapy however mobilization likely limited secondary to patient's recent stroke. We will continue aspirin for DVT prophylaxis.
--- NOTE | 2018-02-28 14:43 | PDOC PROGRESS REPORT ---
Subjective Progress Note for:: 02/28/18 Subjective:: Patient was sitting up in her bed at the time of examination. She was able to answer questions in a couple word answers. Currently her only complaint is the slight shortness of breath. She denies nausea, vomiting or appetite. Reason For Visit: HIP FX Physical Exam Vital Signs: Temp Pulse Resp BP Pulse Ox 98.4 F 65 16 141/58 H 100 02/28/18 12:07 02/28/18 14:00 02/28/18 12:07 02/28/18 12:07 02/28/18 12:07 Intake & Output 02/27/18 02/28/18 03/01/18 06:59 06:59 06:59 Intake Total 2616 1476 454 Output Total 1425 1425 300 Balance 1191 51 154 Weight 85.4 kg 90.8 kg General appearance: PRESENT: no acute distress, well-developed, well-nourished Mouth exam: PRESENT: moist. ABSENT: neck supple Neck exam: ABSENT: JVD, tracheal deviation Respiratory exam: PRESENT: crackles - -bases of the lungs. ABSENT: accessory muscle use, clear to auscultation tila, rhonchi Cardiovascular exam: PRESENT: RRR, +S1, +S2 GI/Abdominal exam: PRESENT: normal bowel sounds, soft. ABSENT: organomegaly, tenderness Extremities exam: ABSENT: pedal edema, tenderness, +1 edema, +2 edema Musculoskeletal exam: PRESENT: normal inspection. ABSENT: tenderness Neurological exam: PRESENT: alert, awake, aphasic. ABSENT: oriented to person, oriented to place, oriented to time, oriented to situation, motor sensory deficit, normal gait Skin exam: PRESENT: dry, intact, warm. ABSENT: cyanosis Results Laboratory Results: 02/28/18 05:46 02/28/18 05:46 02/28/18 02/28/18 05:46 05:46 WBC 12.8 H RBC 3.22 L Hgb 9.1 L Hct 26.8 L MCV 83 MCH 28.3 MCHC 34.0 RDW 16.3 H Plt Count 270 Sodium 142.8 Potassium 4.2 Chloride 118 H Carbon Dioxide 15 L Anion Gap 10 BUN 63 H Creatinine 3.86 H Est GFR ( Amer) 14 L Est GFR (Non-Af Amer) 12 L Glucose 85 Calcium 7.7 L Phosphorus 4.3 Magnesium 1.9 Total Bilirubin 0.4 AST 19 ALT 24 Alkaline Phosphatase 47 Total Protein 4.9 L Albumin 1.9 L 02/26/18 18:25 García Catheter Urine Culture - Final Klebsiella Pneumoniae 02/21/18 06:15 Creatine Kinase 338 H Impressions: Hip/Pelvis X-Ray 02/18/18 02:49 IMPRESSION: Fracture of the right femoral neck. Knee X-Ray 02/18/18 02:49 IMPRESSION: No acute findings. Pelvis X-Ray 02/20/18 00:00 IMPRESSION: Right hip hemiarthroplasty in good position. Head MRI 02/22/18 00:00 IMPRESSION: Acute nonhemorrhagic left posterior cerebral artery distribution infarct Stable chronic small vessel ischemic change in the martín and cerebral hemispheres EVIDENCE OF ACUTE STROKE: YES. Chest X-Ray 02/22/18 12:52 IMPRESSION: BORDERLINE CARDIOMEGALY. LINEAR DENSITIES IN THE LEFT LUNG BASE, ATELECTASIS VERSUS EARLY INFILTRATE. Extremity Ultrasound 02/23/18 00:00 IMPRESSION: 14 x 7 x 7 cm hypoechoic complex fluid collection deep to the surgical bandage over the right hip replacement. This likely represents a hematoma. Head CT 02/23/18 00:00 IMPRESSION: Left posterior cerebral artery distribution infarct. No hemorrhagic conversion. EVIDENCE OF ACUTE STROKE: Stable appearance of left early subacute CONTACT CENTER ASSOCIATE distribution infarct compared to previous studies. Carotid Doppler Study 02/24/18 00:00 IMPRESSION: CHRONIC OCCLUSION OF THE RIGHT INTERNAL CAROTID ARTERY. NO HEMODYNAMICALLY SIGNIFICANT STENOSIS OF THE LEFT INTERNAL CAROTID ARTERY. Abdomen/Pelvis CT 02/24/18 18:56 IMPRESSION: 17 cm craniocaudad by a 12 cm transverse by 7 cm thickness hematoma in the right subcutaneous soft tissues in the right gluteal region deep and superior to the lateral incision site from right total hip arthroplasty. Small bilateral pleural effusions. Bilateral lower lobe subsegmental atelectasis -airspace disease, left greater than right. Assessment & Plan - Diagnosis (1) LOGAN (acute kidney injury) Plan: currently stable at last baseline from previous visit in December. No indications for dialysis as of right now. (2) Chronic kidney disease (CKD) Qualifiers: Chronic kidney disease stage: stage 5, not on chronic dialysis Qualified Code(s): N18.5 - Chronic kidney disease, stage 5 Is this a current diagnosis for this admission?: No Plan: baseline creatinine is around 4.0. (3) Anemia Qualifiers: Chronic kidney disease stage: stage 5, not on chronic dialysis Is this a current diagnosis for this admission?: Yes Plan: receiving procrit today (4) Altered mental status Qualifiers: Altered mental status type: somnolence Qualified Code(s): R40.0 - Somnolence Is this a current diagnosis for this admission?: Yes Plan: improved, prior history of a stroke (5) Displaced fracture of right femoral neck Is this a current diagnosis for this admission?: Yes Plan: currently improving, being monitored by ortho (6) HTN (hypertension) Qualifiers: Hypertension type: essential hypertension Qualified Code(s): I10 - Essential (primary) hypertension Is this a current diagnosis for this admission?: Yes Plan: improving (8) Insulin dependent diabetes mellitus Is this a current diagnosis for this admission?: Yes
[2018-02-28] MEDS: NORMAL SALINE 1000 ML 1,000 ML IV PRN (15:53)
[2018-02-28] MEDS: INSULIN LISPRO 100 UNIT/ML 3 ML VIAL SUBCUT PRN ×2 (18:45→22:08)
--- NOTE | 2018-02-28 19:34 | PDOC PROGRESS REPORT ---
Subjective Progress Note for:: 02/28/18 Subjective:: The patient is in her bed. There are no family members at the bedside. She was awake but really would not answer questions. Review of systems could not be obtained Reason For Visit: HIP FX Physical Exam Vital Signs: Temp Pulse Resp BP Pulse Ox 99.3 F 75 17 160/68 H 98 02/28/18 15:35 02/28/18 15:35 02/28/18 15:35 02/28/18 15:35 02/28/18 15:35 Intake & Output 02/27/18 02/28/18 03/01/18 06:59 06:59 06:59 Intake Total 2616 1476 1691 Output Total 1425 1425 600 Balance 1191 51 1091 Weight 85.4 kg 90.8 kg General appearance: PRESENT: other - Chronically ill-appearing 63-year-old female Head exam: PRESENT: atraumatic, normocephalic Mouth exam: PRESENT: moist, tongue midline Respiratory exam: PRESENT: clear to auscultation tila. ABSENT: rales, rhonchi, wheezes Cardiovascular exam: PRESENT: RRR. ABSENT: diastolic murmur, rubs, systolic murmur GI/Abdominal exam: PRESENT: normal bowel sounds, soft. ABSENT: distended, guarding, mass, organolmegaly, rebound, tenderness Rectal exam: PRESENT: deferred Extremities exam: ABSENT: calf tenderness, clubbing, pedal edema Neurological exam: PRESENT: alert, awake. ABSENT: oriented to person, oriented to place, oriented to time, oriented to situation Psychiatric exam: PRESENT: other - Quite confused Skin exam: PRESENT: dry, intact, warm. ABSENT: cyanosis, rash Results Laboratory Results: 02/28/18 05:46 02/28/18 05:46 02/28/18 02/28/18 05:46 05:46 WBC 12.8 H RBC 3.22 L Hgb 9.1 L Hct 26.8 L MCV 83 MCH 28.3 MCHC 34.0 RDW 16.3 H Plt Count 270 Sodium 142.8 Potassium 4.2 Chloride 118 H Carbon Dioxide 15 L Anion Gap 10 BUN 63 H Creatinine 3.86 H Est GFR ( Amer) 14 L Est GFR (Non-Af Amer) 12 L Glucose 85 Calcium 7.7 L Phosphorus 4.3 Magnesium 1.9 Total Bilirubin 0.4 AST 19 ALT 24 Alkaline Phosphatase 47 Total Protein 4.9 L Albumin 1.9 L 02/26/18 18:25 García Catheter Urine Culture - Final Klebsiella Pneumoniae 02/21/18 06:15 Creatine Kinase 338 H Impressions: Hip/Pelvis X-Ray 02/18/18 02:49 IMPRESSION: Fracture of the right femoral neck. Knee X-Ray 02/18/18 02:49 IMPRESSION: No acute findings. Pelvis X-Ray 02/20/18 00:00 IMPRESSION: Right hip hemiarthroplasty in good position. Head MRI 02/22/18 00:00 IMPRESSION: Acute nonhemorrhagic left posterior cerebral artery distribution infarct Stable chronic small vessel ischemic change in the martín and cerebral hemispheres EVIDENCE OF ACUTE STROKE: YES. Chest X-Ray 02/22/18 12:52 IMPRESSION: BORDERLINE CARDIOMEGALY. LINEAR DENSITIES IN THE LEFT LUNG BASE, ATELECTASIS VERSUS EARLY INFILTRATE. Extremity Ultrasound 02/23/18 00:00 IMPRESSION: 14 x 7 x 7 cm hypoechoic complex fluid collection deep to the surgical bandage over the right hip replacement. This likely represents a hematoma. Head CT 02/23/18 00:00 IMPRESSION: Left posterior cerebral artery distribution infarct. No hemorrhagic conversion. EVIDENCE OF ACUTE STROKE: Stable appearance of left early subacute LABOR AND DELIVERY REGISTERED NURSE distribution infarct compared to previous studies. Carotid Doppler Study 02/24/18 00:00 IMPRESSION: CHRONIC OCCLUSION OF THE RIGHT INTERNAL CAROTID ARTERY. NO HEMODYNAMICALLY SIGNIFICANT STENOSIS OF THE LEFT INTERNAL CAROTID ARTERY. Abdomen/Pelvis CT 02/24/18 18:56 IMPRESSION: 17 cm craniocaudad by a 12 cm transverse by 7 cm thickness hematoma in the right subcutaneous soft tissues in the right gluteal region deep and superior to the lateral incision site from right total hip arthroplasty. Small bilateral pleural effusions. Bilateral lower lobe subsegmental atelectasis -airspace disease, left greater than right. Assessment & Plan - Diagnosis (1) Displaced fracture of right femoral neck Is this a current diagnosis for this admission?: Yes Plan: Status post repair. She will continue working with physical therapy as tolerated. Her whole situation is been changed by her acute CVA. (2) Acute blood loss anemia Is this a current diagnosis for this admission?: Yes Plan: Secondary to large right hip hematoma. Her hemoglobin is stabilized. (3) Hematoma of right hip Is this a current diagnosis for this admission?: Yes Plan: Improving. Her anticoagulation is been stopped (4) Acute encephalopathy Is this a current diagnosis for this admission?: Yes Plan: Multifactorial secondary to urinary tract infection as well as her acute CVA. I do not know what her cognitive baseline was but she was unable to speak to me today. (5) Acute CVA (cerebrovascular accident) Is this a current diagnosis for this admission?: Yes Plan: Continue atorvastatin. Her family meeting yesterday she will be started on an 81 mg aspirin. They are aware of the risks of bleeding (6) UTI (urinary tract infection) Is this a current diagnosis for this admission?: Yes Plan: Continue ceftriaxone. She has a Klebsiella urinary tract infection (7) Chronic diastolic (congestive) heart failure Is this a current diagnosis for this admission?: Yes Plan: Currently euvolemic (8) Coronary artery disease Is this a current diagnosis for this admission?: Yes Plan: Continue aspirin and statin medication (9) Atrial fibrillation Is this a current diagnosis for this admission?: Yes Plan: Currently rate controlled. Her anticoagulation has been held (10) Chronic anticoagulation Is this a current diagnosis for this admission?: Yes Plan: No further anticoagulation due to risks of hemorrhagic conversion of her acute CVA as well as her hematoma following surgery. (11) Chronic kidney disease, stage V Is this a current diagnosis for this admission?: Yes Plan: Nephrology is following and I appreciate their assistance (12) Diabetes Is this a current diagnosis for this admission?: Yes Plan: Stable (13) Hyponatremia Is this a current diagnosis for this admission?: Yes Plan: Resolved (14) Hyperkalemia Is this a current diagnosis for this admission?: Yes Plan: Likely related to her chronic kidney disease. Resolved (15) Obesity (BMI 30.0-34.9) Is this a current diagnosis for this admission?: Yes Plan: Continue to encourage good p.o. intake (16) Full code status Is this a current diagnosis for this admission?: Yes - Time Time Spent with patient: 25-34 minutes - Inpatient Certification Medical Necessity: Other - Inpatient hospitalization remains necessary. This patient's prognosis is quite guarded. Ultimately if she survives this hospitalization she will require significant rehabilitation. She likely will require placement permanently unless the family can take care of her in the home setting. Timing of disposition will be determined by her clinical course. At this point she is requiring parenteral antibiotics for a urinary tract infection. We are watching her for further signs of bleeding. She is continuing to work with the therapist for now.
[2018-02-28] MEDS: ACETAMINOPHEN 325 MG TABLET PO PRN (22:01)
[2018-02-28] MEDS: ATORVASTATIN CALCIUM 80 MG TABLET PO SCH (22:01)
[2018-02-28] MEDS: CEFTRIAXONE SODIUM 2,000 MG in NORMAL SALINE 100 ML IV SCH (22:02)
[2018-03-01] MEDS: ACETAMINOPHEN 325 MG TABLET PO PRN ×2 (05:28→23:37)
[2018-03-01 06:09] LABS: HEMOGLOBIN 8.3 g/dL (12.0-15.5); MEAN CORPUSCULAR HEMOGLOBIN 27.4 pg (27.0-33.4); MEAN CORPUSCULAR HGB CONC 33.2 g/dL (32.0-36.0); MEAN CORPUSCULAR VOLUME 83 fl (80-97); PLATELET COUNT 269 10^3/uL (150-450); RED BLOOD COUNT 3.03 10^6/uL (3.72-5.28); RED CELL DISTRIBUTION WIDTH 16.4 % (11.5-14.0); WHITE BLOOD COUNT 11.9 10^3/uL (4.0-10.5)
[2018-03-01 06:38] LABS: ALANINE AMINOTRANSFERASE 26 U/L (9-52); ALBUMIN 1.7 g/dL (3.5-5.0); ALKALINE PHOSPHATASE 40 U/L (38-126); ANION GAP 8 (5-19); ASPARTATE AMINO TRANSFERASE 17 U/L (14-36); BILIRUBIN,DIRECT 0.3 mg/dL (0.0-0.4); BILIRUBIN,TOTAL 0.4 mg/dL (0.2-1.3); BLOOD UREA NITROGEN 58 mg/dL (7-20); CARBON DIOXIDE 14 mmol/L (22-30); CHLORIDE 122 mmol/L (98-107); GLUCOSE 82 mg/dL (75-110); PHOSPHORUS 4.1 mg/dL (2.5-4.5); SODIUM 143.7 mmol/L (137-145); TOTAL PROTEIN 4.4 g/dL (6.3-8.2)
[2018-03-01 06:59] LABS: CALCIUM 6.9 mg/dL (8.4-10.2)
[2018-03-01] MEDS: DOCUSATE SODIUM 100 MG CAPSULE PO SCH ×2 (09:47→17:42)
[2018-03-01] MEDS: CEFTRIAXONE SODIUM 1,000 MG in NORMAL SALINE 50 ML IV SCH (09:47)
[2018-03-01] MEDS: CARVEDILOL 12.5 MG TABLET PO SCH ×2 (09:47→21:31)
[2018-03-01] MEDS: ASPIRIN 81 MG TABLET, CHEWABLE PO SCH (09:47)
[2018-03-01] MEDS: MORPHINE SULFATE 10 MG/ML INJ IV PRN ×2 (12:39→21:31)
[2018-03-01] MEDS: SODIUM BICARBONATE 650 MG TABLET PO SCH ×2 (13:53→21:32)
--- NOTE | 2018-03-01 15:36 | PDOC PROGRESS REPORT ---
Subjective Progress Note for:: 03/01/18 Reason For Visit: Patient seen today. She is more awake and more responsive to her oral commands answering in monosyllables. Apparently no distress. Labs and medications were reviewed. Physical Exam Vital Signs: Temp Pulse Resp BP Pulse Ox 97.8 F 69 16 156/65 H 97 03/01/18 11:25 03/01/18 14:00 03/01/18 11:25 03/01/18 11:25 03/01/18 11:25 Intake & Output 02/28/18 03/01/18 03/02/18 06:59 06:59 06:59 Intake Total 1476 1791 1761 Output Total 1425 1150 350 Balance 51 641 1411 Weight 90.8 kg 92 kg General appearance: PRESENT: no acute distress Cardiovascular exam: PRESENT: RRR, +S1, +S2 GI/Abdominal exam: PRESENT: normal bowel sounds, soft. ABSENT: organomegaly, tenderness Extremities exam: ABSENT: pedal edema Neurological exam: PRESENT: awake. ABSENT: oriented to person, oriented to place Results Laboratory Results: 03/01/18 05:33 03/01/18 05:33 03/01/18 03/01/18 05:33 05:33 WBC 11.9 H RBC 3.03 L Hgb 8.3 L Hct 25.0 L MCV 83 MCH 27.4 MCHC 33.2 RDW 16.4 H Plt Count 269 Sodium 143.7 Potassium 4.0 Chloride 122 H Carbon Dioxide 14 L Anion Gap 8 BUN 58 H Creatinine 3.52 H Est GFR ( Amer) 16 L Est GFR (Non-Af Amer) 13 L Glucose 82 Calcium 6.9 L* Phosphorus 4.1 Magnesium 1.8 Total Bilirubin 0.4 AST 17 ALT 26 Alkaline Phosphatase 40 Total Protein 4.4 L Albumin 1.7 L 02/21/18 06:15 Creatine Kinase 338 H Impressions: Hip/Pelvis X-Ray 02/18/18 02:49 IMPRESSION: Fracture of the right femoral neck. Knee X-Ray 02/18/18 02:49 IMPRESSION: No acute findings. Pelvis X-Ray 02/20/18 00:00 IMPRESSION: Right hip hemiarthroplasty in good position. Head MRI 02/22/18 00:00 IMPRESSION: Acute nonhemorrhagic left posterior cerebral artery distribution infarct Stable chronic small vessel ischemic change in the martín and cerebral hemispheres EVIDENCE OF ACUTE STROKE: YES. Chest X-Ray 02/22/18 12:52 IMPRESSION: BORDERLINE CARDIOMEGALY. LINEAR DENSITIES IN THE LEFT LUNG BASE, ATELECTASIS VERSUS EARLY INFILTRATE. Extremity Ultrasound 02/23/18 00:00 IMPRESSION: 14 x 7 x 7 cm hypoechoic complex fluid collection deep to the surgical bandage over the right hip replacement. This likely represents a hematoma. Head CT 02/23/18 00:00 IMPRESSION: Left posterior cerebral artery distribution infarct. No hemorrhagic conversion. EVIDENCE OF ACUTE STROKE: Stable appearance of left early subacute LAB DIRECTOR distribution infarct compared to previous studies. Carotid Doppler Study 02/24/18 00:00 IMPRESSION: CHRONIC OCCLUSION OF THE RIGHT INTERNAL CAROTID ARTERY. NO HEMODYNAMICALLY SIGNIFICANT STENOSIS OF THE LEFT INTERNAL CAROTID ARTERY. Abdomen/Pelvis CT 02/24/18 18:56 IMPRESSION: 17 cm craniocaudad by a 12 cm transverse by 7 cm thickness hematoma in the right subcutaneous soft tissues in the right gluteal region deep and superior to the lateral incision site from right total hip arthroplasty. Small bilateral pleural effusions. Bilateral lower lobe subsegmental atelectasis -airspace disease, left greater than right. Assessment & Plan - Diagnosis (1) Displaced fracture of right femoral neck Is this a current diagnosis for this admission?: Yes Plan: Underwent an uneventful right hemiarthroplasty. Being managed by orthopedics.Now diagnosed with a 147 cm hematoma in the operative site. Being managed considered conservatively but with improvement. (2) LOGAN (acute kidney injury) Plan: Currently stable renal numbers. Latest creatinine of 3.5 is actually better than her baseline of 4. Nonoliguric. Continue present lines of management. No indications for renal replacements.. (3) CKD (chronic kidney disease), stage V Plan: Patient has got underlying CKD stage V from her diabetic and hypertensive nephropathy. Base creatinine is 4. AV fistula was placed recently in anticipation of initiation of hemodialysis in the near future. AV fistula was placed when her physical and cognitive functions were much better. (4) Altered mental status Qualifiers: Altered mental status type: somnolence Qualified Code(s): R40.0 - Somnolence Is this a current diagnosis for this admission?: Yes Plan: Improving as patient is more awake and alert. (5) Insulin dependent diabetes mellitus Is this a current diagnosis for this admission?: Yes Plan: Needs tight control. (6) Anemia Qualifiers: Chronic kidney disease stage: stage 5, not on chronic dialysis Is this a current diagnosis for this admission?: Yes Plan: Acute.Being managed by hospitalist. (7) Coronary artery disease Qualifiers: Coronary Disease-Associated Artery/Lesion type: [place] artery [place] vs. transplanted heart: [place] heart Associated angina: without angina Qualified Code(s): I25.10 - Atherosclerotic heart disease of [place] coronary artery without angina pectoris Is this a current diagnosis for this admission?: No Plan: Presently stable. (8) HTN (hypertension) Qualifiers: Hypertension type: essential hypertension Qualified Code(s): I10 - Essential (primary) hypertension Is this a current diagnosis for this admission?: Yes Plan: Uncontrolled. Monitor. (9) History of CVA in adulthood Plan: She is got an acute stroke on top of a previous old remote infarct in the posterior circulation.MRI also shows subtle vascular compromise in the anterior cerebral territory as well. (10) Solitary kidney, acquired Plan: Prior right nephrectomy.Status quo
--- NOTE | 2018-03-01 17:30 | PDOC PROGRESS REPORT ---
Subjective Progress Note for:: 03/01/18 Subjective:: The patient is a very unfortunate 63-year-old -[place]is[place] female who was brought to the hospital after sustaining a fall. Prior to admission she was verbal and ambulated with a rolling walker. She was independent with her ADLs. She sustained a right hip fracture and underwent repair. After the procedure she had worsening hemoglobin. She was transfused 2 units of packed red blood cells. However it became apparent that the patient was developing a right hip hematoma. The patient had worsening mental status and ultimately has suffered an acute infarct in the occipitoparietal area. At this point the patient's Eliquis and antiplatelet therapy was stopped. Discussions were had with the patient's family and a decision was made to place her back on the low dose baby aspirin. She does have a bed available for rehabilitation however she just has not done well. I was initially thinking of sending her back today however her hemoglobin has now dropped almost a gram overnight. I believe that we will need to repeat blood work tomorrow and if it further drops we may have to stop her aspirin altogether. Her prognosis is quite guarded at this point. There were no family members at the bedside. The patient is a phasic can only say a few words. She is still confused. A review of systems could not be obtained. Reason For Visit: HIP FX Physical Exam Vital Signs: Temp Pulse Resp BP Pulse Ox 97.8 F 69 16 156/65 H 97 03/01/18 11:25 03/01/18 14:00 03/01/18 11:25 03/01/18 11:25 03/01/18 11:25 Intake & Output 02/28/18 03/01/18 03/02/18 06:59 06:59 06:59 Intake Total 1476 1791 1761 Output Total 1425 1150 350 Balance 51 641 1411 Weight 90.8 kg 92 kg General appearance: PRESENT: other - She is quite ill-appearing. She is unable to speak to me today. Head exam: PRESENT: atraumatic, normocephalic Mouth exam: PRESENT: moist, tongue midline Respiratory exam: PRESENT: clear to auscultation tila. ABSENT: rales, rhonchi, wheezes Cardiovascular exam: PRESENT: RRR. ABSENT: diastolic murmur, rubs, systolic murmur Pulses: PRESENT: normal dorsalis pedis pul GI/Abdominal exam: PRESENT: normal bowel sounds, soft. ABSENT: distended, guarding, mass, organolmegaly, rebound, tenderness Rectal exam: PRESENT: deferred Extremities exam: PRESENT: full ROM. ABSENT: calf tenderness, clubbing, pedal edema Neurological exam: PRESENT: awake. ABSENT: altered Psychiatric exam: PRESENT: appropriate affect, normal mood. ABSENT: homicidal ideation, suicidal ideation Skin exam: PRESENT: dry, intact, warm. ABSENT: cyanosis, rash Results Laboratory Results: 03/01/18 05:33 03/01/18 05:33 03/01/18 03/01/18 05:33 05:33 WBC 11.9 H RBC 3.03 L Hgb 8.3 L Hct 25.0 L MCV 83 MCH 27.4 MCHC 33.2 RDW 16.4 H Plt Count 269 Sodium 143.7 Potassium 4.0 Chloride 122 H Carbon Dioxide 14 L Anion Gap 8 BUN 58 H Creatinine 3.52 H Est GFR ( Amer) 16 L Est GFR (Non-Af Amer) 13 L Glucose 82 Calcium 6.9 L* Phosphorus 4.1 Magnesium 1.8 Total Bilirubin 0.4 AST 17 ALT 26 Alkaline Phosphatase 40 Total Protein 4.4 L Albumin 1.7 L 02/21/18 06:15 Creatine Kinase 338 H Impressions: Hip/Pelvis X-Ray 02/18/18 02:49 IMPRESSION: Fracture of the right femoral neck. Knee X-Ray 02/18/18 02:49 IMPRESSION: No acute findings. Pelvis X-Ray 02/20/18 00:00 IMPRESSION: Right hip hemiarthroplasty in good position. Head MRI 02/22/18 00:00 IMPRESSION: Acute nonhemorrhagic left posterior cerebral artery distribution infarct Stable chronic small vessel ischemic change in the martín and cerebral hemispheres EVIDENCE OF ACUTE STROKE: YES. Chest X-Ray 02/22/18 12:52 IMPRESSION: BORDERLINE CARDIOMEGALY. LINEAR DENSITIES IN THE LEFT LUNG BASE, ATELECTASIS VERSUS EARLY INFILTRATE. Extremity Ultrasound 02/23/18 00:00 IMPRESSION: 14 x 7 x 7 cm hypoechoic complex fluid collection deep to the surgical bandage over the right hip replacement. This likely represents a hematoma. Head CT 02/23/18 00:00 IMPRESSION: Left posterior cerebral artery distribution infarct. No hemorrhagic conversion. EVIDENCE OF ACUTE STROKE: Stable appearance of left early subacute PRESCRIPTIONIST distribution infarct compared to previous studies. Carotid Doppler Study 02/24/18 00:00 IMPRESSION: CHRONIC OCCLUSION OF THE RIGHT INTERNAL CAROTID ARTERY. NO HEMODYNAMICALLY SIGNIFICANT STENOSIS OF THE LEFT INTERNAL CAROTID ARTERY. Abdomen/Pelvis CT 02/24/18 18:56 IMPRESSION: 17 cm craniocaudad by a 12 cm transverse by 7 cm thickness hematoma in the right subcutaneous soft tissues in the right gluteal region deep and superior to the lateral incision site from right total hip arthroplasty. Small bilateral pleural effusions. Bilateral lower lobe subsegmental atelectasis -airspace disease, left greater than right. Assessment & Plan - Diagnosis (1) Displaced fracture of right femoral neck Is this a current diagnosis for this admission?: Yes Plan: Status post repair. She will continue working with physical therapy as tolerated. Her whole situation is been changed by her acute CVA. (2) Acute blood loss anemia Is this a current diagnosis for this admission?: Yes Plan: Secondary to large right hip hematoma. Initially her Eliquis as well as her antiplatelet therapy was stopped. The family was informed of the risk of hemorrhagic conversion of her stroke as well. She was started back on an 81 mg baby aspirin and has had a 1 g drop in her hemoglobin overnight. I am not going to send her to rehab today. We will repeat her hemoglobin in the morning. (3) Hematoma of right hip Is this a current diagnosis for this admission?: Yes Plan: Improving. Her anticoagulation is been stopped (4) Acute encephalopathy Is this a current diagnosis for this admission?: Yes Plan: Multifactorial secondary to urinary tract infection as well as her acute CVA. I do not know what her cognitive baseline was but she was unable to speak to me today. (5) Acute CVA (cerebrovascular accident) Is this a current diagnosis for this admission?: Yes Plan: Continue atorvastatin. The patient has been started back on an 81 mg aspirin. The patient's family is aware of the risk of bleeding. Her hemoglobin is dropped. Will check her blood counts tomorrow. (6) UTI (urinary tract infection) Is this a current diagnosis for this admission?: Yes Plan: Continue ceftriaxone. She has a Klebsiella urinary tract infection (7) Chronic diastolic (congestive) heart failure Is this a current diagnosis for this admission?: Yes Plan: Currently euvolemic (8) Coronary artery disease Is this a current diagnosis for this admission?: Yes Plan: Continue aspirin and statin medication (9) Atrial fibrillation Is this a current diagnosis for this admission?: Yes Plan: Currently rate controlled. Her anticoagulation has been held (10) Chronic anticoagulation Is this a current diagnosis for this admission?: Yes Plan: No further anticoagulation due to risks of hemorrhagic conversion of her acute CVA as well as her hematoma following surgery. (11) Chronic kidney disease, stage V Is this a current diagnosis for this admission?: Yes Plan: Nephrology is following and I appreciate their assistance (12) Diabetes Is this a current diagnosis for this admission?: Yes Plan: Stable (13) Hyponatremia Is this a current diagnosis for this admission?: Yes Plan: Resolved (14) Hyperkalemia Is this a current diagnosis for this admission?: Yes Plan: Likely related to her chronic kidney disease. Resolved (15) Obesity (BMI 30.0-34.9) Is this a current diagnosis for this admission?: Yes Plan: Continue to encourage good p.o. intake (16) Full code status Is this a current diagnosis for this admission?: Yes - Time Time Spent with patient: 25-34 minutes - Inpatient Certification Medical Necessity: Need Close Monitoring Due to Risk of Patient Decompensation, Other - Inpatient hospitalization remains necessary to monitor her hemoglobin. She was started back on her antiplatelet therapy and she has had a drop in her hemoglobin. She really is between a rock and a hard place. Her prognosis is quite guarded at this point. Timing of disposition will be determined by her clinical course.
[2018-03-01] MEDS: INSULIN LISPRO 100 UNIT/ML 3 ML VIAL SUBCUT PRN (17:57)
[2018-03-01] MEDS: ATORVASTATIN CALCIUM 80 MG TABLET PO SCH (21:31)
[2018-03-02 06:40] LABS: HEMATOCRIT 25.7 % (36.0-47.0); HEMOGLOBIN 8.6 g/dL (12.0-15.5); MEAN CORPUSCULAR HEMOGLOBIN 27.8 pg (27.0-33.4); MEAN CORPUSCULAR HGB CONC 33.4 g/dL (32.0-36.0); MEAN CORPUSCULAR VOLUME 83 fl (80-97); PLATELET COUNT 302 10^3/uL (150-450); RED BLOOD COUNT 3.09 10^6/uL (3.72-5.28); RED CELL DISTRIBUTION WIDTH 16.7 % (11.5-14.0); WHITE BLOOD COUNT 11.7 10^3/uL (4.0-10.5)
[2018-03-02 07:03] LABS: ALANINE AMINOTRANSFERASE 19 U/L (9-52); ALBUMIN 1.8 g/dL (3.5-5.0); ALKALINE PHOSPHATASE 47 U/L (38-126); ANION GAP 8 (5-19); ASPARTATE AMINO TRANSFERASE 17 U/L (14-36); BILIRUBIN,DIRECT 0.3 mg/dL (0.0-0.4); BILIRUBIN,TOTAL 0.3 mg/dL (0.2-1.3); BLOOD UREA NITROGEN 55 mg/dL (7-20); CALCIUM 7.7 mg/dL (8.4-10.2); CARBON DIOXIDE 15 mmol/L (22-30); CHLORIDE 121 mmol/L (98-107); GLUCOSE 87 mg/dL (75-110); PHOSPHORUS 4.3 mg/dL (2.5-4.5); POTASSIUM 4.4 mmol/L (3.6-5.0); SODIUM 143.9 mmol/L (137-145); TOTAL PROTEIN 4.9 g/dL (6.3-8.2)
[2018-03-02 07:55] VITALS: BP 163/71
--- NOTE | 2018-03-02 09:25 | PDOC PROGRESS REPORT ---
Subjective Progress Note for:: 03/02/18 Subjective:: Patient was seen laying in her bed. See remains stable. AMS seems to have gone away. She looks to be at baseline. Still get short answers from her. Reason For Visit: HIP FX Physical Exam Vital Signs: Temp Pulse Resp BP Pulse Ox 98.2 F 77 20 163/71 H 96 03/02/18 07:26 03/02/18 07:26 03/02/18 07:26 03/02/18 07:26 03/02/18 07:26 Intake & Output 03/01/18 03/02/18 03/03/18 06:59 06:59 06:59 Intake Total 1791 2116 Output Total 1150 350 Balance 641 1766 Weight 92 kg 90.5 kg General appearance: PRESENT: no acute distress, disheveled, well-developed, well -nourished Mouth exam: PRESENT: moist, neck supple Neck exam: ABSENT: JVD Cardiovascular exam: PRESENT: RRR, +S1, +S2 GI/Abdominal exam: PRESENT: normal bowel sounds, soft. ABSENT: organomegaly, tenderness Extremities exam: ABSENT: pedal edema, tenderness, +1 edema, +2 edema Musculoskeletal exam: PRESENT: normal inspection. ABSENT: tenderness Neurological exam: PRESENT: alert, awake. ABSENT: oriented to person, oriented to place, oriented to time, oriented to situation Psychiatric exam: PRESENT: appropriate affect, normal mood Skin exam: PRESENT: dry, intact, warm Results Laboratory Results: 03/02/18 06:00 03/02/18 06:00 03/02/18 03/02/18 06:00 06:00 WBC 11.7 H RBC 3.09 L Hgb 8.6 L Hct 25.7 L MCV 83 MCH 27.8 MCHC 33.4 RDW 16.7 H Plt Count 302 Sodium 143.9 Potassium 4.4 Chloride 121 H Carbon Dioxide 15 L Anion Gap 8 BUN 55 H Creatinine 3.80 H Est GFR ( Amer) 15 L Est GFR (Non-Af Amer) 12 L Glucose 87 Calcium 7.7 L Phosphorus 4.3 Magnesium 1.9 Total Bilirubin 0.3 AST 17 ALT 19 Alkaline Phosphatase 47 Total Protein 4.9 L Albumin 1.8 L 02/21/18 06:15 Creatine Kinase 338 H Impressions: Hip/Pelvis X-Ray 02/18/18 02:49 IMPRESSION: Fracture of the right femoral neck. Knee X-Ray 02/18/18 02:49 IMPRESSION: No acute findings. Pelvis X-Ray 02/20/18 00:00 IMPRESSION: Right hip hemiarthroplasty in good position. Head MRI 02/22/18 00:00 IMPRESSION: Acute nonhemorrhagic left posterior cerebral artery distribution infarct Stable chronic small vessel ischemic change in the martín and cerebral hemispheres EVIDENCE OF ACUTE STROKE: YES. Chest X-Ray 02/22/18 12:52 IMPRESSION: BORDERLINE CARDIOMEGALY. LINEAR DENSITIES IN THE LEFT LUNG BASE, ATELECTASIS VERSUS EARLY INFILTRATE. Extremity Ultrasound 02/23/18 00:00 IMPRESSION: 14 x 7 x 7 cm hypoechoic complex fluid collection deep to the surgical bandage over the right hip replacement. This likely represents a hematoma. Head CT 02/23/18 00:00 IMPRESSION: Left posterior cerebral artery distribution infarct. No hemorrhagic conversion. EVIDENCE OF ACUTE STROKE: Stable appearance of left early subacute BOAT MOTOR MECH[employer]IC distribution infarct compared to previous studies. Carotid Doppler Study 02/24/18 00:00 IMPRESSION: CHRONIC OCCLUSION OF THE RIGHT INTERNAL CAROTID ARTERY. NO HEMODYNAMICALLY SIGNIFICANT STENOSIS OF THE LEFT INTERNAL CAROTID ARTERY. Abdomen/Pelvis CT 02/24/18 18:56 IMPRESSION: 17 cm craniocaudad by a 12 cm transverse by 7 cm thickness hematoma in the right subcutaneous soft tissues in the right gluteal region deep and superior to the lateral incision site from right total hip arthroplasty. Small bilateral pleural effusions. Bilateral lower lobe subsegmental atelectasis -airspace disease, left greater than right. Assessment & Plan - Diagnosis (1) LOGAN (acute kidney injury) Plan: currently stable at last baseline from previous visit in December. Patient needs to remain hydrated, No indications for dialysis as of right now. Recommend follow up with Dr. Bullard or me in 10 to 14 days as outpatient once she is discharged.. (2) Chronic kidney disease (CKD) Qualifiers: Chronic kidney disease stage: stage 5, not on chronic dialysis Qualified Code(s): N18.5 - Chronic kidney disease, stage 5 Is this a current diagnosis for this admission?: No Plan: baseline creatinine is around 4.0. (3) Anemia Qualifiers: Chronic kidney disease stage: stage 5, not on chronic dialysis Is this a current diagnosis for this admission?: Yes Plan: currently stable on procrit weekly (4) Altered mental status Qualifiers: Altered mental status type: somnolence Qualified Code(s): R40.0 - Somnolence Is this a current diagnosis for this admission?: Yes Plan: improved, prior history of a stroke (5) Displaced fracture of right femoral neck Is this a current diagnosis for this admission?: Yes Plan: currently improving, being monitored by ortho (6) HTN (hypertension) Qualifiers: Hypertension type: essential hypertension Qualified Code(s): I10 - Essential (primary) hypertension Is this a current diagnosis for this admission?: Yes Plan: blood pressure is remaining elevated in the 160s systolic, will look to increase carvedilol to 25mg bid (8) Insulin dependent diabetes mellitus Is this a current diagnosis for this admission?: Yes
[2018-03-02] MEDS ORDERED: CARVEDILOL 12.5 MG TABLET PO SCH (10:00)
[2018-03-02] MEDS: ASPIRIN 81 MG TABLET, CHEWABLE PO SCH (11:03)
[2018-03-02] MEDS: SODIUM BICARBONATE 650 MG TABLET PO SCH (11:03)
[2018-03-02] MEDS: CEFTRIAXONE SODIUM 1,000 MG in NORMAL SALINE 50 ML IV SCH (11:03)
[2018-03-02] MEDS: DOCUSATE SODIUM 100 MG CAPSULE PO SCH (11:03)
[2018-03-02] MEDS: NORMAL SALINE 1000 ML 1,000 ML IV PRN (11:03)
--- NOTE | 2018-03-02 12:07 | PDOC TRANSFER SUMMARY ---
General - Admit/Disc Date/PCP Admission Date/Primary Care Provider: 02/18/18 05:58 RAQUEL MINOR MD Discharge Date: 03/02/18 - Discharge Diagnosis (1) Displaced fracture of right femoral neck Is this a current diagnosis for this admission?: Yes (2) Hematoma of right hip Is this a current diagnosis for this admission?: Yes (3) Acute blood loss anemia Is this a current diagnosis for this admission?: Yes (4) Acute CVA (cerebrovascular accident) Is this a current diagnosis for this admission?: Yes (5) Atrial fibrillation Is this a current diagnosis for this admission?: Yes (7) Chronic diastolic CHF (congestive heart failure) Is this a current diagnosis for this admission?: Yes (8) Chronic kidney disease, stage V Is this a current diagnosis for this admission?: Yes (9) Coronary artery disease Is this a current diagnosis for this admission?: Yes (10) Diabetes Is this a current diagnosis for this admission?: Yes (11) Altered mental status Is this a current diagnosis for this admission?: Yes - Additional Information Resuscitation Status: Full Code Home Medications: Atorvastatin Calcium [Lipitor 80 mg Tablet] 80 mg PO QHS 02/18/18 Calcium Carb/Vitamin D3/Vit K1 [Calcium + D Soft Chewable Tab] 1 tab PO BID 11/02 Carvedilol [Coreg 25 mg Tablet] 25 mg PO Q12 02/18/18 Docusate Sodium [Colace 100 mg Capsule] 100 mg PO BID 02/18/18 Duloxetine HCl [Cymbalta] 60 mg PO DAILY 02/18/18 Ergocalciferol (Vitamin D2) [Drisdol 50,000 unit (1.25MG) Capsule] 50,000 unit PO MO@1000 02/18/18 Esomeprazole Magnesium [Nexium] 40 mg PO DAILY 02/18/18 Furosemide [Lasix 40 mg Tablet] 40 mg PO DAILY 02/18/18 Hydralazine HCl [Apresoline 50 mg Tablet] 50 mg PO Q8 02/18/18 Isosorbide Mononitrate [Isosorbide Mononitrate ER] 15 mg PO DAILY 02/18/18 Potassium Chloride [Klor-Con M10] 10 meq PO DAILY 02/18/18 Aspirin [Aspirin 81 mg Chewable Tablet] 81 mg PO DAILY tab.chew 03/02/18 Carvedilol [Coreg 12.5 mg Tablet] 25 mg PO Q12 tablet 03/02/18 Cefdinir 300 mg PO BID 3 Days #6 capsule 03/02/18 Dextrose [Glutose 40% Gel 15 gm Tube] 30 gm PO PRN PRN tube 03/02/18 Epoetin Selwyn [Procrit Inj 20,000 Unit/1 ml Vial (Renal)] 20,000 unit SUBCUT Q7D@ 1100 ml 03/02/18 Glucagon,Human Recombinant [Glucagen Inj 1 mg Vial] 1 mg IM PRN PRN vial Insulin Lispro [Humalog Insulin (Lispro) 100 unit/mL] 0 - 12 unit SUBCUT ACHSP PRN unit 03/02/18 Ipratropium/Albuterol Sulfate [Duoneb 3 ml Ampul] 3 ml NEB RTQ2HP PRN vial.neb 03/02/18 Sodium Bicarbonate [Sodium Bicarbonate 650 mg Tablet] 650 mg PO Q12 tablet History of Present Illness Admission Date/PCP: 02/18/18 05:58 RAQUEL MINOR MD History of Present Illness: MICHAEL BONILLA is a 63 year old female admitted after presentation with fall and found to have right hip fracture. Hospital Course Hospital Course: The patient is a very unfortunate 63-year-old -[place] female who was brought to the hospital after sustaining a fall. Prior to admission she was verbal and ambulated with a rolling walker. She was independent with her ADLs. She sustained a right hip fracture and underwent repair by Dr. Gauthier of orthopaedics on 02/21/18. After the procedure she had worsening hemoglobin. She was transfused 2 units of packed red blood cells. However it became apparent that the patient was developing a right hip hematoma. The patient had worsening mental status and ultimately has suffered an acute infarct in the occipitoparietal area. At this point the patient's Eliquis and antiplatelet therapy were discontinued. Discussions were made with the patient's family and the decision was made to place her back on the low dose baby aspirin. She is doing well on these, and H&H stable. She now has a bed available for rehabilitation and she is being discharged in stable condition. Of note is that patient also noted to have UTI. Urine culture grew Klebsiella which is pansensitive except to ampicillin. She was treated with Rocephin and IV 1 g daily and has received 3 days doses. Will treat with cefdinir 300 mg twice daily for 3 additional days of antibiotics. She is to follow-up with facility MD within 48 hours. Patient has chronic kidney disease and was followed by warp hauler at the hospital. She is to follow-up with Dr. Bullard or Dr. Raymond of nephrology 10-14 days per Catrina Raymond' s recommendation. Physical Exam Vital Signs: Temp Pulse Resp BP Pulse Ox 98.2 F 77 20 163/71 H 96 03/02/18 07:26 03/02/18 07:26 03/02/18 07:26 03/02/18 07:26 03/02/18 07:26 Intake & Output 03/01/18 03/02/18 03/03/18 06:59 06:59 06:59 Intake Total 1791 2116 Output Total 1150 350 Balance 641 1766 Weight 92 kg 90.5 kg General appearance: PRESENT: other - She is awake, answers very simple questions in a limited fashion. States she is fine. Head exam: PRESENT: atraumatic, normocephalic Mouth exam: PRESENT: moist, tongue midline Respiratory exam: PRESENT: clear to auscultation tila. ABSENT: rales, rhonchi, wheezes Cardiovascular exam: PRESENT: RRR. ABSENT: diastolic murmur, rubs, systolic murmur Pulses: PRESENT: normal dorsalis pedis pulses GI/Abdominal exam: PRESENT: normal bowel sounds, soft. ABSENT: distended, guarding, mass, organolmegaly, rebound, tenderness Rectal exam: PRESENT: deferred Extremities exam: PRESENT: full ROM. ABSENT: calf tenderness, clubbing, pedal edema Neurological exam: PRESENT: awake. ABSENT: altered Psychiatric exam: PRESENT: appropriate affect, normal mood. ABSENT: homicidal ideation, suicidal ideation Skin exam: PRESENT: dry, intact, warm; right hip surgical dressing intact. ABSENT: cyanosis, rash Results Laboratory Results: 03/02/18 06:00 03/02/18 06:00 03/02/18 03/02/18 03/02/18 06:00 06:00 09:06 WBC 11.7 H RBC 3.09 L Hgb 8.6 L Hct 25.7 L MCV 83 MCH 27.8 MCHC 33.4 RDW 16.7 H Plt Count 302 Sodium 143.9 Potassium 4.4 Chloride 121 H Carbon Dioxide 15 L Anion Gap 8 BUN 55 H Creatinine 3.80 H Est GFR ( Amer) 15 L Est GFR (Non-Af Amer) 12 L Glucose 87 Calcium 7.7 L Phosphorus 4.3 Magnesium 1.9 Total Bilirubin 0.3 AST 17 ALT 19 Alkaline Phosphatase 47 Total Protein 4.9 L Albumin 1.8 L Stool Occult Blood POSITIVE 02/21/18 06:15 Creatine Kinase 338 H Impressions: Hip/Pelvis X-Ray 02/18/18 02:49 IMPRESSION: Fracture of the right femoral neck. Knee X-Ray 02/18/18 02:49 IMPRESSION: No acute findings. Pelvis X-Ray 02/20/18 00:00 IMPRESSION: Right hip hemiarthroplasty in good position. Head MRI 02/22/18 00:00 IMPRESSION: Acute nonhemorrhagic left posterior cerebral artery distribution infarct Stable chronic small vessel ischemic change in the martín and cerebral hemispheres EVIDENCE OF ACUTE STROKE: YES. Chest X-Ray 02/22/18 12:52 IMPRESSION: BORDERLINE CARDIOMEGALY. LINEAR DENSITIES IN THE LEFT LUNG BASE, ATELECTASIS VERSUS EARLY INFILTRATE. Extremity Ultrasound 02/23/18 00:00 IMPRESSION: 14 x 7 x 7 cm hypoechoic complex fluid collection deep to the surgical bandage over the right hip replacement. This likely represents a hematoma. Head CT 02/23/18 00:00 IMPRESSION: Left posterior cerebral artery distribution infarct. No hemorrhagic conversion. EVIDENCE OF ACUTE STROKE: Stable appearance of left early subacute REPACKER distribution infarct compared to previous studies. Carotid Doppler Study 02/24/18 00:00 IMPRESSION: CHRONIC OCCLUSION OF THE RIGHT INTERNAL CAROTID ARTERY. NO HEMODYNAMICALLY SIGNIFICANT STENOSIS OF THE LEFT INTERNAL CAROTID ARTERY. Abdomen/Pelvis CT 02/24/18 18:56 IMPRESSION: 17 cm craniocaudad by a 12 cm transverse by 7 cm thickness hematoma in the right subcutaneous soft tissues in the right gluteal region deep and superior to the lateral incision site from right total hip arthroplasty. Small bilateral pleural effusions. Bilateral lower lobe subsegmental atelectasis -airspace disease, left greater than right. Transfer Plan - Time Spent with Patient Time spent with patient: Greater than 30 Minutes Qualifiers - * PATIENT BEING DISCHARGED WITH ANY OF THE FOLLOWING DIAGNOSIS: Stroke VTE patient discharged on overlapping Therapy?: No Stroke Pt being discharged on Anti-thrombolytic therapy?: Yes Stroke Pt being discharged on Anti-coagulation therapy?: No Reason(s) for not prescribing Anti-coagulation therapy:: Tx not tolerated Stroke Pt being discharged on Statins?: Yes Plan Time Spent: Greater than 30 Minutes
[2018-03-02] MEDS: IPRATROPIUM/ALBUTEROL 0.5-2.5 MG/3 ML AMPUL NEB PRN (12:15)
== END 2018-03-02 14:38 | DRG 469 ==
LOC: ER 01:56 → EH 05:58 → 4N 12:06 → 3S 02-21 21:40
PROVIDERS: ADMIT Family Medicine; ATTEND Family Medicine
PROC: 0SRR01Z Replacement of Right Hip Joint, Femoral Surface with Metal Synthetic Substitute, Open Approach (ICD-10-PCS; principal; 2018-02-20 15:00)
PROC: 30253N1 (ICD-10-PCS; 2018-02-21)
PROC: 30253N1 (ICD-10-PCS; 2018-02-23)
PROC: 30253N1 (ICD-10-PCS; 2018-02-25)
DX: S72.001A Fracture of unspecified part of neck of right femur, initial encounter for closed fracture (principal); I63.9 Cerebral infarction, unspecified; G93.40 Encephalopathy, unspecified; D62 Acute posthemorrhagic anemia; M96.840 Postprocedural hematoma of a musculoskeletal structure following a musculoskeletal system procedure; I50.32 Chronic diastolic (congestive) heart failure; N18.5 Chronic kidney disease, stage 5; I13.11 Hypertensive heart and chronic kidney disease without heart failure, with stage 5 chronic kidney disease, or end stage renal disease; N17.9 Acute kidney failure, unspecified; N39.0 Urinary tract infection, site not specified; E87.1 Hypo-osmolality and hyponatremia; D68.32 Hemorrhagic disorder due to extrinsic circulating anticoagulants; I48.2 Chronic atrial fibrillation; W18.30XA Fall on same level, unspecified, initial encounter; Y92.009 Unspecified place in unspecified non-institutional (private) residence as the place of occurrence of the external cause; T45.515A Adverse effect of anticoagulants, initial encounter; E11.22 Type 2 diabetes mellitus with diabetic chronic kidney disease; I25.10 Atherosclerotic heart disease of native coronary artery without angina pectoris; E86.0 Dehydration; B96.1 Klebsiella pneumoniae [K. pneumoniae] as the cause of diseases classified elsewhere; E66.9 Obesity, unspecified; D63.1 Anemia in chronic kidney disease; K21.9 Gastro-esophageal reflux disease without esophagitis; E87.5 Hyperkalemia; E78.5 Hyperlipidemia, unspecified; I69.128 Other speech and language deficits following nontraumatic intracerebral hemorrhage; I25.2 Old myocardial infarction; Z79.899 Other long term (current) drug therapy; Z90.5 Acquired absence of kidney; Z85.528 Personal history of other malignant neoplasm of kidney; Z79.4 Long term (current) use of insulin; Z79.01 Long term (current) use of anticoagulants; Z68.32 Body mass index [BMI] 32.0-32.9, adult
CPT/HCPCS: 01210; 36415; 36430; 70450; 70551; 71045; 72170; 74176; 76882; 80048; 80053; 80076; 81001; 82272; 82550; 82607; 82728; 82746; 82962; 83540; 83550; 83735; 83970; 84100; 85025; 85027; 85045; 85610; 85730; 86850; 86900; 86901; 86920; 87040; 87086; 87088; 87186; 88305; 88311; 93005; 93010; 93306; 93880; 96374; 99285; C1776; C9290; G8978-GP; G8979-GP; G8987-GO; G8988-GO; G9162-GN; G9163-GN; J0330; J0696; J1100; J1170; J1644; J1815; J2250; J2270; J2310; J2405; J2704; J2765; J3010; J3370; J3490; J7030; J7060; J7120; J7620; P9016; Q4081; S0164

== ENCOUNTER 2018-03-17 06:34 | Inpatient (IN) | payer MEDICARE, OTHER ==
[~2018-03-17 06:34] MED LIST changes: +CEFAZOLIN 2 GM/D5W RTU 0 GM/0 ML RTUPB IV ONE; -FERUMOXYTOL (ESRD) 510 MG/NS 100 ML IV PRN
[2018-03-17 08:27] LABS: HEMATOCRIT 31.2 % (36.0-47.0); HEMOGLOBIN 10.2 g/dL (12.0-15.5); MEAN CORPUSCULAR HEMOGLOBIN 26.9 pg (27.0-33.4); MEAN CORPUSCULAR HGB CONC 32.6 g/dL (32.0-36.0); MEAN CORPUSCULAR VOLUME 83 fl (80-97); PLATELET COUNT 331 10^3/uL (150-450); RED BLOOD COUNT 3.78 10^6/uL (3.72-5.28); RED CELL DISTRIBUTION WIDTH 17.1 % (11.5-14.0); WHITE BLOOD COUNT 5.7 10^3/uL (4.0-10.5)
[2018-03-17 08:40] LABS: ANION GAP 9 (5-19); BLOOD UREA NITROGEN 52 mg/dL (7-20); CALCIUM 8.5 mg/dL (8.4-10.2); CARBON DIOXIDE 23 mmol/L (22-30); CHLORIDE 108 mmol/L (98-107); GLUCOSE 83 mg/dL (75-110); POTASSIUM 4.3 mmol/L (3.6-5.0); SODIUM 139.6 mmol/L (137-145)
--- NOTE | 2018-03-17 09:19 | PDOC CONSULTATION ---
Consultation Consult Date: 03/17/18 Attending physician:: CHRISTA PATTERSON Consult reason:: Medical clearance History of Present Illness Admission Date/PCP: RAQUEL MINOR MD History of Present Illness: MICHAEL BONILLA is a 63 year old black female and with multiple comorbidities including history of stroke 3 times the recent stroke was about 3 weeks ago, coronary artery disease status post stent placement, type 2 diabetes mellitus, stage IV CKD atrial fibrillation and congestive heart failure. About 3 weeks ago patient had hip surgery and the procedure was complicated by stroke and now hematoma of the surgical site. Patient admitted for possible incision and drainage of the hematoma. The hospitalist service is consulted for medical clearance. Since patient has extensive medical history I involved Dr. Mir for his second opinion. Otherwise there is no complaint of fever chills palpitation or diaphoresis. She does not have any nausea vomiting or abdominal pain Past Medical History Cardiac Medical History: Reports: Congestive Heart Failure, Coronary Artery Disease, Myocardial Infarction - 2010, Hyperlipidema, Hypertension Denies: DVT, Pulmonary Embolism Pulmonary Medical History: Reports: Pneumonia - Intubated last year Denies: Asthma, Bronchitis, Chronic Obstructive Pulmonary Disease (COPD), Tuberculosis Neurological Medical History: Denies: Seizures Endocrine Medical History: Reports: Diabetes Mellitus Type 1, Diabetes Mellitus Type 2 - IDDM Denies: Hyperthyroidism, Hypothyroidism Malignancy Medical History: Reports: Renal (Kidney) Cancer GI Medical History: Reports: Gastroesophageal Reflux Disease Denies: Cirrhosis, Hepatitis Musculoskeltal Medical History: Denies: Arthritis Skin Medical History: Denies: Eczema, Psoriasis Psychiatric Medical History: Reports: Dementia - Vascular dementia, Depression Hematology: Reports: Anemia Past Surgical History Past Surgical History: Reports: Cardiac Catheterization, Coronary Stent, Orthopedic Surgery - tila knee, Tonsillectomy, Tubal Ligation Denies: Hysterectomy, Pacemaker Social History Smoking Status: Unknown if Ever Smoked Frequency of Alcohol Use: None Hx Recreational Drug Use: No Hx Prescription Drug Abuse: No Family History Family History: Reviewed & Not Pertinent Parental Family History Reviewed: Yes Children Family History Reviewed: Yes Sibling(s) Family History Reviewed.: Yes Medication/Allergy Home Medications: Atorvastatin Calcium [Lipitor 80 mg Tablet] 80 mg PO QHS 02/18/18 Calcium Carb/Vitamin D3/Vit K1 [Calcium + D Soft Chewable Tab] 1 tab PO BID 11/02 Carvedilol [Coreg 25 mg Tablet] 25 mg PO Q12 02/18/18 Docusate Sodium [Colace 100 mg Capsule] 100 mg PO BID 02/18/18 Duloxetine HCl [Cymbalta] 60 mg PO DAILY 02/18/18 Ergocalciferol (Vitamin D2) [Drisdol 50,000 unit (1.25MG) Capsule] 50,000 unit PO MO@1000 02/18/18 Esomeprazole Magnesium [Nexium] 40 mg PO DAILY 02/18/18 Furosemide [Lasix 40 mg Tablet] 40 mg PO DAILY 02/18/18 Hydralazine HCl [Apresoline 50 mg Tablet] 50 mg PO Q8 02/18/18 Isosorbide Mononitrate [Isosorbide Mononitrate ER] 15 mg PO DAILY 02/18/18 Potassium Chloride [Klor-Con M10] 10 meq PO DAILY 02/18/18 Aspirin [Aspirin 81 mg Chewable Tablet] 81 mg PO DAILY tab.chew 03/02/18 Carvedilol [Coreg 12.5 mg Tablet] 25 mg PO Q12 tablet 03/02/18 Cefdinir 300 mg PO BID 3 Days #6 capsule 03/02/18 Dextrose [Glutose 40% Gel 15 gm Tube] 30 gm PO PRN PRN tube 03/02/18 Epoetin [place] [Procrit Inj 20,000 Unit/1 ml Vial (Renal)] 20,000 unit SUBCUT Q7D@ 1100 ml 03/02/18 Glucagon,Human Recombinant [Glucagen Inj 1 mg Vial] 1 mg IM PRN PRN vial Insulin Lispro [Humalog Insulin (Lispro) 100 unit/mL] 0 - 12 unit SUBCUT ACHSP PRN unit 03/02/18 Ipratropium/Albuterol Sulfate [Duoneb 3 ml Ampul] 3 ml NEB RTQ2HP PRN vial.neb 03/02/18 Sodium Bicarbonate [Sodium Bicarbonate 650 mg Tablet] 650 mg PO Q12 tablet Allergies/Adverse Reactions: No Known Allergies Allergy (Verified 02/18/18 15:07) Review of Systems ROS unobtainable: Due to mental status Physical Exam Vital Signs: Temp Pulse Resp BP Pulse Ox 98.6 F 55 L 16 158/79 H 97 03/17/18 08:44 03/17/18 08:44 03/17/18 08:44 03/17/18 08:44 03/17/18 08:44 Intake & Output 03/16/18 03/17/18 03/18/18 06:59 06:59 06:59 Intake Total 0 Balance 0 Weight 83.91 kg General appearance: PRESENT: no acute distress Eye exam: PRESENT: conjunctiva pink Neck exam: ABSENT: carotid bruit, JVD, lymphadenopathy, thyromegaly Respiratory exam: PRESENT: clear to auscultation tila. ABSENT: rales, rhonchi, wheezes Cardiovascular exam: PRESENT: irregular rhythm Extremities exam: PRESENT: other - The right lower extremity is grossly swollen and the hip surgery site is markedly swollen and dressing is soaked with dried blood Results Laboratory Results: 03/17/18 07:58 03/17/18 07:58 03/17/18 03/17/18 07:58 07:58 WBC 5.7 RBC 3.78 Hgb 10.2 L Hct 31.2 L MCV 83 MCH 26.9 L MCHC 32.6 RDW 17.1 H Plt Count 331 Sodium 139.6 Potassium 4.3 Chloride 108 H Carbon Dioxide 23 Anion Gap 9 BUN 52 H Creatinine 4.47 H Est GFR ( Amer) 12 L Est GFR (Non-Af Amer) 10 L Glucose 83 Calcium 8.5 Assessment & Plan - Diagnosis (1) Chronic kidney disease, stage IV (severe) Is this a current diagnosis for this admission?: Yes Plan: Patient has been followed up by her primary clinical supervisor Dr. Bullard. (2) Type 2 diabetes mellitus Is this a current diagnosis for this admission?: Yes Plan: Patient needs to be on sliding scale. (3) Coronary artery disease Qualifiers: Coronary Disease-Associated Artery/Lesion type: [place] artery Is this a current diagnosis for this admission?: Yes Plan: Status post a stent placement. No angina at this time. (4) Atrial fibrillation Qualifiers: Atrial fibrillation type: chronic Qualified Code(s): I48.2 - Chronic atrial fibrillation Is this a current diagnosis for this admission?: Yes Plan: Rate controlled (5) Chronic systolic (congestive) heart failure Is this a current diagnosis for this admission?: Yes Plan: Compensated.
[2018-03-17 09:57] LABS: HEMATOCRIT 31.7 % (36.0-47.0); HEMOGLOBIN 10.2 g/dL (12.0-15.5); MEAN CORPUSCULAR HEMOGLOBIN 26.8 pg (27.0-33.4); MEAN CORPUSCULAR HGB CONC 32.2 g/dL (32.0-36.0); MEAN CORPUSCULAR VOLUME 83 fl (80-97); PLATELET COUNT 332 10^3/uL (150-450); RED BLOOD COUNT 3.82 10^6/uL (3.72-5.28); RED CELL DISTRIBUTION WIDTH 16.6 % (11.5-14.0); WHITE BLOOD COUNT 5.6 10^3/uL (4.0-10.5)
--- NOTE | 2018-03-17 10:04 | RADIOLOGY REPORT (SQ) ---
EXAM DESCRIPTION: CHEST SINGLE VIEW COMPLETED DATE/TIME: 03/17/2018 9:46 am REASON FOR STUDY: Medical clearance COMPARISON: 02/22/2018 EXAM PARAMETERS: NUMBER OF VIEWS: One view. TECHNIQUE: Single frontal radiographic view of the chest acquired. RADIATION DOSE: NA LIMITATIONS: None. FINDINGS: LUNGS AND PLEURA: Difficult visualization of the left base. There may be some underlying atelectasis or pneumonia in the left base. Possible left effusion. Right lung field is clear. MEDIASTINUM AND HILAR STRUCTURES: No masses. Contour normal. HEART AND VASCULAR STRUCTURES: Stable in appearance. BONES: No acute findings. HARDWARE: None in the chest. OTHER: No other significant finding. IMPRESSION: Possible left basilar airspace disease. Recommend repeat view of the chest. TECHNICAL DOCUMENTATION: JOB ID: [id number] [employer]- All Rights Reserved Reading location - IP/workstation name: [email or web address]
[2018-03-17 10:08] LABS: APPEARANCE,URINE CLEAR; BILIRUBIN,URINE NEGATIVE (NEGATIVE); COLOR,URINE YELLOW; GLUCOSE, URINE NEGATIVE (NEGATIVE); KETONES,URINE NEGATIVE (NEGATIVE); LEUKOCYTE ESTERASE,URINE NEGATIVE (NEGATIVE); NITRITE,URINE NEGATIVE (NEGATIVE); PROTEIN,URINE 100 mg/dL (NEGATIVE); URINE SPECIFIC GRAVITY 1.011
[2018-03-17 11:02] LABS: INTERNATIONAL RATION (INR) 1.18; PROTHROMBIN TIME 15.6 SEC (11.4-15.4)
[2018-03-17 11:03] LABS: PARTIAL THROMBOPLASTIN TIME 34.8 SEC (23.5-35.8)
[2018-03-17] MEDS ORDERED: RINGERS SOLUTION,LACTATED 1,000 ML IV PRN (12:31)
[2018-03-17] MEDS ORDERED: ONDANSETRON 4 MG TAB.RAPDIS SL PRN (12:32)
--- NOTE | 2018-03-17 12:59 | EKG REPORT ---
SEVERITY:- ABNORMAL ECG - SINUS RHYTHM MULTIPLE ATRIAL PREMATURE COMPLEXES : Confirmed by: Hari Ware MD 17-Mar-2018 12:59:12
[2018-03-17] MEDS ORDERED: DEXTROSE 40% GEL 15 GM TUBE PO PRN ×2 (13:26)
[2018-03-17] MEDS ORDERED: GLUCAGON,HUMAN RECOMB 1 MG INJ IM PRN (13:26)
[2018-03-17] MEDS ORDERED: DEXTROSE 50%-WATER 25 GM/50 ML DISP.SYRIN IV PRN ×2 (13:26)
--- NOTE | 2018-03-17 14:03 | PDOC CONSULTATION ---
Consultation Consult Date: 03/17/18 Consult reason:: LOGAN on CKD 4. History of Present Illness Admission Date/PCP: RAQUEL MINOR MD History of Present Illness: MICHAEL BONILLA is a 63 year old female with a history of long-standing diabetes mellitus, hypertension, CAD, CKD stage IV with a base creatinine of around 3.5- 4 has been readmitted for possible drainage of right perioperative hematoma of her right hip. She was recently admitted and discharged after she had a fall with a fracture of her right hip and underwent a right ORIF. She also had a occipital infarct during the perioperative state. Further on she had a large hematoma around the perioperative site which was managed conservatively. She was [facility].Patient is currently alone in the room. She is unable to answer all her questions appropriately. She answers occasionally in monosyllables. She looks to be having sensory aphasia. Discussed the patient with the treating nurse Behzad. Labs and medications were reviewed. Past Medical History Cardiac Medical History: Reports: Coronary Artery Disease, Hyperlipidemia, Hypertension-primary, Myocardial Infarction - 2010 Denies: DVT, Pulmonary Embolism Pulmonary Medical History: Reports: Pneumonia - Intubated last year Denies: Asthma, Bronchitis, Chronic Obstructive Pulmonary Disease (COPD), Tuberculosis Neurological Medical History: Denies: Seizures Endocrine Medical History: Reports: Diabetes Mellitus Type 2 - IDDM Denies: Hyperthyroidism, Hypothyroidism Renal/ Medical History: Reports: Chronic Kidney Disease Stage IV Malignancy Medical History: Reports: Renal (Kidney) Cancer GI Medical History: Reports: Gastroesophageal Reflux Disease Denies: Cirrhosis, Hepatitis Musculoskeltal Medical History: Denies: Arthritis Skin Medical History: Denies: Eczema, Psoriasis Psychiatric Medical History: Reports: Dementia - Vascular dementia, Depression Past Surgical History Past Surgical History: Reports: Cardiac Catheterization, Coronary Stent, Orthopedic Surgery - tila knee, Tonsillectomy, Tubal Ligation Denies: Hysterectomy, Pacemaker Social History Smoking Status: Unknown if Ever Smoked Frequency of Alcohol Use: None Hx Recreational Drug Use: No Hx Prescription Drug Abuse: No Family History Parental Family History Reviewed: No Children Family History Reviewed: No Sibling(s) Family History Reviewed.: No Medication/Allergy Home Medications: Apixaban [Eliquis 2.5 mg Tablet] 2.5 mg PO Q12 03/17/18 Atorvastatin Calcium [Lipitor 80 mg Tablet] 80 mg PO QHS 03/17/18 Calcium Carbonate/Vitamin D3 [Calcium 500+D Tablet Chew] 1 each PO BID 03/17/18 Carvedilol [Coreg 25 mg Tablet] 25 mg PO Q12 03/17/18 Docusate Sodium [Colace 100 mg Capsule] 100 mg PO BID 03/17/18 Duloxetine HCl [Cymbalta] 60 mg PO DAILY 03/17/18 Ergocalciferol (Vitamin D2) [Vitamin D2] 50,000 unit PO MO@1000 03/17/18 Esomeprazole Magnesium [Nexium] 40 mg PO DAILY 03/17/18 Furosemide [Lasix 40 mg Tablet] 40 mg PO QAM 03/17/18 Hydralazine HCl [Apresoline 50 mg Tablet] 50 mg PO Q8 03/17/18 Isosorbide Mononitrate [Isosorbide Mononitrate ER] 15 mg PO DAILY 03/17/18 Potassium Chloride [Klor-Con 10 Meq Capsule ER] 10 meq PO DAILY 03/17/18 Allergies/Adverse Reactions: No Known Allergies Allergy (Verified 02/18/18 15:07) Review of Systems ROS unobtainable: Due to mental status - Chart was reviewed and discussions were done with the treating nurse Behzad. Physical Exam Vital Signs: Temp Pulse Resp BP Pulse Ox 98.6 F 55 L 16 158/79 H 97 03/17/18 08:44 03/17/18 08:44 03/17/18 08:44 03/17/18 08:44 03/17/18 08:44 Intake & Output 03/16/18 03/17/18 03/18/18 06:59 06:59 06:59 Intake Total 0 Balance 0 Weight 83.91 kg General appearance: PRESENT: no acute distress Eye exam: PRESENT: EOMI, PERRLA Ear exam: PRESENT: normal external ear exam Mouth exam: PRESENT: moist, neck supple Neck exam: ABSENT: lymphadenopathy, meningismus, tenderness, thyromegaly, tracheal deviation Respiratory exam: PRESENT: clear to auscultation tila. ABSENT: crackles, rhonchi Cardiovascular exam: PRESENT: +S1, +S2, systolic murmur GI/Abdominal exam: PRESENT: normal bowel sounds, soft. ABSENT: organomegaly, tenderness Extremities exam: ABSENT: pedal edema - Of the left side with trace on the right side Neurological exam: PRESENT: altered Skin exam: PRESENT: normal color. ABSENT: erythema, mottled, rash Results Laboratory Results: 03/17/18 09:30 03/17/18 07:58 03/17/18 03/17/18 03/17/18 07:58 07:58 08:12 WBC 5.7 RBC 3.78 Hgb 10.2 L Hct 31.2 L MCV 83 MCH 26.9 L MCHC 32.6 RDW 17.1 H Plt Count 331 Sodium 139.6 Potassium 4.3 Chloride 108 H Carbon Dioxide 23 Anion Gap 9 BUN 52 H Creatinine 4.47 H Est GFR ( Amer) 12 L Est GFR (Non-Af Amer) 10 L Glucose 83 Calcium 8.5 Urine Color YELLOW Urine Appearance CLEAR Urine pH 7.0 Ur Specific [place] 1.011 Urine Protein 100 H Urine Glucose (UA) NEGATIVE Urine Ketones NEGATIVE Urine Blood NEGATIVE Urine Nitrite NEGATIVE Ur Leukocyte Esterase NEGATIVE Urine WBC (Auto) 0 Urine RBC (Auto) 1 03/17/18 09:30 WBC 5.6 RBC 3.82 Hgb 10.2 L Hct 31.7 L MCV 83 MCH 26.8 L MCHC 32.2 RDW 16.6 H Plt Count 332 Sodium Potassium Chloride Carbon Dioxide Anion Gap BUN Creatinine Est GFR ( Amer) Est GFR (Non-Af Amer) Glucose Calcium Urine Color Urine Appearance Urine pH Ur Specific [place] Urine Protein Urine Glucose (UA) Urine Ketones Urine Blood Urine Nitrite Ur Leukocyte Esterase Urine WBC (Auto) Urine RBC (Auto) Impressions: Chest X-Ray 03/17/18 00:00 IMPRESSION: Possible left basilar airspace disease. Recommend repeat view of the chest. Assessment & Plan - Diagnosis (1) Hematoma of right hip Plan: Perioperative of the right hip. Patient in for apparent drainage of the hematoma. Will recommend dosing her with the desmopressin 10 mcg IV 2 hours prior to her drainage procedure. This would hopefully prevent any uremic bleeding. (2) LOGAN (acute kidney injury) Plan: Base creatinine is on 3.5-4. I would suggest that she be started on half normal saline 50 cc an hour for 24 hours. (3) Chronic kidney disease, stage IV (severe) Is this a current diagnosis for this admission?: Yes Plan: Secondary to diabetic/hypertensive nephropathy. No acute indications for renal replacements currently unless she gets worse. (4) Chronic systolic (congestive) heart failure Is this a current diagnosis for this admission?: Yes Plan: Currently stable and compensated. (5) Coronary artery disease Qualifiers: Coronary Disease-Associated Artery/Lesion type: [place] artery Is this a current diagnosis for this admission?: Yes Plan: Stable. (6) Type 2 diabetes mellitus Is this a current diagnosis for this admission?: Yes Plan: Needs tight control. (7) Altered mental status Qualifiers: Altered mental status type: somnolence Qualified Code(s): R40.0 - Somnolence Plan: Secondary to a CVA. She is talking at least in monosyllables which is better than what she did last admission during the time of discharge. (8) Anemia Plan: Stable currently. Monitor.No indications for erythropoietin currently. (9) Cerebrovascular accident Qualifiers: CVA mechanism: unspecified Qualified Code(s): I63.9 - Cerebral infarction, unspecified (10) Diabetes Plan: She had a recent acute infarct on top of her previous one. As clinically observed she still has residual deficits. (12) Atrial fibrillation Qualifiers: Atrial fibrillation type: chronic Qualified Code(s): I48.2 - Chronic atrial fibrillation Is this a current diagnosis for this admission?: Yes
[2018-03-17] MEDS: FUROSEMIDE 40 MG TABLET PO SCH (14:08)
[2018-03-17] MEDS: ISOSORBIDE MONONITRATE 30 MG TAB.ER.24H PO SCH (14:08)
[2018-03-17] MEDS: HYDRALAZINE HCL 50 MG TABLET PO SCH ×2 (14:10→22:03)
[2018-03-17] MEDS ORDERED: 1/2 NORMAL SALINE 1,000 ML IV PRN (15:52)
--- NOTE | 2018-03-17 17:53 | PDOC CONSULTATION ---
Consultation Consult Date: 03/17/18 Attending physician:: ALEKSANDAR GAUTHIER Consult reason:: Preop cardiovascular evaluation History of Present Illness Admission Date/PCP: RAQUEL MINOR MD Patient complains of: Hematoma over right hip surgical site. History of Present Illness: MICHAEL BONILLA is a 63 year old black female and with multiple comorbidities including history of stroke 3 times the recent stroke was about 3 weeks ago, coronary artery disease status post stent placement, type 2 diabetes mellitus, stage IV CKD atrial fibrillation and congestive heart failure. About 3 weeks ago patient had hip surgery and the procedure was complicated by stroke and now hematoma of the surgical site. Patient admitted for possible incision and drainage of the hematoma. The hospitalist service is consulted for medical clearance. Since patient has extensive medical history I involved Dr. Mir for his second opinion. Otherwise there is no complaint of fever chills palpitation or diaphoresis. She does not have any nausea vomiting or abdominal pain. This history obtained by the hospitalist was reviewed with patient and her son. Patient had some expressive aphasia. She does however seem to understand speech. Patient on questioning denied any chest pain. She does indicate some discomfort in the right hip area. System review however is very limited. Patient is noted to be laying comfortably. Past Medical History Cardiac Medical History: Reports: Congestive Heart Failure, Coronary Artery Disease, Myocardial Infarction - 2011, Hyperlipidema, Hypertension Denies: DVT, Pulmonary Embolism Pulmonary Medical History: Reports: Pneumonia - Intubated last year Denies: Asthma, Bronchitis, Chronic Obstructive Pulmonary Disease (COPD), Tuberculosis Neurological Medical History: Denies: Seizures Endocrine Medical History: Reports: Diabetes Mellitus Type 1, Diabetes Mellitus Type 2 - IDDM Denies: Hyperthyroidism, Hypothyroidism Malignancy Medical History: Reports: Renal (Kidney) Cancer GI Medical History: Reports: Gastroesophageal Reflux Disease Denies: Cirrhosis, Hepatitis Musculoskeltal Medical History: Denies: Arthritis Skin Medical History: Denies: Eczema, Psoriasis Psychiatric Medical History: Reports: Dementia - Vascular dementia, Depression Hematology: Reports: Anemia Past Surgical History Past Surgical History: Reports: Cardiac Catheterization, Coronary Stent, Orthopedic Surgery - tila knee, Tonsillectomy, Tubal Ligation Denies: Hysterectomy, Pacemaker Social History Information Source: Patient Smoking Status: Unknown if Ever Smoked Frequency of Alcohol Use: None Hx Recreational Drug Use: No Hx Prescription Drug Abuse: No - Advance Directive Resuscitation Status: Full Code Surrogate healthcare decision maker:: Patient's son is the surrogate decision-maker Family History Family History: Hypertension Parental Family History Reviewed: Yes Children Family History Reviewed: Yes Sibling(s) Family History Reviewed.: Yes Medication/Allergy Home Medications: Apixaban [Eliquis 2.5 mg Tablet] 2.5 mg PO Q12 03/17/18 Atorvastatin Calcium [Lipitor 80 mg Tablet] 80 mg PO QHS 03/17/18 Calcium Carbonate/Vitamin D3 [Calcium 500+D Tablet Chew] 1 each PO BID 03/17/18 Carvedilol [Coreg 25 mg Tablet] 25 mg PO Q12 03/17/18 Docusate Sodium [Colace 100 mg Capsule] 100 mg PO BID 03/17/18 Duloxetine HCl [Cymbalta] 60 mg PO DAILY 03/17/18 Ergocalciferol (Vitamin D2) [Vitamin D2] 50,000 unit PO MO@1000 03/17/18 Esomeprazole Magnesium [Nexium] 40 mg PO DAILY 03/17/18 Furosemide [Lasix 40 mg Tablet] 40 mg PO QAM 03/17/18 Hydralazine HCl [Apresoline 50 mg Tablet] 50 mg PO Q8 03/17/18 Isosorbide Mononitrate [Isosorbide Mononitrate ER] 15 mg PO DAILY 03/17/18 Potassium Chloride [Klor-Con 10 Meq Capsule ER] 10 meq PO DAILY 03/17/18 Allergies/Adverse Reactions: No Known Allergies Allergy (Verified 02/18/18 15:07) Review of Systems ROS unobtainable: Other - Patient noted to have expressive aphasia. Physical Exam Vital Signs: Temp Pulse Resp BP Pulse Ox 98.4 F 62 14 182/77 H 100 03/17/18 12:40 03/17/18 12:40 03/17/18 12:40 03/17/18 12:40 03/17/18 12:40 Intake & Output 03/16/18 03/17/18 03/18/18 06:59 06:59 06:59 Intake Total 0 Balance 0 Weight 81.8 kg Exam: GENERAL: well-nourished and in no acute distress. Alert and orientation could not be checked because of speech difficulty. HEAD: Atraumatic, normocephalic. EYES: Pupils equal round and reactive to light, extraocular movements intact, sclera anicteric, conjunctiva are normal. ENT: TMs normal, nares patent, oropharynx clear without exudates. Moist mucous membranes. No oral ulcerations or bleeding gums noted NECK: supple without lymphadenopathy. Trachea is central. No cervical or axillary lymphadenopathy noted. Carotids are 2+, JVD WNL LUNGS: Respiration seems nonlabored, no significant accessory muscle action noted. Breath sounds clear to auscultation bilaterally and equal noted. No wheezes rales or rhonchi noted. No significant dullness noted on percussion. CHEST: Palpation of the chest wall shows no significant chest wall tenderness. 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 ABDOMEN: Soft, no significant tenderness appreciated, normoactive bowel sounds. No guarding, no rebound. No rigidity noted . No masses appreciated. EXTREMITIES: Pedal pulses are 1-2+, no calf tenderness noted. No clubbing or cyanosis. 2+ pedal edema noted, right lower extremity, 1+ left lower extremity. NEUROLOGICAL: Focused neurological exam showed expressive aphasia. Neurological exam not performed. PSYCH: Mood affect, judgment and insight could not be checked.. SKIN: No significant ecchymosis, skin is noted to be warm. MUSCULOSKELETAL EXAM: No significant acute joint swelling noted. Hematoma noted over right hip surgical site. Results Laboratory Results: 03/17/18 09:30 03/17/18 07:58 03/17/18 03/17/18 03/17/18 07:58 07:58 08:12 WBC 5.7 RBC 3.78 Hgb 10.2 L Hct 31.2 L MCV 83 MCH 26.9 L MCHC 32.6 RDW 17.1 H Plt Count 331 Sodium 139.6 Potassium 4.3 Chloride 108 H Carbon Dioxide 23 Anion Gap 9 BUN 52 H Creatinine 4.47 H Est GFR ( Amer) 12 L Est GFR (Non-Af Amer) 10 L Glucose 83 Calcium 8.5 Urine Color YELLOW Urine Appearance CLEAR Urine pH 7.0 Ur Specific [place] 1.011 Urine Protein 100 H Urine Glucose (UA) NEGATIVE Urine Ketones NEGATIVE Urine Blood NEGATIVE Urine Nitrite NEGATIVE Ur Leukocyte Esterase NEGATIVE Urine WBC (Auto) 0 Urine RBC (Auto) 1 03/17/18 09:30 WBC 5.6 RBC 3.82 Hgb 10.2 L Hct 31.7 L MCV 83 MCH 26.8 L MCHC 32.2 RDW 16.6 H Plt Count 332 Sodium Potassium Chloride Carbon Dioxide Anion Gap BUN Creatinine Est GFR ( Amer) Est GFR (Non-Af Amer) Glucose Calcium Urine Color Urine Appearance Urine pH Ur Specific [place] Urine Protein Urine Glucose (UA) Urine Ketones Urine Blood Urine Nitrite Ur Leukocyte Esterase Urine WBC (Auto) Urine RBC (Auto) EKG Comments: Shows sinus rhythm with APCs but no acute ST-T wave changes are noted Impressions: Chest X-Ray 03/17/18 00:00 IMPRESSION: Possible left basilar airspace disease. Recommend repeat view of the chest. Assessment & Plan - Diagnosis (1) Preoperative cardiovascular examination Is this a current diagnosis for this admission?: Yes (2) Coronary artery disease Qualifiers: Coronary Disease-Associated Artery/Lesion type: [place] artery [place] vs. transplanted heart: [place] heart Associated angina: angina presence unspecified Qualified Code(s): I25.10 - Atherosclerotic heart disease of [place] coronary artery without angina pectoris Is this a current diagnosis for this admission?: Yes (3) Type 2 diabetes mellitus Qualifiers: Diabetes mellitus longterm insulin use: unspecified longterm insulin use status Diabetes mellitus complication status: with unspecified complications Qualified Code(s): E11.8 - Type 2 diabetes mellitus with unspecified complications Is this a current diagnosis for this admission?: Yes (4) Atrial fibrillation Qualifiers: Atrial fibrillation type: paroxysmal Qualified Code(s): I48.0 - Paroxysmal atrial fibrillation Is this a current diagnosis for this admission?: Yes (5) Expressive aphasia Is this a current diagnosis for this admission?: Yes (6) Hyperlipidemia Qualifiers: Hyperlipidemia type: unspecified Qualified Code(s): E78.5 - Hyperlipidemia , unspecified Is this a current diagnosis for this admission?: Yes (7) Hypertension Qualifiers: Hypertension type: essential hypertension Qualified Code(s): I10 - Essential (primary) hypertension Is this a current diagnosis for this admission?: Yes - Notes Notes: Preop cardiovascular evaluation: Twelve-lead EKG shows sinus rhythm with occasional APCs but no acute ST-T wave changes. Chest x-ray showing no evidence of CHF. Patient not complaining of any chest discomfort. At this time patient is felt to be acceptable risk for undergoing incision and drainage of hematoma or any further local care as needed. Patient does have significant comorbid diagnosis therefore overall risk probably above average but since the surgery is needed and is not major, patient is likely to do well. This was explained to patient's son. Coronary artery disease: Currently symptomatically is stable. Recommend continuing beta-kady, statin therapy during the perioperative. Diabetes: Recommend good control of blood sugar, but avoid any hypo-or hyperglycemia. Atrial fibrillation: Currently patient maintaining sinus rhythm. Resume Eliquis therapy when feasible from surgical standpoint. Hyperlipidemia: Continue hypotensive statin therapy. Hypertension, blood pressure goal is 140/90 or less. Currently reasonably well controlled. Right lower extremity edema: Possibly related to hematoma but feel that underlying DVT would need to be ruled out. Have therefore scheduled a venous duplex study. As usual I thank Dr. Gauthier very much for the kind referral copy to Dr. Gauthier. - Time Time Spent: 30 to 50 Minutes - CODE STATUS was discussed, patient remains full code. Surrogate decision-maker patient's son. Multiple medical problems were addressed. More than 50% of the time spent coordinating care, discussing management plans with involved caregivers. Management plans discussed with involved personnels. Medical decision making was of moderate to high complexity , patient's has multiple comorbidities. Medications reviewed and adjusted accordingly: Yes
[2018-03-17] MEDS ORDERED: CEFDINIR 300 MG PO SCH (18:00)
[2018-03-17] MEDS ORDERED: (PENDING PHARMACY ID) (Calcium Carb/Vitamin D3/Vit K1 [Calcium + D Soft Chewable Tab] 1 TA PO SCH (18:00)
[2018-03-17] MEDS: CALCIUM CARBONATE 250 MG/VITAMIN D3 125 UNIT TABLET PO SCH (19:33)
[2018-03-17] MEDS: DOCUSATE SODIUM 100 MG CAPSULE PO SCH (19:33)
[2018-03-17] MEDS ORDERED: CARVEDILOL 12.5 MG TABLET PO SCH (22:00)
[2018-03-17] MEDS: SODIUM BICARBONATE 650 MG TABLET PO SCH (22:03)
[2018-03-17] MEDS: CARVEDILOL 12.5 MG TABLET PO SCH (22:03)
[2018-03-17] MEDS: ATORVASTATIN CALCIUM 80 MG TABLET PO SCH (22:03)
[2018-03-18] MEDS: LANSOPRAZOLE 30 MG TAB.RAP.DR PO SCH (05:05)
[2018-03-18] MEDS: HYDRALAZINE HCL 50 MG TABLET PO SCH ×3 (05:06→21:45)
[2018-03-18] MEDS ORDERED: FENTANYL CITRATE INJ/PF 100 MCG/2 ML AMPUL ONE (07:37)
[2018-03-18] MEDS ORDERED: PROPOFOL INJ 200 MG/20 ML VIAL IV ONE (07:38)
[2018-03-18] MEDS ORDERED: MIDAZOLAM 2 MG/2 ML INJ ONE (07:38)
[2018-03-18] MEDS ORDERED: ONDANSETRON HCL INJ/PF 4 MG/2 ML SDV ONE (07:38)
[2018-03-18] MEDS ORDERED: EPHEDRINE SULFATE INJ 50 MG/1 ML AMPULE ONE (07:39)
[2018-03-18] MEDS ORDERED: KETAMINE HCL INJ 500 MG/10 ML VIAL ONE (07:48)
[2018-03-18] MEDS ORDERED: BACITRACIN INJ 50,000 UNIT VIAL ONE (08:07)
[2018-03-18] MEDS ORDERED: MEPERIDINE HCL/PF INJ 25 MG/1 ML DISP.SYRIN IV PRN (08:28)
[2018-03-18] MEDS ORDERED: DIPHENHYDRAMINE HCL 50 MG/ML VIAL IV PRN (08:28)
[2018-03-18] MEDS ORDERED: OXYCODONE-ACETAMINOPHEN 5-325 MG TABLET PO PRN ×2 (08:28)
[2018-03-18] MEDS ORDERED: PROMETHAZINE HCL INJ 25 MG/1 ML VIAL IV PRN ×2 (08:28)
[2018-03-18] MEDS ORDERED: FENTANYL CITRATE INJ/PF 100 MCG/2 ML AMPUL IV PRN ×3 (08:28)
[2018-03-18] MEDS ORDERED: MORPHINE SULFATE 10 MG/ML INJ IV PRN (08:28)
--- NOTE | 2018-03-18 09:06 | Operative Report ---
Operative Report DATE OF SURGERY: 03/18/18 PREOPERATIVE DIAGNOSIS: Postoperative hematoma right hip OPERATION: Irrigation debridement exchange of unipolar head and sleeve SURGEON: ALEKSANDAR PATTERSON ANESTHESIA: GA TISSUE REMOVED OR ALTERED: Femoral head and sleeve to CSS. Cultures 3 to microbiology ESTIMATED BLOOD LOSS: 50 PROCEDURE: With the patient in a supine position on the operating table the right lower extremity hindquarter prepped and draped in sterile fashion. The existing incision is opened. Upon penetrating the subcutaneous tissue a large coagulated hematoma was evacuated measuring potentially 500 cc. Cultures obtained 2. Wound is irrigated with normal saline containing bacitracin and pulse lavage for 3000 cc. The next layer through the fascia is opened. Cultures were obtained. The hip is dislocated. The unipolar head and sleeve were disimpacted. This wound is then irrigated with normal seventh and bacitracin per 3000 cc. The new Nick 47 mm unipolar head with a -4 Unitrax sleeve was then impacted onto the trunnion. The hip is reduced. The wound is again irrigated with 3000 cc of normal saline. It is then closed in layers with interrupted PDS followed by kenan. A sterile compressive dressings applied and the patient's return to PACU in satisfactory condition.
[2018-03-18] MEDS ORDERED: TRANEXAMIC ACID INJ/PF 1,000 MG/10 ML SDV IV ONE ×5 (09:11→19:00)
[2018-03-18] MEDS ORDERED: (PENDING PHARMACY ID) (Potassium Chloride [Klor-Con M10] 10 MEQ) PO SCH (10:00)
[2018-03-18] MEDS: VANCOMYCIN HCL 1,000 MG in DEXTROSE 5%-WATER 250 ML IV SCH (10:43)
[2018-03-18] MEDS: SODIUM BICARBONATE 650 MG TABLET PO SCH ×2 (10:44→21:46)
[2018-03-18] MEDS: ISOSORBIDE MONONITRATE 30 MG TAB.ER.24H PO SCH (10:44)
[2018-03-18] MEDS: ASPIRIN 81 MG TABLET, CHEWABLE PO SCH (10:44)
[2018-03-18] MEDS: POTASSIUM CHLORIDE 10 MEQ CAPSULE.ER PO SCH (10:44)
[2018-03-18] MEDS: CALCIUM CARBONATE 250 MG/VITAMIN D3 125 UNIT TABLET PO SCH ×2 (10:44→17:23)
[2018-03-18] MEDS: FUROSEMIDE 40 MG TABLET PO SCH (10:44)
[2018-03-18] MEDS: DOCUSATE SODIUM 100 MG CAPSULE PO SCH ×2 (10:44→17:23)
[2018-03-18] MEDS: MORPHINE SULFATE 10 MG/ML INJ IV PRN ×2 (10:45→21:46)
[2018-03-18] MEDS: CARVEDILOL 12.5 MG TABLET PO SCH ×2 (10:47→21:45)
[2018-03-18] MEDS: DULOXETINE HCL 30 MG CAPSULE.DR PO SCH (10:49)
[2018-03-18] MEDS: INSULIN LISPRO 100 UNIT/ML 3 ML VIAL SUBCUT PRN (17:23)
[2018-03-18] MEDS: NORMAL SALINE 1000 ML 1,000 ML IV PRN (19:17)
[2018-03-18 20:37] LABS: ABSOLUTE BASOPHILS # (AUTO) 0.1 10^3/uL (0.0-0.2); ABSOLUTE EOSINOPHILS # (AUTO) 0.2 10^3/uL (0.0-0.6); ABSOLUTE LYMPHOCYTES (AUTO) 0.8 10^3/uL (0.5-4.7); ABSOLUTE MONOCYTES (AUTO) 1.1 10^3/uL (0.1-1.4); ABSOLUTE NEUT (AUTO) 5.4 10^3/uL (1.7-8.2); BASOPHILS % (AUTO) 1.3 % (0-2); EOSINOPHILS % (AUTO) 2.2 % (0-6); HEMATOCRIT 30.5 % (36.0-47.0); HEMOGLOBIN 9.8 g/dL (12.0-15.5); LYMPHOCYTES % (AUTO) 10.2 % (13-45); MEAN CORPUSCULAR HEMOGLOBIN 26.5 pg (27.0-33.4); MEAN CORPUSCULAR VOLUME 83 fl (80-97); PLATELET COUNT 283 10^3/uL (150-450); RED BLOOD COUNT 3.69 10^6/uL (3.72-5.28); RED CELL DISTRIBUTION WIDTH 16.2 % (11.5-14.0); SEGMENTED NEUTROPHILS % (AUTO) 71.3 % (42-78); TOTAL CELLS COUNTED % (AUTO) 100 %; WHITE BLOOD COUNT 7.6 10^3/uL (4.0-10.5)
[2018-03-18] MEDS: ATORVASTATIN CALCIUM 80 MG TABLET PO SCH (21:46)
[2018-03-18 21:57] LABS: INTERNATIONAL RATION (INR) 0.88; PROTHROMBIN TIME 12.4 SEC (11.4-15.4)
[2018-03-18 22:46] LABS: PARTIAL THROMBOPLASTIN TIME < 20.0 SEC (23.5-35.8)
[2018-03-19] MEDS: TRAMADOL HCL 50 MG TABLET PO PRN (06:13)
[2018-03-19] MEDS: LANSOPRAZOLE 30 MG TAB.RAP.DR PO SCH (06:14)
[2018-03-19] MEDS: HYDRALAZINE HCL 50 MG TABLET PO SCH ×3 (06:14→22:58)
[2018-03-19 06:17] LABS: ANION GAP 7 (5-19); BLOOD UREA NITROGEN 50 mg/dL (7-20); CALCIUM 7.9 mg/dL (8.4-10.2); CARBON DIOXIDE 25 mmol/L (22-30); CHLORIDE 103 mmol/L (98-107); GLUCOSE 126 mg/dL (75-110); POTASSIUM 4.9 mmol/L (3.6-5.0)
[2018-03-19 07:42] LABS: HEMATOCRIT 28.8 % (36.0-47.0); HEMOGLOBIN 9.6 g/dL (12.0-15.5); MEAN CORPUSCULAR HEMOGLOBIN 27.3 pg (27.0-33.4); MEAN CORPUSCULAR HGB CONC 33.2 g/dL (32.0-36.0); MEAN CORPUSCULAR VOLUME 82 fl (80-97); PLATELET COUNT 283 10^3/uL (150-450); RED CELL DISTRIBUTION WIDTH 16.4 % (11.5-14.0); WHITE BLOOD COUNT 6.4 10^3/uL (4.0-10.5)
--- NOTE | 2018-03-19 09:15 | PDOC PROGRESS REPORT ---
Subjective Progress Note for:: 03/19/18 Subjective:: Patient lying in bed comfortably. Patient lost IV access yesterday which required IV placed in the operative extremity. No further issues overnight. Reason For Visit: NOT PROVIDED AT SCHEDULING Physical Exam Vital Signs: Temp Pulse Resp BP Pulse Ox 98.8 F 69 18 118/57 L 97 03/19/18 07:31 03/19/18 07:31 03/19/18 07:31 03/19/18 07:31 03/19/18 07:31 Intake & Output 03/18/18 03/19/18 03/20/18 06:59 06:59 06:59 Intake Total 702 48334 Output Total 9050 Balance 702 1666 Weight 81.4 kg 84.9 kg Musculoskeletal exam: PRESENT: other - Right lower extremity: Dressing clean/dry /intact no erythema or drainage. Patient lacks plantar flexion/dorsiflexion. Dorsalis pedis pulse 2+. Moderate thigh swelling. Results Laboratory Results: 03/19/18 07:08 03/19/18 05:36 03/18/18 03/19/18 03/19/18 20:22 05:36 05:36 WBC 7.6 Cancelled RBC 3.69 L Cancelled Hgb 9.8 L Cancelled Hct 30.5 L Cancelled MCV 83 Cancelled MCH 26.5 L Cancelled MCHC 32.0 Cancelled RDW 16.2 H Cancelled Plt Count 283 Cancelled Seg Neutrophils % 71.3 Lymphocytes % 10.2 L Monocytes % 15.0 H Eosinophils % 2.2 Basophils % 1.3 Absolute Neutrophils 5.4 Absolute Lymphocytes 0.8 Absolute Monocytes 1.1 Absolute Eosinophils 0.2 Absolute Basophils 0.1 Sodium 135.0 L Potassium 4.9 Chloride 103 Carbon Dioxide 25 Anion Gap 7 BUN 50 H Creatinine 4.29 H Est GFR ( Amer) 13 L Est GFR (Non-Af Amer) 10 L Glucose 126 H Calcium 7.9 L 03/19/18 07:08 WBC 6.4 RBC 3.50 L Hgb 9.6 L Hct 28.8 L MCV 82 MCH 27.3 MCHC 33.2 RDW 16.4 H Plt Count 283 Seg Neutrophils % Lymphocytes % Monocytes % Eosinophils % Basophils % Absolute Neutrophils Absolute Lymphocytes Absolute Monocytes Absolute Eosinophils Absolute Basophils Sodium Potassium Chloride Carbon Dioxide Anion Gap BUN Creatinine Est GFR ( Amer) Est GFR (Non-Af Amer) Glucose Calcium Impressions: Chest X-Ray 03/17/18 00:00 IMPRESSION: Possible left basilar airspace disease. Recommend repeat view of the chest. Assessment & Plan - Diagnosis (1) Hematoma of right hip Qualifiers: Encounter type: subsequent encounter Qualified Code(s): S70.01XD - Contusion of right hip, subsequent encounter Is this a current diagnosis for this admission?: Yes Plan: Postop day #1 status post irrigation debridement right hip hemiarthroplasty with evacuation of hematoma 1. Continue physical therapy. 2. Will contact Surgical list for IV access given requirements for IV antibiotics 3. IV vancomycin 4. Discharge planning patient will require group home facility
--- NOTE | 2018-03-19 10:44 | PDOC CONSULTATION ---
Consultation Consult Date: 03/19/18 Attending physician:: MARSHAL JOLLEY Consult reason:: IV access History of Present Illness Admission Date/PCP: RAQUEL MINOR MD History of Present Illness: MICHAEL BYRD is a 63 year old female Admitted to the hospital for right hip hematoma. Patient is now status post washout and right hip prosthetic exchange by Dr. Gauthier 24 hours ago. Microbiology pending. Patient has poor IV access, and surgery was consulted for intermediate to long-term access. Past Medical History Cardiac Medical History: Reports: Congestive Heart Failure, Coronary Artery Disease, Myocardial Infarction - 2011, Hyperlipidema, Hypertension Denies: DVT, Pulmonary Embolism Pulmonary Medical History: Reports: Pneumonia - Intubated last year Denies: Asthma, Bronchitis, Chronic Obstructive Pulmonary Disease (COPD), Tuberculosis Neurological Medical History: Denies: Seizures Endocrine Medical History: Reports: Diabetes Mellitus Type 1, Diabetes Mellitus Type 2 - IDDM Denies: Hyperthyroidism, Hypothyroidism Malignancy Medical History: Reports: Renal (Kidney) Cancer GI Medical History: Reports: Gastroesophageal Reflux Disease Denies: Cirrhosis, Hepatitis Musculoskeltal Medical History: Denies: Arthritis Skin Medical History: Denies: Eczema, Psoriasis Psychiatric Medical History: Reports: Dementia - Vascular dementia, Depression Hematology: Reports: Anemia Past Surgical History Past Surgical History: Reports: Cardiac Catheterization, Coronary Stent, Orthopedic Surgery - tila knee, Tonsillectomy, Tubal Ligation Denies: Hysterectomy, Pacemaker Social History Smoking Status: Unknown if Ever Smoked Frequency of Alcohol Use: None Hx Recreational Drug Use: No Drugs: None Hx Prescription Drug Abuse: No - Advance Directive Resuscitation Status: Full Code Family History Family History: Hypertension Parental Family History Reviewed: No Children Family History Reviewed: No Sibling(s) Family History Reviewed.: No Medication/Allergy Home Medications: Apixaban [Eliquis 2.5 mg Tablet] 2.5 mg PO Q12 03/17/18 Atorvastatin Calcium [Lipitor 80 mg Tablet] 80 mg PO QHS 03/17/18 Calcium Carbonate/Vitamin D3 [Calcium 500+D Tablet Chew] 1 each PO BID 03/17/18 Carvedilol [Coreg 25 mg Tablet] 25 mg PO Q12 03/17/18 Docusate Sodium [Colace 100 mg Capsule] 100 mg PO BID 03/17/18 Duloxetine HCl [Cymbalta] 60 mg PO DAILY 03/17/18 Ergocalciferol (Vitamin D2) [Vitamin D2] 50,000 unit PO MO@1000 03/17/18 Esomeprazole Magnesium [Nexium] 40 mg PO DAILY 03/17/18 Furosemide [Lasix 40 mg Tablet] 40 mg PO QAM 03/17/18 Hydralazine HCl [Apresoline 50 mg Tablet] 50 mg PO Q8 03/17/18 Isosorbide Mononitrate [Isosorbide Mononitrate ER] 15 mg PO DAILY 03/17/18 Potassium Chloride [Klor-Con 10 Meq Capsule ER] 10 meq PO DAILY 03/17/18 Allergies/Adverse Reactions: No Known Allergies Allergy (Verified 02/18/18 15:07) Review of Systems ROS unobtainable: Due to mental status, Other - Patient is aphasic Physical Exam Vital Signs: Temp Pulse Resp BP Pulse Ox 98.8 F 69 18 118/57 L 97 03/19/18 07:31 03/19/18 07:31 03/19/18 07:31 03/19/18 07:31 03/19/18 07:31 Intake & Output 03/18/18 03/19/18 03/20/18 06:59 06:59 06:59 Intake Total 702 85125 Output Total 9050 Balance 702 1666 Weight 81.4 kg 84.9 kg General appearance: PRESENT: other - Patient essentially unresponsive. Eyes are open. Teeth exam: PRESENT: poor dentation Neck exam: PRESENT: other - No adenopathy. Respiratory exam: PRESENT: rhonchi Extremities exam: PRESENT: other - Patient has a left Brescia Huang shunt, which is patent. There is moderate swelling to all extremities. The patient has marked weakness in the right upper extremity. There is a recent Heineken dressing on the right hip. Results Laboratory Results: 03/19/18 07:08 03/19/18 05:36 03/18/18 03/19/18 03/19/18 20:22 05:36 05:36 WBC 7.6 Cancelled RBC 3.69 L Cancelled Hgb 9.8 L Cancelled Hct 30.5 L Cancelled MCV 83 Cancelled MCH 26.5 L Cancelled MCHC 32.0 Cancelled RDW 16.2 H Cancelled Plt Count 283 Cancelled Seg Neutrophils % 71.3 Lymphocytes % 10.2 L Monocytes % 15.0 H Eosinophils % 2.2 Basophils % 1.3 Absolute Neutrophils 5.4 Absolute Lymphocytes 0.8 Absolute Monocytes 1.1 Absolute Eosinophils 0.2 Absolute Basophils 0.1 Sodium 135.0 L Potassium 4.9 Chloride 103 Carbon Dioxide 25 Anion Gap 7 BUN 50 H Creatinine 4.29 H Est GFR ( Amer) 13 L Est GFR (Non-Af Amer) 10 L Glucose 126 H Calcium 7.9 L 03/19/18 07:08 WBC 6.4 RBC 3.50 L Hgb 9.6 L Hct 28.8 L MCV 82 MCH 27.3 MCHC 33.2 RDW 16.4 H Plt Count 283 Seg Neutrophils % Lymphocytes % Monocytes % Eosinophils % Basophils % Absolute Neutrophils Absolute Lymphocytes Absolute Monocytes Absolute Eosinophils Absolute Basophils Sodium Potassium Chloride Carbon Dioxide Anion Gap BUN Creatinine Est GFR ( Amer) Est GFR (Non-Af Amer) Glucose Calcium Impressions: Chest X-Ray 03/17/18 00:00 IMPRESSION: Possible left basilar airspace disease. Recommend repeat view of the chest. Assessment & Plan - Diagnosis (1) Hematoma of right hip Qualifiers: Encounter type: subsequent encounter Qualified Code(s): S70.01XD - Contusion of right hip, subsequent encounter Is this a current diagnosis for this admission?: Yes Plan: Impression: Patient is 24 hours status post right hip washout, prosthetic replacement by Dr. Gauthier; wound cultures pending; unreliable IV access, currently with small IV in her foot. Recommendation: 1. I was asked to see the patient by Dr. Marshal Jolley on-call orthopedist. We agree that more reliable IV access is indicated. 2. Given the patient's left arm AV fistula, currently functional, but not mature, installed because of chronic renal failure, we will not use a left upper extremity for long-term IV access. 3. His Tuesday, radiology and Operational Assistant service is unavailable; I will bring the patient down from the first floor to the recovery room where we will image the right upper extremity with ultrasonography, and ideally place a PICC line for intermediate to long-term access. Unable to perform a PICC line, then a Alvarado catheter would be appropriate. 4. I spoke to patient's son, Doug Byrd for approximately 15 minutes on the phone explaining the indications mechanism of surgical approach, decision making regarding extremity selection, catheter selection, catheter site, as well as a explanation of the risks benefits alternatives including complications of bleeding, infection, catheter failure, need for catheter replacement, DVT. I believe I answered his questions to his satisfaction. He will provide consent as he is the healthcare power of senior php software developer. (2) Atrial fibrillation Qualifiers: Atrial fibrillation type: chronic Qualified Code(s): I48.2 - Chronic atrial fibrillation Is this a current diagnosis for this admission?: Yes (3) Chronic kidney disease, stage IV (severe) Is this a current diagnosis for this admission?: Yes (4) Chronic systolic (congestive) heart failure Is this a current diagnosis for this admission?: Yes (5) Coronary artery disease Qualifiers: Coronary Disease-Associated Artery/Lesion type: [place] artery [place] vs. transplanted heart: [place] heart Associated angina: angina presence unspecified Qualified Code(s): I25.10 - Atherosclerotic heart disease of [place] coronary artery without angina pectoris Is this a current diagnosis for this admission?: Yes
[2018-03-19] MEDS: NORMAL SALINE 1000 ML 1,000 ML IV PRN ×2 (10:46→22:58)
--- NOTE | 2018-03-19 11:41 | Operative Report ---
Nonrecallable Operative Report DATE OF SURGERY: 03/19/18 PREOPERATIVE DIAGNOSIS: 1. Status post washout right hip. 2. Multiple chronic medical problems POSTOPERATIVE DIAGNOSIS: Same OPERATION: 1. Ultrasound right upper extremity. 2. Ultrasound directed insertion of dual-lumen PICC line. 3. Interpretation of portable upright chest x-ray SURGEON: SAMUEL LINARES ANESTHESIA: Local TISSUE REMOVED OR ALTERED: None COMPLICATIONS: None ESTIMATED BLOOD LOSS: Scant INTRAOPERATIVE FINDINGS: See below PROCEDURE: The patient was brought from the fifth floor to the recovery room where her right arm was abducted. The patient's health care provider, her son, provide informed consent as the patient is status post stroke with neurologic compromise. Right upper extremity was scanned with a variable frequency linear transducer. Findings are significant for compressible patent and accessible brachial vein. The cephalic and basilic veins were small and attenuated The mid upper arm was prepped and draped in sterile fashion. Surgical plan and surgical timeout conducted. Skin was [place] 1% lidocaine plain. Using a micro needle and wire, the right brachial vein was accessed uneventfully tourniquet was taken down, and a dilator introducer sheath threaded over the microwire. A dual lumen 5 Czech PICC line was then trimmed to a final length of approximately 38 cm. Dilator and wire were removed from the introducer sheath, the PICC line threaded to the hub through the introducer sheath and the sheath removed leaving the PICC line in position. We aspirated and flushed both lumens easily with saline solution. Biopatch, adhesive device and OpSite all applied successfully. Portable upright chest x-ray in the recovery room showed no evidence of pneumothorax, tip of the catheter in the right atrium. There was no evidence of ectopy. We felt the operation was complete. The results of the procedure shared with nursing staff, and patient's son. The catheter may be used immediately
--- NOTE | 2018-03-19 12:03 | RADIOLOGY REPORT (SQ) ---
EXAM DESCRIPTION: CHEST SINGLE VIEW COMPLETED DATE/TIME: 03/19/2018 11:47 am REASON FOR STUDY: POST PICC PLACEMENT COMPARISON: 03/17/2018. FINDINGS: Single-view chest AP portable semi-upright at approximately 1138 hours. Right PICC line is in appropriate position, tip to the cavoatrial junction. No pneumothorax. Dense consolidation and volume loss in the left base with obscuration of the left hemidiaphragm, as b efore. IMPRESSION: 1. Appropriate PICC line. 2. Left lower lobe pneumonia, as before. TECHNICAL DOCUMENTATION: JOB ID: [id number] Reading location - IP/workstation name: [email or web address]
[2018-03-19] MEDS: VANCOMYCIN HCL 1,000 MG in DEXTROSE 5%-WATER 250 ML IV SCH (13:16)
[2018-03-19] MEDS: EPOETIN ALFA INJ 20000 UNIT/1 ML VIAL (RENAL) SUBCUT SCH (13:17)
[2018-03-19] MEDS: ISOSORBIDE MONONITRATE 30 MG TAB.ER.24H PO SCH (13:18)
[2018-03-19] MEDS: CALCIUM CARBONATE 250 MG/VITAMIN D3 125 UNIT TABLET PO SCH ×2 (13:18→17:59)
[2018-03-19] MEDS: FUROSEMIDE 40 MG TABLET PO SCH (13:18)
[2018-03-19] MEDS: SODIUM BICARBONATE 650 MG TABLET PO SCH ×2 (13:18→22:58)
[2018-03-19] MEDS: DULOXETINE HCL 30 MG CAPSULE.DR PO SCH (13:19)
[2018-03-19] MEDS: POTASSIUM CHLORIDE 10 MEQ CAPSULE.ER PO SCH (13:19)
[2018-03-19] MEDS: CARVEDILOL 12.5 MG TABLET PO SCH ×2 (13:20→22:58)
[2018-03-19] MEDS: ASPIRIN 81 MG TABLET, CHEWABLE PO SCH (13:20)
[2018-03-19] MEDS: DOCUSATE SODIUM 100 MG CAPSULE PO SCH ×2 (13:20→17:59)
--- NOTE | 2018-03-19 13:21 | XCELERA REPORT ---
[address] [facility] [address] Lower Extremity Venous Evaluation Procedure: Color flow and duplex imaging bilaterally of the veins of the lower extremities as well as the Common Femoral veins. Right Sided Venous Evaluation Normal vessel filling wall to wall, compression and augmentation as well as Colour flow down to the infrageniculate veins. Left Sided Venous Evaluation Normal vessel filling wall to wall, compression and augmentation as well as Colour flow down to the infrageniculate veins. Interpretation Summary No duplex evidence of DVT or obstruction in the bilateral lower extremities. Name: MICHAEL BONILLA Age: 63 yrs Gender: Female : 1955 Patient Status: Outpatient Patient Location: [address] [place] [address] Study Date: 03/18/2018 11:41 AM Reason For Study: R/O DVT Ordering Physician: ALEKSANDAR PATTERSON Performed By: Sylvie La : ALEKSANDAR PATTERSON > Tucker Steven
[2018-03-19] MEDS: INSULIN LISPRO 100 UNIT/ML 3 ML VIAL SUBCUT PRN (18:00)
[2018-03-19] MEDS: ATORVASTATIN CALCIUM 80 MG TABLET PO SCH (22:58)
[2018-03-20] MEDS: TRAMADOL HCL 50 MG TABLET PO PRN (03:24)
[2018-03-20] MEDS: NORMAL SALINE 1000 ML 1,000 ML IV PRN ×2 (06:51→17:28)
[2018-03-20] MEDS: HYDRALAZINE HCL 50 MG TABLET PO SCH ×3 (06:52→22:13)
[2018-03-20] MEDS: LANSOPRAZOLE 30 MG TAB.RAP.DR PO SCH (06:52)
[2018-03-20] MEDS: SODIUM BICARBONATE 650 MG TABLET PO SCH (10:23)
[2018-03-20] MEDS: DOCUSATE SODIUM 100 MG CAPSULE PO SCH ×2 (10:23→17:26)
[2018-03-20] MEDS: DULOXETINE HCL 30 MG CAPSULE.DR PO SCH (10:23)
[2018-03-20] MEDS: VANCOMYCIN HCL 1,000 MG in DEXTROSE 5%-WATER 250 ML IV SCH (10:23)
[2018-03-20] MEDS: FUROSEMIDE 40 MG TABLET PO SCH (10:24)
[2018-03-20] MEDS: CALCIUM CARBONATE 250 MG/VITAMIN D3 125 UNIT TABLET PO SCH ×2 (10:24→17:26)
[2018-03-20] MEDS: ASPIRIN 81 MG TABLET, CHEWABLE PO SCH (10:24)
[2018-03-20] MEDS: ISOSORBIDE MONONITRATE 30 MG TAB.ER.24H PO SCH (10:25)
[2018-03-20] MEDS: ERGOCALCIFEROL (VITAMIN D2) 50000 UNIT (1.25 MG) CAPSULE PO SCH (10:27)
[2018-03-20] MEDS: CARVEDILOL 12.5 MG TABLET PO SCH ×2 (10:27→22:12)
[2018-03-20] MEDS: POTASSIUM CHLORIDE 10 MEQ CAPSULE.ER PO SCH (10:35)
[2018-03-20] MEDS: INSULIN LISPRO 100 UNIT/ML 3 ML VIAL SUBCUT PRN ×2 (12:43→22:11)
--- NOTE | 2018-03-20 13:58 | PDOC PROGRESS REPORT ---
Subjective Progress Note for:: 03/20/18 Subjective:: Patient lying in bed comfortably. She received a PICC line which she tolerated well. Reason For Visit: RIGHT HIP HEMATOMA Physical Exam Vital Signs: Temp Pulse Resp BP Pulse Ox 98.5 F 120 H 14 156/62 H 100 03/20/18 08:00 03/19/18 16:07 03/20/18 08:00 03/20/18 08:00 03/20/18 08:00 Intake & Output 03/19/18 03/20/18 03/21/18 06:59 06:59 06:59 Intake Total 45106 3840 Output Total 9050 Balance 2666 3840 Weight 84.9 kg 84.8 kg Musculoskeletal exam: PRESENT: other - Right lower extremity: Minimal thigh swelling. Dressing clean/dry/intact. No calf tenderness. Patient lacks plantar flexion/dorsiflexion. Cap refill less than 2 seconds. Results Laboratory Results: 03/19/18 07:08 03/19/18 05:36 Impressions: Chest X-Ray 03/19/18 00:00 IMPRESSION: 1. Appropriate PICC line. 2. Left lower lobe pneumonia, as before. Assessment & Plan - Diagnosis (1) Hematoma of right hip Qualifiers: Encounter type: subsequent encounter Qualified Code(s): S70.01XD - Contusion of right hip, subsequent encounter Is this a current diagnosis for this admission?: Yes Plan: Postop day #1 status post irrigation debridement right hip hemiarthroplasty with evacuation of hematoma 1. Continue physical therapy. 2. Patient received PICC line yesterday 3. IV vancomycin 4. Consultation to the hospitalist to manage patient's chronic medical issues appreciate consultation 5. Discharge planning patient will require [facility] facility
--- NOTE | 2018-03-20 16:25 | PDOC PROGRESS REPORT ---
Subjective Progress Note for:: 03/20/18 Reason For Visit: Patient lying quietly in bed sleeping. Arousable but does not respond to questions but nods her head. Apparently denying any severe pains, fever or chills. She looks to be become very comfortable and in no distress. Labs and medications were reviewed with the treating nurse. Discussions were done with the treating nurse on her status over the weekend.Note that the patient had a evacuation of right hematoma as well as a prosthetic exchange by Dr. Gauthier. Physical Exam Vital Signs: Temp Pulse Resp BP Pulse Ox 99.0 F 69 16 148/59 H 99 03/20/18 11:00 03/20/18 11:00 03/20/18 11:00 03/20/18 11:00 03/20/18 11:00 Intake & Output 03/19/18 03/20/18 03/21/18 06:59 06:59 06:59 Intake Total 78060 3840 726 Output Total 9050 Balance 2666 3840 726 Weight 84.9 kg 84.8 kg General appearance: PRESENT: no acute distress Respiratory exam: PRESENT: clear to auscultation tila. ABSENT: crackles Cardiovascular exam: PRESENT: +S1, +S2, systolic murmur GI/Abdominal exam: PRESENT: normal bowel sounds, soft. ABSENT: organomegaly, tenderness Extremities exam: ABSENT: pedal edema Neurological exam: PRESENT: alert, awake, aphasic. ABSENT: oriented to person, oriented to place Skin exam: ABSENT: erythema, mottled, rash Results Laboratory Results: 03/19/18 07:08 03/19/18 05:36 Impressions: Chest X-Ray 03/19/18 00:00 IMPRESSION: 1. Appropriate PICC line. 2. Left lower lobe pneumonia, as before. Assessment & Plan - Diagnosis (1) Hematoma of right hip Qualifiers: Encounter type: subsequent encounter Qualified Code(s): S70.01XD - Contusion of right hip, subsequent encounter Is this a current diagnosis for this admission?: Yes Plan: Status post evacuation on the first along with prosthetic exchange. Uneventful.Please note that the wound cultures from Mar 18, intraoperative specimen grew gram-negative rods in addition to gram-positive cocci. Currently patient is only on vancomycin which is inadequate for coverage of gram-negative bacteria. (2) LOGAN (acute kidney injury) Plan: Nonoliguric. However I's and O's are not being properly maintained. Discussed with the nurse for insertion of a García catheter. Renal numbers are relatively stable. No acute indications for renal replacements. Will continue to monitor. Potassium is stable and hence will discontinue the potassium replacements for the moment.She is on vancomycin and I am ordering a Vanco trough levels for morning. (3) Chronic kidney disease, stage IV (severe) Is this a current diagnosis for this admission?: Yes Plan: In the background of hypertensive nephrosclerosis with acute insult currently. Monitor. (4) Chronic systolic (congestive) heart failure Is this a current diagnosis for this admission?: Yes Plan: Presently compensated. Patient clinically on the dry side as she has very poor intake. We will hold off on the Lasix currently. Patient has calorie deficit. Discussed with treating nurse for hopeful placement of an NG tube and nutritional supplements. (5) Coronary artery disease Qualifiers: Coronary Disease-Associated Artery/Lesion type: [place] artery [place] vs. transplanted heart: [place] heart Associated angina: angina presence unspecified Qualified Code(s): I25.10 - Atherosclerotic heart disease of [place] coronary artery without angina pectoris Is this a current diagnosis for this admission?: Yes Plan: Currently stable. (6) Altered mental status Qualifiers: Altered mental status type: somnolence Qualified Code(s): R40.0 - Somnolence Plan: Secondary to her CVA. Status quo. (7) Anemia Plan: Stable.Will get iron studies. Currently on erythropoietin. (8) Cerebrovascular accident Qualifiers: CVA mechanism: unspecified Qualified Code(s): I63.9 - Cerebral infarction, unspecified Plan: Status quo with residual deficits including aphasia. (9) Diabetes Plan: Status quo (10) Solitary kidney, acquired Plan: Status quo (11) Atrial fibrillation Qualifiers: Atrial fibrillation type: chronic Qualified Code(s): I48.2 - Chronic atrial fibrillation Is this a current diagnosis for this admission?: Yes
--- NOTE | 2018-03-20 17:33 | PDOC PROGRESS REPORT ---
Subjective Progress Note for:: 03/20/18 Subjective:: The patient is a 63-year-old female with past medical history of CVA 3 (most recent 3 weeks ago) CHF, CAD, [place] s/p stent, hyperlipidemia, hypertension, atrial fibrillation, insulin-dependent diabetes mellitus, renal cancer now CKD 4 with AV fistula (not yet on dialysis), GERD, vascular dementia, depression who was admitted 03/17/18 to the orthopedic service. She is now status post irrigation debridement of right hip hemiarthroplasty by Dr. Gauthier. The hospitalist team was consulted for preop clearance and subsequently signed off. We were reconsulted today due to the patient remaining admitted for medical management of her chronic conditions. The patient was seen this afternoon. She was found sitting up in bed on room air having just finished eating lunch. She is awake and alert, makes eye contact and follows direction. She occasionally answers yes or no questions by nodding her head and while she seems to be answering appropriately; it is difficult to confirm her full orientation. Unfortunately, no family members are present at this time. ROS limited secondary to expressive aphasia and patient with recent CVA and history of underlying vascular dementia. Nursing indicates that nephrology is concerned about her total p.o. intake and has inquired about possible need for alternate means of nutrition. Otherwise, nursing has no concerns at this time. Reason For Visit: RIGHT HIP HEMATOMA Physical Exam Vital Signs: Temp Pulse Resp BP Pulse Ox 99.0 F 69 16 148/59 H 99 03/20/18 11:00 03/20/18 11:00 03/20/18 11:00 03/20/18 11:00 03/20/18 11:00 Intake & Output 03/19/18 03/20/18 03/21/18 06:59 06:59 06:59 Intake Total 64459 3840 726 Output Total 9050 Balance 2666 3840 726 Weight 84.9 kg 84.8 kg General appearance: PRESENT: no acute distress, well-developed, well-nourished - Overweight Head exam: PRESENT: atraumatic, normocephalic Eye exam: PRESENT: conjunctiva pink, EOMI, PERRLA. ABSENT: scleral icterus Mouth exam: PRESENT: moist Neck exam: ABSENT: carotid bruit, JVD, lymphadenopathy, thyromegaly Respiratory exam: PRESENT: clear to auscultation tila, symmetrical, unlabored. ABSENT: rales, rhonchi, wheezes Cardiovascular exam: PRESENT: RRR. ABSENT: diastolic murmur, rubs, systolic murmur Pulses: PRESENT: normal dorsalis pedis pul Vascular exam: PRESENT: normal capillary refill GI/Abdominal exam: PRESENT: normal bowel sounds, soft. ABSENT: distended, guarding, mass, organolmegaly, rebound, tenderness Rectal exam: PRESENT: deferred Extremities exam: PRESENT: tenderness - RLE. ABSENT: calf tenderness, clubbing , pedal edema Neurological exam: PRESENT: alert, awake, aphasic, other - The patient is alert and awake, does follow one-step directions and nods her head yes or no 2 questions; unable to determine full orientation. Noted to have right upper extremity flaccid paralysis.. ABSENT: motor sensory deficit Skin exam: PRESENT: dry, warm, other - Surgical incision to RLE not visualized; dressing in place.. ABSENT: cyanosis, rash Results Laboratory Results: 03/19/18 07:08 03/19/18 05:36 Impressions: Chest X-Ray 03/19/18 00:00 IMPRESSION: 1. Appropriate PICC line. 2. Left lower lobe pneumonia, as before. Assessment & Plan - Diagnosis (1) Postoperative wound infection of right hip Is this a current diagnosis for this admission?: Yes Plan: The patient was admitted for hematoma to right hip hemiarthroplasty. Original hemiarthroplasty done 02/20/[address] Gauthier. Now postop day #1 irrigation and debridement of surgical site. Orthopedic team is primary; hospitalist service is consulted for management of chronic medical conditions. Wound cultures demonstrating 2 strains of gram-negative rods and gram-positive cocci. Wound care and antibiotics per the orthopedic team; currently on IV vancomycin and IV ceftriaxone. (2) Atrial fibrillation Qualifiers: Atrial fibrillation type: chronic Qualified Code(s): I48.2 - Chronic atrial fibrillation Is this a current diagnosis for this admission?: Yes Plan: Currently rate controlled on carvedilol. Receiving daily aspirin therapy. Eliquis was previously discontinued secondary to development of surgical site hematoma; cardiology recommended (at time of preoperative clearance) to resume Eliquis therapy as soon as feasible from the surgical standpoint. (3) Chronic kidney disease, stage IV (severe) Is this a current diagnosis for this admission?: Yes Plan: Dr. Bullard has been consulted; he is currently managing her acute kidney injury in the setting of chronic kidney disease. From his notations, it appears that a Garíca catheter is to be inserted to monitor I&O's. As there is also concern about adequate p.o. intake, I have added strict I&O's and daily weights which should hopefully help him assess her fluid intake. Remaining plan per his expertise. (4) Chronic systolic (congestive) heart failure Is this a current diagnosis for this admission?: Yes Plan: Patient appears to be without CHF exacerbation; somewhat volume depleted. Lung sounds are clear. Last proBNP was obtain in July 2015 ([id number]). Echocardiogram has been obtained; finalized report is pending. Echocardiogram from February 2018 revealed LVEF >60% with mild diastolic dysfunction, moderate mitral regurgitation. It may be beneficial to repeat proBNP to establish new baseline. Will add this to her a.m labs. Furosemide is on hold per nephrology secondary to volume depletion and poor p.o. intake. We will continue her home dose carvedilol, hydralazine, isosorbide, atorvastatin and aspirin. She is placed on a cardiac diet. Strict I's and O's with daily weights. (5) Coronary artery disease Qualifiers: Coronary Disease-Associated Artery/Lesion type: [place] artery [place] vs. transplanted heart: [place] heart Associated angina: angina presence unspecified Qualified Code(s): I25.10 - Atherosclerotic heart disease of [place] coronary artery without angina pectoris Is this a current diagnosis for this admission?: Yes Plan: Multiple MIs with stenting in the past. Chest pain-free currently. Plan as above. (6) Type 2 diabetes mellitus Qualifiers: Diabetes mellitus exterminator helper termite insulin use: unspecified exterminator helper termite insulin use status Diabetes mellitus complication status: with unspecified complications Qualified Code(s): E11.8 - Type 2 diabetes mellitus with unspecified complications Is this a current diagnosis for this admission?: Yes Plan: She is placed on a consistent carb diet. Accu-Cheks before meals and at bedtime with Humalog for sliding scale coverage. Hypoglycemia protocols are in place. Registered dietitian is consulted. (7) CVA (cerebral vascular accident) Qualifiers: Precerebral and cerebral artery: posterior cerebral artery Laterality of affected vessel: left Is this a current diagnosis for this admission?: No Plan: Subacute nonhemorrhagic left posterior cerebral artery distribution infarct. In the setting of vascular dementia. Recent CVA has resulted and right side hemiparalysis and expressive aphasia. We will ask speech therapy to update swallow screen. PT/OT to evaluate and treat per protocols orthopedics direction. Continue aspirin and statin therapy. Resume Eliquis when appropriate from surgical standpoint. (8) At risk for malnutrition Is this a current diagnosis for this admission?: Yes Plan: Patient with multiple dietary restrictions; cardiac, prerenal, diabetic diet recommended. She now has a subacute CVA resulting in right-sided/dominant flaccid paralysis and expressive aphasia. She requires assistance with all meals. Aspiration precautions. The registered dietitian and speech therapist are consulted. Have asked nursing to begin strict I&O's and keep a 24 hour calorie count. We will need to discuss with the patient's healthcare proxy goals of care; specifically whether or not the patient would desire tube feeding if necessary. We will monitor daily chemistries and correct as necessary. - Time Time Spent with patient: 35 or more minutes Medications reviewed and adjusted accordingly: Yes Anticipated discharge: SNF
[2018-03-20] MEDS ORDERED: CEFTRIAXONE 1 GM/D5W RTU 1 GM/50 ML RTUPB IV ONE (18:00)
[2018-03-20] MEDS: ATORVASTATIN CALCIUM 80 MG TABLET PO SCH (22:13)
[2018-03-21] MEDS: LANSOPRAZOLE 30 MG TAB.RAP.DR PO SCH (06:24)
[2018-03-21] MEDS: HYDRALAZINE HCL 50 MG TABLET PO SCH ×3 (06:24→22:40)
--- NOTE | 2018-03-21 07:01 | PDOC PROGRESS REPORT ---
Subjective Progress Note for:: 03/21/18 Reason For Visit: RIGHT HIP HEMATOMA 63-year-old black female status post right hip hemiarthroplasty for femoral neck fracture and subsequent drainage. She is now postop day 3 from an I&D. Cultures are growing gram negative rods and gram-positive cocci. Physical Exam Vital Signs: Temp Pulse Resp BP Pulse Ox 37.1 C 75 16 156/68 H 100 03/21/18 00:00 03/21/18 00:00 03/21/18 00:00 03/21/18 00:00 03/21/18 00:00 Intake & Output 03/20/18 03/21/18 03/22/18 06:59 06:59 06:59 Intake Total 3840 4143 Output Total 3275 Balance 3840 868 Weight 84.8 kg 89.4 kg General appearance: PRESENT: no acute distress Head exam: PRESENT: normocephalic Cardiovascular exam: PRESENT: RRR Pulses: PRESENT: +1 pedal pulses bilateral Vascular exam: PRESENT: normal capillary refill GI/Abdominal exam: PRESENT: soft Rectal exam: PRESENT: deferred Extremities exam: PRESENT: other - Right hip wound is clean and dry this morning but dressing has been changed at 5 AM. Leg lengths are equal. Results Laboratory Results: 03/19/18 07:08 03/19/18 05:36 Impressions: Chest X-Ray 03/19/18 00:00 IMPRESSION: 1. Appropriate PICC line. 2. Left lower lobe pneumonia, as before. Status: Imported from PACS Assessment & Plan - Diagnosis (1) Postoperative wound infection of right hip Is this a current diagnosis for this admission?: Yes Plan: 63-year-old female status post I&D of the right hip with persistent drainage. Dressing changes as needed. Patient on vancomycin plus Rocephin pending microbiology results. - Time Time Spent with patient: 15-24 minutes Anticipated discharge: SNF Within: Other
[2018-03-21 07:24] LABS: ABSOLUTE RETICS # 0.156 10^6/uL (0.028-0.122); HEMATOCRIT 28.3 % (36.0-47.0); HEMOGLOBIN 9.2 g/dL (12.0-15.5); MEAN CORPUSCULAR HEMOGLOBIN 26.7 pg (27.0-33.4); MEAN CORPUSCULAR HGB CONC 32.6 g/dL (32.0-36.0); MEAN CORPUSCULAR VOLUME 82 fl (80-97); PLATELET COUNT 278 10^3/uL (150-450); RED BLOOD COUNT 3.46 10^6/uL (3.72-5.28); RED CELL DISTRIBUTION WIDTH 16.6 % (11.5-14.0); RETICULOCYTE COUNT (AUTO) 4.51 % (0.66-2.85); WHITE BLOOD COUNT 6.4 10^3/uL (4.0-10.5)
[2018-03-21 07:26] LABS: ANION GAP 9 (5-19); BLOOD UREA NITROGEN 41 mg/dL (7-20); CALCIUM 8.1 mg/dL (8.4-10.2); CARBON DIOXIDE 22 mmol/L (22-30); CHLORIDE 106 mmol/L (98-107); GLUCOSE 102 mg/dL (75-110); IRON(TIBC) 15.1 ug/dL (37-170); POTASSIUM 4.3 mmol/L (3.6-5.0); SODIUM 137.1 mmol/L (137-145)
[2018-03-21 08:51] LABS: ALANINE AMINOTRANSFERASE 20 U/L (9-52); ALBUMIN 2.3 g/dL (3.5-5.0); ALKALINE PHOSPHATASE 83 U/L (38-126); ASPARTATE AMINO TRANSFERASE 16 U/L (14-36); BILIRUBIN,DIRECT 0.5 mg/dL (0.0-0.4); BILIRUBIN,TOTAL 0.5 mg/dL (0.2-1.3); PHOSPHORUS 4.3 mg/dL (2.5-4.5)
[2018-03-21] MEDS: DOCUSATE SODIUM 100 MG CAPSULE PO SCH ×2 (09:38→17:30)
[2018-03-21] MEDS: CALCIUM CARBONATE 250 MG/VITAMIN D3 125 UNIT TABLET PO SCH ×2 (09:38→17:29)
[2018-03-21] MEDS: ISOSORBIDE MONONITRATE 30 MG TAB.ER.24H PO SCH (09:39)
[2018-03-21] MEDS: ASPIRIN 81 MG TABLET, CHEWABLE PO SCH (09:39)
[2018-03-21] MEDS: DULOXETINE HCL 30 MG CAPSULE.DR PO SCH (09:39)
[2018-03-21] MEDS: CARVEDILOL 12.5 MG TABLET PO SCH ×2 (09:39→22:39)
[2018-03-21] MEDS ORDERED: VANCOMYCIN HCL 1,000 MG in DEXTROSE 5%-WATER 250 ML IV SCH (10:00)
[2018-03-21] MEDS ORDERED: CEFTRIAXONE SODIUM 1,000 MG in NORMAL SALINE 50 ML IV SCH (10:00)
[2018-03-21] MEDS ORDERED: CEFTRIAXONE 1 GM/D5W RTU 1 GM/50 ML RTUPB IV SCH (10:00)
[2018-03-21] MEDS: NORMAL SALINE 1000 ML 1,000 ML IV PRN ×2 (11:46→20:38)
[2018-03-21] MEDS ORDERED: SUCCINYLCHOLINE CHLORIDE INJ 200 MG/10 ML VIAL ONE (13:59)
--- NOTE | 2018-03-21 16:12 | PDOC PROGRESS REPORT ---
Subjective Progress Note for:: 03/21/18 Reason For Visit: Patient seen today in the hospital. She is sleeping but arousable. She does not respond appropriately to questions because of her aphasia. Therefore it is hard to make out if she is got any issues. She looks comfortable when you asked pointed questions. Discussions were done with the treating nurse Dalila. Labs and medications were reviewed. Physical Exam Vital Signs: Temp Pulse Resp BP Pulse Ox 98.8 F 83 16 170/71 H 98 03/21/18 08:21 03/21/18 08:21 03/21/18 08:21 03/21/18 08:21 03/21/18 08:21 Intake & Output 03/20/18 03/21/18 03/22/18 06:59 06:59 06:59 Intake Total 3840 4143 50 Output Total 3275 Balance 3840 868 50 Weight 84.8 kg 89.4 kg 89.4 kg General appearance: PRESENT: no acute distress Respiratory exam: PRESENT: clear to auscultation tila. ABSENT: crackles Cardiovascular exam: PRESENT: +S1, +S2, systolic murmur GI/Abdominal exam: PRESENT: normal bowel sounds, soft. ABSENT: organomegaly, tenderness Extremities exam: ABSENT: pedal edema Neurological exam: PRESENT: awake Skin exam: ABSENT: erythema, mottled Results Laboratory Results: 03/21/18 06:58 03/21/18 06:58 03/21/18 03/21/18 03/21/18 06:58 06:58 06:58 WBC 6.4 RBC 3.46 L Hgb 9.2 L Hct 28.3 L MCV 82 MCH 26.7 L MCHC 32.6 RDW 16.6 H Plt Count 278 Retic Count (auto) 4.51 H Absolute Retic 0.156 H Sodium 137.1 Potassium 4.3 Chloride 106 Carbon Dioxide 22 Anion Gap 9 BUN 41 H Creatinine 3.90 H Est GFR ( Amer) 14 L Est GFR (Non-Af Amer) 12 L Glucose 102 Calcium 8.1 L Phosphorus 4.3 Magnesium 1.8 Iron 15.1 L TIBC 216 L % Saturation 7 Ferritin 55.40 Total Bilirubin 0.5 AST 16 ALT 20 Alkaline Phosphatase 83 Total Protein 6.0 L Albumin 2.3 L Vitamin B12 545.0 Folate 5.40 03/18/18 08:20 Hip - Right Gram Stain - Final Impressions: Chest X-Ray 03/19/18 00:00 IMPRESSION: 1. Appropriate PICC line. 2. Left lower lobe pneumonia, as before. Assessment & Plan - Diagnosis (1) Hematoma of right hip Qualifiers: Encounter type: subsequent encounter Qualified Code(s): S70.01XD - Contusion of right hip, subsequent encounter Is this a current diagnosis for this admission?: Yes Plan: Status post evacuation along with prosthetic exchange. Currently she is on vancomycin and IV Rocephin for gram-positive cocci and gram-negative rods. However Vanco levels were toxic at 27 and therefore I am discontinuing that for the moment. Since cultures are growing Acinetobacter and E faecalis I am going to convert antibiotics to IV Unasyn Monitor. (2) LOGAN (acute kidney injury) Plan: Nonoliguric. S/P García catheter. Good urine output after holding off on the Lasix. Renal numbers are improving. No acute indications for renal replacements. However concerning was around toxic levels of 27 that I obtained today.Therefore will discontinue vancomycin. Since her cultures are growing Acinetobacter and E faecalis I am going to start her on IV Unasyn at the expense of all other antibiotics. (3) Chronic kidney disease, stage IV (severe) Is this a current diagnosis for this admission?: Yes Plan: In the background of hypertensive nephrosclerosis with acute insult currently. Monitor. (4) Chronic systolic (congestive) heart failure Is this a current diagnosis for this admission?: Yes Plan: Presently compensated. (5) Coronary artery disease Qualifiers: Coronary Disease-Associated Artery/Lesion type: [place] artery [place] vs. transplanted heart: [place] heart Associated angina: angina presence unspecified Qualified Code(s): I25.10 - Atherosclerotic heart disease of [place] coronary artery without angina pectoris Is this a current diagnosis for this admission?: Yes Plan: Currently stable. (6) Altered mental status Qualifiers: Altered mental status type: somnolence Qualified Code(s): R40.0 - Somnolence Plan: Secondary to her CVA. Status quo. (7) Anemia Plan: Deficient iron studies. Load IV iron. Currently on erythropoietin. (8) Cerebrovascular accident Qualifiers: CVA mechanism: unspecified Qualified Code(s): I63.9 - Cerebral infarction, unspecified Plan: Status quo with residual deficits including aphasia. (9) Diabetes Plan: Status quo (10) Solitary kidney, acquired Plan: Status quo (11) Atrial fibrillation Qualifiers: Atrial fibrillation type: chronic Qualified Code(s): I48.2 - Chronic atrial fibrillation Is this a current diagnosis for this admission?: Yes
[2018-03-21] MEDS: INSULIN LISPRO 100 UNIT/ML 3 ML VIAL SUBCUT PRN ×2 (16:47→22:40)
[2018-03-21] MEDS ORDERED: FERUMOXYTOL 510 MG in NORMAL SALINE 100 ML IV ONE (17:30)
--- NOTE | 2018-03-21 20:14 | PDOC PROGRESS REPORT ---
Subjective Progress Note for:: 03/21/18 Subjective:: Patient was seen this morning. She was noted to be very lethargic. I am told by the nurses that she becomes like that off and on. Cardiac exam kiser, this is relatively unchanged. Patient has underwent incision and drainage of the hematoma and has done well. Will see patient on as needed basis. Reason For Visit: RIGHT HIP HEMATOMA Physical Exam Vital Signs: Temp Pulse Resp BP Pulse Ox 97.9 F 68 20 140/62 H 96 03/21/18 16:42 03/21/18 16:42 03/21/18 16:42 03/21/18 16:42 03/21/18 16:42 Intake & Output 03/20/18 03/21/18 03/22/18 06:59 06:59 06:59 Intake Total 3840 4143 150 Output Total 3275 Balance 3840 868 150 Weight 84.8 kg 89.4 kg 89.4 kg Exam: Relatively unchanged but patient noted to be lethargic. Patient is now status post incision and drainage of hematoma following surgery on the right hip. Results Laboratory Results: 03/21/18 06:58 03/21/18 06:58 03/21/18 03/21/18 03/21/18 06:58 06:58 06:58 WBC 6.4 RBC 3.46 L Hgb 9.2 L Hct 28.3 L MCV 82 MCH 26.7 L MCHC 32.6 RDW 16.6 H Plt Count 278 Retic Count (auto) 4.51 H Absolute Retic 0.156 H Sodium 137.1 Potassium 4.3 Chloride 106 Carbon Dioxide 22 Anion Gap 9 BUN 41 H Creatinine 3.90 H Est GFR ( Amer) 14 L Est GFR (Non-Af Amer) 12 L Glucose 102 Calcium 8.1 L Phosphorus 4.3 Magnesium 1.8 Iron 15.1 L TIBC 216 L % Saturation 7 Ferritin 55.40 Total Bilirubin 0.5 AST 16 ALT 20 Alkaline Phosphatase 83 Total Protein 6.0 L Albumin 2.3 L Vitamin B12 545.0 Folate 5.40 03/18/18 08:20 Hip - Right Gram Stain - Final 03/18/18 08:20 Hip - Right Wound Culture - Final Acinetobacter Baumannii/Haem Enterococcus Faecalis(Group D) Prevotella Species 03/18/18 08:20 Hip - Right Gram Stain - Final Impressions: Chest X-Ray 03/19/18 00:00 IMPRESSION: 1. Appropriate PICC line. 2. Left lower lobe pneumonia, as before. Assessment & Plan - Diagnosis (1) Preoperative cardiovascular examination Is this a current diagnosis for this admission?: Yes (2) Coronary artery disease Qualifiers: Coronary Disease-Associated Artery/Lesion type: [place] artery [place] vs. transplanted heart: [place] heart Associated angina: angina presence unspecified Qualified Code(s): I25.10 - Atherosclerotic heart disease of [place] coronary artery without angina pectoris Is this a current diagnosis for this admission?: Yes (3) Type 2 diabetes mellitus Qualifiers: Diabetes mellitus technician terminal and repeater insulin use: unspecified technician terminal and repeater insulin use status Diabetes mellitus complication status: with unspecified complications Qualified Code(s): E11.8 - Type 2 diabetes mellitus with unspecified complications Is this a current diagnosis for this admission?: Yes (4) Atrial fibrillation Qualifiers: Atrial fibrillation type: paroxysmal Qualified Code(s): I48.0 - Paroxysmal atrial fibrillation Is this a current diagnosis for this admission?: Yes (5) Expressive aphasia Is this a current diagnosis for this admission?: Yes (6) Hyperlipidemia Qualifiers: Hyperlipidemia type: unspecified Qualified Code(s): E78.5 - Hyperlipidemia , unspecified Is this a current diagnosis for this admission?: Yes (7) Hypertension Qualifiers: Hypertension type: essential hypertension Qualified Code(s): I10 - Essential (primary) hypertension Is this a current diagnosis for this admission?: Yes - Notes Notes: Patient is postop and has done well. Patient was seen in preop clearance. Will sign off. Please reconsult if needed. - Time Time with patient: 15-25 minutes
--- NOTE | 2018-03-21 22:12 | PDOC PROGRESS REPORT ---
Subjective Progress Note for:: 03/21/18 Subjective:: he patient is a 63-year-old female with past medical history of CVA 3 (most recent 3 weeks ago) CHF, CAD, [place] s/p stent, hyperlipidemia, hypertension, atrial fibrillation, insulin-dependent diabetes mellitus, renal cancer now CKD 4 with AV fistula (not yet on dialysis), GERD, vascular dementia, depression who was admitted 03/17/18 to the orthopedic service. She is now status post irrigation debridement of right hip hemiarthroplasty by Dr. Gauthier. The hospitalist team was consulted for preop clearance and subsequently signed off. We were reconsulted today due to the patient remaining admitted for medical management of her chronic conditions. Patient seen this morning on rounds. She is resting comfortably in bed on room air. She does not interact during assessment. The patient is non-verbal. PERRLA. Lungs are clear to auscultation. S1S2. No peripheral edema, palpable pulses in all extremities. Patient evaluated by clinical registered nurse today who recommends enteral feeding if patient is unable to get nutrition independently. Plan to reach out to healthcare proxy regarding goals of care and possible PEG. Reason For Visit: RIGHT HIP HEMATOMA Physical Exam Vital Signs: Temp Pulse Resp BP Pulse Ox 98.8 F 83 16 170/71 H 98 03/21/18 08:21 03/21/18 08:21 03/21/18 08:21 03/21/18 08:21 03/21/18 08:21 Intake & Output 03/20/18 03/21/18 03/22/18 06:59 06:59 06:59 Intake Total 3840 4143 Output Total 3275 Balance 3840 868 Weight 84.8 kg 89.4 kg Results Laboratory Results: 03/21/18 06:58 03/21/18 06:58 03/21/18 03/21/18 06:58 06:58 WBC 6.4 RBC 3.46 L Hgb 9.2 L Hct 28.3 L MCV 82 MCH 26.7 L MCHC 32.6 RDW 16.6 H Plt Count 278 Retic Count (auto) 4.51 H Absolute Retic 0.156 H Sodium 137.1 Potassium 4.3 Chloride 106 Carbon Dioxide 22 Anion Gap 9 BUN 41 H Creatinine 3.90 H Est GFR ( Amer) 14 L Est GFR (Non-Af Amer) 12 L Glucose 102 Calcium 8.1 L Iron 15.1 L TIBC 216 L % Saturation 7 Ferritin 55.40 Vitamin B12 545.0 Folate 5.40 Impressions: Chest X-Ray 03/19/18 00:00 IMPRESSION: 1. Appropriate PICC line. 2. Left lower lobe pneumonia, as before. Assessment & Plan - Diagnosis (1) Postoperative wound infection of right hip Is this a current diagnosis for this admission?: Yes Plan: The patient was admitted for hematoma to right hip hemiarthroplasty. Original hemiarthroplasty done 02/20/[address] Gauthier. Now postop irrigation and debridement of surgical site. Orthopedic team is primary; hospitalist service is consulted for management of chronic medical conditions. Wound cultures demonstrating 2 strains of gram-negative rods and gram-positive cocci. Wound care and antibiotics per the orthopedic team; currently on IV vancomycin and IV ceftriaxone. (2) Atrial fibrillation Qualifiers: Atrial fibrillation type: chronic Qualified Code(s): I48.2 - Chronic atrial fibrillation Is this a current diagnosis for this admission?: Yes Plan: Currently rate controlled on carvedilol. Receiving daily aspirin therapy. Eliquis was previously discontinued secondary to development of surgical site hematoma; cardiology recommended (at time of preoperative clearance) to resume Eliquis therapy as soon as feasible from the surgical standpoint. (3) Chronic kidney disease, stage IV (severe) Is this a current diagnosis for this admission?: Yes Plan: Dr. Bullard has been consulted; he is currently managing her acute kidney injury in the setting of chronic kidney disease. From his notations, it appears that a García catheter is to be inserted to monitor I&O's. Concern about adequate p.o. intake, strict I&O's and daily weights which should hopefully help him assess her fluid intake. Remaining plan per his expertise. (4) Chronic systolic (congestive) heart failure Is this a current diagnosis for this admission?: Yes Plan: Patient appears to be without CHF exacerbation; somewhat volume depleted. Lung sounds are clear. Last proBNP was obtain in July 2015 ([id number]). Echocardiogram has been obtained; Echocardiogram from February 2018 revealed LVEF >60% with mild diastolic dysfunction, moderate mitral regurgitation. Check ProBNP in AM Furosemide is on hold per nephrology secondary to volume depletion and poor p.o. intake. Continue her home dose carvedilol, hydralazine, isosorbide, atorvastatin and aspirin. Cardiac diet. Strict I's and O's with daily weights. (5) Coronary artery disease Qualifiers: Coronary Disease-Associated Artery/Lesion type: [place] artery [place] vs. transplanted heart: [place] heart Associated angina: angina presence unspecified Qualified Code(s): I25.10 - Atherosclerotic heart disease of [place] coronary artery without angina pectoris Is this a current diagnosis for this admission?: Yes Plan: Multiple MIs with stenting in the past. Chest pain-free currently. Plan as above. (6) Diabetes Is this a current diagnosis for this admission?: Yes Plan: She is placed on a consistent carb diet. Accu-Cheks before meals and at bedtime with Humalog for sliding scale coverage. Hypoglycemia protocols are in place. Registered dietitian is consulted. (7) CVA (cerebral vascular accident) Qualifiers: Precerebral and cerebral artery: posterior cerebral artery Laterality of affected vessel: left Is this a current diagnosis for this admission?: No Plan: Subacute nonhemorrhagic left posterior cerebral artery distribution infarct. In the setting of vascular dementia. Recent CVA has resulted and right side hemiparalysis and expressive aphasia. Requested speech therapy to update swallow screen. PT/OT to evaluate and treat per protocols orthopedics direction. Continue aspirin and statin therapy. Resume Eliquis when appropriate from surgical standpoint. (8) At risk for malnutrition Is this a current diagnosis for this admission?: Yes Plan: Patient with multiple dietary restrictions; cardiac, prerenal, diabetic diet recommended. She now has a subacute CVA resulting in right-sided/dominant flaccid paralysis and expressive aphasia. She requires assistance with all meals. Aspiration precautions. The registered dietitian and speech therapist are consulted. Have asked nursing to begin strict I&O's and keep a 24 hour calorie count. We will need to discuss with the patient's healthcare proxy goals of care; specifically whether or not the patient would desire tube feeding if necessary. Plan to reach out to healthcare proxy tomorrow We will monitor daily chemistries and correct as necessary. - Time Time Spent with patient: 15-24 minutes Medications reviewed and adjusted accordingly: Yes Anticipated discharge: Home - Inpatient Certification Based on my medical assessment, after consideration of the patient's comorbidities, presenting symptoms, or acuity I expect that the services needed warrant INPATIENT care.: Yes I certify that my determination is in accordance with my understanding of Medicare's requirements for reasonable and necessary INPATIENT services [42 CFR 412.3e].: Yes Medical Necessity: Risk of Complication if Not Cared For in Hospital - Plan Summary Plan Summary: Continue current treatment plan. Reach out to healthcare proxy regarding goals of care
[2018-03-21] MEDS: AMPICILLIN SODIUM/SULBACTAM NA 1.5 GM in NORMAL SALINE 50 ML IV SCH (22:39)
[2018-03-21] MEDS: ATORVASTATIN CALCIUM 80 MG TABLET PO SCH (22:40)
[2018-03-22] MEDS ORDERED: PHENOL/SODIUM PHENOLATE 100 SPRAY/177 ML BOTTLE PO PRN (00:01)
[2018-03-22] MEDS ORDERED: PHENOL/SODIUM PHENOLATE 100 SPRAY/177 ML BOTTLE ONE (00:57)
[2018-03-22] MEDS: NORMAL SALINE 1000 ML 1,000 ML IV PRN ×2 (04:00→12:04)
[2018-03-22 04:24] LABS: HEMATOCRIT 25.6 % (36.0-47.0); HEMOGLOBIN 8.2 g/dL (12.0-15.5); MEAN CORPUSCULAR HEMOGLOBIN 26.6 pg (27.0-33.4); MEAN CORPUSCULAR HGB CONC 32.3 g/dL (32.0-36.0); MEAN CORPUSCULAR VOLUME 83 fl (80-97); PLATELET COUNT 280 10^3/uL (150-450); RED CELL DISTRIBUTION WIDTH 16.3 % (11.5-14.0); WHITE BLOOD COUNT 6.5 10^3/uL (4.0-10.5)
[2018-03-22 04:46] LABS: ANION GAP 6 (5-19); BLOOD UREA NITROGEN 39 mg/dL (7-20); CALCIUM 7.9 mg/dL (8.4-10.2); CARBON DIOXIDE 22 mmol/L (22-30); CHLORIDE 108 mmol/L (98-107); GLUCOSE 126 mg/dL (75-110); POTASSIUM 4.2 mmol/L (3.6-5.0); SODIUM 136.3 mmol/L (137-145)
--- NOTE | 2018-03-22 06:47 | PDOC PROGRESS REPORT ---
Subjective Progress Note for:: 03/22/18 Reason For Visit: RIGHT HIP HEMATOMA 63-year-old black female status post right hemiarthroplasty for femoral neck fracture now with infected hematoma. Preliminary cultures and keep polymicrobial growth Physical Exam Vital Signs: Temp Pulse Resp BP Pulse Ox 37.1 C 69 15 145/72 H 99 03/21/18 23:47 03/21/18 23:47 03/21/18 23:47 03/21/18 23:47 03/21/18 23:47 Intake & Output 03/20/18 03/21/18 03/22/18 06:59 06:59 06:59 Intake Total 3840 4143 2200 Output Total 3275 Balance 3840 868 2200 Weight 84.8 kg 89.4 kg 89.4 kg General appearance: PRESENT: no acute distress, mild distress Head exam: PRESENT: normocephalic Respiratory exam: PRESENT: unlabored Cardiovascular exam: PRESENT: RRR Pulses: PRESENT: +1 pedal pulses bilateral Vascular exam: PRESENT: normal capillary refill GI/Abdominal exam: PRESENT: soft Rectal exam: PRESENT: deferred Extremities exam: PRESENT: other - Right hip dressing change at 10:00 last night and has drainage present on a currently but it is not saturated. Leg lengths are equal. Distal neurovascular examination is intact. Results Laboratory Results: 03/22/18 04:05 03/22/18 04:05 03/21/18 03/21/18 03/21/18 06:58 06:58 06:58 WBC 6.4 RBC 3.46 L Hgb 9.2 L Hct 28.3 L MCV 82 MCH 26.7 L MCHC 32.6 RDW 16.6 H Plt Count 278 Retic Count (auto) 4.51 H Absolute Retic 0.156 H Sodium 137.1 Potassium 4.3 Chloride 106 Carbon Dioxide 22 Anion Gap 9 BUN 41 H Creatinine 3.90 H Est GFR ( Amer) 14 L Est GFR (Non-Af Amer) 12 L Glucose 102 Calcium 8.1 L Phosphorus 4.3 Magnesium 1.8 Iron 15.1 L TIBC 216 L % Saturation 7 Ferritin 55.40 Total Bilirubin 0.5 AST 16 ALT 20 Alkaline Phosphatase 83 Total Protein 6.0 L Albumin 2.3 L Vitamin B12 545.0 Folate 5.40 03/22/18 03/22/18 04:05 04:05 WBC 6.5 RBC 3.10 L Hgb 8.2 L Hct 25.6 L MCV 83 MCH 26.6 L MCHC 32.3 RDW 16.3 H Plt Count 280 Retic Count (auto) Absolute Retic Sodium 136.3 L Potassium 4.2 Chloride 108 H Carbon Dioxide 22 Anion Gap 6 BUN 39 H Creatinine 3.56 H Est GFR ( Amer) 16 L Est GFR (Non-Af Amer) 13 L Glucose 126 H Calcium 7.9 L Phosphorus Magnesium Iron TIBC % Saturation Ferritin Total Bilirubin AST ALT Alkaline Phosphatase Total Protein Albumin Vitamin B12 Folate 03/18/18 08:20 Hip - Right Gram Stain - Final 03/18/18 08:20 Hip - Right Wound Culture - Final Acinetobacter Baumannii/Haem Enterococcus Faecalis(Group D) Prevotella Species 03/18/18 08:20 Hip - Right Gram Stain - Final Impressions: Chest X-Ray 03/19/18 00:00 IMPRESSION: 1. Appropriate PICC line. 2. Left lower lobe pneumonia, as before. Status: Imported from PACS Assessment & Plan - Diagnosis (1) Postoperative wound infection of right hip Is this a current diagnosis for this admission?: Yes Plan: Continue dry dressing changes as needed. Antibiotics to be adjusted once final culture and sensitivities are available. Continued mobilization with physical therapy as tolerated. - Time Time Spent with patient: 15-24 minutes Anticipated discharge: SNF Within: Other
[2018-03-22] MEDS: LANSOPRAZOLE 30 MG TAB.RAP.DR PO SCH (07:07)
[2018-03-22] MEDS: HYDRALAZINE HCL 50 MG TABLET PO SCH ×3 (07:07→22:09)
[2018-03-22] MEDS: ASPIRIN 81 MG TABLET, CHEWABLE PO SCH (09:48)
[2018-03-22] MEDS: DULOXETINE HCL 30 MG CAPSULE.DR PO SCH (09:48)
[2018-03-22] MEDS: AMPICILLIN SODIUM/SULBACTAM NA 1.5 GM in NORMAL SALINE 50 ML IV SCH ×2 (09:48→22:10)
[2018-03-22] MEDS: CALCIUM CARBONATE 250 MG/VITAMIN D3 125 UNIT TABLET PO SCH ×2 (09:48→17:04)
[2018-03-22] MEDS: DOCUSATE SODIUM 100 MG CAPSULE PO SCH ×2 (09:48→17:04)
[2018-03-22] MEDS: ISOSORBIDE MONONITRATE 30 MG TAB.ER.24H PO SCH (09:49)
[2018-03-22] MEDS: CARVEDILOL 12.5 MG TABLET PO SCH ×2 (09:50→22:11)
[2018-03-22] MEDS: INSULIN LISPRO 100 UNIT/ML 3 ML VIAL SUBCUT PRN ×3 (12:00→23:09)
--- NOTE | 2018-03-22 16:06 | PDOC PROGRESS REPORT ---
Subjective Progress Note for:: 03/22/18 Reason For Visit: Patient seen in the hospital today. She is sleeping and she is arousable. She does not reply to questions. Discussions were done the treating nurse Behzad. Labs and medications were reviewed. Physical Exam Vital Signs: Temp Pulse Resp BP Pulse Ox 98.7 F 72 18 151/67 H 99 03/22/18 08:11 03/22/18 08:11 03/22/18 08:11 03/22/18 08:11 03/22/18 08:11 Intake & Output 03/21/18 03/22/18 03/23/18 06:59 06:59 06:59 Intake Total 4143 2520 1000 Output Total 3275 875 Balance 868 1645 1000 Weight 89.4 kg 88.9 kg General appearance: PRESENT: no acute distress, disheveled Respiratory exam: PRESENT: clear to auscultation tila. ABSENT: crackles Cardiovascular exam: PRESENT: +S1, +S2, systolic murmur GI/Abdominal exam: PRESENT: normal bowel sounds, soft. ABSENT: organomegaly, tenderness Extremities exam: PRESENT: pedal edema Neurological exam: PRESENT: altered, aphasic Skin exam: ABSENT: erythema, mottled, rash Results Laboratory Results: 03/22/18 04:05 03/22/18 04:05 03/22/18 03/22/18 04:05 04:05 WBC 6.5 RBC 3.10 L Hgb 8.2 L Hct 25.6 L MCV 83 MCH 26.6 L MCHC 32.3 RDW 16.3 H Plt Count 280 Sodium 136.3 L Potassium 4.2 Chloride 108 H Carbon Dioxide 22 Anion Gap 6 BUN 39 H Creatinine 3.56 H Est GFR ( Amer) 16 L Est GFR (Non-Af Amer) 13 L Glucose 126 H Calcium 7.9 L 03/18/18 08:20 Hip - Right Gram Stain - Final 03/18/18 08:20 Hip - Right Wound Culture - Final Acinetobacter Baumannii/Haem Enterococcus Faecalis(Group D) Prevotella Species 03/18/18 08:20 Hip - Right Gram Stain - Final Impressions: Chest X-Ray 03/19/18 00:00 IMPRESSION: 1. Appropriate PICC line. 2. Left lower lobe pneumonia, as before. Assessment & Plan - Diagnosis (1) Hematoma of right hip Qualifiers: Encounter type: subsequent encounter Qualified Code(s): S70.01XD - Contusion of right hip, subsequent encounter Is this a current diagnosis for this admission?: Yes Plan: Status post evacuation along with prosthetic exchange. Currently she is on IV Unasyn Monitor. (2) LOGAN (acute kidney injury) Plan: Nonoliguric. S/P García catheter. Good urine output after holding off on the Lasix. Renal numbers are improving. No acute indications for renal replacements. (3) Chronic kidney disease, stage IV (severe) Is this a current diagnosis for this admission?: Yes Plan: In the background of hypertensive nephrosclerosis with acute insult currently. Monitor. (4) Chronic systolic (congestive) heart failure Is this a current diagnosis for this admission?: Yes Plan: Presently compensated. Cut back on IV fluids given development of progressive edema. (5) Coronary artery disease Qualifiers: Coronary Disease-Associated Artery/Lesion type: [place] artery [place] vs. transplanted heart: [place] heart Associated angina: angina presence unspecified Qualified Code(s): I25.10 - Atherosclerotic heart disease of [place] coronary artery without angina pectoris Is this a current diagnosis for this admission?: Yes Plan: Currently stable. (6) Altered mental status Qualifiers: Altered mental status type: somnolence Qualified Code(s): R40.0 - Somnolence Plan: Secondary to her CVA. Status quo. (7) Anemia Plan: Deficient iron studies. S/P IV iron. Currently on erythropoietin. (8) Cerebrovascular accident Qualifiers: CVA mechanism: unspecified Qualified Code(s): I63.9 - Cerebral infarction, unspecified Plan: Status quo with residual deficits including aphasia. (9) Diabetes Is this a current diagnosis for this admission?: Yes (11) Atrial fibrillation Qualifiers: Atrial fibrillation type: chronic Qualified Code(s): I48.2 - Chronic atrial fibrillation Is this a current diagnosis for this admission?: Yes
--- NOTE | 2018-03-22 16:59 | PDOC PROGRESS REPORT ---
Subjective Progress Note for:: 03/22/18 Subjective:: The patient is a 63-year-old female with past medical history of CVA 3 (most recent 3 weeks ago) CHF, CAD, [place] s/p stent, hyperlipidemia, hypertension, atrial fibrillation, insulin-dependent diabetes mellitus, renal cancer now CKD 4 with AV fistula (not yet on dialysis), GERD, vascular dementia, depression who was admitted 03/17/18 to the orthopedic service. She is now status post irrigation debridement of right hip hemiarthroplasty by Dr. Gauthier. The hospitalist team was consulted for preop clearance and subsequently signed off. We were re-consulted due to the patient remaining admitted for medical management of her chronic conditions. Patient seen this morning on rounds. She is resting comfortably in bed on room air. She opens her eyes to tactile stimulation, she will intermittently follow commands (to her ability). The patient is non-verbal. PERRLA. Lungs are clear to auscultation. S1S2. No peripheral edema, palpable pulses in all extremities. Patient evaluated by registered nurse surgical services yesterday who recommends enteral feeding if patient is unable to get nutrition independently. Talked to healthcare proxy, Senthil Byrd (son), today and he adamantly REFUSES any type of feeding tube (PEG or NG). Mr. Byrd states that the patient is "guaranteed 100 days of rehab" and would like to see what kind of progress she makes before committing to enteral feeding. Mr. Byrd was made aware that the patient may not receive the adequate nutrition and hydration she needs due to the fact that she depends on other people to feed her. The son states understanding, stating that the staff at the acute rehab have been able to adequately feed her thus far. Reason For Visit: RIGHT HIP HEMATOMA Physical Exam Vital Signs: Temp Pulse Resp BP Pulse Ox 98.7 F 72 18 151/67 H 99 03/22/18 08:11 03/22/18 08:11 03/22/18 08:11 03/22/18 08:11 03/22/18 08:11 Intake & Output 03/21/18 03/22/18 03/23/18 06:59 06:59 06:59 Intake Total 4143 2520 1000 Output Total 3275 875 Balance 868 1645 1000 Weight 89.4 kg 88.9 kg General appearance: PRESENT: no acute distress, well-developed, well-nourished Head exam: PRESENT: atraumatic Eye exam: PRESENT: conjunctiva pink, PERRLA Mouth exam: PRESENT: moist, tongue midline Teeth exam: PRESENT: poor dentation Neck exam: PRESENT: full ROM Respiratory exam: PRESENT: clear to auscultation tila, symmetrical, unlabored Cardiovascular exam: PRESENT: +S1, +S2 Pulses: PRESENT: normal radial pulses, normal dorsalis pedis pul Vascular exam: PRESENT: normal capillary refill GI/Abdominal exam: PRESENT: normal bowel sounds, soft. ABSENT: tenderness Rectal exam: PRESENT: deferred Extremities exam: ABSENT: full ROM, joint swelling, pedal edema Musculoskeletal exam: PRESENT: ambulatory - with assistance. ABSENT: full ROM Neurological exam: PRESENT: alert, awake. ABSENT: oriented to person, oriented to place, oriented to time, oriented to situation, normal gait Skin exam: PRESENT: dry, intact, normal color, warm Results Laboratory Results: 03/22/18 04:05 03/22/18 04:05 03/22/18 03/22/18 04:05 04:05 WBC 6.5 RBC 3.10 L Hgb 8.2 L Hct 25.6 L MCV 83 MCH 26.6 L MCHC 32.3 RDW 16.3 H Plt Count 280 Sodium 136.3 L Potassium 4.2 Chloride 108 H Carbon Dioxide 22 Anion Gap 6 BUN 39 H Creatinine 3.56 H Est GFR ( Amer) 16 L Est GFR (Non-Af Amer) 13 L Glucose 126 H Calcium 7.9 L 03/18/18 08:20 Hip - Right Gram Stain - Final 03/18/18 08:20 Hip - Right Wound Culture - Final Acinetobacter Baumannii/Haem Stenotrophomonas Maltophilia No Anaerobic Organisms 03/18/18 08:20 Hip - Right Gram Stain - Final 03/18/18 08:20 Hip - Right Wound Culture - Final Acinetobacter Baumannii/Haem Stenotrophomonas Maltophilia Enterococcus Faecalis(Group D) No Anaerobic Organisms 03/18/18 08:20 Hip - Right Gram Stain - Final 03/18/18 08:20 Hip - Right Wound Culture - Final Acinetobacter Baumannii/Haem Enterococcus Faecalis(Group D) Prevotella Species Impressions: Chest X-Ray 03/19/18 00:00 IMPRESSION: 1. Appropriate PICC line. 2. Left lower lobe pneumonia, as before. Status: Imported from PACS Assessment & Plan - Diagnosis (1) Postoperative wound infection of right hip Is this a current diagnosis for this admission?: Yes Plan: The patient was admitted for hematoma to right hip hemiarthroplasty. Original hemiarthroplasty done 02/20/[address] Gauthier. Now postop irrigation and debridement of surgical site. Orthopedic team is primary; hospitalist service is consulted for management of chronic medical conditions. Wound cultures demonstrating 2 strains of gram-negative rods and gram-positive cocci. Wound care and antibiotics per the orthopedic team; currently on IV vancomycin and IV ceftriaxone. (2) Atrial fibrillation Qualifiers: Atrial fibrillation type: chronic Qualified Code(s): I48.2 - Chronic atrial fibrillation Is this a current diagnosis for this admission?: Yes Plan: Currently rate controlled on carvedilol. Receiving daily aspirin therapy. Eliquis was previously discontinued secondary to development of surgical site hematoma; cardiology recommended (at time of preoperative clearance) to resume Eliquis therapy as soon as feasible from the surgical standpoint. (3) Chronic kidney disease, stage IV (severe) Is this a current diagnosis for this admission?: Yes Plan: Dr. Bullard has been consulted; he is currently managing her acute kidney injury in the setting of chronic kidney disease. From his notations, it appears that a García catheter is to be inserted to monitor I&O's. Concern about adequate p.o. intake, strict I&O's and daily weights which should hopefully help him assess her fluid intake. Remaining plan per his expertise. (4) Chronic systolic (congestive) heart failure Is this a current diagnosis for this admission?: Yes Plan: Patient appears to be without CHF exacerbation; somewhat volume depleted. Lung sounds are clear. Last proBNP was obtain in July 2015 (3490). Echocardiogram has been obtained; Echocardiogram from February 2018 revealed LVEF >60% with mild diastolic dysfunction, moderate mitral regurgitation. Furosemide is on hold per nephrology secondary to volume depletion and poor p.o. intake. Continue her home dose carvedilol, hydralazine, isosorbide, atorvastatin and aspirin. Cardiac diet. Strict I's and O's with daily weights. (5) Coronary artery disease Qualifiers: Coronary Disease-Associated Artery/Lesion type: [place] artery [place] vs. transplanted heart: [place] heart Associated angina: angina presence unspecified Qualified Code(s): I25.10 - Atherosclerotic heart disease of [place] coronary artery without angina pectoris Is this a current diagnosis for this admission?: Yes Plan: Multiple MIs with stenting in the past. Chest pain-free currently. Plan as above. (6) Diabetes Is this a current diagnosis for this admission?: Yes Plan: She is placed on a consistent carb diet. Accu-Cheks before meals and at bedtime with Humalog for sliding scale coverage. Hypoglycemia protocols are in place. Registered dietitian is consulted. (7) CVA (cerebral vascular accident) Qualifiers: Precerebral and cerebral artery: posterior cerebral artery Laterality of affected vessel: left Is this a current diagnosis for this admission?: No Plan: Subacute nonhemorrhagic left posterior cerebral artery distribution infarct. In the setting of vascular dementia. Recent CVA has resulted and right side hemiparalysis and expressive aphasia. PT/OT to evaluate and treat per protocols orthopedics direction. Continue aspirin and statin therapy. Resume Eliquis when appropriate from surgical standpoint. (8) At risk for malnutrition Is this a current diagnosis for this admission?: Yes Plan: Patient with multiple dietary restrictions; cardiac, prerenal, diabetic diet recommended. She now has a subacute CVA resulting in right-sided/dominant flaccid paralysis and expressive aphasia. She requires assistance with all meals. Aspiration precautions. The registered dietitian and speech therapist are recommend enteral feeding. Have asked nursing to begin strict I&O's and keep a 24 hour calorie count. Healthcare proxy, son, refused feeding tube. States he wants the patient to receive "the full 100 days" of rehab before making a decision about a feeding tube. We will monitor daily chemistries and correct as necessary. - Time Time Spent with patient: 15-24 minutes Medications reviewed and adjusted accordingly: Yes Anticipated discharge: SNF Within: within 48 hours - Inpatient Certification Based on my medical assessment, after consideration of the patient's comorbidities, presenting symptoms, or acuity I expect that the services needed warrant INPATIENT care.: Yes I certify that my determination is in accordance with my understanding of Medicare's requirements for reasonable and necessary INPATIENT services [42 CFR 412.3e].: Yes Medical Necessity: Need for IV Antibiotics, Risk of Complication if Not Cared For in Hospital - Plan Summary Plan Summary: WAITING FOR C&S ON WOUND CULTURES. CONTINUE IV ABX. NO FEEDING TUBE PER FAMILY.
[2018-03-22] MEDS: ATORVASTATIN CALCIUM 80 MG TABLET PO SCH (22:09)
[2018-03-23] MEDS ORDERED: NORMAL SALINE 10 ML SDV (AFTER EACH USE) IV PRN (01:26)
[2018-03-23 09:21] LABS: MEAN CORPUSCULAR HEMOGLOBIN 27.1 pg (27.0-33.4); MEAN CORPUSCULAR HGB CONC 32.8 g/dL (32.0-36.0); MEAN CORPUSCULAR VOLUME 83 fl (80-97); PLATELET COUNT 260 10^3/uL (150-450); RED CELL DISTRIBUTION WIDTH 16.4 % (11.5-14.0); WHITE BLOOD COUNT 7.1 10^3/uL (4.0-10.5)
[2018-03-23 09:30] LABS: ANION GAP 6 (5-19); BLOOD UREA NITROGEN 40 mg/dL (7-20); CALCIUM 7.7 mg/dL (8.4-10.2); CARBON DIOXIDE 20 mmol/L (22-30); CHLORIDE 108 mmol/L (98-107); GLUCOSE 118 mg/dL (75-110); POTASSIUM 4.3 mmol/L (3.6-5.0); SODIUM 134.2 mmol/L (137-145)
[2018-03-23] MEDS: HYDRALAZINE HCL 50 MG TABLET PO SCH ×3 (09:31→22:02)
[2018-03-23] MEDS: LANSOPRAZOLE 30 MG TAB.RAP.DR PO SCH (09:32)
[2018-03-23] MEDS: AMPICILLIN SODIUM/SULBACTAM NA 1.5 GM in NORMAL SALINE 50 ML IV SCH ×2 (09:51→21:59)
[2018-03-23] MEDS: ISOSORBIDE MONONITRATE 30 MG TAB.ER.24H PO SCH (09:56)
[2018-03-23] MEDS: CALCIUM CARBONATE 250 MG/VITAMIN D3 125 UNIT TABLET PO SCH ×2 (09:56→17:20)
[2018-03-23] MEDS: DULOXETINE HCL 30 MG CAPSULE.DR PO SCH (09:56)
[2018-03-23] MEDS: DOCUSATE SODIUM 100 MG CAPSULE PO SCH ×2 (09:56→17:20)
[2018-03-23] MEDS: CARVEDILOL 12.5 MG TABLET PO SCH ×2 (09:58→22:03)
[2018-03-23] MEDS: ASPIRIN 81 MG TABLET, CHEWABLE PO SCH (09:58)
[2018-03-23] MEDS: NORMAL SALINE 10 ML SDV (SCHEDULED) IV SCH ×2 (09:58→22:04)
[2018-03-23] MEDS ORDERED: ALTEPLASE INJ 2 MG VIAL (CATH CLEARANCE) INJ PRN ×2 (10:20→10:30)
[2018-03-23 10:23] LABS: HEMOGLOBIN 7.9 g/dL (12.0-15.5)
--- NOTE | 2018-03-23 16:36 | PDOC PROGRESS REPORT ---
Subjective Progress Note for:: 03/23/18 Subjective:: Patient was found sleeping in her bed at the time of examination. She was arrousable by shaking her shoulder. She is able to still answer questions in yes or no answers. she denied chest pain, SOB, n/v/d/c. She also denies s/s of uremia Reason For Visit: RIGHT HIP HEMATOMA Physical Exam Vital Signs: Temp Pulse Resp BP Pulse Ox 98.5 F 80 16 145/55 H 98 03/23/18 15:23 03/23/18 15:23 03/23/18 15:23 03/23/18 15:23 03/23/18 15:23 Intake & Output 03/22/18 03/23/18 03/24/18 06:59 06:59 06:59 Intake Total 2520 3573 Output Total 875 1550 1225 Balance 1645 3 -1225 Weight 88.9 kg 89.1 kg General appearance: PRESENT: no acute distress, thin Mouth exam: PRESENT: moist, neck supple Neck exam: PRESENT: full ROM. ABSENT: JVD Respiratory exam: PRESENT: clear to auscultation tila. ABSENT: accessory muscle use, crackles, rales, rhonchi, wheezes Cardiovascular exam: PRESENT: +S1, +S2, systolic murmur GI/Abdominal exam: PRESENT: normal bowel sounds, soft. ABSENT: organomegaly, tenderness Extremities exam: PRESENT: pedal edema - -trace+. ABSENT: +1 edema, +2 edema Musculoskeletal exam: PRESENT: normal inspection. ABSENT: tenderness Neurological exam: ABSENT: alert, awake, oriented to person, oriented to place, oriented to time, oriented to situation Psychiatric exam: PRESENT: flat affect Skin exam: PRESENT: dry, intact, warm. ABSENT: cyanosis Results Laboratory Results: 03/23/18 04:18 03/23/18 04:18 03/23/18 03/23/18 04:18 04:18 WBC 7.1 RBC 2.90 L Hgb 7.9 L Hct 24.0 L MCV 83 MCH 27.1 MCHC 32.8 RDW 16.4 H Plt Count 260 Sodium 134.2 L Potassium 4.3 Chloride 108 H Carbon Dioxide 20 L Anion Gap 6 BUN 40 H Creatinine 3.52 H Est GFR ( Amer) 16 L Est GFR (Non-Af Amer) 13 L Glucose 118 H Calcium 7.7 L 09/01/18 08:20 Hip - Right Gram Stain - Final 03/18/18 08:20 Hip - Right Wound Culture - Final Acinetobacter Baumannii/Haem Stenotrophomonas Maltophilia No Anaerobic Organisms 03/18/18 08:20 Hip - Right Gram Stain - Final 03/18/18 08:20 Hip - Right Wound Culture - Final Acinetobacter Baumannii/Haem Stenotrophomonas Maltophilia Enterococcus Faecalis(Group D) No Anaerobic Organisms Impressions: Chest X-Ray 03/19/18 00:00 IMPRESSION: 1. Appropriate PICC line. 2. Left lower lobe pneumonia, as before. Assessment & Plan - Diagnosis (1) Chronic kidney disease, stage IV (severe) Is this a current diagnosis for this admission?: Yes Plan: At baseline, continue holding lasix. Will look to hold on fluids for a day to prevent fluid overload. Patient looks to have significantly increased her fluid intake. No indication for CHANGE CONTROL MANAGER. (2) Chronic systolic (congestive) heart failure Is this a current diagnosis for this admission?: Yes Plan: stable off lasix (3) Postoperative wound infection of right hip Is this a current diagnosis for this admission?: Yes Plan: currently on unasyn (4) Anemia Plan: currently receiving procrit, recent drop looks to be from dilution. Will hold on fluids for a day. (5) Type 2 diabetes mellitus Qualifiers: Diabetes mellitus mcfp insulin use: unspecified mcfp insulin use status Diabetes mellitus complication status: with unspecified complications Qualified Code(s): E11.8 - Type 2 diabetes mellitus with unspecified complications Is this a current diagnosis for this admission?: Yes
[2018-03-23] MEDS: ATORVASTATIN CALCIUM 80 MG TABLET PO SCH (22:02)
--- NOTE | 2018-03-23 22:09 | PDOC PROGRESS REPORT ---
Subjective Progress Note for:: 03/23/18 Subjective:: The patient is a 63-year-old female with past medical history of CVA 3 (most recent 3 weeks ago) CHF, CAD, [place] s/p stent, hyperlipidemia, hypertension, atrial fibrillation, insulin-dependent diabetes mellitus, renal cancer now CKD 4 with AV fistula (not yet on dialysis), GERD, vascular dementia, depression who was admitted 03/17/18 to the orthopedic service. She is now status post irrigation debridement of right hip hemiarthroplasty by Dr. Gauthier. The hospitalist team was consulted for preop clearance and subsequently signed off. We were re-consulted due to the patient remaining admitted for medical management of her chronic conditions. Patient seen this morning on rounds. She is resting comfortably in bed on room air. She opens her eyes to tactile stimulation, she will intermittently follow commands (to her ability). The patient is non-verbal. PERRLA. Lungs are clear to auscultation. S1S2. No peripheral edema, palpable pulses in all extremities. Hgb trended down to 7.9 this morning. No plans for transfusion at this time. Primary plan per Ortho. Reason For Visit: RIGHT HIP HEMATOMA Physical Exam Vital Signs: Temp Pulse Resp BP Pulse Ox 98.5 F 80 16 145/55 H 98 03/23/18 15:23 03/23/18 15:23 03/23/18 15:23 03/23/18 15:23 03/23/18 15:23 Intake & Output 03/22/18 03/23/18 03/24/18 06:59 06:59 06:59 Intake Total 2520 3573 240 Output Total 875 1550 1225 Balance 1645 2022 -985 Weight 88.9 kg 89.1 kg General appearance: PRESENT: no acute distress, well-nourished Head exam: PRESENT: atraumatic Eye exam: PRESENT: conjunctiva pink, PERRLA Mouth exam: PRESENT: moist, neck supple, tongue midline Neck exam: PRESENT: full ROM Respiratory exam: PRESENT: clear to auscultation tila, symmetrical, unlabored Cardiovascular exam: PRESENT: +S1, +S2 Pulses: PRESENT: normal radial pulses, normal dorsalis pedis pul Vascular exam: PRESENT: normal capillary refill GI/Abdominal exam: PRESENT: normal bowel sounds, soft. ABSENT: tenderness Rectal exam: PRESENT: deferred Extremities exam: ABSENT: full ROM, joint swelling, pedal edema Musculoskeletal exam: ABSENT: ambulatory, full ROM Neurological exam: PRESENT: alert, awake, other - NONVERBAL. ABSENT: oriented to person, oriented to place, oriented to time, oriented to situation Skin exam: PRESENT: dry, intact, normal color, warm Results Laboratory Results: 03/23/18 04:18 03/23/18 04:18 03/23/18 03/23/18 04:18 04:18 WBC 7.1 RBC 2.90 L Hgb 7.9 L Hct 24.0 L MCV 83 MCH 27.1 MCHC 32.8 RDW 16.4 H Plt Count 260 Sodium 134.2 L Potassium 4.3 Chloride 108 H Carbon Dioxide 20 L Anion Gap 6 BUN 40 H Creatinine 3.52 H Est GFR ( Amer) 16 L Est GFR (Non-Af Amer) 13 L Glucose 118 H Calcium 7.7 L 03/18/18 08:20 Hip - Right Gram Stain - Final 03/18/18 08:20 Hip - Right Wound Culture - Final Acinetobacter Baumannii/Haem Stenotrophomonas Maltophilia No Anaerobic Organisms 03/18/18 08:20 Hip - Right Gram Stain - Final 03/18/18 08:20 Hip - Right Wound Culture - Final Acinetobacter Baumannii/Haem Stenotrophomonas Maltophilia Enterococcus Faecalis(Group D) No Anaerobic Organisms Impressions: Chest X-Ray 03/19/18 00:00 IMPRESSION: 1. Appropriate PICC line. 2. Left lower lobe pneumonia, as before. Status: Imported from PACS Assessment & Plan - Diagnosis (1) Postoperative wound infection of right hip Is this a current diagnosis for this admission?: Yes Plan: The patient was admitted for hematoma to right hip hemiarthroplasty. Original hemiarthroplasty done 02/20/[address] Gauthier. Now postop irrigation and debridement of surgical site. Orthopedic team is primary; hospitalist service is consulted for management of chronic medical conditions. Wound cultures demonstrating acinetobacter, stenotrophomonas and enterococcus Wound care and antibiotics per the orthopedic team; currently on Unasyn IV but other antibiotics offer better susceptibility (ALEA). Will talk to other consulting services about antibiotic choice. (2) Atrial fibrillation Qualifiers: Atrial fibrillation type: chronic Qualified Code(s): I48.2 - Chronic atrial fibrillation Is this a current diagnosis for this admission?: Yes Plan: Currently rate controlled on carvedilol. Receiving daily aspirin therapy. Eliquis was previously discontinued secondary to development of surgical site hematoma; cardiology recommended (at time of preoperative clearance) to resume Eliquis therapy as soon as feasible from the surgical standpoint. (3) Chronic kidney disease, stage IV (severe) Is this a current diagnosis for this admission?: Yes Plan: Dr. Bullard has been consulted; he is currently managing her acute kidney injury in the setting of chronic kidney disease. From his notations, it appears that a García catheter is to be inserted to monitor I&O's. Concern about adequate p.o. intake, strict I&O's and daily weights which should hopefully help him assess her fluid intake. Remaining plan per his expertise. (4) Chronic systolic (congestive) heart failure Is this a current diagnosis for this admission?: Yes Plan: Patient appears to be without CHF exacerbation; somewhat volume depleted. Lung sounds are clear. Last proBNP was obtain in July 2015 (3490). Echocardiogram has been obtained; Echocardiogram from February 2018 revealed LVEF >60% with mild diastolic dysfunction, moderate mitral regurgitation. Furosemide is on hold per nephrology secondary to volume depletion and poor p.o. intake. Continue her home dose carvedilol, hydralazine, isosorbide, atorvastatin and aspirin. Cardiac diet. Strict I's and O's with daily weights. (5) Coronary artery disease Qualifiers: Coronary Disease-Associated Artery/Lesion type: [place] artery [place] vs. transplanted heart: [place] heart Associated angina: angina presence unspecified Qualified Code(s): I25.10 - Atherosclerotic heart disease of [place] coronary artery without angina pectoris Is this a current diagnosis for this admission?: Yes Plan: Multiple MIs with stenting in the past. Chest pain-free currently. Plan as above. (6) Diabetes Is this a current diagnosis for this admission?: Yes Plan: She is placed on a consistent carb diet. Accu-Cheks before meals and at bedtime with Humalog for sliding scale coverage. Hypoglycemia protocols are in place. Registered dietitian is consulted. (7) CVA (cerebral vascular accident) Qualifiers: Precerebral and cerebral artery: posterior cerebral artery Laterality of affected vessel: left Is this a current diagnosis for this admission?: No Plan: Subacute nonhemorrhagic left posterior cerebral artery distribution infarct. In the setting of vascular dementia. Recent CVA has resulted and right side hemiparalysis and expressive aphasia. PT/OT to evaluate and treat per protocols orthopedics direction. Continue aspirin and statin therapy. Resume Eliquis when appropriate from surgical standpoint. (8) At risk for malnutrition Is this a current diagnosis for this admission?: Yes Plan: Patient with multiple dietary restrictions; cardiac, prerenal, diabetic diet recommended. She now has a subacute CVA resulting in right-sided/dominant flaccid paralysis and expressive aphasia. She requires assistance with all meals. Aspiration precautions. The registered dietitian and speech therapist are recommend enteral feeding. Have asked nursing to begin strict I&O's and keep a 24 hour calorie count. Healthcare proxy, son, refused feeding tube. States he wants the patient to receive "the full 100 days" of rehab before making a decision about a feeding tube. We will monitor daily chemistries and correct as necessary. - Time Time Spent with patient: 15-24 minutes Medications reviewed and adjusted accordingly: Yes Anticipated discharge: SNF Within: within 48 hours - Inpatient Certification Based on my medical assessment, after consideration of the patient's comorbidities, presenting symptoms, or acuity I expect that the services needed warrant INPATIENT care.: Yes I certify that my determination is in accordance with my understanding of Medicare's requirements for reasonable and necessary INPATIENT services [42 CFR 412.3e].: Yes Medical Necessity: Need for IV Antibiotics, Risk of Complication if Not Cared For in Hospital
[2018-03-23] MEDS: INSULIN LISPRO 100 UNIT/ML 3 ML VIAL SUBCUT PRN (23:05)
[2018-03-24] MEDS: LANSOPRAZOLE 30 MG TAB.RAP.DR PO SCH (05:34)
[2018-03-24] MEDS: HYDRALAZINE HCL 50 MG TABLET PO SCH ×3 (05:34→21:18)
[2018-03-24 05:37] LABS: HEMATOCRIT 23.9 % (36.0-47.0); MEAN CORPUSCULAR HEMOGLOBIN 27.4 pg (27.0-33.4); MEAN CORPUSCULAR HGB CONC 32.7 g/dL (32.0-36.0); MEAN CORPUSCULAR VOLUME 84 fl (80-97); PLATELET COUNT 286 10^3/uL (150-450); RED BLOOD COUNT 2.85 10^6/uL (3.72-5.28); RED CELL DISTRIBUTION WIDTH 16.4 % (11.5-14.0); WHITE BLOOD COUNT 7.8 10^3/uL (4.0-10.5)
[2018-03-24 05:52] LABS: ANION GAP 7 (5-19); BLOOD UREA NITROGEN 42 mg/dL (7-20); CALCIUM 7.8 mg/dL (8.4-10.2); CARBON DIOXIDE 21 mmol/L (22-30); CHLORIDE 108 mmol/L (98-107); GLUCOSE 203 mg/dL (75-110); POTASSIUM 4.2 mmol/L (3.6-5.0)
[2018-03-24 06:05] LABS: HEMOGLOBIN 7.8 g/dL (12.0-15.5)
--- NOTE | 2018-03-24 06:35 | PDOC PROGRESS REPORT ---
Subjective Progress Note for:: 03/24/18 Reason For Visit: RIGHT HIP HEMATOMA 63-year-old black female status post I&D of a right proximal femoral hemiarthroplasty with a polymicrobial culture Physical Exam Vital Signs: Temp Pulse Resp BP Pulse Ox 36.8 C 66 17 152/89 H 98 03/23/18 23:29 03/23/18 23:29 03/23/18 23:29 03/23/18 23:29 03/23/18 23:29 Intake & Output 03/22/18 03/23/18 03/24/18 06:59 06:59 06:59 Intake Total 2520 3573 904 Output Total 875 1550 2225 Balance 1645 2022 -1321 Weight 88.9 kg 89.1 kg 88.4 kg General appearance: PRESENT: no acute distress Extremities exam: PRESENT: other - Right hip dressing with considerably less drainage this morning. Results Laboratory Results: 03/24/18 04:25 03/24/18 04:25 03/23/18 03/23/18 03/24/18 04:18 04:18 04:25 WBC 7.1 7.8 RBC 2.90 L 2.85 L Hgb 7.9 L 7.8 L Hct 24.0 L 23.9 L MCV 83 84 MCH 27.1 27.4 MCHC 32.8 32.7 RDW 16.4 H 16.4 H Plt Count 260 286 Sodium 134.2 L Potassium 4.3 Chloride 108 H Carbon Dioxide 20 L Anion Gap 6 BUN 40 H Creatinine 3.52 H Est GFR ( Amer) 16 L Est GFR (Non-Af Amer) 13 L Glucose 118 H Calcium 7.7 L 03/24/18 04:25 WBC RBC Hgb Hct MCV MCH MCHC RDW Plt Count Sodium 136.0 L Potassium 4.2 Chloride 108 H Carbon Dioxide 21 L Anion Gap 7 BUN 42 H Creatinine 3.44 H Est GFR ( Amer) 16 L Est GFR (Non-Af Amer) 13 L Glucose 203 H Calcium 7.8 L Impressions: Chest X-Ray 03/19/18 00:00 IMPRESSION: 1. Appropriate PICC line. 2. Left lower lobe pneumonia, as before. Status: Imported from PACS Assessment & Plan - Diagnosis (1) Postoperative wound infection of right hip Is this a current diagnosis for this admission?: Yes Plan: Continue dry dressing changes, IV antibiotics, and mobilization with physical therapy and weightbearing as tolerated basis. (2) Acute blood loss anemia Is this a current diagnosis for this admission?: Yes Plan: Current hematocrit is 23.9% and seems stable. - Time Time Spent with patient: 15-24 minutes Anticipated discharge: Other Within: Other
[2018-03-24] MEDS: CARVEDILOL 12.5 MG TABLET PO SCH ×2 (09:25→21:18)
[2018-03-24] MEDS: DOCUSATE SODIUM 100 MG CAPSULE PO SCH ×2 (09:25→17:37)
[2018-03-24] MEDS: DULOXETINE HCL 30 MG CAPSULE.DR PO SCH (09:26)
[2018-03-24] MEDS: ASPIRIN 81 MG TABLET, CHEWABLE PO SCH (09:26)
[2018-03-24] MEDS: CALCIUM CARBONATE 250 MG/VITAMIN D3 125 UNIT TABLET PO SCH ×2 (09:26→17:37)
[2018-03-24] MEDS: ISOSORBIDE MONONITRATE 30 MG TAB.ER.24H PO SCH (09:26)
[2018-03-24] MEDS: NORMAL SALINE 10 ML SDV (SCHEDULED) IV SCH ×2 (09:35→21:19)
[2018-03-24] MEDS: INSULIN LISPRO 100 UNIT/ML 3 ML VIAL SUBCUT PRN ×3 (09:36→22:40)
[2018-03-24] MEDS: AMPICILLIN SODIUM/SULBACTAM NA 1.5 GM in NORMAL SALINE 50 ML IV SCH ×2 (09:47→21:19)
--- NOTE | 2018-03-24 16:06 | PDOC PROGRESS REPORT ---
Subjective Progress Note for:: 03/24/18 Reason For Visit: Patient seen in the hospital today. She looks stable. She is still aphasic and has difficulty to answer questions appropriately. Labs and medications were reviewed. Discussions were done with the treating nurse. Physical Exam Vital Signs: Temp Pulse Resp BP Pulse Ox 98.7 F 77 17 140/69 H 99 03/24/18 15:23 03/24/18 15:23 03/24/18 15:23 03/24/18 15:23 03/24/18 15:23 Intake & Output 03/23/18 03/24/18 03/25/18 06:59 06:59 06:59 Intake Total 3573 904 50 Output Total 1550 2225 Balance 2022 -1320 50 Weight 89.1 kg 88.4 kg General appearance: PRESENT: no acute distress Respiratory exam: PRESENT: clear to auscultation tila. ABSENT: crackles Cardiovascular exam: PRESENT: +S1, +S2, systolic murmur GI/Abdominal exam: PRESENT: normal bowel sounds, soft. ABSENT: organomegaly, tenderness Extremities exam: ABSENT: pedal edema Neurological exam: PRESENT: altered Results Laboratory Results: 03/24/18 04:25 03/24/18 04:25 03/24/18 03/24/18 04:25 04:25 WBC 7.8 RBC 2.85 L Hgb 7.8 L Hct 23.9 L MCV 84 MCH 27.4 MCHC 32.7 RDW 16.4 H Plt Count 286 Sodium 136.0 L Potassium 4.2 Chloride 108 H Carbon Dioxide 21 L Anion Gap 7 BUN 42 H Creatinine 3.44 H Est GFR ( Amer) 16 L Est GFR (Non-Af Amer) 13 L Glucose 203 H Calcium 7.8 L Impressions: Chest X-Ray 03/19/18 00:00 IMPRESSION: 1. Appropriate PICC line. 2. Left lower lobe pneumonia, as before. Assessment & Plan - Diagnosis (1) Hematoma of right hip Qualifiers: Encounter type: subsequent encounter Qualified Code(s): S70.01XD - Contusion of right hip, subsequent encounter Is this a current diagnosis for this admission?: Yes Plan: Status post evacuation along with prosthetic exchange. Has polymicrobial infection and hospitalist had discussions to revise antibiotics. (2) LOGAN (acute kidney injury) Plan: Nonoliguric. S/P García catheter. Good urine output. Renal numbers are stable. No acute indications for renal replacements. (3) Chronic kidney disease, stage IV (severe) Is this a current diagnosis for this admission?: Yes Plan: In the background of hypertensive nephrosclerosis with acute insult currently. Monitor. (4) Chronic systolic (congestive) heart failure Is this a current diagnosis for this admission?: Yes Plan: Presently compensated. (5) Altered mental status Qualifiers: Altered mental status type: somnolence Qualified Code(s): R40.0 - Somnolence Plan: Secondary to her CVA. Status quo. (6) Anemia Plan: Deficient iron studies. S/P IV iron. Currently on erythropoietin. (7) Cerebrovascular accident Qualifiers: CVA mechanism: unspecified Qualified Code(s): I63.9 - Cerebral infarction, unspecified Plan: Status quo with residual deficits including aphasia. (8) Diabetes Is this a current diagnosis for this admission?: Yes Plan: Status quo (9) Solitary kidney, acquired Plan: Status quo (10) Atrial fibrillation Qualifiers: Atrial fibrillation type: chronic Qualified Code(s): I48.2 - Chronic atrial fibrillation Is this a current diagnosis for this admission?: Yes Plan: As per hospitalist
[2018-03-24] MEDS: SENNOSIDES/DOCUSATE 8.6-50 MG 1 EACH TABLET PO SCH (17:37)
[2018-03-24] MEDS: ATORVASTATIN CALCIUM 80 MG TABLET PO SCH (21:18)
[2018-03-24] MEDS: CEFEPIME 1 GM/D5W RTU 1 GM/50 ML RTUPB IV SCH (21:19)
--- NOTE | 2018-03-24 21:56 | PDOC PROGRESS REPORT ---
Subjective Progress Note for:: 03/24/18 Subjective:: The patient is a 63-year-old female with past medical history of CVA 3 (most recent 3 weeks ago) CHF, CAD, [place] s/p stent, hyperlipidemia, hypertension, atrial fibrillation, insulin-dependent diabetes mellitus, renal cancer now CKD 4 with AV fistula (not yet on dialysis), GERD, vascular dementia, depression who was admitted 03/17/18 to the orthopedic service. She is now status post irrigation debridement of right hip hemiarthroplasty by Dr. Gauthier. The hospitalist team was consulted for preop clearance and subsequently signed off. We were re-consulted due to the patient remaining admitted for medical management of her chronic conditions. Patient seen this morning on rounds. She opens her eyes to tactile stimulation, she will intermittently follow commands (to her ability). The patient is non- verbal. PERRLA. Lungs are clear to auscultation. S1S2. No peripheral edema, palpable pulses in all extremities. Cultures and sensitivities from wound culture are complete. R hip hematoma growing acinetobacter, stenotropomonas, and enterococcus. Discussed findings with Dr. Bullard and need for greater antibiotic coverage. Agree to continue Unasyn and add Cefepime. Primary plan per Ortho. Reason For Visit: RIGHT HIP HEMATOMA Physical Exam Vital Signs: Temp Pulse Resp BP Pulse Ox 98.6 F 73 17 143/65 H 99 03/24/18 19:21 03/24/18 19:21 03/24/18 19:21 03/24/18 19:21 03/24/18 19:21 Intake & Output 03/23/18 03/24/18 03/25/18 06:59 06:59 06:59 Intake Total 3573 904 671 Output Total 1550 2225 700 Balance 2022 Weight 89.1 kg 88.4 kg Results Laboratory Results: 03/24/18 04:25 03/24/18 04:25 03/24/18 03/24/18 04:25 04:25 WBC 7.8 RBC 2.85 L Hgb 7.8 L Hct 23.9 L MCV 84 MCH 27.4 MCHC 32.7 RDW 16.4 H Plt Count 286 Sodium 136.0 L Potassium 4.2 Chloride 108 H Carbon Dioxide 21 L Anion Gap 7 BUN 42 H Creatinine 3.44 H Est GFR ( Amer) 16 L Est GFR (Non-Af Amer) 13 L Glucose 203 H Calcium 7.8 L Impressions: Chest X-Ray 03/19/18 00:00 IMPRESSION: 1. Appropriate PICC line. 2. Left lower lobe pneumonia, as before. Assessment & Plan - Diagnosis (1) Postoperative wound infection of right hip Is this a current diagnosis for this admission?: Yes Plan: The patient was admitted for hematoma to right hip hemiarthroplasty. Original hemiarthroplasty done 02/20/[address] Gauthier. Now postop irrigation and debridement of surgical site. Orthopedic team is primary; hospitalist service is consulted for management of chronic medical conditions. Wound cultures demonstrating acinetobacter, stenotrophomonas and enterococcus Wound care per the orthopedic team; currently on Unasyn IV but patient will require 2nd ABX given the nature of her infection. Talked to Dr. Bullard earlier today, agreed to start 1G Cefepime IV q12. (2) Atrial fibrillation Qualifiers: Atrial fibrillation type: chronic Qualified Code(s): I48.2 - Chronic atrial fibrillation Is this a current diagnosis for this admission?: Yes Plan: Currently rate controlled on carvedilol. Receiving daily aspirin therapy. Eliquis was previously discontinued secondary to development of surgical site hematoma; cardiology recommended (at time of preoperative clearance) to resume Eliquis therapy as soon as feasible from the surgical standpoint. (3) Chronic kidney disease, stage IV (severe) Is this a current diagnosis for this admission?: Yes Plan: Dr. Bullard has been consulted; he is currently managing her acute kidney injury in the setting of chronic kidney disease. From his notations, it appears that a García catheter is to be inserted to monitor I&O's. Concern about adequate p.o. intake, strict I&O's and daily weights which should hopefully help him assess her fluid intake. Remaining plan per his expertise. (4) Chronic systolic (congestive) heart failure Is this a current diagnosis for this admission?: Yes Plan: Patient appears to be without CHF exacerbation; somewhat volume depleted. Lung sounds are clear. Last proBNP was obtain in July 2015 (3490). Echocardiogram from February 2018 revealed LVEF >60% with mild diastolic dysfunction, moderate mitral regurgitation. Furosemide is on hold per nephrology secondary to volume depletion and poor p.o. intake. Continue her home dose carvedilol, hydralazine, isosorbide, atorvastatin and aspirin. Cardiac diet. Strict I's and O's with daily weights. (5) Coronary artery disease Qualifiers: Coronary Disease-Associated Artery/Lesion type: [place] artery [place] vs. transplanted heart: [place] heart Associated angina: angina presence unspecified Qualified Code(s): I25.10 - Atherosclerotic heart disease of [place] coronary artery without angina pectoris Is this a current diagnosis for this admission?: Yes Plan: Multiple MIs with stenting in the past. Chest pain-free currently. Plan as above. (6) Diabetes Is this a current diagnosis for this admission?: Yes Plan: She is placed on a consistent carb diet. Accu-Cheks before meals and at bedtime with Humalog for sliding scale coverage. Hypoglycemia protocols are in place. Registered dietitian is consulted. (7) CVA (cerebral vascular accident) Qualifiers: Precerebral and cerebral artery: posterior cerebral artery Laterality of affected vessel: left Is this a current diagnosis for this admission?: No Plan: Subacute nonhemorrhagic left posterior cerebral artery distribution infarct. In the setting of vascular dementia. Recent CVA has resulted and right side hemiparalysis and expressive aphasia. PT/OT to evaluate and treat per protocols orthopedics direction. Continue aspirin and statin therapy. Resume Eliquis when appropriate from surgical standpoint. (8) At risk for malnutrition Is this a current diagnosis for this admission?: Yes Plan: Patient with multiple dietary restrictions; cardiac, prerenal, diabetic diet recommended. She now has a subacute CVA resulting in right-sided/dominant flaccid paralysis and expressive aphasia. She requires assistance with all meals. Aspiration precautions. The registered dietitian and speech therapist are recommend enteral feeding. Have asked nursing to begin strict I&O's and keep a 24 hour calorie count. Healthcare proxy, son, refused feeding tube. States he wants the patient to receive "the full 100 days" of rehab before making a decision about a feeding tube. We will monitor daily chemistries and correct as necessary. (9) Constipation Qualifiers: Constipation type: slow transit constipation Qualified Code(s): K59.01 - Slow transit constipation Is this a current diagnosis for this admission?: Yes Plan: Nursing staff reports the patient has not had a BM in 3 days Currently only on Docusate Initiate senna and milk of magnesia - Time Time Spent with patient: 15-24 minutes Medications reviewed and adjusted accordingly: Yes Anticipated discharge: SNF - Inpatient Certification Based on my medical assessment, after consideration of the patient's comorbidities, presenting symptoms, or acuity I expect that the services needed warrant INPATIENT care.: Yes I certify that my determination is in accordance with my understanding of Medicare's requirements for reasonable and necessary INPATIENT services [42 CFR 412.3e].: Yes Medical Necessity: Need for IV Antibiotics, Risk of Complication if Not Cared For in Hospital
[2018-03-25] MEDS: LANSOPRAZOLE 30 MG TAB.RAP.DR PO SCH (06:32)
[2018-03-25] MEDS: HYDRALAZINE HCL 50 MG TABLET PO SCH ×3 (06:32→21:33)
[2018-03-25 07:24] LABS: MEAN CORPUSCULAR HEMOGLOBIN 27.5 pg (27.0-33.4); MEAN CORPUSCULAR HGB CONC 32.4 g/dL (32.0-36.0); MEAN CORPUSCULAR VOLUME 85 fl (80-97); PLATELET COUNT 273 10^3/uL (150-450); RED BLOOD COUNT 2.83 10^6/uL (3.72-5.28); RED CELL DISTRIBUTION WIDTH 16.8 % (11.5-14.0); WHITE BLOOD COUNT 7.4 10^3/uL (4.0-10.5)
[2018-03-25 07:27] LABS: HEMOGLOBIN 7.8 g/dL (12.0-15.5)
[2018-03-25 07:32] LABS: ANION GAP 6 (5-19); BLOOD UREA NITROGEN 45 mg/dL (7-20); CALCIUM 8.2 mg/dL (8.4-10.2); CARBON DIOXIDE 23 mmol/L (22-30); CHLORIDE 108 mmol/L (98-107); GLUCOSE 136 mg/dL (75-110); POTASSIUM 4.3 mmol/L (3.6-5.0); SODIUM 136.7 mmol/L (137-145)
--- NOTE | 2018-03-25 08:18 | PDOC PROGRESS REPORT ---
Subjective Progress Note for:: 03/25/18 Reason For Visit: RIGHT HIP HEMATOMA 63-year-old black female with postop infection following right hemiarthroplasty for femoral neck fracture Physical Exam Vital Signs: Temp Pulse Resp BP Pulse Ox 37.3 C 82 17 133/57 H 99 03/25/18 07:27 03/25/18 07:27 03/25/18 07:27 03/25/18 07:27 03/25/18 07:27 Intake & Output 03/24/18 03/25/18 03/26/18 06:59 06:59 06:59 Intake Total 904 1245 Output Total 2225 1325 Balance -1321 -80 Weight 88.4 kg 95.1 kg General appearance: PRESENT: no acute distress Extremities exam: PRESENT: other - Right hip dressing is clean and dry currently. Is been change this morning. Due to previous dressing changes within the last 24 hours. Leg lengths are equal. Results Laboratory Results: 03/25/18 06:35 03/25/18 06:35 03/25/18 03/25/18 06:35 06:35 WBC 7.4 RBC 2.83 L Hgb 7.8 L Hct 24.0 L MCV 85 MCH 27.5 MCHC 32.4 RDW 16.8 H Plt Count 273 Sodium 136.7 L Potassium 4.3 Chloride 108 H Carbon Dioxide 23 Anion Gap 6 BUN 45 H Creatinine 3.70 H Est GFR ( Amer) 15 L Est GFR (Non-Af Amer) 12 L Glucose 136 H Calcium 8.2 L Impressions: Chest X-Ray 03/19/18 00:00 IMPRESSION: 1. Appropriate PICC line. 2. Left lower lobe pneumonia, as before. Status: Imported from PACS Assessment & Plan - Diagnosis (1) Postoperative wound infection of right hip Is this a current diagnosis for this admission?: Yes Plan: Antibiotic coverage has been broadened. (2) Acute blood loss anemia Is this a current diagnosis for this admission?: Yes Plan: Hematocrit stable at 24%. - Time Time Spent with patient: 15-24 minutes Anticipated discharge: Other Within: Other
[2018-03-25] MEDS: DULOXETINE HCL 30 MG CAPSULE.DR PO SCH (09:33)
[2018-03-25] MEDS: SENNOSIDES/DOCUSATE 8.6-50 MG 1 EACH TABLET PO SCH ×2 (09:33→17:02)
[2018-03-25] MEDS: ASPIRIN 81 MG TABLET, CHEWABLE PO SCH (09:34)
[2018-03-25] MEDS: ISOSORBIDE MONONITRATE 30 MG TAB.ER.24H PO SCH (09:34)
[2018-03-25] MEDS: MAGNESIUM HYDROXIDE SUSP 30 ML UDCUP PO SCH (09:34)
[2018-03-25] MEDS: CALCIUM CARBONATE 250 MG/VITAMIN D3 125 UNIT TABLET PO SCH ×2 (09:34→17:01)
[2018-03-25] MEDS: CARVEDILOL 12.5 MG TABLET PO SCH ×2 (09:34→21:33)
[2018-03-25] MEDS: DOCUSATE SODIUM 100 MG CAPSULE PO SCH ×2 (09:34→17:01)
[2018-03-25] MEDS: NORMAL SALINE 10 ML SDV (SCHEDULED) IV SCH ×2 (09:35→21:33)
[2018-03-25] MEDS: INSULIN LISPRO 100 UNIT/ML 3 ML VIAL SUBCUT PRN ×4 (09:52→21:46)
[2018-03-25] MEDS: AMPICILLIN SODIUM/SULBACTAM NA 1.5 GM in NORMAL SALINE 50 ML IV SCH ×2 (09:53→21:33)
[2018-03-25] MEDS: CEFEPIME 1 GM/D5W RTU 1 GM/50 ML RTUPB IV SCH ×2 (11:02→21:33)
[2018-03-25] MEDS ORDERED: LACTULOSE SYRUP 20 GM/30 ML UDCUP PO ONE (15:18)
--- NOTE | 2018-03-25 16:41 | RADIOLOGY REPORT (SQ) ---
EXAM DESCRIPTION: KUB/ABDOMEN (SINGLE VIEW) COMPLETED DATE/TIME: 03/25/2018 4:11 pm REASON FOR STUDY: eval for ileus and/or retained stool COMPARISON: None. NUMBER OF VIEWS: One view. TECHNIQUE: Supine radiographic image of the abdomen acquired. LIMITATIONS: None. FINDINGS: BOWEL GAS PATTERN: Abundant fecal material from the cecum to the rectum. No obstruction. CALCIFICATIONS: No suspicious calcifications. SOFT TISSUES: No gross mass or suggestion of organomegaly. HARDWARE: Multiple clips to right of midline. Right hip arthroplasty. García catheter. BONES: No bone lesions or fracture. OTHER: No other significant finding. IMPRESSION: Fecal retention. Reading location - IP/workstation name: [email or web address]
--- NOTE | 2018-03-25 21:04 | PDOC PROGRESS REPORT ---
Subjective Progress Note for:: 03/25/18 Subjective:: The patient is a 63-year-old female with past medical history of CVA 3 (most recent 3 weeks ago) CHF, CAD, [place] s/p stent, hyperlipidemia, hypertension, atrial fibrillation, insulin-dependent diabetes mellitus, renal cancer now CKD 4 with AV fistula (not yet on dialysis), GERD, vascular dementia, depression who was admitted 03/17/18 to the orthopedic service. She is now status post irrigation debridement of right hip hemiarthroplasty by Dr. Gauthier. The hospitalist team was consulted for preop clearance and subsequently signed off. We were re-consulted due to the patient remaining admitted for medical management of her chronic conditions. Patient seen this morning on rounds. She opens her eyes to tactile stimulation, she will intermittently follow commands (to her ability). The patient is non- verbal. PERRLA. Lungs are clear to auscultation. S1S2. No peripheral edema, palpable pulses in all extremities. Primary plan per Ortho. Reason For Visit: RIGHT HIP HEMATOMA Physical Exam Vital Signs: Temp Pulse Resp BP Pulse Ox 98.8 F 76 16 133/48 H 99 03/25/18 19:34 03/25/18 19:34 03/25/18 19:34 03/25/18 19:34 03/25/18 19:34 Intake & Output 03/24/18 03/25/18 03/26/18 06:59 06:59 06:59 Intake Total 904 1245 692 Output Total 2225 1325 1000 Balance -1321 -80 -308 Weight 88.4 kg 95.1 kg General appearance: PRESENT: no acute distress Eye exam: PRESENT: conjunctiva pink, PERRLA Mouth exam: PRESENT: moist Teeth exam: PRESENT: poor dentation Respiratory exam: PRESENT: symmetrical, unlabored Cardiovascular exam: PRESENT: +S1, +S2 Pulses: PRESENT: normal radial pulses, normal dorsalis pedis pul Vascular exam: PRESENT: normal capillary refill GI/Abdominal exam: PRESENT: normal bowel sounds, soft, tenderness Rectal exam: PRESENT: deferred Extremities exam: PRESENT: pedal edema. ABSENT: full ROM Musculoskeletal exam: ABSENT: ambulatory, full ROM Neurological exam: PRESENT: awake, other - nonverbal Skin exam: PRESENT: dry, intact, normal color Results Laboratory Results: 03/25/18 06:35 03/25/18 06:35 03/25/18 03/25/18 06:35 06:35 WBC 7.4 RBC 2.83 L Hgb 7.8 L Hct 24.0 L MCV 85 MCH 27.5 MCHC 32.4 RDW 16.8 H Plt Count 273 Sodium 136.7 L Potassium 4.3 Chloride 108 H Carbon Dioxide 23 Anion Gap 6 BUN 45 H Creatinine 3.70 H Est GFR ( Amer) 15 L Est GFR (Non-Af Amer) 12 L Glucose 136 H Calcium 8.2 L Impressions: Chest X-Ray 03/19/18 00:00 IMPRESSION: 1. Appropriate PICC line. 2. Left lower lobe pneumonia, as before. KUB X-Ray 03/25/18 00:00 IMPRESSION: Fecal retention. Status: Imported from PACS Assessment & Plan - Diagnosis (1) Postoperative wound infection of right hip Is this a current diagnosis for this admission?: Yes Plan: The patient was admitted for hematoma to right hip hemiarthroplasty. Original hemiarthroplasty done 02/20/[address] Gauthier. Now postop irrigation and debridement of surgical site. Orthopedic team is primary; hospitalist service is consulted for management of chronic medical conditions. Wound cultures demonstrating acinetobacter, stenotrophomonas and enterococcus Continue Unasyn and Cefepime Wound care per the orthopedic team (2) Atrial fibrillation Qualifiers: Atrial fibrillation type: chronic Qualified Code(s): I48.2 - Chronic atrial fibrillation Is this a current diagnosis for this admission?: Yes Plan: Currently rate controlled on carvedilol. Receiving daily aspirin therapy. Eliquis was previously discontinued secondary to development of surgical site hematoma; cardiology recommended (at time of preoperative clearance) to resume Eliquis therapy as soon as feasible from the surgical standpoint. (3) Chronic kidney disease, stage IV (severe) Is this a current diagnosis for this admission?: Yes Plan: Dr. Bullard has been consulted; he is currently managing her acute kidney injury in the setting of chronic kidney disease. From his notations, it appears that a García catheter is to be inserted to monitor I&O's. Concern about adequate p.o. intake, strict I&O's and daily weights which should hopefully help him assess her fluid intake. Remaining plan per his expertise. (4) Chronic systolic (congestive) heart failure Is this a current diagnosis for this admission?: Yes Plan: Patient appears to be without CHF exacerbation; somewhat volume depleted. Lung sounds are clear. Last proBNP was obtain in July 2015 (3490). Echocardiogram from February 2018 revealed LVEF >60% with mild diastolic dysfunction, moderate mitral regurgitation. Furosemide is on hold per nephrology secondary to volume depletion and poor p.o. intake. Continue her home dose carvedilol, hydralazine, isosorbide, atorvastatin and aspirin. Cardiac diet. Strict I's and O's with daily weights. (5) Coronary artery disease Qualifiers: Coronary Disease-Associated Artery/Lesion type: [place] artery [place] vs. transplanted heart: [place] heart Associated angina: angina presence unspecified Qualified Code(s): I25.10 - Atherosclerotic heart disease of [place] coronary artery without angina pectoris Is this a current diagnosis for this admission?: Yes Plan: Multiple MIs with stenting in the past. Chest pain-free currently. Plan as above. (6) Diabetes Is this a current diagnosis for this admission?: Yes Plan: Consistent carb diet. Accu-Cheks before meals and at bedtime with Humalog for sliding scale coverage. Hypoglycemia protocols are in place. (7) CVA (cerebral vascular accident) Qualifiers: Precerebral and cerebral artery: posterior cerebral artery Laterality of affected vessel: left Is this a current diagnosis for this admission?: No Plan: Subacute nonhemorrhagic left posterior cerebral artery distribution infarct. In the setting of vascular dementia. Recent CVA has resulted and right side hemiparalysis and expressive aphasia. PT/OT to evaluate and treat per protocols orthopedics direction. Continue aspirin and statin therapy. Resume Eliquis when appropriate from surgical standpoint. (8) At risk for malnutrition Is this a current diagnosis for this admission?: Yes Plan: Patient with multiple dietary restrictions; cardiac, prerenal, diabetic diet recommended. She now has a subacute CVA resulting in right-sided/dominant flaccid paralysis and expressive aphasia. She requires assistance with all meals. Aspiration precautions. The registered dietitian and speech therapist are recommend enteral feeding. Have asked nursing to begin strict I&O's and keep a 24 hour calorie count. Healthcare proxy, son, refused feeding tube. States he wants the patient to receive "the full 100 days" of rehab before making a decision about a feeding tube. We will monitor daily chemistries and correct as necessary. (9) Constipation Qualifiers: Constipation type: slow transit constipation Qualified Code(s): K59.01 - Slow transit constipation Is this a current diagnosis for this admission?: Yes Plan: Nursing staff reports the patient has not had a BM in 3 days Currently only on Docusate Continue senna and milk of magnesia Inititate lactulose KUB ordered - results pending - Time Time Spent with patient: 15-24 minutes Medications reviewed and adjusted accordingly: Yes Anticipated discharge: SNF - Inpatient Certification Based on my medical assessment, after consideration of the patient's comorbidities, presenting symptoms, or acuity I expect that the services needed warrant INPATIENT care.: Yes I certify that my determination is in accordance with my understanding of Medicare's requirements for reasonable and necessary INPATIENT services [42 CFR 412.3e].: Yes Medical Necessity: Risk of Complication if Not Cared For in Hospital - Plan Summary Plan Summary: CONTINUE CURRENT TX. INITIATE LACTULOSE. IF NOT SUCCESSFUL, ATTEMPT ENEMA
[2018-03-25] MEDS: ATORVASTATIN CALCIUM 80 MG TABLET PO SCH (21:33)
[2018-03-26] MEDS: LANSOPRAZOLE 30 MG TAB.RAP.DR PO SCH (05:01)
[2018-03-26] MEDS: HYDRALAZINE HCL 50 MG TABLET PO SCH ×3 (05:01→21:53)
[2018-03-26 05:52] LABS: HEMATOCRIT 25.7 % (36.0-47.0); HEMOGLOBIN 8.3 g/dL (12.0-15.5); MEAN CORPUSCULAR HEMOGLOBIN 27.2 pg (27.0-33.4); MEAN CORPUSCULAR HGB CONC 32.2 g/dL (32.0-36.0); MEAN CORPUSCULAR VOLUME 85 fl (80-97); PLATELET COUNT 283 10^3/uL (150-450); RED BLOOD COUNT 3.04 10^6/uL (3.72-5.28); RED CELL DISTRIBUTION WIDTH 17.2 % (11.5-14.0); WHITE BLOOD COUNT 8.6 10^3/uL (4.0-10.5)
[2018-03-26 06:22] LABS: ANION GAP 9 (5-19); BLOOD UREA NITROGEN 50 mg/dL (7-20); CARBON DIOXIDE 20 mmol/L (22-30); CHLORIDE 108 mmol/L (98-107); GLUCOSE 119 mg/dL (75-110); POTASSIUM 4.3 mmol/L (3.6-5.0)
--- NOTE | 2018-03-26 06:51 | PDOC PROGRESS REPORT ---
Subjective Progress Note for:: 03/26/18 Reason For Visit: RIGHT HIP HEMATOMA 63-year-old black female status post I&D of a right periprosthetic hip infection. Limited progress with physical therapy over the last 24 hours. Physical Exam Vital Signs: Temp Pulse Resp BP Pulse Ox 37.1 C 75 18 147/61 H 99 03/25/18 23:46 03/25/18 23:46 03/25/18 23:46 03/25/18 23:46 03/25/18 23:46 Intake & Output 03/24/18 03/25/18 03/26/18 06:59 06:59 06:59 Intake Total 904 1245 1413 Output Total 2225 1325 1725 Balance -1321 -80 -312 Weight 88.4 kg 95.1 kg 99.2 kg Respiratory exam: PRESENT: unlabored Cardiovascular exam: PRESENT: RRR Pulses: PRESENT: +1 pedal pulses bilateral GI/Abdominal exam: PRESENT: soft Rectal exam: PRESENT: deferred Extremities exam: PRESENT: other - Drainage seems to be decreasing on the right hip dressing. Leg lengths are equal. Neurovascular examination is intact. Results Laboratory Results: 03/26/18 05:15 03/26/18 05:15 03/25/18 03/25/18 03/26/18 06:35 06:35 05:15 WBC 7.4 8.6 RBC 2.83 L 3.04 L Hgb 7.8 L 8.3 L Hct 24.0 L 25.7 L MCV 85 85 MCH 27.5 27.2 MCHC 32.4 32.2 RDW 16.8 H 17.2 H Plt Count 273 283 Sodium 136.7 L Potassium 4.3 Chloride 108 H Carbon Dioxide 23 Anion Gap 6 BUN 45 H Creatinine 3.70 H Est GFR ( Amer) 15 L Est GFR (Non-Af Amer) 12 L Glucose 136 H Calcium 8.2 L 03/26/18 05:15 WBC RBC Hgb Hct MCV MCH MCHC RDW Plt Count Sodium 137.0 Potassium 4.3 Chloride 108 H Carbon Dioxide 20 L Anion Gap 9 BUN 50 H Creatinine 3.89 H Est GFR ( Amer) 14 L Est GFR (Non-Af Amer) 12 L Glucose 119 H Calcium 8.0 L Impressions: Chest X-Ray 03/19/18 00:00 IMPRESSION: 1. Appropriate PICC line. 2. Left lower lobe pneumonia, as before. KUB X-Ray 03/25/18 00:00 IMPRESSION: Fecal retention. Assessment & Plan - Diagnosis (1) Postoperative wound infection of right hip Is this a current diagnosis for this admission?: Yes Plan: Patient on appropriate antibiotics. Dressing changes as needed. Mobilization with physical therapy. Anticipate the need for half-way facility placement. (2) Acute blood loss anemia Is this a current diagnosis for this admission?: Yes Plan: Hematocrit stable at 25.7%
[2018-03-26] MEDS: CALCIUM CARBONATE 250 MG/VITAMIN D3 125 UNIT TABLET PO SCH ×2 (09:34→17:50)
[2018-03-26] MEDS: ISOSORBIDE MONONITRATE 30 MG TAB.ER.24H PO SCH (09:34)
[2018-03-26] MEDS: MAGNESIUM HYDROXIDE SUSP 30 ML UDCUP PO SCH (09:34)
[2018-03-26] MEDS: ASPIRIN 81 MG TABLET, CHEWABLE PO SCH (09:34)
[2018-03-26] MEDS: SENNOSIDES/DOCUSATE 8.6-50 MG 1 EACH TABLET PO SCH ×2 (09:34→17:50)
[2018-03-26] MEDS: DOCUSATE SODIUM 100 MG CAPSULE PO SCH ×2 (09:34→17:51)
[2018-03-26] MEDS: DULOXETINE HCL 30 MG CAPSULE.DR PO SCH (09:34)
[2018-03-26] MEDS: AMPICILLIN SODIUM/SULBACTAM NA 1.5 GM in NORMAL SALINE 50 ML IV SCH ×2 (09:35→21:54)
[2018-03-26] MEDS: TRAMADOL HCL 50 MG TABLET PO PRN (09:39)
[2018-03-26] MEDS: CARVEDILOL 12.5 MG TABLET PO SCH ×2 (09:42→21:53)
[2018-03-26] MEDS: NORMAL SALINE 10 ML SDV (SCHEDULED) IV SCH ×2 (11:45→21:54)
[2018-03-26] MEDS: INSULIN LISPRO 100 UNIT/ML 3 ML VIAL SUBCUT PRN ×3 (12:10→22:02)
[2018-03-26] MEDS: CEFEPIME 1 GM/D5W RTU 1 GM/50 ML RTUPB IV SCH ×2 (12:11→21:54)
[2018-03-26] MEDS: EPOETIN ALFA INJ 20000 UNIT/1 ML VIAL (RENAL) SUBCUT SCH (13:05)
--- NOTE | 2018-03-26 18:29 | PDOC PROGRESS REPORT ---
Subjective Progress Note for:: 03/26/18 Subjective:: The patient is a 63-year-old female with past medical history of CVA 3 (most recent 3 weeks ago) CHF, CAD, PA s/p stent, hyperlipidemia, hypertension, atrial fibrillation, insulin-dependent diabetes mellitus, renal cancer now CKD 4 with AV fistula (not yet on dialysis), GERD, vascular dementia, depression who was admitted 03/17/18 to the orthopedic service. She is now status post irrigation debridement of right hip hemiarthroplasty by Dr. Gauthier. The hospitalist team was consulted for preop clearance and subsequently signed off. We were re-consulted due to the patient remaining admitted for medical management of her chronic conditions. Patient seen this morning on rounds. She opens her eyes to tactile stimulation, she will intermittently follow commands (to her ability). The patient is non- verbal. PERRLA. Lungs are clear to auscultation. S1S2. No peripheral edema, palpable pulses in all extremities. Nursing staff reports that R hip dressing needing to be changed 2-3 times per shift. Typically becomes saturated with sanguinous drainage whenever the patient is turned in the bed. Primary plan per Ortho. Dr. Gauthier aware of patient status. Reason For Visit: RIGHT HIP HEMATOMA Physical Exam Vital Signs: Temp Pulse Resp BP Pulse Ox 98.5 F 73 18 168/63 H 99 03/26/18 15:53 03/26/18 15:53 03/26/18 15:53 03/26/18 15:53 03/26/18 15:53 Intake & Output 03/25/18 03/26/18 03/27/18 06:59 06:59 06:59 Intake Total 1245 1413 796 Output Total 1325 1725 1200 Balance -80 -312 -404 Weight 95.1 kg 99.2 kg General appearance: PRESENT: no acute distress, well-developed, well-nourished Head exam: PRESENT: atraumatic Eye exam: PRESENT: conjunctiva pink, PERRLA Mouth exam: PRESENT: moist, neck supple Teeth exam: PRESENT: poor dentation Neck exam: PRESENT: full ROM. ABSENT: JVD Respiratory exam: PRESENT: clear to auscultation tila, symmetrical, unlabored Cardiovascular exam: PRESENT: +S1, +S2 Pulses: PRESENT: normal radial pulses, normal dorsalis pedis pul Vascular exam: PRESENT: normal capillary refill GI/Abdominal exam: PRESENT: normal bowel sounds, soft. ABSENT: tenderness Rectal exam: PRESENT: deferred Extremities exam: ABSENT: full ROM - Right-sided deficit -residual from previous CVA Musculoskeletal exam: ABSENT: ambulatory - with assistance from PT, full ROM - Right-sided deficit -residual from previous CVA Neurological exam: PRESENT: alert, awake, oriented to person, oriented to place , oriented to time, oriented to situation Psychiatric exam: PRESENT: appropriate affect Skin exam: PRESENT: dry, intact, normal color, other - R HIP SURGICAL SITE DRESSING SATURATED WITH sanguinous drainage. Results Laboratory Results: 03/26/18 05:15 03/26/18 05:15 03/26/18 03/26/18 05:15 05:15 WBC 8.6 RBC 3.04 L Hgb 8.3 L Hct 25.7 L MCV 85 MCH 27.2 MCHC 32.2 RDW 17.2 H Plt Count 283 Sodium 137.0 Potassium 4.3 Chloride 108 H Carbon Dioxide 20 L Anion Gap 9 BUN 50 H Creatinine 3.89 H Est GFR ( Amer) 14 L Est GFR (Non-Af Amer) 12 L Glucose 119 H Calcium 8.0 L Impressions: Chest X-Ray 03/19/18 00:00 IMPRESSION: 1. Appropriate PICC line. 2. Left lower lobe pneumonia, as before. KUB X-Ray 03/25/18 00:00 IMPRESSION: Fecal retention. Status: Imported from PACS Assessment & Plan - Diagnosis (1) Postoperative wound infection of right hip Is this a current diagnosis for this admission?: Yes Plan: The patient was admitted for hematoma to right hip hemiarthroplasty. Original hemiarthroplasty done 02/20/[address] Gauthier. Now postop irrigation and debridement of surgical site. Orthopedic team is primary; hospitalist service is consulted for management of chronic medical conditions. Wound cultures demonstrating acinetobacter, stenotrophomonas and enterococcus Continue Unasyn and Cefepime Wound care per the orthopedic team (2) Atrial fibrillation Qualifiers: Atrial fibrillation type: chronic Qualified Code(s): I48.2 - Chronic atrial fibrillation Is this a current diagnosis for this admission?: Yes Plan: Currently rate controlled on carvedilol. Receiving daily aspirin therapy. Eliquis was previously discontinued secondary to development of surgical site hematoma; cardiology recommended (at time of preoperative clearance) to resume Eliquis therapy as soon as feasible from the surgical standpoint. (3) Chronic kidney disease, stage IV (severe) Is this a current diagnosis for this admission?: Yes Plan: Dr. Bullard has been consulted; he is currently managing her acute kidney injury in the setting of chronic kidney disease. From his notations, it appears that a García catheter is to be inserted to monitor I&O's. Concern about adequate p.o. intake, strict I&O's and daily weights which should hopefully help him assess her fluid intake. Remaining plan per his expertise. (4) Chronic systolic (congestive) heart failure Is this a current diagnosis for this admission?: Yes Plan: Patient appears to be without CHF exacerbation; somewhat volume depleted. Lung sounds are clear. Last proBNP was obtain in July 2015 (3490). Echocardiogram from February 2018 revealed LVEF >60% with mild diastolic dysfunction, moderate mitral regurgitation. Furosemide is on hold per nephrology secondary to volume depletion and poor p.o. intake. Continue her home dose carvedilol, hydralazine, isosorbide, atorvastatin and aspirin. Cardiac diet. Strict I's and O's with daily weights. (5) Coronary artery disease Qualifiers: Coronary Disease-Associated Artery/Lesion type: [place] artery [place] vs. transplanted heart: [place] heart Associated angina: angina presence unspecified Qualified Code(s): I25.10 - Atherosclerotic heart disease of [place] coronary artery without angina pectoris Is this a current diagnosis for this admission?: Yes Plan: Multiple MIs with stenting in the past. Chest pain-free currently. Plan as above. (6) Diabetes Is this a current diagnosis for this admission?: Yes Plan: Consistent carb diet. Accu-Cheks before meals and at bedtime with Humalog for sliding scale coverage. Hypoglycemia protocols are in place. (7) CVA (cerebral vascular accident) Qualifiers: Precerebral and cerebral artery: posterior cerebral artery Laterality of affected vessel: left Is this a current diagnosis for this admission?: No Plan: Subacute nonhemorrhagic left posterior cerebral artery distribution infarct. In the setting of vascular dementia. Recent CVA has resulted and right side hemiparalysis and expressive aphasia. PT/OT to evaluate and treat per protocols orthopedics direction. Continue aspirin and statin therapy. Resume Eliquis when appropriate from surgical standpoint. (8) At risk for malnutrition Is this a current diagnosis for this admission?: Yes Plan: Patient with multiple dietary restrictions; cardiac, prerenal, diabetic diet recommended. She now has a subacute CVA resulting in right-sided/dominant flaccid paralysis and expressive aphasia. She requires assistance with all meals. Aspiration precautions. The registered dietitian and speech therapist are recommend enteral feeding. Have asked nursing to begin strict I&O's and keep a 24 hour calorie count. Healthcare proxy, son, refused feeding tube. States he wants the patient to receive "the full 100 days" of rehab before making a decision about a feeding tube. We will monitor daily chemistries and correct as necessary. (9) Constipation Qualifiers: Constipation type: slow transit constipation Qualified Code(s): K59.01 - Slow transit constipation Is this a current diagnosis for this admission?: Yes Plan: Resolved Nursing staff reports the patient has not had a BM in 3 days KUB demonstrates large volume of retained stool Continue Docusate, senna and milk of magnesia Lactulose initiated yesterday, nursing staff reports that the patient has had multiple bowel movement since then. - Time Time Spent with patient: 15-24 minutes Medications reviewed and adjusted accordingly: Yes Anticipated discharge: SNF - Inpatient Certification Based on my medical assessment, after consideration of the patient's comorbidities, presenting symptoms, or acuity I expect that the services needed warrant INPATIENT care.: Yes I certify that my determination is in accordance with my understanding of Medicare's requirements for reasonable and necessary INPATIENT services [42 CFR 412.3e].: Yes Medical Necessity: Risk of Complication if Not Cared For in Hospital - Plan Summary Plan Summary: PRIMARY PLAN PER ORTHO.
[2018-03-26] MEDS: ATORVASTATIN CALCIUM 80 MG TABLET PO SCH (21:53)
[2018-03-27] MEDS: TRAMADOL HCL 50 MG TABLET PO PRN (00:21)
[2018-03-27] MEDS: LANSOPRAZOLE 30 MG TAB.RAP.DR PO SCH (06:49)
[2018-03-27] MEDS: HYDRALAZINE HCL 50 MG TABLET PO SCH ×2 (06:50→18:23)
[2018-03-27] MEDS: AMPICILLIN SODIUM/SULBACTAM NA 1.5 GM in NORMAL SALINE 50 ML IV SCH (10:41)
[2018-03-27] MEDS: NORMAL SALINE 10 ML SDV (SCHEDULED) IV SCH ×2 (10:45→22:56)
[2018-03-27] MEDS: DOCUSATE SODIUM 100 MG CAPSULE PO SCH ×2 (10:46→18:22)
[2018-03-27] MEDS: CALCIUM CARBONATE 250 MG/VITAMIN D3 125 UNIT TABLET PO SCH ×2 (10:46→18:22)
[2018-03-27] MEDS ORDERED: TRAMADOL HCL 50 MG TABLET PO PRN (10:46)
[2018-03-27] MEDS: ISOSORBIDE MONONITRATE 30 MG TAB.ER.24H PO SCH (10:47)
[2018-03-27] MEDS: DULOXETINE HCL 30 MG CAPSULE.DR PO SCH (10:48)
[2018-03-27] MEDS: ASPIRIN 81 MG TABLET, CHEWABLE PO SCH (10:50)
[2018-03-27] MEDS: CARVEDILOL 12.5 MG TABLET PO SCH (10:50)
[2018-03-27] MEDS: ERGOCALCIFEROL (VITAMIN D2) 50000 UNIT (1.25 MG) CAPSULE PO SCH (10:51)
[2018-03-27] MEDS: MAGNESIUM HYDROXIDE SUSP 30 ML UDCUP PO SCH (10:53)
[2018-03-27] MEDS: CEFEPIME 1 GM/D5W RTU 1 GM/50 ML RTUPB IV SCH (10:53)
[2018-03-27] MEDS: SENNOSIDES/DOCUSATE 8.6-50 MG 1 EACH TABLET PO SCH ×2 (10:55→18:22)
[2018-03-27] MEDS: INSULIN LISPRO 100 UNIT/ML 3 ML VIAL SUBCUT PRN ×2 (11:34→18:20)
--- NOTE | 2018-03-27 14:24 | PDOC PROGRESS REPORT ---
Subjective Progress Note for:: 03/27/18 Subjective:: Patient was laying in bed at the time of examination. She remains only able to give one word answers. She denies chest pain, SOB, uremic s/s. Reason For Visit: RIGHT HIP HEMATOMA Physical Exam Vital Signs: Temp Pulse Resp BP Pulse Ox 98.4 F 79 16 137/71 H 99 03/27/18 11:35 03/27/18 11:35 03/27/18 11:35 03/27/18 11:35 03/27/18 13:02 Intake & Output 03/26/18 03/27/18 03/28/18 06:59 06:59 06:59 Intake Total 1413 1223 473 Output Total 1725 7730 900 Balance -312 -6871 -427 Weight 99.2 kg 97.7 kg General appearance: PRESENT: no acute distress, well-developed, well-nourished Mouth exam: PRESENT: moist, neck supple Neck exam: PRESENT: full ROM. ABSENT: JVD Respiratory exam: PRESENT: clear to auscultation tila. ABSENT: accessory muscle use, crackles, rales, rhonchi, wheezes Cardiovascular exam: PRESENT: +S1, +S2, systolic murmur GI/Abdominal exam: PRESENT: normal bowel sounds, soft. ABSENT: organomegaly, tenderness Extremities exam: ABSENT: pedal edema, tenderness, +1 edema, +2 edema Musculoskeletal exam: PRESENT: normal inspection. ABSENT: tenderness Neurological exam: PRESENT: awake, aphasic Skin exam: PRESENT: dry, intact, warm Results Laboratory Results: 03/26/18 05:15 03/26/18 05:15 Impressions: Chest X-Ray 03/19/18 00:00 IMPRESSION: 1. Appropriate PICC line. 2. Left lower lobe pneumonia, as before. KUB X-Ray 03/25/18 00:00 IMPRESSION: Fecal retention. Assessment & Plan - Diagnosis (1) Chronic kidney disease, stage IV (severe) Is this a current diagnosis for this admission?: Yes Plan: At baseline, continue holding lasix. No indication for BARREL CAP SETTER. 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
--- NOTE | 2018-03-27 19:51 | Progress Note ---
Provider Note Provider Note: ID Consult Note Asked to review patient's chart. Pt not seen or examined. Ms. Byrd is a 63 year old woman with PMH including CVA with residual deficits, CAD, CHF, HLD, HTN, obesity, AF, DM, CKD stage IV, and recent R femoral neck fracture last month that required repair with hemiarthroplasty. Pt returned to hospital on 03/17/18 about 3 weeks after surgery for management of postoperative hematoma of R hip. Pt went to OR on 03/18/18 for evacuation of a large hematoma; no faby pus was described but deep cultures were taken and the unipolar head and sleeve were exchanged. The patient was found to have an infection with deep wound specimen showing growth of Acinetobacter baumannii, Stenotrophomonas maltophilia, and Enterococcus faecalis. From one of the other cultures from the R hip, the patient had growth of 1+ Prevotella species (beta lactamase positive ) in addition to Acinetobacter and Enterococcus. 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 Recommend continuing IV ampicillin/sulbactam and changing IV cefepime to Levaquin to address the Stenotrophomonas isolate in addition to the Acinetobacter. IV Levaquin would also require dose adjustement considering pt's renal impairment and may need to be given 750 mg x 1 then 500 mg every 48h. - Continue both IV Unasyn and Levaquin for 6 weeks with CMP and CBC monitored weekly. Vernon Barahona MD [facility] Infectious Diseases pager [phone]
[2018-03-28] MEDS: ATORVASTATIN CALCIUM 80 MG TABLET PO SCH ×2 (00:04→21:52)
[2018-03-28] MEDS: HYDRALAZINE HCL 50 MG TABLET PO SCH ×4 (00:04→21:52)
[2018-03-28] MEDS: CARVEDILOL 12.5 MG TABLET PO SCH ×3 (00:05→21:53)
[2018-03-28] MEDS: CEFEPIME 1 GM/D5W RTU 1 GM/50 ML RTUPB IV SCH ×2 (00:06→10:18)
[2018-03-28] MEDS: INSULIN LISPRO 100 UNIT/ML 3 ML VIAL SUBCUT PRN ×3 (00:31→23:25)
[2018-03-28] MEDS: AMPICILLIN SODIUM/SULBACTAM NA 1.5 GM in NORMAL SALINE 50 ML IV SCH ×2 (01:18→12:54)
--- NOTE | 2018-03-28 01:29 | PDOC PROGRESS REPORT ---
Subjective Progress Note for:: 03/27/18 Subjective:: The patient is a 63-year-old female with past medical history of CVA 3 (most recent 3 weeks ago) CHF, CAD, [place] s/p stent, hyperlipidemia, hypertension, atrial fibrillation, insulin-dependent diabetes mellitus, renal cancer now CKD 4 with AV fistula (not yet on dialysis), GERD, vascular dementia, depression who was admitted 03/17/18 to the orthopedic service. She is now status post irrigation debridement of right hip hemiarthroplasty by Dr. Gauthier. The hospitalist team was consulted for preop clearance and subsequently signed off. We were re-consulted due to the patient remaining admitted for medical management of her chronic conditions. Patient seen this morning on rounds. She opens her eyes to tactile stimulation, she will intermittently follow commands (to her ability). The patient is non- verbal. PERRLA. Lungs are clear to auscultation. S1S2. No peripheral edema, palpable pulses in all extremities. Nursing staff reports that R hip dressing needing to be changed 2-3 times per shift. Typically becomes saturated with sanguinous drainage whenever the patient is turned in the bed. Dressing can become saturated in as little as 15 minutes. Primary plan per Ortho. Attempted to contact Dr. Gauthier today to discuss patient, but he was unavailable. Reason For Visit: RIGHT HIP HEMATOMA Physical Exam Vital Signs: Temp Pulse Resp BP Pulse Ox 98.8 F 73 16 147/65 H 99 03/27/18 20:24 03/27/18 20:24 03/27/18 20:24 03/27/18 20:24 03/27/18 20:24 Intake & Output 03/26/18 03/27/18 03/28/18 06:59 06:59 06:59 Intake Total 1413 1223 1263 Output Total 1725 2250 1500 Balance -312 -1027 -961 Weight 99.2 kg 97.7 kg General appearance: PRESENT: no acute distress, thin Head exam: PRESENT: atraumatic Eye exam: PRESENT: conjunctiva pink, PERRLA. ABSENT: nystagmus Mouth exam: PRESENT: moist, tongue midline Teeth exam: PRESENT: poor dentation Respiratory exam: PRESENT: clear to auscultation tila, symmetrical, unlabored Cardiovascular exam: PRESENT: +S1, +S2 Pulses: PRESENT: normal radial pulses, normal dorsalis pedis pul Vascular exam: PRESENT: normal capillary refill GI/Abdominal exam: PRESENT: normal bowel sounds, soft, tenderness. ABSENT: distended Rectal exam: PRESENT: deferred Extremities exam: ABSENT: full ROM Musculoskeletal exam: ABSENT: ambulatory, full ROM Neurological exam: PRESENT: alert, awake. ABSENT: oriented to person, oriented to place, oriented to time, oriented to situation Psychiatric exam: PRESENT: appropriate affect Skin exam: PRESENT: dry, intact, normal color, warm Results Laboratory Results: 03/26/18 05:15 03/26/18 05:15 Impressions: Chest X-Ray 03/19/18 00:00 IMPRESSION: 1. Appropriate PICC line. 2. Left lower lobe pneumonia, as before. KUB X-Ray 03/25/18 00:00 IMPRESSION: Fecal retention. Assessment & Plan - Diagnosis (1) Postoperative wound infection of right hip Is this a current diagnosis for this admission?: Yes Plan: The patient was admitted for hematoma to right hip hemiarthroplasty. Original hemiarthroplasty done 02/20/[address] Gauthier. Now postop irrigation and debridement of surgical site. Orthopedic team is primary; hospitalist service is consulted for management of chronic medical conditions. Wound cultures demonstrating acinetobacter, stenotrophomonas and enterococcus Continue Unasyn and Cefepime Consulted ID regarding appropriate antibiotic choices, awaiting their recommendations Wound care per the orthopedic team (2) Atrial fibrillation Qualifiers: Atrial fibrillation type: chronic Qualified Code(s): I48.2 - Chronic atrial fibrillation Is this a current diagnosis for this admission?: Yes Plan: Currently rate controlled on carvedilol. Receiving daily aspirin therapy. Eliquis was previously discontinued secondary to development of surgical site hematoma; cardiology recommended (at time of preoperative clearance) to resume Eliquis therapy as soon as feasible from the surgical standpoint. (3) Chronic kidney disease, stage IV (severe) Is this a current diagnosis for this admission?: Yes Plan: Dr. Bullard has been consulted; he is currently managing her acute kidney injury in the setting of chronic kidney disease. From his notations, it appears that a García catheter is to be inserted to monitor I&O's. Concern about adequate p.o. intake, strict I&O's and daily weights which should hopefully help him assess her fluid intake. Remaining plan per his expertise. (4) Chronic systolic (congestive) heart failure Is this a current diagnosis for this admission?: Yes Plan: Patient appears to be without CHF exacerbation; somewhat volume depleted. Lung sounds are clear. Last proBNP was obtain in July 2015 (3490). Echocardiogram from February 2018 revealed LVEF >60% with mild diastolic dysfunction, moderate mitral regurgitation. Furosemide is on hold per nephrology secondary to volume depletion and poor p.o. intake. Continue her home dose carvedilol, hydralazine, isosorbide, atorvastatin and aspirin. Cardiac diet. Strict I's and O's with daily weights. (5) Coronary artery disease Qualifiers: Coronary Disease-Associated Artery/Lesion type: [place] artery [place] vs. transplanted heart: [place] heart Associated angina: angina presence unspecified Qualified Code(s): I25.10 - Atherosclerotic heart disease of [place] coronary artery without angina pectoris Is this a current diagnosis for this admission?: Yes Plan: Multiple MIs with stenting in the past. Chest pain-free currently. Plan as above. (6) Diabetes Is this a current diagnosis for this admission?: Yes Plan: Consistent carb diet. Accu-Cheks before meals and at bedtime with Humalog for sliding scale coverage. Hypoglycemia protocols are in place. (7) CVA (cerebral vascular accident) Qualifiers: Precerebral and cerebral artery: posterior cerebral artery Laterality of affected vessel: left Is this a current diagnosis for this admission?: No Plan: Subacute nonhemorrhagic left posterior cerebral artery distribution infarct. In the setting of vascular dementia. Recent CVA has resulted and right side hemiparalysis and expressive aphasia. PT/OT to evaluate and treat per protocols orthopedics direction. Continue aspirin and statin therapy. Resume Eliquis when appropriate from surgical standpoint. (8) At risk for malnutrition Is this a current diagnosis for this admission?: Yes Plan: Patient with multiple dietary restrictions; cardiac, prerenal, diabetic diet recommended. She now has a subacute CVA resulting in right-sided/dominant flaccid paralysis and expressive aphasia. She requires assistance with all meals. Aspiration precautions. The registered dietitian and speech therapist are recommend enteral feeding. Have asked nursing to begin strict I&O's and keep a 24 hour calorie count. Healthcare proxy, son, refused feeding tube. States he wants the patient to receive "the full 100 days" of rehab before making a decision about a feeding tube. We will monitor daily chemistries and correct as necessary. (9) Constipation Qualifiers: Constipation type: slow transit constipation Qualified Code(s): K59.01 - Slow transit constipation Is this a current diagnosis for this admission?: Yes Plan: Resolved Nursing staff reports the patient has not had a BM in 3 days KUB demonstrates large volume of retained stool Continue Docusate, senna and milk of magnesia Lactulose initiated yesterday, nursing staff reports that the patient has had multiple bowel movement since then. - Time Time Spent with patient: 15-24 minutes Medications reviewed and adjusted accordingly: Yes Anticipated discharge: SNF - Inpatient Certification Based on my medical assessment, after consideration of the patient's comorbidities, presenting symptoms, or acuity I expect that the services needed warrant INPATIENT care.: Yes I certify that my determination is in accordance with my understanding of Medicare's requirements for reasonable and necessary INPATIENT services [42 CFR 412.3e].: Yes Medical Necessity: Need for IV Antibiotics - Plan Summary Plan Summary: VERY CONCERNED ABOUT THE PATIENT'S SURGICAL SITE. HGB STABLE. WILL ATTEMPT TO NOTIFY YESENIA.
[2018-03-28] MEDS: LANSOPRAZOLE 30 MG TAB.RAP.DR PO SCH (05:50)
--- NOTE | 2018-03-28 06:51 | PDOC PROGRESS REPORT ---
Subjective Progress Note for:: 03/28/18 Reason For Visit: RIGHT HIP HEMATOMA 63-year-old status post I&D of a right hip hematoma with polymicrobial infection and persistent wound drainage Physical Exam Vital Signs: Temp Pulse Resp BP Pulse Ox 37.0 C 74 16 145/59 H 99 03/27/18 23:44 03/27/18 23:44 03/27/18 23:44 03/27/18 23:44 03/27/18 23:44 Intake & Output 03/26/18 03/27/18 03/28/18 06:59 06:59 06:59 Intake Total 1413 1223 1715 Output Total 1720 6780 2200 Balance -312 -1027 -653 Weight 99.2 kg 97.7 kg 97 kg General appearance: PRESENT: no acute distress Head exam: PRESENT: normocephalic Respiratory exam: PRESENT: unlabored Cardiovascular exam: PRESENT: RRR GI/Abdominal exam: PRESENT: soft Rectal exam: PRESENT: deferred Extremities exam: PRESENT: other - Right hip dressing is clean dry and intact. Not sure when it was changed last. Results Laboratory Results: 03/26/18 05:15 03/26/18 05:15 Impressions: Chest X-Ray 03/19/18 00:00 IMPRESSION: 1. Appropriate PICC line. 2. Left lower lobe pneumonia, as before. KUB X-Ray 03/25/18 00:00 IMPRESSION: Fecal retention. Assessment & Plan - Diagnosis (1) Postoperative wound infection of right hip Is this a current diagnosis for this admission?: Yes Plan: Mobilization with physical therapy, dressing changes as needed. (2) Acute blood loss anemia Is this a current diagnosis for this admission?: Yes
[2018-03-28] MEDS: DULOXETINE HCL 30 MG CAPSULE.DR PO SCH (10:03)
[2018-03-28] MEDS: MAGNESIUM HYDROXIDE SUSP 30 ML UDCUP PO SCH (10:03)
[2018-03-28] MEDS: ISOSORBIDE MONONITRATE 30 MG TAB.ER.24H PO SCH (10:03)
[2018-03-28] MEDS: SENNOSIDES/DOCUSATE 8.6-50 MG 1 EACH TABLET PO SCH ×2 (10:04→18:23)
[2018-03-28] MEDS: DOCUSATE SODIUM 100 MG CAPSULE PO SCH ×2 (10:04→18:23)
[2018-03-28] MEDS: CALCIUM CARBONATE 250 MG/VITAMIN D3 125 UNIT TABLET PO SCH ×2 (10:04→17:29)
[2018-03-28] MEDS: ASPIRIN 81 MG TABLET, CHEWABLE PO SCH (10:04)
[2018-03-28] MEDS: NORMAL SALINE 10 ML SDV (SCHEDULED) IV SCH (10:25)
[2018-03-28] MEDS ORDERED: LEVOFLOXACIN 750 MG/D5W RTU 750 MG/150 ML RTUPB IV SCH (12:00)
--- NOTE | 2018-03-28 14:58 | PDOC TRANSFER SUMMARY ---
General - Admit/Disc Date/PCP Admission Date/Primary Care Provider: 03/19/18 19:58 RAQUEL MINOR MD Discharge Date: 03/28/18 - Discharge Diagnosis (1) Postoperative wound infection of right hip Is this a current diagnosis for this admission?: Yes Summary: The patient was admitted for a hematoma to the right hip hemiarthroplasty; originally repaired 02/20/[address] Gauthier was the attending physician during this admission. The patient was taken to the OR suite on 03/18/18 for irrigation and debridement with exchange of the unipolar head and sleeve by Dr. Gauthier. Wound cultures revealed Prevotella species, enterococcus faecalis, and acinetobacter baumannii. The patient was initially placed on IV Unasyn and cefepime. Infectious disease has been consulted with recommendations that IV Unasyn be continued and cefepime discontinued with transition to IV Levaquin 6 weeks. The patient is medically stable for discharge back to [facility] for continued physical therapy/rehabilitation, wound care, and IV antibiotics. To follow-up with Dr. Gauthier within 7-10 days or sooner as needed. (2) Atrial fibrillation Is this a current diagnosis for this admission?: Yes Summary: The patient remained rate controlled on carvedilol. Her daily aspirin therapy was continued while inpatient; Eliquis was held. Should resume upon discharge with low threshold for holding if nursing notes increased size of hematoma or bleeding at right hip hemiarthroplasty. (3) Chronic kidney disease, stage IV (severe) Is this a current diagnosis for this admission?: Yes Summary: Follow-up with Dr. Bullard as scheduled. (4) Chronic systolic (congestive) heart failure Is this a current diagnosis for this admission?: Yes Summary: Stable and without exacerbation. Last proBNP obtained in July 2015 (3490). Echocardiogram from February 2018 revealed LVEF >60% with mild diastolic dysfunction, moderate mitral regurgitation. Continue her home dose carvedilol, hydralazine, isosorbide, atorvastatin and aspirin. (5) Coronary artery disease Is this a current diagnosis for this admission?: Yes Summary: Multiple MIs with stenting in the past. Chest pain-free currently. (6) Type 2 diabetes mellitus Is this a current diagnosis for this admission?: Yes (7) CVA (cerebral vascular accident) Is this a current diagnosis for this admission?: No Summary: Subacute nonhemorrhagic left posterior cerebral artery distribution infarct. In the setting of vascular dementia. Recent CVA has resulted and right side hemiparalysis and expressive aphasia. PT/OT to evaluate and treat per protocols orthopedics direction. Continue aspirin and statin therapy. Resume Eliquis upon discharge as described above. (8) At risk for malnutrition Is this a current diagnosis for this admission?: Yes Summary: Patient with multiple dietary restrictions; cardiac, prerenal, diabetic diet recommended. She now has a subacute CVA resulting in right-sided/dominant flaccid paralysis and expressive aphasia. She requires assistance with all meals. Aspiration precautions. Healthcare proxy, son, declined feeding tube. States he wants the patient to receive "the full 100 days" of rehab before making a decision about a feeding tube. Patient ate 100% of all meals yesterday (03/27/18). Continue to monitor. Recommend outpatient follow-up with palliative care services. - Additional Information Resuscitation Status: Full Code Discharge Diet: As Tolerated, Cardiac, Diabetic Discharge Activity: Activity As Tolerated, Balance Activity w/Rest Prescriptions: Ampicillin Sodium/Sulbactam Na [Unasyn Inj 1.5 gm Vial] 1.5 gm IV Q12 #120 vial Levofloxacin 500 mg/D5w RTU [Levaquin RTU 500Mg/D5w 100 ml Premix Bag] 500 mg IV Q48H #21 rtupb Sennosides/Docusate 8.6-50 mg [Senna Plus Tablet] 2 each PO BID #30 tablet Tramadol HCl [Ultram 50 mg Tablet] 50 mg PO Q6HP PRN #20 tablet PRN Reason: Home Medications: Apixaban [Eliquis 2.5 mg Tablet] 2.5 mg PO Q12 03/17/18 Atorvastatin Calcium [Lipitor 80 mg Tablet] 80 mg PO QHS 03/17/18 Calcium Carbonate/Vitamin D3 [Calcium 500+D Tablet Chew] 1 each PO BID 03/17/18 Carvedilol [Coreg 25 mg Tablet] 25 mg PO Q12 03/17/18 Docusate Sodium [Colace 100 mg Capsule] 100 mg PO BID 03/17/18 Duloxetine HCl [Cymbalta] 60 mg PO DAILY 03/17/18 Ergocalciferol (Vitamin D2) [Vitamin D2] 50,000 unit PO MO@1000 03/17/18 Esomeprazole Magnesium [Nexium] 40 mg PO DAILY 03/17/18 Hydralazine HCl [Apresoline 50 mg Tablet] 50 mg PO Q8 03/17/18 Isosorbide Mononitrate [Isosorbide Mononitrate ER] 15 mg PO DAILY 03/17/18 Ampicillin Sodium/Sulbactam Na [Unasyn Inj 1.5 gm Vial] 1.5 gm IV Q12 #120 vial 03/28/18 Aspirin [Aspirin 81 mg Chewable Tablet] 81 mg PO DAILY tab.chew 03/28/18 Atorvastatin Calcium [Lipitor 80 mg Tablet] 80 mg PO QHS tablet 03/28/18 Calcium Carbonate/Vitamin D3 [Os-[place] 250 mg with Vitamin D 125 Units] 1 tab PO BID tablet 03/28/18 Carvedilol [Coreg 12.5 mg Tablet] 25 mg PO Q12 tablet 03/28/18 Docusate Sodium [Colace 100 mg Capsule] 100 mg PO BID capsule 03/28/18 Duloxetine HCl [Cymbalta 30 mg Capsule.] 60 mg PO DAILY capsule.dr 03/28/18 Hydralazine HCl [Apresoline 50 mg Tablet] 50 mg PO Q8 tablet 03/28/18 Isosorbide Mononitrate [Imdur 30 mg Tablet.er] 15 mg PO DAILY tab.er.24h Levofloxacin 500 mg/D5w RTU [Levaquin RTU 500Mg/D5w 100 ml Premix Bag] 500 mg IV Q48H #21 rtupb 03/28/18 Magnesium Hydroxide [Milk of Magnesia 30 ml Udcup] 30 ml PO DAILY udc 03/28/18 Sennosides/Docusate 8.6-50 mg [Senna Plus Tablet] 2 each PO BID #30 tablet 03/28 Tramadol HCl [Ultram 50 mg Tablet] 50 mg PO Q6HP PRN #20 tablet 03/28/18 History of Present Illness Admission Date/PCP: 03/19/18 19:58 RAQUEL MINOR MD History of Present Illness: Per H&P by Dr. Mario: MICHAEL BONILLA is a 63 year old black female and with multiple comorbidities including history of stroke 3 times the recent stroke was about 3 weeks ago, coronary artery disease status post stent placement, type 2 diabetes mellitus, stage IV CKD atrial fibrillation and congestive heart failure. About 3 weeks ago patient had hip surgery and the procedure was complicated by stroke and now hematoma of the surgical site. Patient admitted for possible incision and drainage of the hematoma. The hospitalist service is consulted for medical clearance. Since patient has extensive medical history I involved Dr. Mir for his second opinion. Otherwise there is no complaint of fever chills palpitation or diaphoresis. She does not have any nausea vomiting or abdominal pain Physical Exam Vital Signs: Temp Pulse Resp BP Pulse Ox 97.4 F 78 16 145/66 H 99 03/28/18 08:39 03/28/18 08:39 03/28/18 08:39 03/28/18 08:39 03/28/18 08:39 Intake & Output 03/27/18 03/28/18 03/29/18 06:59 06:59 06:59 Intake Total 1223 1798 50 Output Total 2250 2200 Balance -1027 -402 50 Weight 97.7 kg 97 kg General appearance: PRESENT: no acute distress, well-developed, well-nourished - Overweight Head exam: PRESENT: atraumatic, normocephalic Eye exam: PRESENT: conjunctiva pink, EOMI, PERRLA. ABSENT: scleral icterus Ear exam: PRESENT: normal external ear exam Mouth exam: PRESENT: moist, tongue midline Neck exam: ABSENT: carotid bruit, JVD, lymphadenopathy, thyromegaly Respiratory exam: PRESENT: clear to auscultation tila, symmetrical, unlabored. ABSENT: rales, rhonchi, wheezes Cardiovascular exam: PRESENT: RRR, +S1, +S2. ABSENT: diastolic murmur, rubs, systolic murmur Pulses: PRESENT: normal dorsalis pedis pul Vascular exam: PRESENT: normal capillary refill GI/Abdominal exam: PRESENT: normal bowel sounds, soft. ABSENT: distended, guarding, mass, organolmegaly, rebound, tenderness Rectal exam: PRESENT: deferred Extremities exam: PRESENT: tenderness - Right hip, other - Residual right-sided weakness; limited right lower extremity movement secondary to recent hip fracture/repair. ABSENT: calf tenderness, clubbing, pedal edema Neurological exam: PRESENT: alert, awake, CN II-XII grossly intact, aphasic, other - The patient is not responsive to questions or following commands at this time; per nursing she did participate minimally with physical therapy this morning.. ABSENT: oriented to person, oriented to place, oriented to time, oriented to situation, motor sensory deficit Psychiatric exam: PRESENT: appropriate affect, normal mood. ABSENT: homicidal ideation, suicidal ideation Skin exam: PRESENT: dry, intact, warm. ABSENT: cyanosis, rash Results Laboratory Results: 03/26/18 05:15 03/26/18 05:15 Impressions: Chest X-Ray 03/19/18 00:00 IMPRESSION: 1. Appropriate PICC line. 2. Left lower lobe pneumonia, as before. KUB X-Ray 03/25/18 00:00 IMPRESSION: Fecal retention. Transfer Plan - Time Spent with Patient Time spent with patient: Less than 30 Minutes Qualifiers - * PATIENT BEING DISCHARGED WITH ANY OF THE FOLLOWING DIAGNOSIS: Stroke Stroke Pt being discharged on Anti-thrombolytic therapy?: Yes Stroke Pt being discharged on Anti-coagulation therapy?: Yes Stroke Pt being discharged on Statins?: Yes Plan Discharge Plan: Patient is to be discharged to [facility] where the patient is an established resident; to complete SNF rehabilitation. She also requires some 6 weeks of Unasyn and IV Levaquin therapy. She is being discharged with a PICC line in place to facilitate these needs. Recommend weekly monitoring of CMP and CBC while on all these antibiotics. Time Spent: Less than 30 Minutes
[2018-03-29 03:00] VITALS: BP 143/60
[2018-03-29] MEDS: LANSOPRAZOLE 30 MG TAB.RAP.DR PO SCH (07:19)
[2018-03-29] MEDS: HYDRALAZINE HCL 50 MG TABLET PO SCH (07:19)
--- NOTE | 2018-04-05 10:07 | PDOC H&P ---
History of Present Illness Admission Date/PCP: 03/19/18 19:58 RAQUEL MINOR MD History of Present Illness: MICHAEL BONILLA is a 63 year old female Patient is a 63-year-old female approximately 2 weeks status post right proximal femoral hemiarthroplasty with a postoperative hematoma at least in part secondary to administration of Eliquis. Because of persistent drainage the patient is admitted for an I&D of the hip with good deep cultures. Past Medical History Cardiac Medical History: Reports: Congestive Heart Failure, Coronary Artery Disease, Myocardial Infarction - 2011, Hyperlipidema, Hypertension Denies: DVT, Pulmonary Embolism Pulmonary Medical History: Reports: Pneumonia - Intubated last year Denies: Asthma, Bronchitis, Chronic Obstructive Pulmonary Disease (COPD), Tuberculosis Neurological Medical History: Denies: Seizures Endocrine Medical History: Reports: Diabetes Mellitus Type 1, Diabetes Mellitus Type 2 - IDDM Denies: Hyperthyroidism, Hypothyroidism Malignancy Medical History: Reports: Renal (Kidney) Cancer GI Medical History: Reports: Gastroesophageal Reflux Disease Denies: Cirrhosis, Hepatitis Musculoskeltal Medical History: Denies: Arthritis Skin Medical History: Denies: Eczema, Psoriasis Psychiatric Medical History: Reports: Dementia - Vascular dementia, Depression Hematology: Reports: Anemia Past Surgical History Past Surgical History: Reports: Cardiac Catheterization, Coronary Stent, Orthopedic Surgery - tila knee, Tonsillectomy, Tubal Ligation Denies: Hysterectomy, Pacemaker Social History Information Source: Patient, DrNuno Escamilla, [facility] Records Lives with: Other Smoking Status: Unknown if Ever Smoked Frequency of Alcohol Use: None Hx Recreational Drug Use: No Drugs: None Hx Prescription Drug Abuse: No - Advance Directive Resuscitation Status: Full Code Family History Family History: Hypertension Parental Family History Reviewed: No Children Family History Reviewed: No Sibling(s) Family History Reviewed.: No Medication/Allergy Home Medications: Atorvastatin Calcium [Lipitor 80 mg Tablet] 80 mg PO QHS 03/17/18 Calcium Carbonate/Vitamin D3 [Calcium 500+D Tablet Chew] 1 each PO BID 03/17/18 Carvedilol [Coreg 25 mg Tablet] 25 mg PO Q12 03/17/18 Docusate Sodium [Colace 100 mg Capsule] 100 mg PO BID 03/17/18 Duloxetine HCl [Cymbalta] 60 mg PO DAILY 03/17/18 Ergocalciferol (Vitamin D2) [Vitamin D2] 50,000 unit PO MO@1000 03/17/18 Esomeprazole Magnesium [Nexium] 40 mg PO DAILY 03/17/18 Hydralazine HCl [Apresoline 50 mg Tablet] 50 mg PO Q8 03/17/18 Isosorbide Mononitrate [Isosorbide Mononitrate ER] 15 mg PO DAILY 03/17/18 Ampicillin Sodium/Sulbactam Na [Unasyn Inj 1.5 gm Vial] 1.5 gm IV Q12 #120 vial 03/28/18 Aspirin [Aspirin 81 mg Chewable Tablet] 81 mg PO DAILY tab.chew 03/28/18 Atorvastatin Calcium [Lipitor 80 mg Tablet] 80 mg PO QHS tablet 03/28/18 Calcium Carbonate/Vitamin D3 [Os-[place] 250 mg with Vitamin D 125 Units] 1 tab PO BID tablet 03/28/18 Carvedilol [Coreg 12.5 mg Tablet] 25 mg PO Q12 tablet 03/28/18 Docusate Sodium [Colace 100 mg Capsule] 100 mg PO BID capsule 03/28/18 Duloxetine HCl [Cymbalta 30 mg Capsule.dr] 60 mg PO DAILY capsule.dr 03/28/18 Hydralazine HCl [Apresoline 50 mg Tablet] 50 mg PO Q8 tablet 03/28/18 Isosorbide Mononitrate [Imdur 30 mg Tablet.er] 15 mg PO DAILY tab.er.24h Levofloxacin 500 mg/D5w RTU [Levaquin RTU 500Mg/D5w 100 ml Premix Bag] 500 mg IV Q48H #21 rtupb 03/28/18 Magnesium Hydroxide [Milk of Magnesia 30 ml Udcup] 30 ml PO DAILY udc 03/28/18 Sennosides/Docusate 8.6-50 mg [Senna Plus Tablet] 2 each PO BID #30 tablet 03/28 Tramadol HCl [Ultram 50 mg Tablet] 50 mg PO Q6HP PRN #20 tablet 03/28/18 Epoetin [place] [Procrit Inj 20,000 Unit/1 ml Vial (Renal)] 20,000 unit SUBCUT [place]@ 1100 ml 03/29/18 Allergies/Adverse Reactions: No Known Allergies Allergy (Verified 02/18/18 15:07) Review of Systems ROS unobtainable: Due to mental status All systems: as per PMH Physical Exam Vital Signs: Temp Pulse Resp BP Pulse Ox 36.8 C 78 15 143/60 H 99 03/29/18 00:38 03/29/18 00:38 03/29/18 00:38 03/29/18 00:38 03/29/18 00:38 Physical Exam: The patient is a phasic middle-aged black female largely in a position in a hospital bed General appearance: PRESENT: no acute distress Head exam: PRESENT: normocephalic Respiratory exam: PRESENT: unlabored Cardiovascular exam: PRESENT: RRR Pulses: PRESENT: +1 pedal pulses bilateral Vascular exam: PRESENT: normal capillary refill GI/Abdominal exam: PRESENT: soft Rectal exam: PRESENT: deferred Extremities exam: PRESENT: other - Right hip wound with continued serosanguineous drainage. Leg lengths are equal. Distal capillary refill is intact. Neurological exam: PRESENT: awake Skin exam: PRESENT: dry, intact, warm. ABSENT: cyanosis, rash Results Laboratory Results: 03/26/18 05:15 03/26/18 05:15 Impressions: Chest X-Ray 03/19/18 00:00 IMPRESSION: 1. Appropriate PICC line. 2. Left lower lobe pneumonia, as before. KUB X-Ray 03/25/18 00:00 IMPRESSION: Fecal retention. Status: Imported from PACS Assessment & Plan - Diagnosis (1) Postoperative wound infection of right hip Is this a current diagnosis for this admission?: Yes Plan: Plan for I&D of the underlying wound with repeat closure. (2) Acute blood loss anemia Is this a current diagnosis for this admission?: Yes - Time Time Spent: 50 to 70 Minutes Anticipated discharge: Other Within: Other - Inpatient Certification Based on my medical assessment, after consideration of the patient's comorbidities, presenting symptoms, or acuity I expect that the services needed warrant INPATIENT care.: Yes I certify that my determination is in accordance with my understanding of Medicare's requirements for reasonable and necessary INPATIENT services [42 CFR 412.3e].: Yes Medical Necessity: Failure to Improve With Outpatient Therapy
== END 2018-03-29 10:36 | DRG 907 ==
LOC: OROUT 06:34 → 5 12:23 → OROUT 03-19 19:56 → 5 03-19 19:58
PROVIDERS: ADMIT Orthopaedic Surgery; ATTEND Orthopaedic Surgery
PROC: 0SPR0JZ Removal of Synthetic Substitute from Right Hip Joint, Femoral Surface, Open Approach (ICD-10-PCS; 2018-03-18)
PROC: 0SRR0JA Replacement of Right Hip Joint, Femoral Surface with Synthetic Substitute, Uncemented, Open Approach (ICD-10-PCS; principal; 2018-03-18 08:00)
PROC: 02HV33Z Insertion of Infusion Device into Superior Vena Cava, Percutaneous Approach (ICD-10-PCS; 2018-03-19)
PROC: B548ZZA Ultrasonography of Superior Vena Cava, Guidance (ICD-10-PCS; 2018-03-19)
DX: M96.840 Postprocedural hematoma of a musculoskeletal structure following a musculoskeletal system procedure (principal); I63.8 Other cerebral infarction; D62 Acute posthemorrhagic anemia; T81.4XXA Infection following a procedure, initial encounter; I13.0 Hypertensive heart and chronic kidney disease with heart failure and stage 1 through stage 4 chronic kidney disease, or unspecified chronic kidney disease; N18.4 Chronic kidney disease, stage 4 (severe); I50.22 Chronic systolic (congestive) heart failure; G81.91 Hemiplegia, unspecified affecting right dominant side; R47.01 Aphasia; I48.2 Chronic atrial fibrillation; I25.10 Atherosclerotic heart disease of native coronary artery without angina pectoris; E11.9 Type 2 diabetes mellitus without complications; F01.50 Vascular dementia, unspecified severity, without behavioral disturbance, psychotic disturbance, mood disturbance, and anxiety; Z95.5 Presence of coronary angioplasty implant and graft; E11.22 Type 2 diabetes mellitus with diabetic chronic kidney disease; K21.9 Gastro-esophageal reflux disease without esophagitis; E78.5 Hyperlipidemia, unspecified; I25.2 Old myocardial infarction; Z79.899 Other long term (current) drug therapy; Z79.01 Long term (current) use of anticoagulants; Z85.528 Personal history of other malignant neoplasm of kidney
CPT/HCPCS: 01210; 36415; 36569; 71045; 74018; 80048; 80076; 80202; 81001; 82607; 82728; 82746; 82962; 83540; 83550; 83735; 84100; 85025; 85027; 85045; 85610; 85730; 87070; 87075; 87077; 87186; 87205; 93005; 93010; C1776; G8978-GP; G8979-GP; G8996-GN; G8997-GN; G8998-GN; J0295; J0330; J0690; J0692; J0696; J1642; J1815; J1956; J2250; J2270; J2405; J2704; J2997; J3010; J3370; J3490; J7030; J7060; Q0138; Q4081

== ENCOUNTER 2020-01-22 08:48 | Inpatient (IN) | payer MEDICARE, MEDICAID ==
[2020-01-22] MEDS: DEXTROSE 5%-WATER 250 ML with NOREPINEPHRINE BITARTRATE 4 MG IV PRN ×6 (08:48→21:10)
[2020-01-22] MEDS ORDERED: SODIUM BICARBONATE 8.4% INJ 50 MEQ/50 ML DISP.SYRIN ONE ×2 (09:17→19:39)
[2020-01-22] MEDS ORDERED: SODIUM BICARBONATE 8.4% INJ 50 MEQ/50 ML DISP.SYRIN IV ONE (09:29)
[2020-01-22] MEDS ORDERED: EPINEPHRINE INJ/PF 1 MG/1 ML AMPULE ONE ×2 (09:30→12:50)
--- NOTE | 2020-01-22 09:41 | RADIOLOGY REPORT (SQ) ---
EXAM DESCRIPTION: CHEST SINGLE VIEW IMAGES COMPLETED DATE/TIME: 01/22/2020 9:30 am REASON FOR STUDY: LINE PLACEMENT COMPARISON: AP chest 03/19/2018, 07/03/2016 EXAM PARAMETERS: NUMBER OF VIEWS: One view. TECHNIQUE: Single frontal radiographic view of the chest acquired. RADIATION DOSE: NA LIMITATIONS: None. FINDINGS: LUNGS AND PLEURA: No opacities, masses or pneumothorax. No pleural effusion. MEDIASTINUM AND HILAR STRUCTURES: No masses. Contour normal. HEART AND VASCULAR STRUCTURES: Heart normal in size. Normal vasculature. BONES: No acute findings. HARDWARE: Endotracheal tube tip midtrachea. Nasogastric tube tip and side port in the stomach. Intr a osseous line in the right humeral head. Defibrillator pads over the anterior chest OTHER: No other significant finding. IMPRESSION: Tubes and lines in good positioning. No acute infiltrates. No pleural effusion or pneumothorax. TECHNICAL DOCUMENTATION: JOB ID: [id number] 2010 [employer]- All Rights Reserved Reading location - IP/workstation name: [email or web address]
[2020-01-22] MEDS ORDERED: INSULIN REG, HUMAN 100 UNIT/ML 3 ML VIAL (PYX) IV ONE (09:45)
[2020-01-22] MEDS ORDERED: DEXTROSE 50%-WATER 25 GM/50 ML DISP.SYRIN IV ONE (10:21)
[2020-01-22] MEDS ORDERED: NORMAL SALINE 1000 ML 1,000 ML IV PRN (10:24)
[2020-01-22] MEDS ORDERED: DEXTROSE 5%-WATER 250 ML with NOREPINEPHRINE BITARTRATE 4 MG IV PRN ×2 (10:25)
[2020-01-22] MEDS ORDERED: DEXTROSE 5%-WATER 250 ML with EPINEPHRINE/PF 1 MG IV PRN ×2 (10:38)
--- NOTE | 2020-01-22 10:44 | ER Document Report ---
Entered by DAMASO BHAT SCRIBE 01/22/20 0855 Acting as scribe for:RICHY ARCHER IV, MD ED General - General Chief Complaint: Cardiac Arrest Stated Complaint: POST CARDIAC ARREST Primary Care Provider: ABUNDIO MCHUGH MD [Primary Care Provider] - Follow up as needed Mode of Arrival: Ambulatory Information source: Patient Notes: This 65 year old male patient presents to the emergency department today with concerns of a V. fib arrest from [facility]. Downtime was approximately 10 minutes per EMS, bystander CPS was administered. Patient was intubated prior to arrival. History is limited secondary to the patient's medical condition. Prehospital intervention: 5 external defibrillations, calcium, bicarb, 450 mg of amiodarone, and 5 rounds of epinephrine. TRAVEL OUTSIDE OF THE [place] IN LAST 30 DAYS: No - Related Data Allergies/Adverse Reactions: No Known Allergies Allergy (Verified 02/18/18 15:07) Past Medical History - General Information source: [facility] Records Cannot obtain history due to: Intubated - Social History Smoking Status: Unknown if Ever Smoked Lives with: Longterm Family History: Reviewed & Not Pertinent, Hypertension - Past Medical History Cardiac Medical History: Reports: Hx Congestive Heart Failure, Hx Coronary Artery Disease, Hx Heart Attack - 2010, Hx Hypercholesterolemia, Hx Hypertension Pulmonary Medical History: Reports: Hx Pneumonia - Intubated last year Neurological Medical History: Reports: Hx Cerebrovascular Accident - Feb 2013 left sided weakness Endocrine Medical History: Reports: Hx Diabetes Mellitus Type 2 - IDDM Renal/ Medical History: Reports: Hx Renal Insufficiency Malignancy Medical History: Reports: Hx Renal (Kidney) Cancer GI Medical History: Reports: Hx Gastroesophageal Reflux Disease Psychiatric Medical History: Reports: Hx Dementia - Vascular dementia, Hx Depression Past Surgical History: Reports: Hx Cardiac Catheterization, Hx Coronary Stent, Hx Kidney (Renal Surgery) - right nephrectomy, Hx Orthopedic Surgery - tila knee, Hx Tonsillectomy, Hx Tubal Ligation - Immunizations Hx Diphtheria, Pertussis, Tetanus Vaccination: Yes Hx Pneumococcal Vaccination: 07/18/14 Review of Systems - Review of Systems -: Yes ROS unobtainable due to patient's medical condition Physical Exam - Vital signs Vitals: Temp 97.5 F 01/22/20 08:48 - General General appearance: Unresponsive - HEENT Head: Normocephalic, Atraumatic - Respiratory Respiratory status: Other - intubated. equal breath sounds bilaterally. - Cardiovascular Rhythm: Regular Heart sounds: Normal auscultation - Abdominal Inspection: Obese Distension: No distension - Extremities General upper extremity: Other - LUE IO General lower extremity: Other - Neurological French Coma Scale Eye Opening: None French Coma Scale Verbal: None Appling Coma Scale Motor: None French Coma Scale Total: 3 Course - Re-evaluation Re-evalutation: 01/22/20 11:44 ET tube was visualized with kaleidoscope to check for herniation of the cuff over the vocal cords. This was not seen. The cuff was deflated and the tube was advanced approximately 1 cm then reinflated to see if this would resolve the issue with the potential leak. This also did not resolve the leak. A gum elastic bougie was used by this MD to cannulate the existing 7.0 ET tube remove it and replace it with a new 7.0 endotracheal cuffed tube. The cuff was inflated. No hissing sounds or other evidence of the leak was then appreciated. ET tube was secured at 25 cm at the lip. - Vital Signs Vital signs: Temp Pulse Resp BP Pulse Ox 97.5 F 14 134/83 H 100 01/22/20 08:48 01/22/20 11:03 01/22/20 11:03 01/22/20 11:40 - Laboratory Result Diagrams: 01/22/20 10:50 01/22/20 10:50 Laboratory results interpreted by me: 01/22/20 01/22/20 01/22/20 10:50 10:50 10:50 WBC 19.4 H Hgb 11.1 L Hct 35.2 L MCHC 31.5 L RDW 15.9 H Lymph % (Auto) 9.6 L [place] % (Auto) 2.5 L Absolute Neuts (auto) 16.9 H Seg Neutrophils % 87.1 H Sodium 136.8 L Potassium 3.0 L* BUN 40 H Creatinine 4.14 H Est GFR ( Amer) 13 L Est GFR (MDRD) Non-Af 11 L Glucose 169 H AST 1111 H ALT 623 H Creatine Kinase 1336 H CK-MB (CK-2) 162.00 H Total Protein 6.1 L Albumin 2.6 L - Diagnostic Test Radiology reviewed: Reports reviewed - Consults DR. ROBERSON Time consulted: 10:00 Reason for consultation: 01/22/20 11:55 intubated, s/p cardiac arrest, rosc Consulted provider: will come to ER Procedures - Central Line Right Femoral Time completed: 09:34 Consent obtained: No - emergent, pt in cardiac arrest Central line pre-insertion: Sterile PPE donned, Chloraprep applied, Sterile drapes applied Central line lumen type: Triple Ultrasound guided: No Number of attempts: 2 Notes: 01/22/20 11:49 unsuccessful Left Internal jugular Time completed: 09:55 Consent obtained: No - emergent, pt in cardiac arrest Central line pre-insertion: Sterile PPE donned, Chloraprep applied Ultrasound guided: Yes Number of attempts: 2 Notes: 01/22/20 11:50 unsuccessful, able to aspirate venous blood but unable to pass Seldinger wire Critical Care Note - Critical Care Note Total time excluding time spent on procedures (mins): 120 - cardiac arrest, acls, rosc Discharge - Discharge Clinical Impression: Cardiopulmonary arrest with successful resuscitation Condition: Critical Disposition: ADMITTED INPATIENT Admitting Provider: Brooklynn (Sock Turner) Unit Admitted: ICU Referrals: ABUNDIO MCHUGH MD [Primary Care Provider] - Follow up as needed I personally performed the services described in the documentation, reviewed and edited the documentation which was dictated to the scribe in my presence, and it accurately records my words and actions.
[2020-01-22 11:03] LABS: ABSOLUTE BASOPHILS # (AUTO) 0.1 10^3/uL (0.0-0.2); ABSOLUTE EOSINOPHILS # (AUTO) 0.1 10^3/uL (0.0-0.6); ABSOLUTE LYMPHOCYTES (AUTO) 1.9 10^3/uL (0.5-4.7); ABSOLUTE MONOCYTES (AUTO) 0.5 10^3/uL (0.1-1.4); ABSOLUTE NEUT (AUTO) 16.9 10^3/uL (1.7-8.2); BASOPHILS % (AUTO) 0.3 % (0-2); EOSINOPHILS % (AUTO) 0.5 % (0-6); HEMATOCRIT 35.2 % (36.0-47.0); HEMOGLOBIN 11.1 g/dL (12.0-15.5); LYMPHOCYTES % (AUTO) 9.6 % (13-45); MEAN CORPUSCULAR HEMOGLOBIN 28.4 pg (27.0-33.4); MEAN CORPUSCULAR HGB CONC 31.5 g/dL (32.0-36.0); MEAN CORPUSCULAR VOLUME 90 fl (80-97); MONOCYTES % (AUTO) 2.5 % (3-13); PLATELET COUNT 294 10^3/uL (150-450); RED CELL DISTRIBUTION WIDTH 15.9 % (11.5-14.0); SEGMENTED NEUTROPHILS % (AUTO) 87.1 % (42-78); TOTAL CELLS COUNTED % (AUTO) 100 %; WHITE BLOOD COUNT 19.4 10^3/uL (4.0-10.5)
--- NOTE | 2020-01-22 11:03 | RADIOLOGY REPORT (SQ) ---
EXAM DESCRIPTION: CHEST SINGLE VIEW IMAGES COMPLETED DATE/TIME: 01/22/2020 10:34 am REASON FOR STUDY: CENTRAL LINE PLACEMENT COMPARISON: Chest films 01/22/2020, 07/03/2016, 08/13/2015 EXAM PARAMETERS: NUMBER OF VIEWS: One view. TECHNIQUE: Single frontal radiographic view of the chest acquired. RADIATION DOSE: NA LIMITATIONS: None. FINDINGS: LUNGS AND PLEURA: No opacities, masses or pneumothorax. No pleural effusion. MEDIASTINUM AND HILAR STRUCTURES: No masses. Contour normal. HEART AND VASCULAR STRUCTURES: Borderline cardiomegaly BONES: No acute findings. HARDWARE: Endotracheal tube tip 3 to 4 cm above the ashtyn. Left subclavian central line tip superio r vena cava. Nasogastric tube tip and side port in the stomach. Intra osseous line in the right hum eral head OTHER: No other significant finding. IMPRESSION: Tubes and lines in good positioning. No focal infiltrates TECHNICAL DOCUMENTATION: JOB ID: [id number] 2010 [employer]- All Rights Reserved Reading location - IP/workstation name: [email or web address]
[2020-01-22] MEDS ORDERED: DEXMEDETOMIDINE IN 0.9 % NACL 400 MCG/100 ML RTUPB IV ONE (11:20)
[2020-01-22 11:21] LABS: ALBUMIN 2.6 g/dL (3.5-5.0); ALKALINE PHOSPHATASE 123 U/L (38-126); ANION GAP 13 (5-19); BILIRUBIN,DIRECT 0.3 mg/dL (0.0-0.4); BILIRUBIN,TOTAL 0.8 mg/dL (0.2-1.3); BLOOD UREA NITROGEN 40 mg/dL (7-20); CALCIUM 8.8 mg/dL (8.4-10.2); CARBON DIOXIDE 22 mmol/L (22-30); CHLORIDE 102 mmol/L (98-107); CREATINE KINASE 1336 U/L (30-135); GLUCOSE 169 mg/dL (75-110); TOTAL PROTEIN 6.1 g/dL (6.3-8.2)
[2020-01-22 11:29] LABS: ASPARTATE AMINO TRANSFERASE 1111 U/L (14-36)
[2020-01-22 11:32] LABS: TROPONIN I 4.9 ng/mL
[2020-01-22] MEDS ORDERED: POTASSI CL 40 MEQ/NS 1L 1,000 ML IV PRN (11:32)
[2020-01-22] MEDS ORDERED: ONDANSETRON HCL INJ/PF 4 MG/2 ML SDV IV PRN (11:32)
[2020-01-22] MEDS ORDERED: PHARMACY COMMUNICATION ORDER MC NR (11:45)
--- NOTE | 2020-01-22 12:00 | CRITICAL CARE ADMISSION REPORT ---
HPI Date:: 01/22/20 Time:: 10:30 Reason for ICU Reason:: Post arrest. Intubated on pressors. Admission Date/Time & PCP: Admission Date/Time: Primary Care Provider: ABUNDIO MCHUGH MD HPI: This patient is a 65 yo woman who is a resident of a local [place] who was found in cardiac arrest at the facility this AM. CPR started there. Intubated by EMS. She is moving but not awake. Patient can give no further hx. Said to be in VF for part of the arrest. Between EMS and ED cardioverted 5 times. Found to be hypokalemic. Is a dialysis patient but recieved it yesterday. She has a cardiac hx. Judging by medications probably CAD. 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 Family informed. History obtained from:: ED MD Mccracken, son, records. - Diagnosis/Plan (1) Cardiac arrest Is this a current diagnosis for this admission?: Yes Plan: She has acheived ROSC and with levophed has a MAP of 87. Her neurologic recovery remains to be seen over the next few days. (2) Ventricular fibrillation Is this a current diagnosis for this admission?: Yes Plan: She was cardioverted and received a total of 450 mg of amiodarone. (3) CAD (coronary artery disease) Is this a current diagnosis for this admission?: Yes Plan: This most likely contributed. (4) CKD (chronic kidney disease) stage V requiring chronic dialysis Is this a current diagnosis for this admission?: Yes Plan: She is currently not in need f HD. Dr. Bullard consulted for further nephrology care. Plan Summary: Need to supprot CV and respiratory function until we get a clearer veiw of her neurologic recovery. Past Medical History Cardiac Medical History: Reports: Congestive Heart Failure, Coronary Artery Disease, Myocardial Infarction - 2011, Hyperlipidema, Hypertension Denies: DVT, Pulmonary Embolism Pulmonary Medical History: Reports: Pneumonia - Intubated last year Denies: Asthma, Bronchitis, Chronic Obstructive Pulmonary Disease (COPD), Tuberculosis Neurological Medical History: Denies: Seizures Endocrine Medical History: Reports: Diabetes Mellitus Type 1, Diabetes Mellitus Type 2 - IDDM Denies: Hyperthyroidism, Hypothyroidism Malignancy Medical History: Reports: Renal (Kidney) Cancer GI Medical History: Reports: Gastroesophageal Reflux Disease Denies: Cirrhosis, Hepatitis Musculoskeltal Medical History: Denies: Arthritis Skin Medical History: Denies: Eczema, Psoriasis Psychiatric Medical History: Reports: Dementia - Vascular dementia, Depression Hematology: Reports: Anemia Past Surgical History Past Surgical History: Reports: Cardiac Catheterization, Coronary Stent, Orthopedic Surgery - tila knee, Tonsillectomy, Tubal Ligation Denies: Hysterectomy, Pacemaker Social/Family History - Social History Lives with: Senior Care Smoking Status: Unknown if Ever Smoked Frequency of Alcohol Use: None Hx Recreational Drug Use: No Drugs: None Hx Prescription Drug Abuse: No - Medication/Allergies Home Medications: Atorvastatin Calcium [Lipitor 80 mg Tablet] 80 mg PO QHS 03/17/18 Calcium Carbonate/Vitamin D3 [Calcium 500-Vit D3 400 Chew Tb] 1 each PO BID 03/17/18 Carvedilol [Coreg 25 mg Tablet] 25 mg PO Q12 03/17/18 Docusate Sodium [Colace 100 mg Capsule] 100 mg PO BID 03/17/18 Duloxetine HCl [Cymbalta] 60 mg PO DAILY 03/17/18 Ergocalciferol (Vitamin D2) [Vitamin D2] 50,000 unit PO MO@1000 03/17/18 Esomeprazole Magnesium [Nexium] 40 mg PO DAILY 03/17/18 Hydralazine HCl [Apresoline 50 mg Tablet] 50 mg PO Q8 03/17/18 Isosorbide Mononitrate [Isosorbide Mononitrate ER] 15 mg PO DAILY 03/17/18 Ampicillin Sodium/Sulbactam Na [Unasyn Inj 1.5 gm Vial] 1.5 gm IV Q12 #120 vial 03/28/18 Aspirin [Aspirin 81 mg Chewable Tablet] 81 mg PO DAILY tab.chew 03/28/18 Atorvastatin Calcium [Lipitor 80 mg Tablet] 80 mg PO QHS tablet 03/28/18 Calcium Carbonate/Vitamin D3 [Os-[place] 250 mg with Vitamin D 125 Units] 1 tab PO BID tablet 03/28/18 Carvedilol [Coreg 12.5 mg Tablet] 25 mg PO Q12 tablet 03/28/18 Docusate Sodium [Colace 100 mg Capsule] 100 mg PO BID capsule 03/28/18 Duloxetine HCl [Cymbalta 30 mg Capsule.] 60 mg PO DAILY capsule. 03/28/18 Hydralazine HCl [Apresoline 50 mg Tablet] 50 mg PO Q8 tablet 03/28/18 Isosorbide Mononitrate [Imdur 30 mg Tablet.er] 15 mg PO DAILY tab.er.24h 03/28/18 Levofloxacin 500 mg/D5w RTU [Levaquin RTU 500Mg/D5w 100 ml Premix Bag] 500 mg IV Q48H #21 rtupb 03/28/18 Magnesium Hydroxide [Milk of Magnesia 30 ml Udcup] 30 ml PO DAILY udc 03/28/18 Sennosides/Docusate 8.6-50 mg [Senna Plus Tablet] 2 each PO BID #30 tablet 03/28/18 Tramadol HCl [Ultram 50 mg Tablet] 50 mg PO Q6HP PRN #20 tablet 03/28/18 Epoetin [place] [Procrit Inj 20,000 Unit/1 ml Vial (Renal)] 20,000 unit SUBCUT [place]@1100 ml 03/29/18 Allergies/Adverse Reactions: No Known Allergies Allergy (Verified 02/18/18 15:07) Review of Systems ROS unobtainable: Due to endotracheal tube, Due to mental status Physical Exam Vital Signs: Temp Pulse Resp BP Pulse Ox 14 134/83 H 99 01/22/20 11:03 01/22/20 11:03 01/22/20 11:03 General appearance: PRESENT: no acute distress Head exam: PRESENT: atraumatic, normocephalic Eye exam: PRESENT: conjunctiva pink, PERRLA. ABSENT: scleral icterus Ear exam: PRESENT: normal external ear exam Mouth exam: PRESENT: moist, tongue midline Neck exam: ABSENT: carotid bruit, JVD, lymphadenopathy, thyromegaly Respiratory exam: PRESENT: clear to auscultation tila, other - Controlled ventilation.. ABSENT: rales, rhonchi, wheezes Cardiovascular exam: PRESENT: RRR. ABSENT: diastolic murmur, rubs, systolic murmur Pulses: PRESENT: normal dorsalis pedis pul GI/Abdominal exam: PRESENT: normal bowel sounds, soft. ABSENT: distended, guarding, mass, organolmegaly, rebound, tenderness Rectal exam: PRESENT: deferred Extremities exam: PRESENT: other - L BKA, R foot ulcer Neurological exam: PRESENT: other - Not resonding purposefull;y. GCS 3 Skin exam: PRESENT: dry, intact, warm. ABSENT: cyanosis, rash Tubes/Lines: PRESENT: Endotracheal Tube, Central Line, Nasogastic Tube Laboratory/Radiographs Laboratory Results: 01/22/20 10:50 01/22/20 10:50 01/22/20 01/22/20 10:50 10:50 WBC 19.4 H RBC 3.90 Hgb 11.1 L Hct 35.2 L MCV 90 MCH 28.4 MCHC 31.5 L RDW 15.9 H Plt Count 294 Seg Neutrophils % 87.1 H Sodium 136.8 L Potassium 3.0 L* Chloride 102 Carbon Dioxide 22 Anion Gap 13 BUN 40 H Creatinine 4.14 H Est GFR ( Amer) 13 L Glucose 169 H Calcium 8.8 Magnesium 2.1 Total Bilirubin 0.8 AST 1111 H Alkaline Phosphatase 123 Total Protein 6.1 L Albumin 2.6 L 01/22/20 01/22/20 10:50 10:50 Creatine Kinase 1336 H CK-MB (CK-2) 162.00 H Troponin I 4.900 Impressions: Chest X-Ray 01/22/20 00:00 IMPRESSION: Tubes and lines in good positioning. No focal infiltrates EKG: Formal 12 lead EKG pending. All labs, radiographs, diagnostic studies and EKGs were personally reviewed: Yes In addition, reports of radiographic and diagnostic studies were read: Yes Critical Time Critical Time (minutes): 40 -: The care of a critically ill patient is dynamic. This note represents a static moment in the admission process. Orders and treatments may be given simultaneously and urgently, and time is not special service representative of the treatment process. This patient requires Critical Care secondary to life threatening organ or limb dysfunction. Without Critical Care services, the patient is at risk for increased mortality and morbidity.
--- NOTE | 2020-01-22 12:06 | Progress Note ---
Provider Note Provider Note: Although it was said she is an HD patient I can find no HD notes. Dr. Bullard to see. She does have a cardiac hx with CAD, an IN in the past and hx CHF.
--- NOTE | 2020-01-22 12:22 | Operative Report ---
Bedside Procedure - History of Present Illness History of Present Illness: This patient is a 65 yo woman who is a resident of a local [place] who was found in cardiac arrest at the facility this AM. CPR started there. Intubated by EMS. She is moving but not awake. Patient can give no further hx. Said to be in VF for part of the arrest. Between EMS and ED cardioverted 5 times. Found to be hypokalemic. Is a dialysis patient but recieved it yesterday. She has a cardiac hx. Judging by medications probably CAD. 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 Family informed. Indication for Procedure: Need for pressors Date: 01/22/20 Provider: FIDEL Epstein Central Line Left Subclavian Time completed: 11:30 Consent obtained: No Central line pre-insertion: Sterile PPE donned, Chloraprep applied, Sterile drapes applied Central line lumen type: Triple Ultrasound guided: No Line secured with sutures: Yes Central line post-insertion: Blood return from lumens, Biopatch applied, Sutured, Sterile dressing applied, Position confirmed w/ CXR Complications: No
[2020-01-22] MEDS ORDERED: DEXMEDETOMIDINE IN NS 400 MCG/100 ML RTUPB IV PRN (12:23)
--- NOTE | 2020-01-22 12:35 | Progress Note ---
Provider Note Provider Note: According to Dr. Bullard she is an HD patient. No need for HD today.
--- NOTE | 2020-01-22 12:42 | RADIOLOGY REPORT (SQ) ---
EXAM DESCRIPTION: KUB/ABDOMEN (SINGLE VIEW) IMAGES COMPLETED DATE/TIME: 01/22/2020 12:01 pm REASON FOR STUDY: Check Placement of NG Tube COMPARISON: None. NUMBER OF VIEWS: One view. TECHNIQUE: Supine radiographic image of the abdomen acquired. LIMITATIONS: None. FINDINGS: BOWEL GAS PATTERN: Normal bowel gas pattern. No dilated loops. CALCIFICATIONS: No suspicious calcifications. SOFT TISSUES: No gross mass or suggestion of organomegaly. HARDWARE: Approximately 8 to 10 cm of the NG tube is in the stomach. It appears is if the side hole is just inside the gastroesophageal junction. BONES: No acute fracture. No worrisome bone lesions. OTHER: No other significant finding. IMPRESSION: NG tube as described. TECHNICAL DOCUMENTATION: JOB ID: [id number] 2010 [employer]- All Rights Reserved Reading location - IP/workstation name: [email or web address]
[2020-01-22] MEDS ORDERED: NOREPINEPHRINE BITARTRATE INJ/PF 4 MG/4 ML SDV IV ONE (12:50)
[2020-01-22] MEDS: PANTOPRAZOLE SODIUM 40 MG VIAL IV SCH (13:03)
[2020-01-22] MEDS: NORMAL SALINE 1000 ML 1,000 ML IV PRN (13:04)
[2020-01-22] MEDS ORDERED: POTASSI CL 20 MEQ/50 ML RIDER 20 MEQ/50 ML RTUPB IV ONE (14:13)
--- NOTE | 2020-01-22 14:23 | Progress Note ---
Provider Note Provider Note: L femoral A-line placed for BP monitoring and ABGs.
[2020-01-22] MEDS: POTASSIUM CHLORIDE 20 MEQ/50 ML RTU IV SCH ×2 (14:28→16:02)
[2020-01-22] MEDS: HEPARIN SOD (PORCINE) 5,000 UNIT/ML 1 ML VIAL SUBCUT SCH ×2 (14:30→21:35)
[2020-01-22 15:46] LABS: ARTERIAL BLOOD BASE EXCESS -5.5 mmol/L; ARTERIAL BLOOD H2CO3 0.93 mmol/L (1.05-1.35); ARTERIAL BLOOD HCO3 18.4 mmol/L (20-24); ARTERIAL BLOOD O2 SATURATION 96.1 % (94-98); ARTERIAL BLOOD PH 7.39 (7.35-7.45); ARTERIAL BLOOD PO2 81.2 mmHg (80-100); ARTERIAL BLOOD TOTAL CO2 19.4 mmol/L (21-25)
[2020-01-22 15:48] LABS: ARTERIAL BLOOD FIO2 50%
[2020-01-22 15:54] LABS: APPEARANCE,URINE TURBID; BILIRUBIN,URINE NEGATIVE (NEGATIVE); COLOR,URINE YELLOW; GLUCOSE, URINE NEGATIVE (NEGATIVE); KETONES,URINE NEGATIVE (NEGATIVE); LEUKOCYTE ESTERASE,URINE LARGE (NEGATIVE); NITRITE,URINE NEGATIVE (NEGATIVE); PROTEIN,URINE 100 mg/dL (NEGATIVE); URINE SPECIFIC GRAVITY 1.009; UROBILINOGEN,URINE NEGATIVE mg/dL (<2.0)
--- NOTE | 2020-01-22 18:02 | EKG REPORT ---
SEVERITY:- ABNORMAL ECG - SINUS RHYTHM PROLONGED QT INTERVAL : Confirmed by: Hari Ware MD 22-Jan-2020 18:01:36
[2020-01-22] MEDS ORDERED: HEPARIN SOD (PORCINE) 1,000 UNIT/ML 10 ML VIAL IV ONE (18:54)
--- NOTE | 2020-01-22 19:06 | PDOC CONSULTATION ---
Consultation-Blank Consultation: CARDIOLOGY CRITICAL CARE CONSULTATION by Dr. Janey Saxena. Patient seen at 6 PM. 75 minutes spent on this critical care patient. CONSULT REQUESTING PHYSICIAN: Dr. Stewart, lumber chain offbearer REASON FOR CONSULTATION: Patient status post V. fib cardiac arrest successfully resuscitated. Patient with shock on multiple pressors. HISTORY OF PRESENT ILLNESS: Patient intubated and sedated and unable to give history. History obtained from old chart and the present chart. 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 EMT found her to be in V. fib arrest and had cardioverted several times and successfully was resuscitated. Initial potassium was low. An initial troponin which is elevated candace to severely higher levels. The patient also was hypotensive and is on pressors she is on 12 mcg/min of norepinephrine and 4 mics of epinephrine. Her blood pressure is in the 120s.. Past Medical History Cardiac Medical History: Reports: Coronary Artery Disease, Hyperlipidemia, Hypertension-primary, Myocardial Infarction - 2011. She has a history of proximal atrial fibrillation and was on Xarelto in the past. She has a history of peripheral vascular disease. Denies: DVT, Pulmonary Embolism Pulmonary Medical History: Reports: Pneumonia - Intubated last year Denies: Asthma, Bronchitis, Chronic Obstructive Pulmonary Disease (COPD), Tuberculosis Neurological Medical History: Denies: Seizures Endocrine Medical History: Reports: Diabetes Mellitus Type 2 - IDDM Denies: Hyperthyroidism, Hypothyroidism Renal/ Medical History: Reports: Chronic Kidney Disease end-stage on dialysis, Secondary Hyperparathyroidism Malignancy Medical History: Reports: Renal (Kidney) Cancer, cured after right nephrectomy. GI Medical History: Reports: Gastroesophageal Reflux Disease Denies: Cirrhosis, Hepatitis Musculoskeltal Medical History: Denies: Arthritis Skin Medical History: Denies: Eczema, Psoriasis Psychiatric Medical History: Reports: Dementia - Vascular dementia, Depression Hematology Medical History: Reports Anemia of Chronic Kidney Disease Past Surgical History Past Surgical History: Reports: Cardiac Catheterization, Coronary Stent, Orthopedic Surgery - tila knee, Tonsillectomy, Tubal Ligation Denies: Hysterectomy, Pacemaker Social History Lives with: Detention Smoking Status: Unknown if Ever Smoked Electronic Cigarette use?: No Frequency of Alcohol Use: None Hx Recreational Drug Use: No Drugs: None Hx Prescription Drug Abuse: No Family History Parental Family History Reviewed: No Children Family History Reviewed: No Sibling(s) Family History Reviewed.: No Medication/Allergy Home Medications: Hydralazine HCl [Apresoline 50 mg Tablet] 25 mg PO MOWEFR@10,18 03/17/18 Isosorbide Mononitrate [Isosorbide Mononitrate ER] 15 mg PO DAILY 03/17/18 Atorvastatin Calcium [Lipitor 80 mg Tablet] 80 mg PO QHS tablet 03/28/18 Sennosides/Docusate 8.6-50 mg [Senna Plus Tablet] 2 each PO BID #30 tablet 03/28/18 Acetaminophen [Tylenol 325 mg Tablet] 650 mg PO Q4HP PRN 01/22/20 Amino Acids/Protein Hydrolys [Pro-Stat Max Liquid Packet] 1 pkt PO BID 01/22/20 Apixaban [Eliquis 5 mg Tablet] 5 mg PO BID 01/22/20 Cholecalciferol (Vitamin D3) [Vitamin D3] 50 mcg PO EMMANUEL@1000 01/22/20 Collagenase Clostridium Hist. [Santyl Ointment 30 gm] 1 applic TP DAILYP PRN 01/22/20 Folic Acid/Vitamin B Comp W-C [Nephrocaps Multiple Vitamin Capsule] 1 cap PO DAILY 01/22/20 Hydralazine HCl [Apresoline 50 mg Tablet] 25 mg PO SUTUTHSA@06,14,22 01/22/20 Lidocaine/Transparent Dressing [Lidocaine 4% Kit] 1 each TP MOWEFR 01/22/20 Metoprolol Tartrate [Lopressor] 50 mg PO BID 01/22/20 Ondansetron HCl [Zofran] 4 mg PO Q6HP PRN 01/22/20 Pantoprazole Sodium [Protonix [address] Tablet] 40 mg PO QAM 01/22/20 Polyethylene Glycol 3350 [Miralax Powder 17 gm/Packet] 1 packet PO DAILY 01/22/20 Potassium Gluconate 250 mg PO BID 01/22/20 Sertraline HCl 50 mg PO QHS 01/22/20 Sodium Polystyrene Sulfonate [Kayexalate 15 Gm/60 Ml Susp 60 Ml] 15 gm PO .DIALYSIS DAYS 01/22/20 Allergies/Adverse Reactions: No Known Allergies Allergy (Verified 02/18/18 15:07). Current Medications Generic Name Dose Route Start Last Admin Trade Name Freq PRN Reason Stop Dose Admin Acetaminophen 650 mg 01/22/20 20:30 01/22/20 20:55 Tylenol Soln 325 Mg/10.15 Ml Udcup PO 02/21/20 20:29 650 mg Q4HP PRN Administration FEVER >101 Heparin Sodium (Porcine) 5,000 unit 01/22/20 14:00 01/22/20 21:35 Heparin Inj 5,000 Units/Ml 1 Ml Vial SUBCUT 02/21/20 13:59 5,000 unit Q8 ZION Administration Sodium Chloride 1,000 mls @ 0 mls/hr 01/22/20 10:24 01/22/20 11:01 Nacl 0.9% 1000 Ml Iv Soln IV 02/21/20 10:23 Infused CONTINUOUS PRN Infusion THIS MED IS NOT "PRN" Wide Open Epinephrine HCl 1 mg/ Dextrose 250 mls @ 0 mls/hr 01/22/20 10:38 01/22/20 18:30 IV 02/21/20 10:37 0 mcg/min CONTINUOUS PRN 0 mls/hr THIS MED IS NOT "PRN" Titration Protocol Titrate Sodium Chloride 1,000 mls @ 50 mls/hr 01/22/20 11:32 01/22/20 13:04 Nacl 0.9% 1000 Ml Iv Soln IV 02/21/20 11:31 50 mls/hr CONTINUOUS PRN Administration THIS MED IS NOT "PRN" Potassium Chloride/Sodium Chloride 1,000 mls @ 0 mls/hr 01/22/20 11:32 Nacl 0.9% 1000 Ml/Kcl 40 Meq Premix Bag IV 02/21/20 11:31 CONTINUOUS PRN THIS MED IS NOT "PRN" Per Protocol Norepinephrine Bitartrate 4 mg 250 mls @ 0 mls/hr 01/22/20 11:32 01/22/20 23:11 / Dextrose IV 02/21/20 11:31 0 mcg/min CONTINUOUS PRN 0 mls/hr THIS MED IS NOT "PRN" Titration Protocol Titrate Dexmedetomidine/Sodium Chloride 400 mcg in 100 mls @ 7.85 mls/hr 01/22/20 12:23 01/22/20 20:30 Precedex 400 Mcg/Ns 100 Ml Iv Premix IV 02/21/20 12:22 0 mcg/kg/hr CONTINUOUS PRN 0 mls/hr THIS MED IS NOT "PRN" Titration Protocol 0.4 MCG/KG/HR Hard Fat/Phenylephrine 40 mg/ 254 mls @ 0 mls/hr 01/22/20 20:29 01/22/20 23:21 Dextrose IV 02/21/20 20:28 50 mcg/min CONTINUOUS PRN 19.05 mls/hr THIS MED IS NOT "PRN" Titration Protocol Titrate Heparin Sodium/Dextrose 25,000 unit in 250 mls @ 0 mls/hr 01/22/20 21:45 Heparin Rtu 25,000 Unit/250 Ml D5w Premix IV 02/21/20 21:44 CONTINUOUS PRN THIS MED IS NOT "PRN" Protocol Titrate Linezolid 600 mg in 300 mls @ 300 mls/hr 01/22/20 22:00 01/22/20 23:00 Zyvox Rtu 600 Mg/300 Ml Premixed IV 01/29/20 21:59 300 mls/hr Q12 ZION 300 mls/hr Administration Ondansetron HCl 4 mg 01/22/20 11:32 Zofran Inj/Pf 4 Mg/2 Ml Sdv IV 02/21/20 11:31 Q8HP PRN FOR NAUSEA/VOMITING Pantoprazole Sodium 40 mg 01/22/20 11:45 01/22/20 13:03 Protonix Iv Inj 40 Mg Vial IV 01/29/20 11:44 40 mg DAILY ZION Administration Pharmacy Profile Note 1 each 01/22/20 11:45 Medication Communication Order 02/21/20 11:44 .NOTICE NR Sodium Chloride 2.5 ml 01/22/20 11:45 01/22/20 21:06 Saline Flush 2.5 Ml Monoject Prefil Syrin IV 02/21/20 11:44 Not Given Q8 ZION Discontinued Medications Generic Name Dose Route Start Last Admin Trade Name Freq PRN Reason Stop Dose Admin Atropine Sulfate 1 mg 01/22/20 19:39 Atropine Sulfate Inj 1 Mg/10 Ml Disp.Syrin IV 01/22/20 19:40 .STK-MED ONE Carvedilol 12.5 mg 01/22/20 22:00 Coreg 12.5 Mg Tablet PO 02/21/20 21:59 Q12 ZION Dextrose 25 gm 01/22/20 10:21 01/22/20 09:02 Dextrose Inj 50% Syringe (25 Gm/50 Ml) IV 01/22/20 10:22 25 gm NOW ONE Administration Epinephrine HCl Confirm 01/22/20 09:30 01/22/20 12:29 Epinephrine-Pf Inj 1 Mg/Ml (1:1000) Ampule Administered 01/22/20 09:31 Not Given Dose 1 mg .ROUTE .STK-MED ONE Epinephrine HCl Confirm 01/22/20 12:50 01/22/20 12:56 Epinephrine-Pf Inj 1 Mg/Ml (1:1000) Ampule Administered 01/22/20 12:51 Not Given Dose 1 mg .ROUTE .STK-MED ONE Epinephrine HCl 4 mg 01/22/20 19:39 Epinephrine Inj 1 Mg/10 Ml Disp.Syrin .ROUTE 01/22/20 19:40 .STK-MED ONE Hard Fat/Phenylephrine Confirm 01/22/20 20:30 01/22/20 20:54 Kristian-Synephrine Inj/Pf 10 Mg/1 Ml Sdv Administered 01/22/20 20:31 Not Given Dose 10 mg .ROUTE .STK-MED ONE Heparin Sodium (Porcine) 4,000 unit 01/22/20 18:54 01/22/20 19:56 Heparin Inj 1,000 Unit/Ml 10 Ml Vial IV 01/22/20 18:55 4,000 units NOW ONE Administration Norepinephrine Bitartrate 4 mg 250 mls @ 0 mls/hr 01/22/20 10:25 / Dextrose IV 02/21/20 10:24 CONTINUOUS PRN THIS MED IS NOT "PRN" Protocol Titrate Dexmedetomidine/Sodium Chloride Confirm 01/22/20 11:20 01/22/20 13:05 Precedex 400 Mcg/Ns 100 Ml Iv Premix Administered 01/22/20 11:21 0 mcg/kg/hr Dose 0 mls/hr 400 mcg in 100 mls @ ud Infusion IV .STK-MED ONE Potassium Chloride/Water 20 meq in 50 mls @ 25 mls/hr 01/22/20 15:00 01/22/20 16:02 Potassium Chloride Nahid 20 Meq/50 Ml IV 01/22/20 18:59 25 mls/hr Q2H ZION 25 mls/hr Administration Potassium Chloride/Water Confirm 01/22/20 14:13 01/22/20 14:28 Potassium Chloride Nahid 20 Meq/50 Ml Administered 01/22/20 14:14 Not Given Dose 20 meq in 50 mls @ ud IV .STK-MED ONE Linezolid Confirm 01/22/20 22:49 01/22/20 23:00 Zyvox Rtu 600 Mg/300 Ml Premixed Administered 01/22/20 22:50 Not Given Dose 600 mg in 300 mls @ ud IV .STK-MED ONE Insulin Human Regular 10 unit 01/22/20 09:45 01/22/20 09:02 Humulin R (Pyxis) Insulin 100 Unit/Ml 3ml IV 01/22/20 09:46 10 unit NOW ONE Administration Magnesium Sulfate 40 meq 01/22/20 19:39 Magnesium Sulfate Inj/Pf 40 Meq/10 Ml Sdv .ROUTE 01/22/20 19:40 .STK-MED ONE Norepinephrine Bitartrate Confirm 01/22/20 12:50 01/22/20 12:56 Levophed Inj/Pf 4 Mg/4 Ml Sdv Administered 01/22/20 12:51 Not Given Dose 4 mg IV .STK-MED ONE Sodium Bicarbonate Confirm 01/22/20 09:17 01/22/20 12:29 Sodium Bicarbonate 8.4% Inj 50 Meq/50ml Syrin Administered 01/22/20 09:18 Not Given Dose 50 meq .ROUTE .STK-MED ONE Sodium Bicarbonate 50 meq 01/22/20 09:29 01/22/20 09:19 Sodium Bicarbonate 8.4% Inj 50 Meq/50ml Syrin IV 01/22/20 09:30 50 meq NOW ONE Administration Sodium Bicarbonate 50 meq 01/22/20 19:39 Sodium Bicarbonate 8.4% Inj 50 Meq/50ml Syrin .ROUTE 01/22/20 19:40 .STK-MED ONE RESUSCITATION STATUS: The patient is a full code. Her son is a surrogate healthcare decision maker. Current Medications Generic Name Dose Route Start Last Admin Trade Name Freq PRN Reason Stop Dose Admin Acetaminophen 650 mg 01/22/20 20:30 01/22/20 20:55 Tylenol Soln 325 Mg/10.15 Ml Udcup PO 02/21/20 20:29 650 mg Q4HP PRN Administration FEVER >101 Heparin Sodium (Porcine) 5,000 unit 01/22/20 14:00 01/22/20 21:35 Heparin Inj 5,000 Units/Ml 1 Ml Vial SUBCUT 02/21/20 13:59 5,000 unit Q8 ZION Administration Sodium Chloride 1,000 mls @ 0 mls/hr 01/22/20 10:24 01/22/20 11:01 Nacl 0.9% 1000 Ml Iv Soln IV 02/21/20 10:23 Infused CONTINUOUS PRN Infusion THIS MED IS NOT "PRN" Wide Open Epinephrine HCl 1 mg/ Dextrose 250 mls @ 0 mls/hr 01/22/20 10:38 01/22/20 18:30 IV 02/21/20 10:37 0 mcg/min CONTINUOUS PRN 0 mls/hr THIS MED IS NOT "PRN" Titration Protocol Titrate Sodium Chloride 1,000 mls @ 50 mls/hr 01/22/20 11:32 01/22/20 13:04 Nacl 0.9% 1000 Ml Iv Soln IV 02/21/20 11:31 50 mls/hr CONTINUOUS PRN Administration THIS MED IS NOT "PRN" Potassium Chloride/Sodium Chloride 1,000 mls @ 0 mls/hr 01/22/20 11:32 Nacl 0.9% 1000 Ml/Kcl 40 Meq Premix Bag IV 02/21/20 11:31 CONTINUOUS PRN THIS MED IS NOT "PRN" Per Protocol Norepinephrine Bitartrate 4 mg 250 mls @ 0 mls/hr 01/22/20 11:32 01/22/20 23:11 / Dextrose IV 02/21/20 11:31 0 mcg/min CONTINUOUS PRN 0 mls/hr THIS MED IS NOT "PRN" Titration Protocol Titrate Dexmedetomidine/Sodium Chloride 400 mcg in 100 mls @ 7.85 mls/hr 01/22/20 12:23 01/22/20 20:30 Precedex 400 Mcg/Ns 100 Ml Iv Premix IV 02/21/20 12:22 0 mcg/kg/hr CONTINUOUS PRN 0 mls/hr THIS MED IS NOT "PRN" Titration Protocol 0.4 MCG/KG/HR Hard Fat/Phenylephrine 40 mg/ 254 mls @ 0 mls/hr 01/22/20 20:29 01/22/20 23:21 Dextrose IV 02/21/20 20:28 50 mcg/min CONTINUOUS PRN 19.05 mls/hr THIS MED IS NOT "PRN" Titration Protocol Titrate Heparin Sodium/Dextrose 25,000 unit in 250 mls @ 0 mls/hr 01/22/20 21:45 Heparin Rtu 25,000 Unit/250 Ml D5w Premix IV 02/21/20 21:44 CONTINUOUS PRN THIS MED IS NOT "PRN" Protocol Titrate Linezolid 600 mg in 300 mls @ 300 mls/hr 01/22/20 22:00 01/22/20 23:00 Zyvox Rtu 600 Mg/300 Ml Premixed IV 01/29/20 21:59 300 mls/hr Q12 ZION 300 mls/hr Administration Ondansetron HCl 4 mg 01/22/20 11:32 Zofran Inj/Pf 4 Mg/2 Ml Sdv IV 02/21/20 11:31 Q8HP PRN FOR NAUSEA/VOMITING Pantoprazole Sodium 40 mg 01/22/20 11:45 01/22/20 13:03 Protonix Iv Inj 40 Mg Vial IV 01/29/20 11:44 40 mg DAILY ZION Administration Pharmacy Profile Note 1 each 01/22/20 11:45 Medication Communication Order 02/21/20 11:44 .NOTICE NR Sodium Chloride 2.5 ml 01/22/20 11:45 01/22/20 21:06 Saline Flush 2.5 Ml Monoject Prefil Syrin IV 02/21/20 11:44 Not Given Q8 ZION Discontinued Medications Generic Name Dose Route Start Last Admin Trade Name Freq PRN Reason Stop Dose Admin Atropine Sulfate 1 mg 01/22/20 19:39 Atropine Sulfate Inj 1 Mg/10 Ml Disp.Syrin IV 01/22/20 19:40 .STK-MED ONE Carvedilol 12.5 mg 01/22/20 22:00 Coreg 12.5 Mg Tablet PO 02/21/20 21:59 Q12 ZION Dextrose 25 gm 01/22/20 10:21 01/22/20 09:02 Dextrose Inj 50% Syringe (25 Gm/50 Ml) IV 01/22/20 10:22 25 gm NOW ONE Administration Epinephrine HCl Confirm 01/22/20 09:30 01/22/20 12:29 Epinephrine-Pf Inj 1 Mg/Ml (1:1000) Ampule Administered 01/22/20 09:31 Not Given Dose 1 mg .ROUTE .STK-MED ONE Epinephrine HCl Confirm 01/22/20 12:50 01/22/20 12:56 Epinephrine-Pf Inj 1 Mg/Ml (1:1000) Ampule Administered 01/22/20 12:51 Not Given Dose 1 mg .ROUTE .STK-MED ONE Epinephrine HCl 4 mg 01/22/20 19:39 Epinephrine Inj 1 Mg/10 Ml Disp.Syrin .ROUTE 01/22/20 19:40 .STK-MED ONE Hard Fat/Phenylephrine Confirm 01/22/20 20:30 01/22/20 20:54 Kristian-Synephrine Inj/Pf 10 Mg/1 Ml Sdv Administered 01/22/20 20:31 Not Given Dose 10 mg .ROUTE .STK-MED ONE Heparin Sodium (Porcine) 4,000 unit 01/22/20 18:54 01/22/20 19:56 Heparin Inj 1,000 Unit/Ml 10 Ml Vial IV 01/22/20 18:55 4,000 units NOW ONE Administration Norepinephrine Bitartrate 4 mg 250 mls @ 0 mls/hr 01/22/20 10:25 / Dextrose IV 02/21/20 10:24 CONTINUOUS PRN THIS MED IS NOT "PRN" Protocol Titrate Dexmedetomidine/Sodium Chloride Confirm 01/22/20 11:20 01/22/20 13:05 Precedex 400 Mcg/Ns 100 Ml Iv Premix Administered 01/22/20 11:21 0 mcg/kg/hr Dose 0 mls/hr 400 mcg in 100 mls @ ud Infusion IV .STK-MED ONE Potassium Chloride/Water 20 meq in 50 mls @ 25 mls/hr 01/22/20 15:00 01/22/20 16:02 Potassium Chloride Nahid 20 Meq/50 Ml IV 01/22/20 18:59 25 mls/hr Q2H ZION 25 mls/hr Administration Potassium Chloride/Water Confirm 01/22/20 14:13 01/22/20 14:28 Potassium Chloride Nahid 20 Meq/50 Ml Administered 01/22/20 14:14 Not Given Dose 20 meq in 50 mls @ ud IV .STK-MED ONE Linezolid Confirm 01/22/20 22:49 01/22/20 23:00 Zyvox Rtu 600 Mg/300 Ml Premixed Administered 01/22/20 22:50 Not Given Dose 600 mg in 300 mls @ ud IV .STK-MED ONE Insulin Human Regular 10 unit 01/22/20 09:45 01/22/20 09:02 Humulin R (Pyxis) Insulin 100 Unit/Ml 3ml IV 01/22/20 09:46 10 unit NOW ONE Administration Magnesium Sulfate 40 meq 01/22/20 19:39 Magnesium Sulfate Inj/Pf 40 Meq/10 Ml Sdv .ROUTE 01/22/20 19:40 .STK-MED ONE Norepinephrine Bitartrate Confirm 01/22/20 12:50 01/22/20 12:56 Levophed Inj/Pf 4 Mg/4 Ml Sdv Administered 01/22/20 12:51 Not Given Dose 4 mg IV .STK-MED ONE Sodium Bicarbonate Confirm 01/22/20 09:17 01/22/20 12:29 Sodium Bicarbonate 8.4% Inj 50 Meq/50ml Syrin Administered 01/22/20 09:18 Not Given Dose 50 meq .ROUTE .STK-MED ONE Sodium Bicarbonate 50 meq 01/22/20 09:29 01/22/20 09:19 Sodium Bicarbonate 8.4% Inj 50 Meq/50ml Syrin IV 01/22/20 09:30 50 meq NOW ONE Administration Sodium Bicarbonate 50 meq 01/22/20 19:39 Sodium Bicarbonate 8.4% Inj 50 Meq/50ml Syrin .ROUTE 01/22/20 19:40 .STK-MED ONE Review of Systems ROS unobtainable: Due to mental status PHYSICAL EXAMINATION: The patient appears to be a frail build and appears to be chronically ill and malnourished. Selected Entries 01/22/20 01/22/20 01/22/20 17:00 17:03 17:41 Temperature 100.0 F Heart Rate ( 69 Monitors) Respiratory 17 Rate Blood Pressure 101/67 Blood Pressure 78 Mean O2 Sat by Pulse 100 Oximetry Oxygen Delivery Mechanical Method ( Ventilator includes room air) Fraction of 50 Inspired Oxygen (FIO2) Arterial Blood 127 Pressure- Systolic Aterial Blood 54 Pressure- Diastolic Arterial Blood 74 Pressure- Mean HEAD: Is atraumatic normocephalic. EYES: Pupils are equal round reactive to light. ENT is negative. NECK: Supple. There is no JVD. Left carotid upstroke is slightly reduced. There is bilateral carotid bruits present. Trachea central LUNGS: There is a few scattered rhonchi.. There is no wheezing or rales. HEART: S1-S2 is heard. There is no S3 gallop. There is no S4 gallop. Systolic murmur left sternal border and the apex there is no rub. ABDOMEN: Soft nontender there is no possible megaly. EXTREMITIES femorals are diminished. 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 Right leg dressing there seems to be an infected wound of the right foot. There is working AV fistula in the left forearm. VORTEX OPERATOR and psychiatric not examined due to patient being intubated and sedated. Labs- Entire Visit 01/22/20 01/22/20 01/22/20 10:50 10:50 10:50 WBC 19.4 H RBC 3.90 Hgb 11.1 L Hct 35.2 L MCV 90 MCH 28.4 MCHC 31.5 L RDW 15.9 H Plt Count 294 Lymph % (Auto) 9.6 L Garvin % (Auto) 2.5 L Eos % (Auto) 0.5 Baso % (Auto) 0.3 Absolute Neuts (auto) 16.9 H Absolute Lymphs (auto) 1.9 Absolute Monos (auto) 0.5 Absolute Eos (auto) 0.1 Absolute Basos (auto) 0.1 Total Counted Seg Neutrophils % 87.1 H Seg Neuts % (Manual) Band Neutrophils % Lymphocytes % (Manual) Monocytes % (Manual) Eosinophils % (Manual) Basophils % (Manual) Abs Neuts (Manual) Abs Lymphs (Manual) Abs Monocytes (Manual) Absolute Eos (Manual) Abs Basophils (Manual) Platelet Comment Anisocytosis Ovalocytes Sanjuanita Cells Schistocytes PT INR INR (Anticoag Therapy) APTT Carbonic Acid HCO3/H2CO3 Ratio ABG pH ABG pCO2 ABG pO2 ABG HCO3 ABG Total CO2 ABG O2 Saturation ABG Base Excess FiO2 Sodium 136.8 L Potassium 3.0 L* Chloride 102 Carbon Dioxide 22 Anion Gap 13 BUN 40 H Creatinine 4.14 H Est GFR ( Amer) 13 L Est GFR (MDRD) Non-Af 11 L Glucose 169 H Lactic Acid Calcium 8.8 Magnesium 2.1 Total Bilirubin 0.8 Direct Bilirubin 0.3 Neonat Total Bilirubin Not Reportable Neonat Direct Bilirubin Not Reportable Neonat Indirect Bili Not Reportable AST 1111 H ALT 623 H Alkaline Phosphatase 123 Creatine Kinase 1336 H CK-MB (CK-2) 162.00 H Troponin I 4.900 Total Protein 6.1 L Albumin 2.6 L Random Cortisol Urine Color Urine Appearance Urine pH Ur Specific Reardan Urine Protein Urine Glucose (UA) Urine Ketones Urine Blood Urine Nitrite Urine Bilirubin Urine Urobilinogen Ur Leukocyte Esterase Urine WBC (Auto) Urine RBC (Auto) Urine Bacteria (Auto) Urine WBC Clumps Squamous Epi Cells Auto U Non-Squamous Epis Auto Urine Ascorbic Acid Stl C. Difficile GDH Ag Stl C.difficile Tox A&B 01/22/20 01/22/20 01/22/20 10:50 14:23 15:00 WBC RBC Hgb Hct MCV MCH MCHC RDW Plt Count Lymph % (Auto) Garvin % (Auto) Eos % (Auto) Baso % (Auto) Absolute Neuts (auto) Absolute Lymphs (auto) Absolute Monos (auto) Absolute Eos (auto) Absolute Basos (auto) Total Counted Seg Neutrophils % Seg Neuts % (Manual) Band Neutrophils % Lymphocytes % (Manual) Monocytes % (Manual) Eosinophils % (Manual) Basophils % (Manual) Abs Neuts (Manual) Abs Lymphs (Manual) Abs Monocytes (Manual) Absolute Eos (Manual) Abs Basophils (Manual) Platelet Comment Anisocytosis Ovalocytes Bowie Cells Schistocytes PT INR INR (Anticoag Therapy) APTT Carbonic Acid HCO3/H2CO3 Ratio ABG pH ABG pCO2 ABG pO2 ABG HCO3 ABG Total CO2 ABG O2 Saturation ABG Base Excess FiO2 Sodium Potassium Chloride Carbon Dioxide Anion Gap BUN Creatinine Est GFR ( Amer) Est GFR (MDRD) Non-Af Glucose Lactic Acid Calcium Magnesium Total Bilirubin Direct Bilirubin Neonat Total Bilirubin Neonat Direct Bilirubin Neonat Indirect Bili AST ALT Alkaline Phosphatase Creatine Kinase CK-MB (CK-2) Troponin I 177.000 Total Protein Albumin Random Cortisol 38.80 Urine Color YELLOW Urine Appearance TURBID Urine pH 7.0 Ur Specific Reardan 1.009 Urine Protein 100 H Urine Glucose (UA) NEGATIVE Urine Ketones NEGATIVE Urine Blood MODERATE H Urine Nitrite NEGATIVE Urine Bilirubin NEGATIVE Urine Urobilinogen NEGATIVE Ur Leukocyte Esterase LARGE H Urine WBC (Auto) >182 Urine RBC (Auto) 63 Urine Bacteria (Auto) 3+ Urine WBC Clumps MANY Squamous Epi Cells Auto 2 U Non-Squamous Epis Auto 3 Urine Ascorbic Acid NEGATIVE Stl C. Difficile GDH Ag Stl C.difficile Tox A&B 01/22/20 01/22/2001/21/20 15:30 15:30 20:18 WBC 24.0 H RBC 3.74 Hgb 10.7 L Hct 33.4 L MCV 89 MCH 28.6 MCHC 32.0 RDW 15.7 H Plt Count 306 Lymph % (Auto) Not Reportable Garvin % (Auto) Not Reportable Eos % (Auto) Not Reportable Baso % (Auto) Not Reportable Absolute Neuts (auto) Not Reportable Absolute Lymphs (auto) Not Reportable Absolute Monos (auto) Not Reportable Absolute Eos (auto) Not Reportable Absolute Basos (auto) Not Reportable Total Counted 100 Seg Neutrophils % Not Reportable Seg Neuts % (Manual) 79 H Band Neutrophils % 4 Lymphocytes % (Manual) 11 L Monocytes % (Manual) 6 Eosinophils % (Manual) 0 Basophils % (Manual) 0 Abs Neuts (Manual) 19.9 H Abs Lymphs (Manual) 2.6 Abs Monocytes (Manual) 1.4 Absolute Eos (Manual) 0.0 Abs Basophils (Manual) 0.0 Platelet Comment ADEQUATE Anisocytosis SLIGHT Ovalocytes SLIGHT Bowie Cells 1+ Schistocytes SLIGHT PT INR INR (Anticoag Therapy) APTT Carbonic Acid 0.93 L HCO3/H2CO3 Ratio 19:1 ABG pH 7.39 ABG pCO2 31.0 L ABG pO2 81.2 ABG HCO3 18.4 L ABG Total CO2 19.4 L ABG O2 Saturation 96.1 ABG Base Excess -5.5 FiO2 50% Sodium Potassium Chloride Carbon Dioxide Anion Gap BUN Creatinine Est GFR ( Amer) Est GFR (MDRD) Non-Af Glucose Lactic Acid Calcium Magnesium Total Bilirubin Direct Bilirubin Neonat Total Bilirubin Neonat Direct Bilirubin Neonat Indirect Bili AST ALT Alkaline Phosphatase Creatine Kinase CK-MB (CK-2) Troponin I Total Protein Albumin Random Cortisol Urine Color Urine Appearance Urine pH Ur Specific Reardan Urine Protein Urine Glucose (UA) Urine Ketones Urine Blood Urine Nitrite Urine Bilirubin Urine Urobilinogen Ur Leukocyte Esterase Urine WBC (Auto) Urine RBC (Auto) Urine Bacteria (Auto) Urine WBC Clumps Squamous Epi Cells Auto U Non-Squamous Epis Auto Urine Ascorbic Acid Stl C. Difficile GDH Ag NEGATIVE Stl C.difficile Tox A&B NEGATIVE 01/22/20 01/22/20 01/22/20 20:18 20:18 21:45 WBC RBC Hgb Hct MCV MCH MCHC RDW Plt Count Lymph % (Auto) Garvin % (Auto) Eos % (Auto) Baso % (Auto) Absolute Neuts (auto) Absolute Lymphs (auto) Absolute Monos (auto) Absolute Eos (auto) Absolute Basos (auto) Total Counted Seg Neutrophils % Seg Neuts % (Manual) Band Neutrophils % Lymphocytes % (Manual) Monocytes % (Manual) Eosinophils % (Manual) Basophils % (Manual) Abs Neuts (Manual) Abs Lymphs (Manual) Abs Monocytes (Manual) Absolute Eos (Manual) Abs Basophils (Manual) Platelet Comment Anisocytosis Ovalocytes Bowie Cells Schistocytes PT Cancelled 24.1 H INR Cancelled 2.12 INR (Anticoag Therapy) Cancelled APTT Cancelled > 235.0 H* Carbonic Acid HCO3/H2CO3 Ratio ABG pH ABG pCO2 ABG pO2 ABG HCO3 ABG Total CO2 ABG O2 Saturation ABG Base Excess FiO2 Sodium Potassium 4.5 D Chloride Carbon Dioxide Anion Gap BUN Creatinine Est GFR ( Amer) Est GFR (MDRD) Non-Af Glucose Lactic Acid Calcium Magnesium Total Bilirubin Direct Bilirubin Neonat Total Bilirubin Neonat Direct Bilirubin Neonat Indirect Bili AST ALT Alkaline Phosphatase Creatine Kinase CK-MB (CK-2) Troponin I Total Protein Albumin Random Cortisol Urine Color Urine Appearance Urine pH Ur Specific [place] Urine Protein Urine Glucose (UA) Urine Ketones Urine Blood Urine Nitrite Urine Bilirubin Urine Urobilinogen Ur Leukocyte Esterase Urine WBC (Auto) Urine RBC (Auto) Urine Bacteria (Auto) Urine WBC Clumps Squamous Epi Cells Auto U Non-Squamous Epis Auto Urine Ascorbic Acid Stl C. Difficile GDH Ag Stl C.difficile Tox A&B 01/22/20 01/22/20 22:20 22:20 WBC 23.3 H RBC 3.79 Hgb 11.0 L Hct 34.1 L MCV 90 MCH 29.0 MCHC 32.3 RDW 16.1 H Plt Count 311 Lymph % (Auto) Not Reportable [place] % (Auto) Not Reportable Eos % (Auto) Not Reportable Baso % (Auto) Not Reportable Absolute Neuts (auto) Not Reportable Absolute Lymphs (auto) Not Reportable Absolute Monos (auto) Not Reportable Absolute Eos (auto) Not Reportable Absolute Basos (auto) Not Reportable Total Counted 100 Seg Neutrophils % Not Reportable Seg Neuts % (Manual) 83 H Band Neutrophils % 2 L Lymphocytes % (Manual) 10 L Monocytes % (Manual) 5 Eosinophils % (Manual) 0 Basophils % (Manual) 0 Abs Neuts (Manual) 19.8 H Abs Lymphs (Manual) 2.3 Abs Monocytes (Manual) 1.2 Absolute Eos (Manual) 0.0 Abs Basophils (Manual) 0.0 Platelet Comment ADEQUATE Anisocytosis 1+ Ovalocytes SLIGHT Sanjuanita Cells 1+ Schistocytes SLIGHT PT INR INR (Anticoag Therapy) APTT Carbonic Acid HCO3/H2CO3 Ratio ABG pH ABG pCO2 ABG pO2 ABG HCO3 ABG Total CO2 ABG O2 Saturation ABG Base Excess FiO2 Sodium Potassium Chloride Carbon Dioxide Anion Gap BUN Creatinine Est GFR ( Amer) Est GFR (MDRD) Non-Af Glucose Lactic Acid 5.5 H Calcium Magnesium Total Bilirubin Direct Bilirubin Neonat Total Bilirubin Neonat Direct Bilirubin Neonat Indirect Bili AST ALT Alkaline Phosphatase Creatine Kinase CK-MB (CK-2) Troponin I Total Protein Albumin Random Cortisol Urine Color Urine Appearance Urine pH Ur Specific [place] Urine Protein Urine Glucose (UA) Urine Ketones Urine Blood Urine Nitrite Urine Bilirubin Urine Urobilinogen Ur Leukocyte Esterase Urine WBC (Auto) Urine RBC (Auto) Urine Bacteria (Auto) Urine WBC Clumps Squamous Epi Cells Auto U Non-Squamous Epis Auto Urine Ascorbic Acid Stl C. Difficile GDH Ag Stl C.difficile Tox A&B Chest X-Ray 01/22/20 00:00 IMPRESSION: Tubes and lines in good positioning. No acute infiltrates. No pleural effusion or pneumothorax. Chest X-Ray 01/22/20 00:00 IMPRESSION: Tubes and lines in good positioning. No focal infiltrates KUB X-Ray 01/22/20 11:36 IMPRESSION: NG tube as described. EKG: Sinus rhythm prolonged QTu interval. This is probably secondary to hypokalemia. ECHOCARDIOGRAM: Normal ejection chamber size mild LVH. Moderate to severe global hypokinesis with moderately severely depressed LV ejection fraction of 30%. There is mild pulmonary hypertension. There is no aortic stenosis. There is no pericardial effusion. Maranda echo reviewed and interpreted by me see my official report]. IMPRESSION/RECOMMENDATION: 1. Status post V. fib cardiac arrest status post of successful CPR with ROSC. .2 Elevated troponin: Most likely non-ST relation TN but also could be part and parcel of the prolonged CPR after the cardiac arrest. Would recommend starting the patient on IV heparin since the patient has also history of proximal atrial fibrillation, and has a prior history of embolic CVA. Would cycle the patient's troponin and also get serial EKGs. 3. Shock: Most likely cardiogenic. But will need to make sure the patient is not septic which could also contribute to the patient's shock. The patient is on pressors. We will slowly wean the patient off epinephrine and then try to wean the patient off norepinephrine. Since this is since the patient's blood pressure is stable at present. 4. Hypokalemia: Replace potassium. 5. End-stage renal disease on hemodialysis. Nephrology on the case. 6. Hypertension: At present patient requiring pressors. 7. Coronary artery disease: History of TN. At present blood pressure is too low to start the patient on beta-kady or nitrates. Recommend aspirin through the NG tube or rectally. 8. Cardiomyopathy: With moderately severely reduced LV ejection fraction. 9. Probable infected left foot ulcer: This may be a cause of patient's sepsis. Would recommend culture and antibiotics. 10. Prior history of CVA with residual right hemiparesis and, dysphasia and muteness. 11. Peripheral vascular disease: This may be a cause of the ulcer in the right foot. Medication reviewed. Medical med regimen and management plan discussed with lumber chain offbearer. Medical decision making is of high complexity and 70 minutes of critical care given. Will follow I discussed with patient signs the patient's prognosis very guarded and poor. also the left foot.
[2020-01-22 19:15] LABS: C DIFFICILE GDH NEGATIVE (NEGATIVE)
[2020-01-22] MEDS ORDERED: EPINEPHRINE INJ 1 MG/10 ML DISP.SYRIN ONE (19:39)
[2020-01-22] MEDS ORDERED: MAGNESIUM SULFATE PF/INJ 40 MEQ/10 ML SDV ONE (19:39)
[2020-01-22] MEDS ORDERED: ATROPINE SULFATE INJ 1 MG/10 ML DISP.SYRIN IV ONE (19:39)
[2020-01-22] MEDS ORDERED: PHENYLEPHRINE HCL INJ/PF 10 MG/1 ML SDV ONE (20:30)
[2020-01-22 20:43] LABS: HEMATOCRIT 33.4 % (36.0-47.0); HEMOGLOBIN 10.7 g/dL (12.0-15.5); MEAN CORPUSCULAR HEMOGLOBIN 28.6 pg (27.0-33.4); MEAN CORPUSCULAR VOLUME 89 fl (80-97); PLATELET COUNT 306 10^3/uL (150-450); RED BLOOD COUNT 3.74 10^6/uL (3.72-5.28); RED CELL DISTRIBUTION WIDTH 15.7 % (11.5-14.0)
[2020-01-22] MEDS: DEXTROSE 5%-WATER 250 ML with PHENYLEPHRINE HCL 40 MG IV PRN ×2 (20:54)
[2020-01-22] MEDS: ACETAMINOPHEN SOLN 325 MG/10.15 ML UDCUP PO PRN (20:55)
[2020-01-22 21:29] LABS: ABSOLUTE LYMPHOCYTES# (MANUAL) 2.6 10^3/uL (0.5-4.7); ABSOLUTE MONOCYTES # (MANUAL) 1.4 10^3/uL (0.1-1.4); BAND NEUTROPHILS % (MANUAL) 4 % (3-5); BASOPHILS % (MANUAL) 0 % (0-2); EOSINOPHILS % (MANUAL) 0 % (0-6); LYMPHOCYTES % (MANUAL) 11 % (13-45); MONOCYTES % (MANUAL) 6 % (3-13); PLATELET COMMENT ADEQUATE; SEGMENTED NEUTROPHILS % (MAN) 79 % (42-78); TOTAL CELLS COUNTED 100
[2020-01-22 21:31] LABS: ANISOCYTOSIS SLIGHT; BURR CELLS 1+
[2020-01-22 21:33] LABS: OVALOCYTES SLIGHT; SCHISTOCYTES SLIGHT
[2020-01-22] MEDS ORDERED: HEPARIN SODIUM,PORCINE/D5W 25,000 UNIT/250 ML RTUINJ IV PRN (21:45)
[2020-01-22] MEDS ORDERED: CARVEDILOL 12.5 MG TABLET PO SCH (22:00)
[2020-01-22 22:04] LABS: INTERNATIONAL RATION (INR) 2.12; PROTHROMBIN TIME 24.1 SEC (11.4-15.4)
--- NOTE | 2020-01-22 22:16 | PDOC CONSULTATION ---
Consultation Consult Date: 01/22/20 Provider Consulted: Tara SVAAGE Consult reason:: esrd for hd History of Present Illness Admission Date/PCP: 01/22/20 12:37 ABUNDIO MCHUGH MD History of Present Illness: MICHAEL BONILLA is a 65 year old female a long term resident with a complex past medical history including that of ESRD on hemodialysis in the background of hypertension, CAD/CHF and stroke who is aphasic/mute and does not answer to any of the questions when seen on dialysis was admitted with history of cardiac arrest in the long term. Patient is now intubated and sedated and on multiple pressor agents and unable to contribute to the history obviously. Therefore chart review was done and discussions were done with the treating nurse. Patient is found to be hypokalemic and other evaluations in the hospital has revealed that she has a very high troponin leak. Past Medical History Cardiac Medical History: Reports: Coronary Artery Disease, Hyperlipidemia, Hypertension-primary, Myocardial Infarction - 2010 Denies: DVT, Pulmonary Embolism Pulmonary Medical History: Reports: Pneumonia - Intubated last year Denies: Asthma, Bronchitis, Chronic Obstructive Pulmonary Disease (COPD), Tuberculosis Neurological Medical History: Denies: Seizures Endocrine Medical History: Reports: Diabetes Mellitus Type 2 - IDDM Denies: Hyperthyroidism, Hypothyroidism Renal/ Medical History: Reports: Chronic Kidney Disease Stage IV, Secondary Hyperparathyroidism Malignancy Medical History: Reports: Renal (Kidney) Cancer GI Medical History: Reports: Gastroesophageal Reflux Disease Denies: Cirrhosis, Hepatitis Musculoskeltal Medical History: Denies: Arthritis Skin Medical History: Denies: Eczema, Psoriasis Psychiatric Medical History: Reports: Dementia - Vascular dementia, Depression Hematology Medical History: Reports Anemia of Chronic Kidney Disease Past Surgical History Past Surgical History: Reports: Cardiac Catheterization, Coronary Stent, Orthopedic Surgery - tila knee, Tonsillectomy, Tubal Ligation Denies: Hysterectomy, Pacemaker Social History Lives with: [facility] Smoking Status: Unknown if Ever Smoked Electronic Cigarette use?: No Frequency of Alcohol Use: None Hx Recreational Drug Use: No Drugs: None Hx Prescription Drug Abuse: No Family History Parental Family History Reviewed: No Children Family History Reviewed: No Sibling(s) Family History Reviewed.: No Medication/Allergy Home Medications: Hydralazine HCl [Apresoline 50 mg Tablet] 25 mg PO MOWEFR@18 03/17/18 Isosorbide Mononitrate [Isosorbide Mononitrate ER] 15 mg PO DAILY 03/17/18 Atorvastatin Calcium [Lipitor 80 mg Tablet] 80 mg PO QHS tablet 03/28/18 Sennosides/Docusate 8.6-50 mg [Senna Plus Tablet] 2 each PO BID #30 tablet 03/28/18 Acetaminophen [Tylenol 325 mg Tablet] 650 mg PO Q4HP PRN 01/22/20 Amino Acids/Protein Hydrolys [Pro-Stat Max Liquid Packet] 1 pkt PO BID 01/22/20 Apixaban [Eliquis 5 mg Tablet] 5 mg PO BID 01/22/20 Cholecalciferol (Vitamin D3) [Vitamin D3] 50 mcg PO EMMANUEL@1000 01/22/20 Collagenase Clostridium Hist. [Santyl Ointment 30 gm] 1 applic TP DAILYP PRN 01/22/20 Folic Acid/Vitamin B Comp W-C [Nephrocaps Multiple Vitamin Capsule] 1 cap PO DAILY 01/22/20 Hydralazine HCl [Apresoline 50 mg Tablet] 25 mg PO SUTUTHSA@06,,01/22/20 Lidocaine/Transparent Dressing [Lidocaine 4% Kit] 1 each TP MOWEFR 01/22/20 Metoprolol Tartrate [Lopressor] 50 mg PO BID 01/22/20 Ondansetron HCl [Zofran] 4 mg PO Q6HP PRN 01/22/20 Pantoprazole Sodium [Protonix [address] Tablet] 40 mg PO QAM 01/22/20 Polyethylene Glycol 3350 [Miralax Powder 17 gm/Packet] 1 packet PO DAILY 01/22/20 Potassium Gluconate 250 mg PO BID 01/22/20 Sertraline HCl 50 mg PO QHS 01/22/20 Sodium Polystyrene Sulfonate [Kayexalate 15 Gm/60 Ml Susp 60 Ml] 15 gm PO .DIALYSIS DAYS 01/22/20 Allergies/Adverse Reactions: No Known Allergies Allergy (Verified 02/18/18 15:07) Review of Systems ROS unobtainable: Due to mental status Review of Systems: Currently intubated and sedated. Physical Exam Vital Signs: Temp Pulse Resp BP Pulse Ox 102.4 F H 86 15 77/57 L 100 01/22/20 22:00 01/22/20 15:25 01/22/20 22:00 01/22/20 20:11 01/22/20 21:00 Intake & Output 01/21/20 01/22/20 01/23/20 06:59 06:59 06:59 Intake Total 1795 Output Total 20 Balance 1775 Weight 78.5 kg General appearance: PRESENT: disheveled Exam: Currently intubated and sedated. Eye exam: PRESENT: EOMI Respiratory exam: PRESENT: clear to auscultation tila, decreased breath sounds. ABSENT: crackles Cardiovascular exam: PRESENT: +S1, +S2, tachycardia GI/Abdominal exam: PRESENT: distended, soft. ABSENT: tenderness Extremities exam: PRESENT: pedal edema Neurological exam: PRESENT: altered Skin exam: ABSENT: erythema, mottled, rash Results Laboratory Results: 01/22/20 20:18 01/22/20 20:18 01/22/20 01/22/20 01/22/20 10:50 10:50 15:00 WBC 19.4 H RBC 3.90 Hgb 11.1 L Hct 35.2 L MCV 90 MCH 28.4 MCHC 31.5 L RDW 15.9 H Plt Count 294 Seg Neutrophils % 87.1 H Carbonic Acid HCO3/H2CO3 Ratio ABG pH ABG pCO2 ABG pO2 ABG HCO3 ABG O2 Saturation ABG Base Excess FiO2 Sodium 136.8 L Potassium 3.0 L* Chloride 102 Carbon Dioxide 22 Anion Gap 13 BUN 40 H Creatinine 4.14 H Est GFR ( Amer) 13 L Glucose 169 H Calcium 8.8 Magnesium 2.1 Total Bilirubin 0.8 AST 1111 H Alkaline Phosphatase 123 Total Protein 6.1 L Albumin 2.6 L Urine Color YELLOW Urine Appearance TURBID Urine pH 7.0 Ur Specific [place] 1.009 Urine Protein 100 H Urine Glucose (UA) NEGATIVE Urine Ketones NEGATIVE Urine Blood MODERATE H Urine Nitrite NEGATIVE Ur Leukocyte Esterase LARGE H Urine WBC (Auto) >182 Urine RBC (Auto) 63 01/22/20 01/22/20 01/22/20 15:30 20:18 20:18 WBC 24.0 H RBC 3.74 Hgb 10.7 L Hct 33.4 L MCV 89 MCH 28.6 MCHC 32.0 RDW 15.7 H Plt Count 306 Seg Neutrophils % Not Reportable Carbonic Acid 0.93 L HCO3/H2CO3 Ratio 19:1 ABG pH 7.39 ABG pCO2 31.0 L ABG pO2 81.2 ABG HCO3 18.4 L ABG O2 Saturation 96.1 ABG Base Excess -5.5 FiO2 50% Sodium Potassium 4.5 D Chloride Carbon Dioxide Anion Gap BUN Creatinine Est GFR ( Amer) Glucose Calcium Magnesium Total Bilirubin AST Alkaline Phosphatase Total Protein Albumin Urine Color Urine Appearance Urine pH Ur Specific [place] Urine Protein Urine Glucose (UA) Urine Ketones Urine Blood Urine Nitrite Ur Leukocyte Esterase Urine WBC (Auto) Urine RBC (Auto) 01/22/20 01/22/20 01/22/20 10:50 10:50 14:23 Creatine Kinase 1336 H CK-MB (CK-2) 162.00 H Troponin I 4.900 177.000 Impressions: Chest X-Ray 01/22/20 00:00 IMPRESSION: Tubes and lines in good positioning. No focal infiltrates KUB X-Ray 01/22/20 11:36 IMPRESSION: NG tube as described. Assessment & Plan - Diagnosis (1) Shock Plan: Status post cardiac arrest most likely in the setting of acute IN. Patient apparently had a severe VF arrest and was shocked at least 5 times. Unknown amount of possible anoxic time prior to EMS arrival. Order lactic acid. Overall poor prognosis. (2) Cardiac arrest Is this a current diagnosis for this admission?: Yes Plan: As mentioned earlier. Unknown quantity of time of anoxia. Patient now in a state of shock intubated and on multiple pressors. (3) CVA (cerebral vascular accident) Qualifiers: Precerebral and cerebral artery: posterior cerebral artery Laterality of affected vessel: left Plan: History of. detention resident (4) ESRD (end stage renal disease) Plan: She is going to be a very poor candidate for continuation of ESRD in the current setting especially with being hypotensive. Will discuss with family about making her comfort care. Discussed this with Dr. Stewart/configuration management specialist as well. (5) Hypokalemia Plan: Being replaced.
[2020-01-22 22:43] LABS: HEMATOCRIT 34.1 % (36.0-47.0); MEAN CORPUSCULAR HGB CONC 32.3 g/dL (32.0-36.0); MEAN CORPUSCULAR VOLUME 90 fl (80-97); PLATELET COUNT 311 10^3/uL (150-450); RED BLOOD COUNT 3.79 10^6/uL (3.72-5.28); RED CELL DISTRIBUTION WIDTH 16.1 % (11.5-14.0); WHITE BLOOD COUNT 23.3 10^3/uL (4.0-10.5)
[2020-01-22 22:47] LABS: PARTIAL THROMBOPLASTIN TIME > 235.0 SEC (23.5-35.8)
[2020-01-22] MEDS ORDERED: LINEZOLID 600 MG/300 ML RTUPB IV ONE (22:49)
--- NOTE | 2020-01-22 22:56 | XCELERA REPORT ---
[address] [address] Transthoracic Echocardiogram Report Name: MICHAEL BONILLA Age: 65 yrs Gender: Female : 1955 Patient Status: Inpatient Patient Location: ICU^607^A Study Date: 01/22/2020 06:17 PM Height: 67 in Weight: 173 lb BSA: 1.9 m2 Procedure: A two-dimensional transthoracic echocardiogram with color flow and Doppler was performed. The study was technically limited with all images being suboptimal in quality. Reason For Study: S/P VF cardiac arrest. High dose pressors. History: S/P VF cardiac arrest. / Shock. Ordering Physician: FIDEL ROBERSON Performed By: Yanci Mendieta Interpretation Summary The left ventricle is normal in size. There is mild concentric left ventricular hypertrophy. LV EF is 30% Doppler measurements suggest impaired left ventricular relaxation, which is associated with grade I/IV or mild diastolic dysfunction Left ventricular systolic function is moderate to severely reduced. There is moderate to severe global hypokinesis of the left ventricle. There is no thrombus. No ASD,VSD , or PFO seen. RV not well seen .Probably dilated RV Right atrium not well visualized secondary to technical limitations There is no evidence of mitral valve prolapse. There is no vegetation seen on the mitral valve. There is no mitral valve stenosis. There is a mild to moderate amount of mitral regurgitation There is no aortic valvular vegetation. There is no tricuspid stenosis. There is a moderate amount of tricuspid regurgitation There is mild pulmonary hypertension by echo RVSP is 43 mm of Hg , with RA mean of 10.Suspect underestimation of TR jet velocity and RVSP There is no pulmonic valvular stenosis. There is no pulmonic valvular regurgitation. The aortic root is normal size. The inferior vena cava appeared normal and decreased > 50% with respiration (RAP 5-10 mmHg) There is no pericardial effusion. MMode/2D Measurements & Calculations RVDd: 2.9 cm LVIDd: 4.0 cm FS: 16.0 % Ao root diam: 3.1 cm IVSd: 1.5 cm LVIDs: 3.4 cm EDV(Teich): 69.8 ml Ao root area: 7.7 cm2 LVPWd: 0.87 cm ESV(Teich): 45.9 ml LA dimension: 2.6 cm EF(Teich): 34.2 % Doppler Measurements & Calculations MV E max dwain: MV P1/2t max dwain: Ao V2 max: AI max dwain: 38.4 cm/sec 47.7 cm/sec 112.9 cm/sec 233.5 cm/sec MV A max dwain: MV P1/2t: 104.2 msec Ao max PG: AI max P.5 cm/sec MVA(P1/2t): 2.1 cm2 5.1 mmHg 21.8 mmHg MV E/A: 0.57 MV dec slope: AI dec slope: 352.5 cm/sec2 133.9 cm/sec2 AI P1/2t: MV dec time: 194.0 msec 0.21 sec LV V1 max PG: PA V2 max: PI end-d dwain: TR max dwain: 2.5 mmHg 62.5 cm/sec 138.8 cm/sec 287.8 cm/sec LV V1 max: PA max P.6 mmHg TR max P.8 cm/sec 33.1 mmHg AV P1/2t-pr_phl: MV P1/2t-pr_phl: 194.0 msec 104.2 msec Left Ventricle The left ventricle is normal in size. There is mild concentric left ventricular hypertrophy. LV EF is 30%. Left ventricular systolic function is moderate to severely reduced. Doppler measurements suggest impaired left ventricular relaxation, which is associated with grade I/IV or mild diastolic dysfunction. There is moderate to severe global hypokinesis of the left ventricle. There is no thrombus. No ASD,VSD , or PFO seen. Right Ventricle RV not well seen .Probably dilated RV. Atria Right atrium not well visualized secondary to technical limitations. The left atrial size is normal. Mitral Valve There is no evidence of mitral valve prolapse. There is no vegetation seen on the mitral valve. There is no mitral valve stenosis. There is a mild to moderate amount of mitral regurgitation. Aortic Valve There is no aortic valvular vegetation. There is no aortic valve stenosis. There is a mild amount of aortic regurgitation. Tricuspid Valve There is no tricuspid stenosis. There is a moderate amount of tricuspid regurgitation. There is mild pulmonary hypertension by echo. RVSP is 43 mm of Hg , with RA mean of 10.Suspect underestimation of TR jet velocity and RVSP. Pulmonic Valve There is no pulmonic valvular stenosis. There is no pulmonic valvular regurgitation. Great Vessels The aortic root is normal size. The inferior vena cava appeared normal and decreased > 50% with respiration (RAP 5-10 mmHg). Effusions There is no pericardial effusion. : FIDEL ROBERSON, Janey
[2020-01-22] MEDS: LINEZOLID 600 MG/300 ML RTUPB IV SCH (23:00)
[2020-01-22 23:08] LABS: ABSOLUTE LYMPHOCYTES# (MANUAL) 2.3 10^3/uL (0.5-4.7); ABSOLUTE MONOCYTES # (MANUAL) 1.2 10^3/uL (0.1-1.4); BAND NEUTROPHILS % (MANUAL) 2 % (3-5); BASOPHILS % (MANUAL) 0 % (0-2); EOSINOPHILS % (MANUAL) 0 % (0-6); LYMPHOCYTES % (MANUAL) 10 % (13-45); MONOCYTES % (MANUAL) 5 % (3-13); SEGMENTED NEUTROPHILS % (MAN) 83 % (42-78); TOTAL CELLS COUNTED 100
[2020-01-22 23:09] LABS: PLATELET COMMENT ADEQUATE
[2020-01-22 23:13] LABS: BURR CELLS 1+; OVALOCYTES SLIGHT; SCHISTOCYTES SLIGHT
[2020-01-22 23:14] LABS: ANISOCYTOSIS 1+
[2020-01-23] MEDS: ACETAMINOPHEN SOLN 325 MG/10.15 ML UDCUP PO PRN ×2 (01:11→05:26)
[2020-01-23] MEDS: HEPARIN SOD (PORCINE) 5,000 UNIT/ML 1 ML VIAL SUBCUT SCH (05:26)
[2020-01-23 05:38] LABS: HEMATOCRIT 33.7 % (36.0-47.0); HEMOGLOBIN 11.2 g/dL (12.0-15.5); MEAN CORPUSCULAR HEMOGLOBIN 29.2 pg (27.0-33.4); MEAN CORPUSCULAR HGB CONC 33.2 g/dL (32.0-36.0); MEAN CORPUSCULAR VOLUME 88 fl (80-97); RED BLOOD COUNT 3.84 10^6/uL (3.72-5.28); WHITE BLOOD COUNT 19.2 10^3/uL (4.0-10.5)
[2020-01-23 06:04] LABS: ABSOLUTE LYMPHOCYTES# (MANUAL) 3.3 10^3/uL (0.5-4.7); ABSOLUTE MONOCYTES # (MANUAL) 0.8 10^3/uL (0.1-1.4); BAND NEUTROPHILS % (MANUAL) 7 % (3-5); BASOPHILS % (MANUAL) 0 % (0-2); EOSINOPHILS % (MANUAL) 0 % (0-6); LYMPHOCYTES % (MANUAL) 17 % (13-45); MONOCYTES % (MANUAL) 4 % (3-13); SEGMENTED NEUTROPHILS % (MAN) 72 % (42-78); TOTAL CELLS COUNTED 100
[2020-01-23 06:06] LABS: ANISOCYTOSIS 1+
[2020-01-23 06:07] LABS: PLATELET CLUMPS PRESENT; PLATELET COMMENT ADEQUATE; TEAR DROP CELLS SLIGHT; TOXIC GRANULATION SLIGHT; TOXIC VACUOLATION PRESENT
[2020-01-23 06:08] LABS: PLATELET COUNT 257 10^3/uL (150-450)
[2020-01-23 06:20] LABS: ALBUMIN 2.7 g/dL (3.5-5.0); ALKALINE PHOSPHATASE 120 U/L (38-126); ANION GAP 14 (5-19); BILIRUBIN,DIRECT 0.2 mg/dL (0.0-0.4); BILIRUBIN,TOTAL 0.7 mg/dL (0.2-1.3); BLOOD UREA NITROGEN 56 mg/dL (7-20); CALCIUM 7.9 mg/dL (8.4-10.2); CARBON DIOXIDE 19 mmol/L (22-30); CHLORIDE 102 mmol/L (98-107); GLUCOSE 180 mg/dL (75-110); POTASSIUM 4.2 mmol/L (3.6-5.0); TOTAL PROTEIN 6.2 g/dL (6.3-8.2)
[2020-01-23 06:32] LABS: ASPARTATE AMINO TRANSFERASE 1266 U/L (14-36)
--- NOTE | 2020-01-23 07:34 | EKG REPORT ---
SEVERITY:- ABNORMAL ECG - SINUS OR ECTOPIC ATRIAL RHYTHM FIRST DEGREE AV BLOCK RIGHT BUNDLE BRANCH BLOCK : Confirmed by: Hari Ware MD 23-Jan-2020 07:33:37
[2020-01-23] MEDS: NORMAL SALINE 1000 ML 1,000 ML IV PRN (08:01)
--- NOTE | 2020-01-23 09:00 | PDOC CRITICAL CARE PROG REPORT ---
General Date:: 01/23/20 ICU Day:: 2 Ventilator Day:: 2 Hospital Day:: 2 Resuscitation Status: Full Code Events in the past 12 to 24 Hours:: After arrest, stable from CV standpoint. Review of systems relevant to events:: CV, Neurologic, renal. Reason for ICU Addmission:: Post arrest. Intubated on pressors. - Medications: Medications reviewed and adjusted accordingly: Yes Vasopressors:: Neosynephrine Sedation:: None Physical Exam Vital Signs: Temp Pulse Resp BP Pulse Ox 102.0 F H 64 23 H 77/57 L 88 L 01/23/20 07:00 01/23/20 03:14 01/23/20 07:00 01/22/20 20:11 01/23/20 07:00 Intake & Output 01/22/20 01/23/20 01/24/20 06:59 06:59 06:59 Intake Total 1876 961 Output Total 220 Balance 1656 961 Weight 77.9 kg Weight/Height Weight 77.9 kg Height 5 ft 7 in General appearance: PRESENT: no acute distress Head exam: PRESENT: atraumatic, normocephalic Eye exam: PRESENT: conjunctiva pink, PERRLA. ABSENT: scleral icterus Mouth exam: PRESENT: moist, tongue midline Respiratory exam: PRESENT: clear to auscultation tila. ABSENT: rales, rhonchi, wheezes Cardiovascular exam: PRESENT: RRR. ABSENT: diastolic murmur, rubs, systolic murmur Pulses: PRESENT: normal dorsalis pedis pul GI/Abdominal exam: PRESENT: normal bowel sounds, soft. ABSENT: distended, guarding, mass, organolmegaly, rebound, tenderness Rectal exam: PRESENT: deferred Gentrourinary exam: PRESENT: indwelling catheter Extremities exam: PRESENT: other - L BKA. Ulcer on R heel. Not erythematous. No drainage. Neurological exam: PRESENT: other - She is moving slightly but not at all purposefully. Skin exam: PRESENT: normal color Tubes/Lines: PRESENT: Endotracheal Tube, Central Line, Arterial Catheter, Dialysis catheter, Nasogastic Tube Laboratory/Radiographs Laboratory Results: 01/23/20 05:20 01/23/20 05:20 01/22/20 01/22/20 01/22/20 10:50 10:50 15:00 WBC 19.4 H RBC 3.90 Hgb 11.1 L Hct 35.2 L MCV 90 MCH 28.4 MCHC 31.5 L RDW 15.9 H Plt Count 294 Seg Neutrophils % 87.1 H Carbonic Acid HCO3/H2CO3 Ratio ABG pH ABG pCO2 ABG pO2 ABG HCO3 ABG O2 Saturation ABG Base Excess FiO2 Sodium 136.8 L Potassium 3.0 L* Chloride 102 Carbon Dioxide 22 Anion Gap 13 BUN 40 H Creatinine 4.14 H Est GFR ( Amer) 13 L Glucose 169 H Lactic Acid Calcium 8.8 Magnesium 2.1 Total Bilirubin 0.8 AST 1111 H Alkaline Phosphatase 123 Total Protein 6.1 L Albumin 2.6 L Urine Color YELLOW Urine Appearance TURBID Urine pH 7.0 Ur Specific [place] 1.009 Urine Protein 100 H Urine Glucose (UA) NEGATIVE Urine Ketones NEGATIVE Urine Blood MODERATE H Urine Nitrite NEGATIVE Ur Leukocyte Esterase LARGE H Urine WBC (Auto) >182 Urine RBC (Auto) 63 01/22/20 01/22/20 01/22/20 15:30 20:18 20:18 WBC 24.0 H RBC 3.74 Hgb 10.7 L Hct 33.4 L MCV 89 MCH 28.6 MCHC 32.0 RDW 15.7 H Plt Count 306 Seg Neutrophils % Not Reportable Carbonic Acid 0.93 L HCO3/H2CO3 Ratio 19:1 ABG pH 7.39 ABG pCO2 31.0 L ABG pO2 81.2 ABG HCO3 18.4 L ABG O2 Saturation 96.1 ABG Base Excess -5.5 FiO2 50% Sodium Potassium 4.5 D Chloride Carbon Dioxide Anion Gap BUN Creatinine Est GFR ( Amer) Glucose Lactic Acid Calcium Magnesium Total Bilirubin AST Alkaline Phosphatase Total Protein Albumin Urine Color Urine Appearance Urine pH Ur Specific [place] Urine Protein Urine Glucose (UA) Urine Ketones Urine Blood Urine Nitrite Ur Leukocyte Esterase Urine WBC (Auto) Urine RBC (Auto) 01/22/20 01/22/20 01/23/20 22:20 22:20 05:20 WBC 23.3 H 19.2 H RBC 3.79 3.84 Hgb 11.0 L 11.2 L Hct 34.1 L 33.7 L MCV 90 88 MCH 29.0 29.2 MCHC 32.3 33.2 RDW 16.1 H 16.0 H Plt Count 311 257 Seg Neutrophils % Not Reportable Not Reportable Carbonic Acid HCO3/H2CO3 Ratio ABG pH ABG pCO2 ABG pO2 ABG HCO3 ABG O2 Saturation ABG Base Excess FiO2 Sodium Potassium Chloride Carbon Dioxide Anion Gap BUN Creatinine Est GFR ( Amer) Glucose Lactic Acid 5.5 H Calcium Magnesium Total Bilirubin AST Alkaline Phosphatase Total Protein Albumin Urine Color Urine Appearance Urine pH Ur Specific [place] Urine Protein Urine Glucose (UA) Urine Ketones Urine Blood Urine Nitrite Ur Leukocyte Esterase Urine WBC (Auto) Urine RBC (Auto) 01/23/20 05:20 WBC RBC Hgb Hct MCV MCH MCHC RDW Plt Count Seg Neutrophils % Carbonic Acid HCO3/H2CO3 Ratio ABG pH ABG pCO2 ABG pO2 ABG HCO3 ABG O2 Saturation ABG Base Excess FiO2 Sodium 134.7 L Potassium 4.2 Chloride 102 Carbon Dioxide 19 L Anion Gap 14 BUN 56 H Creatinine 5.16 H Est GFR ( Amer) 10 L Glucose 180 H Lactic Acid Calcium 7.9 L Magnesium Total Bilirubin 0.7 AST 1266 H Alkaline Phosphatase 120 Total Protein 6.2 L Albumin 2.7 L Urine Color Urine Appearance Urine pH Ur Specific [place] Urine Protein Urine Glucose (UA) Urine Ketones Urine Blood Urine Nitrite Ur Leukocyte Esterase Urine WBC (Auto) Urine RBC (Auto) 01/22/20 01/22/20 01/22/20 10:50 10:50 14:23 Creatine Kinase 1336 H CK-MB (CK-2) 162.00 H Troponin I 4.900 177.000 01/23/20 05:20 Creatine Kinase CK-MB (CK-2) Troponin I 400.000 Impressions: Chest X-Ray 01/22/20 00:00 IMPRESSION: Tubes and lines in good positioning. No focal infiltrates KUB X-Ray 01/22/20 11:36 IMPRESSION: NG tube as described. All labs, radiographs, diagnostic studies and EKGs were personally reviewed: Yes In addition, reports of radiographic and diagnostic studies were read: Yes Assessment and Plan - Diagnosis (1) Cardiac arrest Is this a current diagnosis for this admission?: Yes Plan: She has recovered her BP and HR. However her mental status was not good.It likely is worse with this arrest. Family aware of how sick she is. (2) Ventricular fibrillation Is this a current diagnosis for this admission?: Yes Plan: No recurrence. (3) CAD (coronary artery disease) Is this a current diagnosis for this admission?: Yes Plan: Her troponin is now 400. She likely has an IL but is not a cathterization candidate and medical therapy is limited due to her critically ill status. (4) CKD (chronic kidney disease) stage V requiring chronic dialysis Is this a current diagnosis for this admission?: Yes Plan: She is to0o unstable for HD. (5) Lactic acid acidosis Is this a current diagnosis for this admission?: Yes Plan: Her first level is high at 5.5. Will recheck to monitor trend. (6) Chronic heel ulcer Qualifiers: Laterality: left Non-pressure ulcer stage: with fat layer exposed Qualified Code(s): L97.422 - Non-pressure chronic ulcer of left heel and midfoot with fat layer exposed Is this a current diagnosis for this admission?: Yes Plan: The ulcer is clean. May benefit from debridement but right now too unstable. (7) Fever 41 degrees C or over Is this a current diagnosis for this admission?: Yes Plan: She now has a fever to 102.8 and evidence of a uti. Will start antibiotics. She likely also aspirated. I doubt the heel ulcer is infected but will culture. Plan Summary: Her outlook is rather poor. She has not neurologically recovered. If she does no t recover soon the likelihood is unlikely. Will so inform the son. Critical Time Critical Time (minutes): 40 Level of Care: ICU Anticipated discharge: Other Within: Other -: 1. The care of a critical patient is a dynamic process. This note is a group sales representative synopsis but static in nature. The timeframe for treatments given in order is not necessarily the actual time these treatments may have been done. 2. This patient requires critical care secondary to ongoing requirements for therapy not offered or safe outside the critical care environment. Transfer to a lower level of care will result in altered life or limb morbidity and mortality. 3. Multidisciplinary rounds completed. 4. ABCDE bundle addressed.
[2020-01-23] MEDS: LINEZOLID 600 MG/300 ML RTUPB IV SCH ×2 (09:12→22:25)
[2020-01-23] MEDS: PANTOPRAZOLE SODIUM 40 MG VIAL IV SCH (09:12)
[2020-01-23] MEDS ORDERED: CEFEPIME 1 GM/D5W RTU 1 GM/50 ML RTUPB IV ONE (09:30)
[2020-01-23] MEDS ORDERED: HEPARIN SOD (PORCINE) 1,000 UNIT/ML 10 ML VIAL IV PRN ×2 (09:41→10:00)
[2020-01-23] MEDS ORDERED: HEPARIN SODIUM,PORCINE/D5W 25,000 UNIT/250 ML RTUINJ IV PRN (10:00)
[2020-01-23] MEDS: DEXTROSE 5%-WATER 250 ML with PHENYLEPHRINE HCL 40 MG IV PRN ×4 (16:03→22:41)
--- NOTE | 2020-01-23 16:19 | EKG REPORT ---
SEVERITY:- ABNORMAL ECG - SINUS RHYTHM LOW VOLTAGE IN FRONTAL LEADS PROLONGED QT INTERVAL : Confirmed by: Hari Ware MD 23-Jan-2020 16:18:09
--- NOTE | 2020-01-23 16:50 | PDOC PROGRESS REPORT ---
Subjective Progress Note for:: 01/23/20 Reason For Visit: Patient seen in the ICU today while undergoing dialysis. She is still very sick and critical on pressor agents still remains intubated and sedated. Her son is by her bedside. Labs and medications were reviewed. Dialysis orders were reviewed with the treating dialysis nurse. Is been very difficult dialysis because of her blood pressure being low on the pressor agents and therefore we had to run her on minimal blood flow with hardly any fluid to be extracted. Physical Exam Vital Signs: Temp Pulse Resp BP Pulse Ox 99.3 F 74 19 139/46 H 98 01/23/20 16:00 01/23/20 16:00 01/23/20 16:00 01/23/20 16:00 01/23/20 16:00 Intake & Output 01/22/20 01/23/20 01/24/20 06:59 06:59 06:59 Intake Total 2176 1393 Output Total 220 0 Balance 1956 1393 Weight 77.9 kg 77.9 kg Exam: Remains intubated and sedated with very poor response to painful stimuli. Patient is on currently now on a single pressor agent from double pressors e arlier. Respiratory exam: PRESENT: clear to auscultation tila, decreased breath sounds. ABSENT: crackles Cardiovascular exam: PRESENT: +S1, +S2, tachycardia GI/Abdominal exam: PRESENT: distended, soft. ABSENT: tenderness Neurological exam: PRESENT: altered Results Laboratory Results: 01/23/20 05:20 01/23/20 05:20 01/22/20 01/22/20 01/22/20 20:18 20:18 22:20 WBC 24.0 H 23.3 H RBC 3.74 3.79 Hgb 10.7 L 11.0 L Hct 33.4 L 34.1 L MCV 89 90 MCH 28.6 29.0 MCHC 32.0 32.3 RDW 15.7 H 16.1 H Plt Count 306 311 Seg Neutrophils % Not Reportable Not Reportable Sodium Potassium 4.5 D Chloride Carbon Dioxide Anion Gap BUN Creatinine Est GFR ( Amer) Glucose Lactic Acid Calcium Total Bilirubin AST Alkaline Phosphatase Total Protein Albumin 01/22/20 01/23/20 01/23/20 22:20 05:20 05:20 WBC 19.2 H RBC 3.84 Hgb 11.2 L Hct 33.7 L MCV 88 MCH 29.2 MCHC 33.2 RDW 16.0 H Plt Count 257 Seg Neutrophils % Not Reportable Sodium 134.7 L Potassium 4.2 Chloride 102 Carbon Dioxide 19 L Anion Gap 14 BUN 56 H Creatinine 5.16 H Est GFR ( Amer) 10 L Glucose 180 H Lactic Acid 5.5 H Calcium 7.9 L Total Bilirubin 0.7 AST 1266 H Alkaline Phosphatase 120 Total Protein 6.2 L Albumin 2.7 L 01/23/20 09:15 WBC RBC Hgb Hct MCV MCH MCHC RDW Plt Count Seg Neutrophils % Sodium Potassium Chloride Carbon Dioxide Anion Gap BUN Creatinine Est GFR ( Amer) Glucose Lactic Acid 4.1 H Calcium Total Bilirubin AST Alkaline Phosphatase Total Protein Albumin 01/22/20 01/22/20 01/22/20 10:50 10:50 14:23 Creatine Kinase 1336 H CK-MB (CK-2) 162.00 H Troponin I 4.900 177.000 01/23/20 01/23/20 05:20 13:00 Creatine Kinase CK-MB (CK-2) Troponin I 400.000 248.000 Impressions: Chest X-Ray 01/22/20 00:00 IMPRESSION: Tubes and lines in good positioning. No focal infiltrates KUB X-Ray 01/22/20 11:36 IMPRESSION: NG tube as described. Assessment & Plan - Diagnosis (1) Shock Plan: Cardiogenic/septic. Patient on pressor agents. Leukocytosis with minimal improvement. Shock liver with high lactic acid. Overall critical and poor prognosis. Had a good conversation with her son (2) Cardiac arrest Is this a current diagnosis for this admission?: Yes Plan: Status post CPR. (3) ESRD (end stage renal disease) Plan: Patient currently undergoing a low flow dialysis given her hypotension on pressor agents. Having great difficulty for obvious reasons. Patient cold and clammy. Plan to extract no fluid and will probably end up being positive. Vital signs unstable. Dialysis orders were reviewed with the treating dialysis nurse. Discussions done with kiln remover and treating dialysis nurse. Had again a long conversation with her son who is at the bedside. (5) CVA (cerebral vascular accident) Qualifiers: Precerebral and cerebral artery: posterior cerebral artery Laterality of affected vessel: left Plan: Old with residual deficits as baseline.
[2020-01-23] MEDS: CEFEPIME 1 GM/D5W RTU 1 GM/50 ML RTUPB IV SCH (17:20)
[2020-01-23 17:53] LABS: ANION GAP 12 (5-19); CALCIUM 7.3 mg/dL (8.4-10.2); CARBON DIOXIDE 23 mmol/L (22-30); CHLORIDE 100 mmol/L (98-107); GLUCOSE 109 mg/dL (75-110)
[2020-01-23] MEDS ORDERED: POTASSI CL 20 MEQ/50 ML RIDER 20 MEQ/50 ML RTUPB IV ONE (18:30)
[2020-01-23 19:06] LABS: BLOOD UREA NITROGEN 29 mg/dL (7-20)
[2020-01-23] MEDS ORDERED: VASOPRESSIN INJ 20 UNIT/1 ML VIAL ONE (22:24)
[2020-01-23] MEDS: DEXTROSE 5%-WATER 250 ML with VASOPRESSIN 100 UNIT IV PRN ×2 (22:39)
--- NOTE | 2020-01-23 22:42 | Progress Note ---
Provider Note Provider Note: CARDIOLOGY PROGRESS NOTE by Dr. Janey Saxena on 01/23/2020. SUBJECTIVE: The patient is status quo. She is off the epinephrine and norepinephrine. She is requiring increasing doses of Kristian-Synephrine. There is no arrhythmias seen on the monitor. The patient's troponin is trending down but still 248. There is no acute EKG changes EKG still shows prolonged QT interval. PHYSICAL EXAMINATION: The patient appears to be chronically ill and malnourished. She is intubated and sedated. Selected Entries 01/23/20 01/23/20 01/23/20 16:00 18:00 19:00 Temperature 99.3 F Pulse Rate 65 Respiratory 20 Rate Blood Pressure 99/42 L [Right Upper Arm] Blood Pressure 61 Mean [Right Upper Arm] Blood Pressure Supine Position [Right Upper Arm] O2 Sat by Pulse 100 Oximetry Oxygen Delivery Mechanical Method ( Ventilator includes room air) Fraction of 50 Inspired Oxygen (FIO2) HEAD: Is atraumatic normocephalic. EYES: Pupils are equal round reactive to light. ENT is negative. NECK: Supple. There is no JVD. Left carotid upstroke is slightly reduced. There is bilateral carotid bruits present. Trachea central LUNGS: There is a few scattered rhonchi.. There is no wheezing or rales. HEART: S1-S2 is heard. There is no S3 gallop. There is no S4 gallop. Systolic murmur left sternal border and the apex there is no rub. ABDOMEN: Soft nontender there is no possible megaly. EXTREMITIES femorals are diminished. 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 Right leg dressing there seems to be an infected wound of the right foot. There is working AV fistula in the left forearm. COMMUNICATION LECTURER and psychiatric not examined due to patient being intubated and sedated. Chest X-Ray 01/22/20 00:00 IMPRESSION: Tubes and lines in good positioning. No acute infiltrates. No pleural effusion or pneumothorax. Chest X-Ray 01/22/20 00:00 IMPRESSION: Tubes and lines in good positioning. No focal infiltrates KUB X-Ray 01/22/20 11:36 IMPRESSION: NG tube as described. Labs- All tests 24 hr 01/23/20 01/23/20 01/23/20 05:20 05:20 05:20 WBC 19.2 H RBC 3.84 Hgb 11.2 L Hct 33.7 L MCV 88 MCH 29.2 MCHC 33.2 RDW 16.0 H Plt Count 257 Lymph % (Auto) Not Reportable [place] % (Auto) Not Reportable Eos % (Auto) Not Reportable Baso % (Auto) Not Reportable Absolute Neuts (auto) Not Reportable Absolute Lymphs (auto) Not Reportable Absolute Monos (auto) Not Reportable Absolute Eos (auto) Not Reportable Absolute Basos (auto) Not Reportable Total Counted 100 Seg Neutrophils % Not Reportable Seg Neuts % (Manual) 72 Band Neutrophils % 7 H Lymphocytes % (Manual) 17 Monocytes % (Manual) 4 Eosinophils % (Manual) 0 Basophils % (Manual) 0 Abs Neuts (Manual) 15.2 H Abs Lymphs (Manual) 3.3 Abs Monocytes (Manual) 0.8 Absolute Eos (Manual) 0.0 Abs Basophils (Manual) 0.0 Toxic Granulation SLIGHT Toxic Vacuolation PRESENT Clumped Platelets PRESENT Platelet Comment ADEQUATE Anisocytosis 1+ Tear Drop Cells SLIGHT APTT Sodium 134.7 L Potassium 4.2 Chloride 102 Carbon Dioxide 19 L Anion Gap 14 BUN 56 H Creatinine 5.16 H Est GFR ( Amer) 10 L Est GFR (MDRD) Non-Af 8 L Glucose 180 H Lactic Acid Calcium 7.9 L Magnesium Total Bilirubin 0.7 Direct Bilirubin 0.2 Neonat Total Bilirubin Not Reportable Neonat Direct Bilirubin Not Reportable Neonat Indirect Bili Not Reportable AST 1266 H ALT 543 H Alkaline Phosphatase 120 Troponin I 400.000 Total Protein 6.2 L Albumin 2.7 L 01/23/20 01/23/20 01/23/20 05:20 09:15 13:00 WBC RBC Hgb Hct MCV MCH MCHC RDW Plt Count Lymph % (Auto) [place] % (Auto) Eos % (Auto) Baso % (Auto) Absolute Neuts (auto) Absolute Lymphs (auto) Absolute Monos (auto) Absolute Eos (auto) Absolute Basos (auto) Total Counted Seg Neutrophils % Seg Neuts % (Manual) Band Neutrophils % Lymphocytes % (Manual) Monocytes % (Manual) Eosinophils % (Manual) Basophils % (Manual) Abs Neuts (Manual) Abs Lymphs (Manual) Abs Monocytes (Manual) Absolute Eos (Manual) Abs Basophils (Manual) Toxic Granulation Toxic Vacuolation Clumped Platelets Platelet Comment Anisocytosis Tear Drop Cells APTT 60.9 H Sodium Potassium Chloride Carbon Dioxide Anion Gap BUN Creatinine Est GFR ( Amer) Est GFR (MDRD) Non-Af Glucose Lactic Acid 4.1 H Calcium Magnesium Total Bilirubin Direct Bilirubin Neonat Total Bilirubin Neonat Direct Bilirubin Neonat Indirect Bili AST ALT Alkaline Phosphatase Troponin I 248.000 Total Protein Albumin 01/23/20 01/23/20 01/23/20 17:20 17:45 18:45 WBC RBC Hgb Hct MCV MCH MCHC RDW Plt Count Lymph % (Auto) [place] % (Auto) Eos % (Auto) Baso % (Auto) Absolute Neuts (auto) Absolute Lymphs (auto) Absolute Monos (auto) Absolute Eos (auto) Absolute Basos (auto) Total Counted Seg Neutrophils % Seg Neuts % (Manual) Band Neutrophils % Lymphocytes % (Manual) Monocytes % (Manual) Eosinophils % (Manual) Basophils % (Manual) Abs Neuts (Manual) Abs Lymphs (Manual) Abs Monocytes (Manual) Absolute Eos (Manual) Abs Basophils (Manual) Toxic Granulation Toxic Vacuolation Clumped Platelets Platelet Comment Anisocytosis Tear Drop Cells APTT Cancelled > 235.0 H* Sodium 135.2 L Potassium 3.0 L* D Chloride 100 Carbon Dioxide 23 Anion Gap 12 BUN 29 H D Creatinine 3.00 H Est GFR ( Amer) 19 L Est GFR (MDRD) Non-Af 16 L Glucose 109 Lactic Acid Calcium 7.3 L Magnesium Total Bilirubin Direct Bilirubin Neonat Total Bilirubin Neonat Direct Bilirubin Neonat Indirect Bili AST ALT Alkaline Phosphatase Troponin I Total Protein Albumin 01/23/20 01/23/20 22:45 22:45 WBC RBC Hgb Hct MCV MCH MCHC RDW Plt Count Lymph % (Auto) [place] % (Auto) Eos % (Auto) Baso % (Auto) Absolute Neuts (auto) Absolute Lymphs (auto) Absolute Monos (auto) Absolute Eos (auto) Absolute Basos (auto) Total Counted Seg Neutrophils % Seg Neuts % (Manual) Band Neutrophils % Lymphocytes % (Manual) Monocytes % (Manual) Eosinophils % (Manual) Basophils % (Manual) Abs Neuts (Manual) Abs Lymphs (Manual) Abs Monocytes (Manual) Absolute Eos (Manual) Abs Basophils (Manual) Toxic Granulation Toxic Vacuolation Clumped Platelets Platelet Comment Anisocytosis Tear Drop Cells APTT Sodium Potassium 3.5 L Chloride Carbon Dioxide Anion Gap BUN Creatinine Est GFR ( Amer) Est GFR (MDRD) Non-Af Glucose Lactic Acid Calcium Magnesium 1.8 Total Bilirubin Direct Bilirubin Neonat Total Bilirubin Neonat Direct Bilirubin Neonat Indirect Bili AST ALT Alkaline Phosphatase Troponin I Total Protein Albumin IMPRESSION/RECOMMENDATION: 1. Status post V. fib cardiac arrest status post of successful CPR with ROSC. .2 Elevated troponin: Most likely non-ST relation [place] but also could be part and parcel of the prolonged CPR after the cardiac arrest. Would recommend starting the patient on IV heparin since the patient has also history of proximal atrial fibrillation, and has a prior history of embolic CVA. Would cycle the patient's troponin and also get serial EKGs. 3. Shock: Combination of cardiogenic and septic shock. Patient requiring increased dose of Kristian-Synephrine. Patient off the epinephrine and norepinephrine. Would strongly recommend starting the patient on vasopressin. 4. Hypokalemia: Replace potassium. 5. End-stage renal disease on hemodialysis. Nephrology on the case. 6. Hypertension: At present patient requiring pressors. 7. Coronary artery disease: History of [place]. At present blood pressure is too low to start the patient on beta-kady or nitrates. Recommend aspirin through the NG tube or rectally. 8. Cardiomyopathy: With moderately severely reduced LV ejection fraction. 9. Probable infected left foot ulcer: This may be a cause of patient's sepsis. Would recommend culture and antibiotics. 10. Prior history of CVA with residual right hemiparesis and, dysphasia and muteness. 11. Peripheral vascular disease: This may be a cause of the ulcer in the right foot. Medications reviewed. Medical regimen and management plan discussed with attending provider on the case the application developer manager. Medical decision making is of high complexity. 40 minutes spent as patient more than 50% time spent in direct patient care. Will follow.
[2020-01-24] MEDS: NORMAL SALINE 1000 ML 1,000 ML IV PRN ×2 (03:19→22:03)
[2020-01-24 03:37] LABS: ARTERIAL BLOOD BASE EXCESS -10.9 mmol/L; ARTERIAL BLOOD H2CO3 0.93 mmol/L (1.05-1.35); ARTERIAL BLOOD HCO3 14.5 mmol/L (20-24); ARTERIAL BLOOD O2 SATURATION 98.7 % (94-98); ARTERIAL BLOOD PH 7.29 (7.35-7.45); ARTERIAL BLOOD PO2 149.4 mmHg (80-100); ARTERIAL BLOOD TOTAL CO2 15.5 mmol/L (21-25)
[2020-01-24 03:38] LABS: ARTERIAL BLOOD FIO2 50%
[2020-01-24 03:50] LABS: ANION GAP 17 (5-19); BLOOD UREA NITROGEN 33 mg/dL (7-20); CALCIUM 7.4 mg/dL (8.4-10.2); CARBON DIOXIDE 17 mmol/L (22-30); CHLORIDE 100 mmol/L (98-107); GLUCOSE 93 mg/dL (75-110); POTASSIUM 3.7 mmol/L (3.6-5.0)
[2020-01-24 04:19] LABS: HEMATOCRIT 30.9 % (36.0-47.0); HEMOGLOBIN 9.8 g/dL (12.0-15.5); MEAN CORPUSCULAR HEMOGLOBIN 28.8 pg (27.0-33.4); MEAN CORPUSCULAR HGB CONC 31.7 g/dL (32.0-36.0); MEAN CORPUSCULAR VOLUME 91 fl (80-97); PLATELET COUNT 200 10^3/uL (150-450); RED CELL DISTRIBUTION WIDTH 16.5 % (11.5-14.0); WHITE BLOOD COUNT 19.1 10^3/uL (4.0-10.5)
[2020-01-24 04:28] LABS: ABSOLUTE LYMPHOCYTES# (MANUAL) 2.9 10^3/uL (0.5-4.7); ABSOLUTE MONOCYTES # (MANUAL) 2.3 10^3/uL (0.1-1.4); BASOPHILS % (MANUAL) 0 % (0-2); EOSINOPHILS % (MANUAL) 0 % (0-6); LYMPHOCYTES % (MANUAL) 15 % (13-45); MONOCYTES % (MANUAL) 12 % (3-13); SEGMENTED NEUTROPHILS % (MAN) 56 % (42-78); TOTAL CELLS COUNTED 100
[2020-01-24 04:31] LABS: ANISOCYTOSIS 1+; BURR CELLS 1+; OVALOCYTES SLIGHT; PLATELET COMMENT ADEQUATE; POIKILOCYTOSIS 1+; POLYCHROMASIA SLIGHT; SCHISTOCYTES SLIGHT; TEAR DROP CELLS SLIGHT; TOXIC GRANULATION 1+
[2020-01-24 04:32] LABS: BAND NEUTROPHILS % (MANUAL) 17 % (3-5)
[2020-01-24] MEDS: DEXTROSE 5%-WATER 250 ML with PHENYLEPHRINE HCL 40 MG IV PRN ×2 (08:35)
[2020-01-24] MEDS: PANTOPRAZOLE SODIUM 40 MG VIAL IV SCH (09:58)
[2020-01-24] MEDS: LINEZOLID 600 MG/300 ML RTUPB IV SCH ×2 (09:59→22:00)
--- NOTE | 2020-01-24 10:24 | Progress Note ---
Provider Note Provider Note: CARDIOLOGY PROGRESS NOTE by Dr. Janey Saxena on 01/24/2020. SUJECTIVE: The patient continues to be intubated. No arrhythmias seen on the monitor. The troponin is trending down but still high. She still requiring pressors but her blood pressure is much better and the pressors are being weaned off. The patient has been made a DNR. Still awaiting the COVID19 testing results. PHYSICAL EXAMINATION: The patient is intubated and sedated but does open her eyes when called upon. Selected Entries 01/24/20 08:00 Temperature 98.5 F Temperature Oral Source Pulse Rate 76 Respiratory 20 Rate Respiratory Normal Effort Non-Labored Mechanically Ventilated Blood Pressure 157/54 H [Femoral Artery ] Blood Pressure 88 Mean [Femoral Artery] O2 Sat by Pulse 99 Oximetry Oxygen Delivery Mechanical Method ( Ventilator includes room air) Percent of 50 Oxygen HEAD: Is atraumatic normocephalic. EYES: Pupils are equal round reactive to light. ENT is negative. NECK: Supple. There is no JVD. Left carotid upstroke is slightly reduced. There is bilateral carotid bruits present. Trachea central LUNGS: There is a few scattered rhonchi.. There is no wheezing or rales. HEART: S1-S2 is heard. There is no S3 gallop. There is no S4 gallop. Systolic murmur left sternal border and the apex there is no rub. ABDOMEN: Soft nontender there is no possible megaly. EXTREMITIES femorals are diminished. 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 Right leg dressing there seems to be an infected wound of the right foot. There is working AV fistula in the left forearm. CLERICAL WAREHOUSE WORKER and psychiatric not examined due to patient being intubated and sedated. Labs- All tests 24 hr 01/23/20 01/23/20 01/24/20 22:45 22:45 01:55 WBC RBC Hgb Hct MCV MCH MCHC RDW Plt Count Lymph % (Auto) [place] % (Auto) Eos % (Auto) Baso % (Auto) Absolute Neuts (auto) Absolute Lymphs (auto) Absolute Monos (auto) Absolute Eos (auto) Absolute Basos (auto) Total Counted Seg Neutrophils % Seg Neuts % (Manual) Band Neutrophils % Lymphocytes % (Manual) Monocytes % (Manual) Eosinophils % (Manual) Basophils % (Manual) Abs Neuts (Manual) Abs Lymphs (Manual) Abs Monocytes (Manual) Absolute Eos (Manual) Abs Basophils (Manual) Toxic Granulation Platelet Comment Polychromasia Poikilocytosis Anisocytosis Tear Drop Cells Ovalocytes Sanjuanita Cells Schistocytes APTT > 235.0 H* Carbonic Acid HCO3/H2CO3 Ratio ABG pH ABG pCO2 ABG pO2 ABG HCO3 ABG Total CO2 ABG O2 Saturation ABG Base Excess FiO2 Sodium Potassium 3.5 L Chloride Carbon Dioxide Anion Gap BUN Creatinine Est GFR ( Amer) Est GFR (MDRD) Non-Af Glucose Calcium Ionized Calcium Maximiliano Magnesium 1.8 Slides for Path Review 01/24/20 01/24/20 01/24/20 03:15 03:15 03:15 WBC 19.1 H RBC 3.40 L Hgb 9.8 L Hct 30.9 L MCV 91 MCH 28.8 MCHC 31.7 L RDW 16.5 H Plt Count 200 Lymph % (Auto) Not Reportable [place] % (Auto) Not Reportable Eos % (Auto) Not Reportable Baso % (Auto) Not Reportable Absolute Neuts (auto) Not Reportable Absolute Lymphs (auto) Not Reportable Absolute Monos (auto) Not Reportable Absolute Eos (auto) Not Reportable Absolute Basos (auto) Not Reportable Total Counted 100 Seg Neutrophils % Not Reportable Seg Neuts % (Manual) 56 Band Neutrophils % 17 H D Lymphocytes % (Manual) 15 Monocytes % (Manual) 12 Eosinophils % (Manual) 0 Basophils % (Manual) 0 Abs Neuts (Manual) 13.9 H Abs Lymphs (Manual) 2.9 Abs Monocytes (Manual) 2.3 H Absolute Eos (Manual) 0.0 Abs Basophils (Manual) 0.0 Toxic Granulation 1+ Platelet Comment ADEQUATE Polychromasia SLIGHT Poikilocytosis 1+ Anisocytosis 1+ Tear Drop Cells SLIGHT Ovalocytes SLIGHT Sanjuanita Cells 1+ Schistocytes SLIGHT APTT Carbonic Acid 0.93 L HCO3/H2CO3 Ratio 15:1 ABG pH 7.29 L ABG pCO2 31.0 L ABG pO2 149.4 H ABG HCO3 14.5 L ABG Total CO2 15.5 L ABG O2 Saturation 98.7 H ABG Base Excess -10.9 FiO2 50% Sodium 134.3 L Potassium 3.7 Chloride 100 Carbon Dioxide 17 L Anion Gap 17 BUN 33 H Creatinine 3.88 H Est GFR ( Amer) 14 L Est GFR (MDRD) Non-Af 12 L Glucose 93 Calcium 7.4 L Ionized Calcium Maximiliano 0.94 L Magnesium Slides for Path Review PATHOLOGIST REVIEWED 01/24/20 01/24/20 14:00 22:15 WBC RBC Hgb Hct MCV MCH MCHC RDW Plt Count Lymph % (Auto) [place] % (Auto) Eos % (Auto) Baso % (Auto) Absolute Neuts (auto) Absolute Lymphs (auto) Absolute Monos (auto) Absolute Eos (auto) Absolute Basos (auto) Total Counted Seg Neutrophils % Seg Neuts % (Manual) Band Neutrophils % Lymphocytes % (Manual) Monocytes % (Manual) Eosinophils % (Manual) Basophils % (Manual) Abs Neuts (Manual) Abs Lymphs (Manual) Abs Monocytes (Manual) Absolute Eos (Manual) Abs Basophils (Manual) Toxic Granulation Platelet Comment Polychromasia Poikilocytosis Anisocytosis Tear Drop Cells Ovalocytes Sanjuanita Cells Schistocytes APTT 134.0 H* 74.0 H Carbonic Acid HCO3/H2CO3 Ratio ABG pH ABG pCO2 ABG pO2 ABG HCO3 ABG Total CO2 ABG O2 Saturation ABG Base Excess FiO2 Sodium Potassium Chloride Carbon Dioxide Anion Gap BUN Creatinine Est GFR ( Amer) Est GFR (MDRD) Non-Af Glucose Calcium Ionized Calcium Maximiliano Magnesium Slides for Path Review IMPRESSION/RECOMMENDATION: 1. Status post V. fib cardiac arrest status post of successful CPR with ROSC. .2 Elevated troponin: Most likely non-ST relation [place] but also could be part and parcel of the prolonged CPR after the cardiac arrest. Would recommend starting the patient on IV heparin since the patient has also history of proximal atrial fibrillation, and has a prior history of embolic CVA. Would cycle the patient's troponin and also get serial EKGs. 3. Shock: Combination of cardiogenic and septic shock. Patient requiring increased dose of Kristian-Synephrine. Patient off the epinephrine and norepinephrine. Would strongly recommend starting the patient on vasopressin. 4. Hypokalemia: Replace potassium. 5. End-stage renal disease on hemodialysis. Nephrology on the case. 6. Hypertension: At present patient requiring pressors. 7. Coronary artery disease: History of [place]. At present blood pressure is too low to start the patient on beta-kady or nitrates. Recommend aspirin through the NG tube or rectally. 8. Cardiomyopathy: With moderately severely reduced LV ejection fraction. 9. Probable infected left foot ulcer: This may be a cause of patient's sepsis. Would recommend culture and antibiotics. 10. Prior history of CVA with residual right hemiparesis and, dysphasia and muteness. 11. Peripheral vascular disease: This may be a cause of the ulcer in the right foot. Medications reviewed. Medical regimen and management plan discussed with attending provider on the case the admin prog coord. Medical decision making is of high complexity. 40 minutes spent as patient more than 50% time spent in direct patient care. Will follow.
--- NOTE | 2020-01-24 11:02 | CDI QUERY ---
CDI Query CDI Review: We are seeking further clarification of documentation to reflect the severity of illness of your patient. Cardiology consult notes: 01/22/2020 Shock: Most likely cardiogenic. But will need to make sure the patient is not septic which could also contribute to the patient's shock. The patient is on pressors. We will slowly wean the patient off epinephrine and then try to wean the patient off norepinephrine. 01/23/2020 Shock: Combination of cardiogenic and septic shock. Probable infected left foot ulcer: This may be a cause of patient's sepsis. Nephrology consult notes: 01/23/2020 Shock Cardiogenic/septic. Patient on pressor agents. Leukocytosis with minimal improvement. Shock liver with high lactic acid. Overall critical and poor prognosis. Documentation in the medical record also includes: Temp HR Resp BP Pulse Ox 102.4 F H 86 15 77/57 L 100 WBC 19.4 Based on your medical judgement, please clarify in the medical record; Cardiogenic / septic shock is confirmed Sepsis is confirmed Cardiogenic / septic shock is not confirmed or has been ruled out Sepsis is not confirmed and / or has been ruled out Thank you for your consideration. SUDARSHAN Parikh RN Clinical Nsh Teacher Physician Advisor [email or web address]
--- NOTE | 2020-01-24 12:03 | PDOC PROGRESS REPORT ---
Subjective Progress Note for:: 01/24/20 Subjective:: Patient was seen laying in her bed intubated. She continues on vasopressin, phenylephrine, and normal saline to help with her bp. Her bp from her fem art line shows and increase. She is also at this time being ruled out for COVID19. Reason For Visit: CARDIAC ARREST Physical Exam Vital Signs: Temp Pulse Resp BP Pulse Ox 98.5 F 76 13 157/54 H 100 01/24/20 08:00 01/24/20 08:00 01/24/20 10:00 01/24/20 08:00 01/24/20 08:15 Intake & Output 01/23/20 01/24/20 01/25/20 06:59 06:59 06:59 Intake Total 2176 3780 448 Output Total 220 300 Balance 1955 3480 448 Weight 77.9 kg 80.5 kg General appearance: PRESENT: well-developed, other - -intubated and sedated Mouth exam: PRESENT: neck supple, other - intubation tube inserted Neck exam: ABSENT: JVD, tracheal deviation Respiratory exam: PRESENT: unlabored, other - chest rise and fall was at a normal rate. ABSENT: tachypnea Cardiovascular exam: ABSENT: bradycardia, tachycardia GI/Abdominal exam: PRESENT: distended Musculoskeletal exam: PRESENT: deformity - -left bka. ABSENT: normal inspection Neurological exam: ABSENT: alert, awake, oriented to person, oriented to place, oriented to time, oriented to situation Skin exam: PRESENT: normal color. ABSENT: cyanosis Results Laboratory Results: 01/24/20 03:15 01/24/20 03:15 01/23/20 01/23/20 01/23/20 17:20 22:45 22:45 WBC RBC Hgb Hct MCV MCH MCHC RDW Plt Count Seg Neutrophils % Carbonic Acid HCO3/H2CO3 Ratio ABG pH ABG pCO2 ABG pO2 ABG HCO3 ABG O2 Saturation ABG Base Excess FiO2 Sodium 135.2 L Potassium 3.0 L* D 3.5 L Chloride 100 Carbon Dioxide 23 Anion Gap 12 BUN 29 H D Creatinine 3.00 H Est GFR ( Amer) 19 L Glucose 109 Calcium 7.3 L Ionized Calcium Maximiliano Magnesium 1.8 01/24/20 01/24/20 01/24/20 03:15 03:15 03:15 WBC 19.1 H RBC 3.40 L Hgb 9.8 L Hct 30.9 L MCV 91 MCH 28.8 MCHC 31.7 L RDW 16.5 H Plt Count 200 Seg Neutrophils % Not Reportable Carbonic Acid 0.93 L HCO3/H2CO3 Ratio 15:1 ABG pH 7.29 L ABG pCO2 31.0 L ABG pO2 149.4 H ABG HCO3 14.5 L ABG O2 Saturation 98.7 H ABG Base Excess -10.9 FiO2 50% Sodium 134.3 L Potassium 3.7 Chloride 100 Carbon Dioxide 17 L Anion Gap 17 BUN 33 H Creatinine 3.88 H Est GFR ( Amer) 14 L Glucose 93 Calcium 7.4 L Ionized Calcium Maximiliano 0.94 L Magnesium 01/22/20 01/22/20 01/22/20 10:50 10:50 14:23 Creatine Kinase 1336 H CK-MB (CK-2) 162.00 H Troponin I 4.900 177.000 01/23/20 01/23/20 05:20 13:00 Creatine Kinase CK-MB (CK-2) Troponin I 400.000 248.000 Impressions: Chest X-Ray 01/22/20 00:00 IMPRESSION: Tubes and lines in good positioning. No focal infiltrates KUB X-Ray 01/22/20 11:36 IMPRESSION: NG tube as described. Assessment & Plan - Diagnosis (1) Shock Plan: improving with pressers and normal saline. Currently on empiric antibiotic treatment. (2) ESRD (end stage renal disease) Plan: If bp continues to improve than it looks like she may be able to tolerate dialysis. (3) Fever Plan: on empiric antibiotic treatment, has had blood cultures, wound cultures and septum cultures. Awaiting results on all. She is also being ruled out for COVID19 (4) Cardiopulmonary arrest with successful resuscitation Plan: alive but intubated
[2020-01-24 13:21] LABS: PATH REVIEW PATHOLOGIST REVIEWED
[2020-01-24] MEDS: CEFEPIME 1 GM/D5W RTU 1 GM/50 ML RTUPB IV SCH (17:28)
[2020-01-24] MEDS: ACETAMINOPHEN SOLN 325 MG/10.15 ML UDCUP PO PRN (22:03)
[2020-01-25 04:46] LABS: HEMATOCRIT 28.1 % (36.0-47.0); HEMOGLOBIN 9.2 g/dL (12.0-15.5); MEAN CORPUSCULAR HEMOGLOBIN 29.2 pg (27.0-33.4); MEAN CORPUSCULAR HGB CONC 32.9 g/dL (32.0-36.0); MEAN CORPUSCULAR VOLUME 89 fl (80-97); PLATELET COUNT 166 10^3/uL (150-450); RED BLOOD COUNT 3.16 10^6/uL (3.72-5.28); WHITE BLOOD COUNT 16.9 10^3/uL (4.0-10.5)
[2020-01-25 05:01] LABS: ALBUMIN 2.3 g/dL (3.5-5.0); ALKALINE PHOSPHATASE 100 U/L (38-126); ANION GAP 12 (5-19); BILIRUBIN,DIRECT 0.7 mg/dL (0.0-0.4); BILIRUBIN,TOTAL 1.1 mg/dL (0.2-1.3); BLOOD UREA NITROGEN 49 mg/dL (7-20); CARBON DIOXIDE 21 mmol/L (22-30); CHLORIDE 99 mmol/L (98-107); GLUCOSE 151 mg/dL (75-110); POTASSIUM 3.9 mmol/L (3.6-5.0); TOTAL PROTEIN 5.4 g/dL (6.3-8.2)
[2020-01-25 05:04] LABS: ABSOLUTE LYMPHOCYTES# (MANUAL) 1.4 10^3/uL (0.5-4.7); ABSOLUTE MONOCYTES # (MANUAL) 0.3 10^3/uL (0.1-1.4); BAND NEUTROPHILS % (MANUAL) 10 % (3-5); BASOPHILS % (MANUAL) 0 % (0-2); EOSINOPHILS % (MANUAL) 0 % (0-6); LYMPHOCYTES % (MANUAL) 8 % (13-45); MONOCYTES % (MANUAL) 2 % (3-13); SEGMENTED NEUTROPHILS % (MAN) 80 % (42-78); TOTAL CELLS COUNTED 100
[2020-01-25 05:05] LABS: TOXIC VACUOLATION PRESENT
[2020-01-25 05:06] LABS: ANISOCYTOSIS 1+; TOXIC GRANULATION SLIGHT
[2020-01-25 05:07] LABS: OVALOCYTES SLIGHT; PLATELET COMMENT ADEQUATE; POLYCHROMASIA SLIGHT
[2020-01-25 05:08] LABS: BURR CELLS SLIGHT
[2020-01-25 05:09] LABS: ASPARTATE AMINO TRANSFERASE 1436 U/L (14-36)
[2020-01-25 05:10] LABS: CALCIUM 6.9 mg/dL (8.4-10.2)
[2020-01-25] MEDS ORDERED: EPOETIN ALFA-EPBX 2,000 UNIT, EPOETIN ALFA-EPBX 3,000 UNIT, EPOETIN ALFA-EPBX 20,000 UN... IV PRN ×4 (06:50)
--- NOTE | 2020-01-25 07:44 | EKG REPORT ---
SEVERITY:- ABNORMAL ECG - SINUS RHYTHM WITH FIRST DEGREE AVB LOW VOLTAGE THROUGHOUT BORDERLINE ST DEPRESSION, ANTEROLATERAL LEADS BORDERLINE PROLONGED QT INTERVAL : Confirmed by: Hari Ware MD 25-Jan-2020 07:43:15
--- NOTE | 2020-01-25 08:28 | PDOC CRITICAL CARE PROG REPORT ---
General Date:: 01/24/20 ICU Day:: 2 Ventilator Day:: 2 Hospital Day:: 2 Resuscitation Status: Do Not Resuscitate Events in the past 12 to 24 Hours:: No neurologic recovery. Talked with son. Now DNR. Review of systems relevant to events:: Neurologic. CV. Renal. Reason for ICU Addmission:: Post arrest. Intubated on pressors. - Medications: Medications reviewed and adjusted accordingly: Yes Vasopressors:: Phenylephrine, vasopressin. Sedation:: None Physical Exam Vital Signs: Temp Pulse Resp BP Pulse Ox 99.4 F 71 15 129/48 H 100 01/24/20 12:00 01/24/20 12:00 01/24/20 14:00 01/24/20 12:00 01/24/20 14:00 Intake & Output 01/23/20 01/24/20 01/25/20 06:59 06:59 06:59 Intake Total 2176 3780 493 Output Total 220 300 0 Balance 1956 3480 493 Weight 77.9 kg 80.5 kg Weight/Height Weight 80.5 kg Height 5 ft 7 in General appearance: PRESENT: no acute distress Head exam: PRESENT: atraumatic, normocephalic Eye exam: PRESENT: conjunctival injection Ear exam: PRESENT: normal external ear exam Mouth exam: PRESENT: moist, tongue midline Respiratory exam: PRESENT: clear to auscultation tila. ABSENT: rales, rhonchi, wheezes Cardiovascular exam: PRESENT: RRR. ABSENT: diastolic murmur, rubs, systolic murmur GI/Abdominal exam: PRESENT: normal bowel sounds, soft. ABSENT: distended, guarding, mass, organolmegaly, rebound, tenderness Rectal exam: PRESENT: deferred Extremities exam: PRESENT: other - Unresponsive. GCS still 3R BKA, L heel ulcer. Neurological exam: PRESENT: other - Still unresponsive. Skin exam: PRESENT: dry, intact, warm. ABSENT: cyanosis, rash Tubes/Lines: PRESENT: Endotracheal Tube, Central Line, Arterial Catheter, Nasogastic Tube Laboratory/Radiographs Laboratory Results: 01/24/20 03:15 01/24/20 03:15 01/23/20 01/23/20 01/23/20 17:20 22:45 22:45 WBC RBC Hgb Hct MCV MCH MCHC RDW Plt Count Seg Neutrophils % Carbonic Acid HCO3/H2CO3 Ratio ABG pH ABG pCO2 ABG pO2 ABG HCO3 ABG O2 Saturation ABG Base Excess FiO2 Sodium 135.2 L Potassium 3.0 L* D 3.5 L Chloride 100 Carbon Dioxide 23 Anion Gap 12 BUN 29 H D Creatinine 3.00 H Est GFR ( Amer) 19 L Glucose 109 Calcium 7.3 L Ionized Calcium Maximiliano Magnesium 1.8 01/24/20 01/24/20 01/24/20 03:15 03:15 03:15 WBC 19.1 H RBC 3.40 L Hgb 9.8 L Hct 30.9 L MCV 91 MCH 28.8 MCHC 31.7 L RDW 16.5 H Plt Count 200 Seg Neutrophils % Not Reportable Carbonic Acid 0.93 L HCO3/H2CO3 Ratio 15:1 ABG pH 7.29 L ABG pCO2 31.0 L ABG pO2 149.4 H ABG HCO3 14.5 L ABG O2 Saturation 98.7 H ABG Base Excess -10.9 FiO2 50% Sodium 134.3 L Potassium 3.7 Chloride 100 Carbon Dioxide 17 L Anion Gap 17 BUN 33 H Creatinine 3.88 H Est GFR ( Amer) 14 L Glucose 93 Calcium 7.4 L Ionized Calcium Maximiliano 0.94 L Magnesium 01/22/20 01/22/20 01/22/20 10:50 10:50 14:23 Creatine Kinase 1336 H CK-MB (CK-2) 162.00 H Troponin I 4.900 177.000 01/23/20 01/23/20 05:20 13:00 Creatine Kinase CK-MB (CK-2) Troponin I 400.000 248.000 Impressions: Chest X-Ray 01/22/20 00:00 IMPRESSION: Tubes and lines in good positioning. No focal infiltrates KUB X-Ray 01/22/20 11:36 IMPRESSION: NG tube as described. All labs, radiographs, diagnostic studies and EKGs were personally reviewed: Yes In addition, reports of radiographic and diagnostic studies were read: Yes Assessment and Plan - Diagnosis (1) Cardiac arrest Is this a current diagnosis for this admission?: Yes Plan: I have spoken daily to her son since her admission. He understands the severity of the situation. Other family members, and 3 other siblings, are quite adament to have some type of imaging. MRI of brain not possible with vent. CT ordered for Tuesday. Possible withdraw of support this weekend. (2) Ventricular fibrillation Is this a current diagnosis for this admission?: Yes Plan: She has had brief runs of this and AFib. Spontaneously resolves. (3) CAD (coronary artery disease) Is this a current diagnosis for this admission?: Yes Plan: Right now this is inactive. (4) CKD (chronic kidney disease) stage V requiring chronic dialysis Is this a current diagnosis for this admission?: Yes Plan: Dialysis per Dr. Bullard. Not in need today. (5) Lactic acid acidosis Is this a current diagnosis for this admission?: Yes Plan: Resolved (6) Chronic heel ulcer Qualifiers: Laterality: left Non-pressure ulcer stage: with fat layer exposed Qualified Code(s): L97.422 - Non-pressure chronic ulcer of left heel and midfoot with fat layer exposed Is this a current diagnosis for this admission?: Yes Plan: Initial culture preliminary growing GNR. Keep on cefepime pending cultures. (7) Fever 41 degrees C or over Is this a current diagnosis for this admission?: Yes Plan: Resolved Plan Summary: As discussed, family to talk it over and may visit. Meeting Tuesday to talk of next staps. May include WD of care. Critical Time Critical Time (minutes): 35 Level of Care: ICU Anticipated discharge: Hospice Within: Other -: 1. The care of a critical patient is a dynamic process. This note is a represe ntative synopsis but static in nature. The timeframe for treatments given in order is not necessarily the actual time these treatments may have been done. 2. This patient requires critical care secondary to ongoing requirements for therapy not offered or safe outside the critical care environment. Transfer to a lower level of care will result in altered life or limb morbidity and mortality. 3. Multidisciplinary rounds completed. 4. ABCDE bundle addressed.
[2020-01-25] MEDS ORDERED: AMIODARONE HCL 200 MG TABLET PO SCH (08:30)
[2020-01-25] MEDS: DEXTROSE 5%-WATER 250 ML with VASOPRESSIN 100 UNIT IV PRN ×2 (08:31)
[2020-01-25] MEDS ORDERED: CALCIUM GLUCONATE 1000 MG/10 ML INJ IV ONE (09:21)
[2020-01-25] MEDS ORDERED: METOPROLOL TARTRATE PF/INJ 5 MG/5 ML SDV IV ONE ×2 (09:39→10:45)
[2020-01-25] MEDS: PANTOPRAZOLE SODIUM 40 MG VIAL IV SCH (09:45)
[2020-01-25] MEDS: CALCIUM GLUCONATE 1 GM/NS 50 ML RTU IV SCH ×2 (09:48→11:22)
[2020-01-25] MEDS ORDERED: DEXTROSE 5%-WATER 500 ML with AMIODARONE HCL 900 MG IV PRN ×2 (10:26)
--- NOTE | 2020-01-25 14:55 | PDOC PROGRESS REPORT ---
Subjective Progress Note for:: 01/25/20 Reason For Visit: Patient seen today in the ICU. Patient remains critically ill intubated sedated. Now she has gone into paroxysmal A. fib and convers spontaneously periodically. Currently being seen while undergoing dialysis. Blood pressures are better. Labs and medications were reviewed. Dialysis orders were reviewed with the treating dialysis nurse. Note that the patient's family has made her a DNR now and further discussions ongoing to see if she needs to be made into comfort care given further deterioration of clinical overall situation. Physical Exam Vital Signs: Temp Pulse Resp BP Pulse Ox 98.8 F 78 12 144/65 H 100 01/25/20 12:00 01/25/20 07:50 01/25/20 14:40 01/25/20 05:35 01/25/20 14:30 Intake & Output 01/24/20 01/25/20 01/26/20 06:59 06:59 06:59 Intake Total 3830 1492 1203 Output Total 251 297 7818 Balance 3530 992 -297 Weight 80.5 kg 82 kg 82 kg General appearance: PRESENT: disheveled Respiratory exam: PRESENT: clear to auscultation tila, decreased breath sounds. ABSENT: crackles Cardiovascular exam: PRESENT: +S1, +S2. ABSENT: bradycardia GI/Abdominal exam: PRESENT: distended, soft. ABSENT: tenderness Extremities exam: PRESENT: pedal edema Neurological exam: PRESENT: altered Results Laboratory Results: 01/25/20 04:20 01/25/20 04:20 01/25/20 01/25/20 01/25/20 04:20 04:20 04:20 WBC 16.9 H RBC 3.16 L Hgb 9.2 L Hct 28.1 L MCV 89 MCH 29.2 MCHC 32.9 RDW 16.0 H Plt Count 166 Seg Neutrophils % Not Reportable Sodium 132.1 L Potassium 3.9 Chloride 99 Carbon Dioxide 21 L Anion Gap 12 BUN 49 H Creatinine 4.20 H Est GFR ( Amer) 13 L Glucose 151 H Calcium 6.9 L* Ionized Calcium Maximiliano 0.93 L Total Bilirubin 1.1 AST 1436 H Alkaline Phosphatase 100 Total Protein 5.4 L Albumin 2.3 L 01/22/20 01/22/20 01/22/20 10:50 10:50 14:23 Creatine Kinase 1336 H CK-MB (CK-2) 162.00 H Troponin I 4.900 177.000 01/23/20 01/23/20 01/25/20 05:20 13:00 04:20 Creatine Kinase CK-MB (CK-2) Troponin I 400.000 248.000 75.200 Impressions: Chest X-Ray 01/22/20 00:00 IMPRESSION: Tubes and lines in good positioning. No focal infiltrates KUB X-Ray 01/22/20 11:36 IMPRESSION: NG tube as described. Assessment & Plan - Diagnosis (1) Shock Plan: Cardiogenic/septic. Patient on pressor agents. Leukocytosis in left shift with some improvement. Shock liver with high lactic acid. Overall critical and poor prognosis. (2) Cardiac arrest Is this a current diagnosis for this admission?: Yes Plan: Status post CPR. (3) ESRD (end stage renal disease) Plan: Patient currently undergoing dialysis. Patient cold and clammy. Plan to remove half a liter of fluid. Dialysis being supervised. Dialysis orders were reviewed with the treating dialysis nurse. (4) Hypokalemia Plan: Currently stable with replacements. (5) CVA (cerebral vascular accident) Qualifiers: Precerebral and cerebral artery: posterior cerebral artery Laterality of affected vessel: left Plan: Old with residual deficits as baseline. (6) Hypocalcemia Plan: Being replaced per spread cutter. We will put her on a 3.5 calcium bath. Monitor. (7) Atrial fibrillation Qualifiers: Atrial fibrillation type: paroxysmal Qualified Code(s): I48.0 - Paroxysmal atrial fibrillation Plan: Paroxysmal with periodic spontaneous conversion. Now on amiodarone.
[2020-01-25 16:10] VITALS: BP 133/59
--- NOTE | 2020-01-25 17:25 | RADIOLOGY REPORT (SQ) ---
EXAM DESCRIPTION: CT HEAD WITHOUT IMAGES COMPLETED DATE/TIME: 01/25/2020 5:07 pm REASON FOR STUDY: Cardiac arrest, old stroke, assess damage COMPARISON: 02/23/2018 TECHNIQUE: Axial images acquired through the brain without intravenous contrast. Images reviewed wi th bone, brain and subdural windows. Additional sagittal and coronal reconstructions were generated. Images stored on PACS. All CT scanners at this facility use dose modulation, iterative reconstruction, and/or weight based d osing when appropriate to reduce radiation dose to as low as reasonably achievable (ALARA). [facility]: Dose Right [facility]: CareDose [facility]: Dose Right [facility]: Teradose 4D [facility]: Smart Quality Practice RADIATION DOSE: CT Rad equipment meets quality standard of care and radiation dose reduction techniq ues were employed. CTDIvol: 53.2 mGy. DLP: 937 mGy-cm. mGy. LIMITATIONS: None. FINDINGS: VENTRICLES: Prominent ventricles secondary to involutional atrophy. CEREBRUM: No masses. No hemorrhage. No midline shift. Encephalomalacia in the left posterior parie cruz and occipital regions from our prior infarction. No evidence for acute infarction. Areas of low density in the white matter most likely chronic small vessel ischemic changes. CEREBELLUM: No masses. No hemorrhage. No alteration of density. No evidence for acute infarction. EXTRAAXIAL SPACES: No fluid collections. No masses. ORBITS AND GLOBE: No intra- or extraconal masses. Normal contour of globe without masses. CALVARIUM: No fracture. PARANASAL SINUSES: No fluid or mucosal thickening. SOFT TISSUES: No mass or hematoma. OTHER: No other significant finding. IMPRESSION: Old left posterior infarction. Chronic microvascular ischemia. Involutional changes of aging. No acute intracranial findings. EVIDENCE OF ACUTE STROKE: NO. COMMENT: Quality ID # [id number]: Final reports with documentation of one or more dose reduction techniques (e.g., Automated exposure control, adjustment of the mA and/or kV according to patient size, use of iterative reconstruction technique) TECHNICAL DOCUMENTATION: JOB ID: [id number] [employer]- All Rights Reserved Reading location - IP/workstation name: [email or web address]
--- NOTE | 2020-01-25 18:19 | EKG REPORT ---
SEVERITY:- ABNORMAL ECG - SINUS RHYTHM FIRST DEGREE AV BLOCK NONSPECIFIC INTRAVENTRICULAR CONDUCTION DELAY MINIMAL ST DEPRESSION, ANTEROLATERAL LEADS : Confirmed by: Hari Ware MD 25-Jan-2020 18:18:50
[2020-01-25] MEDS: CEFEPIME 1 GM/D5W RTU 1 GM/50 ML RTUPB IV SCH (18:25)
--- NOTE | 2020-01-25 18:59 | Death Summary ---
Summary Date : 01/25/20 Time of :: 18:40 Autopsy: No Resuscitation Status: Do Not Resuscitate - Final Diagnosis (1) Cardiac arrest Is this a current diagnosis for this admission?: Yes (2) Ventricular fibrillation Is this a current diagnosis for this admission?: Yes (3) CAD (coronary artery disease) Is this a current diagnosis for this admission?: Yes (4) CKD (chronic kidney disease) stage V requiring chronic dialysis Is this a current diagnosis for this admission?: Yes (5) Lactic acid acidosis Is this a current diagnosis for this admission?: Yes (6) Chronic heel ulcer Is this a current diagnosis for this admission?: Yes (7) Fever 41 degrees C or over Is this a current diagnosis for this admission?: Yes Hospital Course:: This patient was admitted after a VT cardiac arrest and never regained consciousness. She was made DNR and had a final VT arrest and dien at 18:40 PM on 01/25/20. She had a previous hx of stroke X3, was minimally responsive and had a R BKA. She was also a dialysis patient and there was to be a family meeting Tuesday to talk about withdraw of care as she has shown no neurologic recovery. Family notified and are coming in to view her.
--- NOTE | 2020-01-25 19:35 | Progress Note ---
Provider Note Provider Note: CARDIOLOGY PROGRESS NOTE by Dr. Janey Saxena on 01/25/2020. SUJECTIVE: The patient continues to be intubated. No arrhythmias seen on the monitor. The troponin is trending down but still high. She is off all vasopressors except for vasopressin. And a heparin drip.. The patient has been made a DNR. Still awaiting the COVID19 testing results. This morning she went into atrial fibrillation with rapid ventricular response and received IV amiodarone and transiently her heart rate has come down. She was in sinus rhythm for a little while and again went back into atrial fibrillation. I have started the patient on amiodarone drip at 1mg/min in anticipation of possibly cardioverting her later on. But the patient spontaneous converted to sinus rhythm and its amiodarone drip was discontinued. This was discussed with the patient's son. PHYSICAL EXAMINATION: The patient is intubated and sedated but does open her eyes when called upon. Selected Entries 01/25/20 01/25/20 01/25/20 12:00 15:44 16:00 Temperature 98.8 F Temperature Axillary Source Pulse Rate 60 Respiratory 12 Rate Blood Pressure 133/59 H [Femoral Artery ] Blood Pressure 83 Mean [Femoral Artery] O2 Sat by Pulse 100 Oximetry Oxygen Delivery Mechanical Method ( Ventilator includes room air) Fraction of 40 Inspired Oxygen (FIO2) HEAD: Is atraumatic normocephalic. EYES: Pupils are equal round reactive to light. ENT is negative. NECK: Supple. There is no JVD. Left carotid upstroke is slightly reduced. There is bilateral carotid bruits present. Trachea central LUNGS: There is a few scattered rhonchi.. There is no wheezing or rales. HEART: S1-S2 is heard. There is no S3 gallop. There is no S4 gallop. Systolic murmur left sternal border and the apex there is no rub. ABDOMEN: Soft nontender there is no possible megaly. EXTREMITIES femorals are diminished. 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 Right leg dressing there seems to be an infected wound of the right foot. There is working AV fistula in the left forearm. 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 Labs- All tests 24 hr 01/23/20 01/24/20 01/24/20 09:05 14:00 22:15 WBC RBC Hgb Hct MCV MCH MCHC RDW Plt Count Lymph % (Auto) [place] % (Auto) Eos % (Auto) Baso % (Auto) Absolute Neuts (auto) Absolute Lymphs (auto) Absolute Monos (auto) Absolute Eos (auto) Absolute Basos (auto) Total Counted Seg Neutrophils % Seg Neuts % (Manual) Band Neutrophils % Lymphocytes % (Manual) Monocytes % (Manual) Eosinophils % (Manual) Basophils % (Manual) Abs Neuts (Manual) Abs Lymphs (Manual) Abs Monocytes (Manual) Absolute Eos (Manual) Abs Basophils (Manual) Toxic Granulation Toxic Vacuolation Platelet Comment Polychromasia Anisocytosis Ovalocytes [place] Cells APTT 134.0 H* 74.0 H Sodium Potassium Chloride Carbon Dioxide Anion Gap BUN Creatinine Est GFR ( Amer) Est GFR (MDRD) Non-Af Glucose Calcium Ionized Calcium Maximiliano Total Bilirubin Direct Bilirubin Neonat Total Bilirubin Neonat Direct Bilirubin Neonat Indirect Bili AST ALT Alkaline Phosphatase Troponin I Total Protein Albumin COVID-19 Source NASOPHARYNGEAL COVID-19 (KEVIN) NOT DETECTED 01/25/20 01/25/20 01/25/20 04:20 04:20 04:20 WBC 16.9 H RBC 3.16 L Hgb 9.2 L Hct 28.1 L MCV 89 MCH 29.2 MCHC 32.9 RDW 16.0 H Plt Count 166 Lymph % (Auto) Not Reportable [place] % (Auto) Not Reportable Eos % (Auto) Not Reportable Baso % (Auto) Not Reportable Absolute Neuts (auto) Not Reportable Absolute Lymphs (auto) Not Reportable Absolute Monos (auto) Not Reportable Absolute Eos (auto) Not Reportable Absolute Basos (auto) Not Reportable Total Counted 100 Seg Neutrophils % Not Reportable Seg Neuts % (Manual) 80 H Band Neutrophils % 10 H Lymphocytes % (Manual) 8 L Monocytes % (Manual) 2 L Eosinophils % (Manual) 0 Basophils % (Manual) 0 Abs Neuts (Manual) 15.2 H Abs Lymphs (Manual) 1.4 Abs Monocytes (Manual) 0.3 Absolute Eos (Manual) 0.0 Abs Basophils (Manual) 0.0 Toxic Granulation SLIGHT Toxic Vacuolation PRESENT Platelet Comment ADEQUATE Polychromasia SLIGHT Anisocytosis 1+ Ovalocytes SLIGHT [place] Cells SLIGHT APTT Sodium 132.1 L Potassium 3.9 Chloride 99 Carbon Dioxide 21 L Anion Gap 12 BUN 49 H Creatinine 4.20 H Est GFR ( Amer) 13 L Est GFR (MDRD) Non-Af 11 L Glucose 151 H Calcium 6.9 L* Ionized Calcium Maximiliano 0.93 L Total Bilirubin 1.1 Direct Bilirubin 0.7 H Neonat Total Bilirubin Not Reportable Neonat Direct Bilirubin Not Reportable Neonat Indirect Bili Not Reportable AST 1436 H ALT 956 H Alkaline Phosphatase 100 Troponin I Total Protein 5.4 L Albumin 2.3 L COVID-19 Source COVID-19 (KEVIN) 01/25/20 01/25/20 04:20 04:20 WBC RBC Hgb Hct MCV MCH MCHC RDW Plt Count Lymph % (Auto) [place] % (Auto) Eos % (Auto) Baso % (Auto) Absolute Neuts (auto) Absolute Lymphs (auto) Absolute Monos (auto) Absolute Eos (auto) Absolute Basos (auto) Total Counted Seg Neutrophils % Seg Neuts % (Manual) Band Neutrophils % Lymphocytes % (Manual) Monocytes % (Manual) Eosinophils % (Manual) Basophils % (Manual) Abs Neuts (Manual) Abs Lymphs (Manual) Abs Monocytes (Manual) Absolute Eos (Manual) Abs Basophils (Manual) Toxic Granulation Toxic Vacuolation Platelet Comment Polychromasia Anisocytosis Ovalocytes [place] Cells APTT 66.4 H Sodium Potassium Chloride Carbon Dioxide Anion Gap BUN Creatinine Est GFR ( Amer) Est GFR (MDRD) Non-Af Glucose Calcium Ionized Calcium Maximiliano Total Bilirubin Direct Bilirubin Neonat Total Bilirubin Neonat Direct Bilirubin Neonat Indirect Bili AST ALT Alkaline Phosphatase Troponin I 75.200 Total Protein Albumin COVID-19 Source COVID-19 (KEVIN) Chest X-Ray 01/22/20 00:00 IMPRESSION: Tubes and lines in good positioning. No acute infiltrates. No pleural effusion or pneumothorax. Chest X-Ray 01/22/20 00:00 IMPRESSION: Tubes and lines in good positioning. No focal infiltrates KUB X-Ray 01/22/20 11:36 IMPRESSION: NG tube as described. Head CT 01/25/20 08:00 IMPRESSION: Old left posterior infarction. Chronic microvascular ischemia. Involutional changes of aging. No acute intracranial findings. EVIDENCE OF ACUTE STROKE: NO. IMPRESSION/RECOMMENDATION: 1. Status post V. fib cardiac arrest status post of successful CPR with ROSC. .2 Elevated troponin: Most likely non-ST MO but also could be part and parcel of the prolonged CPR after the cardiac arrest.Would cycle the patient's troponin and also get serial EKGs. 3. Shock: Combination of cardiogenic and septic shock.: The septic shock is presumed. This is resolved. The patient of is off all vasopressors. She is on vasopressin and IV heparin. 4. Recurrent atrial fibrillation with rapid ventricular response. The patient is on amiodarone. The patient is already on a heparin drip. 5. End-stage renal disease on hemodialysis. Nephrology on the case. 6. Hypertension: At present patient requiring pressors. 7. Coronary artery disease: History of MO. At present blood pressure is too low to start the patient on beta-kady or nitrates. Recommend aspirin through the NG tube or rectally. 8. Cardiomyopathy: With moderately severely reduced LV ejection fraction. 9. Probable infected left foot ulcer: This may be a cause of patient's sepsis. Would recommend culture and antibiotics. 10. Prior history of CVA with residual right hemiparesis and, dysphasia and muteness. 11. Peripheral vascular disease: This may be a cause of the ulcer in the right foot. Medications reviewed. Medical regimen and management plan discussed with attending provider on the case the automobile service advisor. Medical decision making is of moderate complexity. 40 minutes spent as patient more than 50% time spent in direct patient care. Will follow.
== END 2020-01-25 18:40 ==
LOC: ER 08:48 → EH 12:37 → ICU 13:45
PROVIDERS: ADMIT Anesthesiology; ATTEND Anesthesiology
PROC: 02HV33Z Insertion of Infusion Device into Superior Vena Cava, Percutaneous Approach (ICD-10-PCS; principal; 2020-01-22)
PROC: 04HL33Z Insertion of Infusion Device into Left Femoral Artery, Percutaneous Approach (ICD-10-PCS; 2020-01-22)
PROC: 05HN33Z Insertion of Infusion Device into Left Internal Jugular Vein, Percutaneous Approach (ICD-10-PCS; 2020-01-22)
PROC: 0B21XEZ Change Endotracheal Airway in Trachea, External Approach (ICD-10-PCS; 2020-01-22)
PROC: 5A1945Z Respiratory Ventilation, 24-96 Consecutive Hours (ICD-10-PCS; 2020-01-22)
PROC: 5A1D70Z Performance of Urinary Filtration, Intermittent, Less than 6 Hours Per Day (ICD-10-PCS; 2020-01-23)
PROC: 5A1D70Z Performance of Urinary Filtration, Intermittent, Less than 6 Hours Per Day (ICD-10-PCS; 2020-01-25)
DX: I21.4 Non-ST elevation (NSTEMI) myocardial infarction (principal); N18.6 End stage renal disease; A41.9 Sepsis, unspecified organism; R65.21 Severe sepsis with septic shock; K72.00 Acute and subacute hepatic failure without coma; I42.9 Cardiomyopathy, unspecified; I69.351 Hemiplegia and hemiparesis following cerebral infarction affecting right dominant side; L97.422 Non-pressure chronic ulcer of left heel and midfoot with fat layer exposed; E46 Unspecified protein-calorie malnutrition; I13.0 Hypertensive heart and chronic kidney disease with heart failure and stage 1 through stage 4 chronic kidney disease, or unspecified chronic kidney disease; R57.0 Cardiogenic shock; E11.22 Type 2 diabetes mellitus with diabetic chronic kidney disease; I49.01 Ventricular fibrillation; K21.9 Gastro-esophageal reflux disease without esophagitis; I25.10 Atherosclerotic heart disease of native coronary artery without angina pectoris; Z66 Do not resuscitate; I48.0 Paroxysmal atrial fibrillation; F03.90 Unspecified dementia, unspecified severity, without behavioral disturbance, psychotic disturbance, mood disturbance, and anxiety; E11.51 Type 2 diabetes mellitus with diabetic peripheral angiopathy without gangrene; E87.6 Hypokalemia; D63.1 Anemia in chronic kidney disease; F32.9 Major depressive disorder, single episode, unspecified; E11.621 Type 2 diabetes mellitus with foot ulcer; Z20.828 Contact with and (suspected) exposure to other viral communicable diseases; Z89.511 Acquired absence of right leg below knee; I50.9 Heart failure, unspecified; Z99.2 Dependence on renal dialysis; Z85.528 Personal history of other malignant neoplasm of kidney; I25.2 Old myocardial infarction; E83.51 Hypocalcemia; Z88.8 Allergy status to other drugs, medicaments and biological substances; Z79.01 Long term (current) use of anticoagulants; Z95.5 Presence of coronary angioplasty implant and graft; Z79.4 Long term (current) use of insulin; Z79.899 Other long term (current) drug therapy; I46.9 Cardiac arrest, cause unspecified
CPT/HCPCS: 36415; 36556; 70450; 71045; 74018; 80048; 80053; 81001; 82330; 82533; 82550; 82553; 82803; 83605; 83735; 84132; 84484; 85025; 85610; 85730; 87040; 87070; 87075; 87077; 87186; 87205; 87324; 87449; 87635; 93005; 93010; 93306; 94002; 94003; 96374; 96375; 99291; 99292; J0610; C9113; C9803; J0171; J0282; J0461; J0692; J1644; J1815; J2020; J2370; J3475; J3480; J3490; J7030; J7060; Q5105